=== PATIENT | male | born 1935 | race Hispanic/Latino ===

== ENCOUNTER 2018-05-24 20:26 | Emergency (ER) | payer OTHER ==
--- OUTSIDE RECORDS SUMMARY | 2018-05-24 20:27 | XMS REPORT | Clinical Summary ---
:1935 Author Organization [facility] Address [address] [place] [id number] Care Team Providers Name Role Phone Asked, No Pcp Primary Care Provider Unavailable Allergies Active Allergy Reactions Severity Noted Date Comments Morphine Anxiety Low 05/08/2016 Tetanus And Diphtheria Toxoids Other (See Comments) 05/08/2016 Restlessness Current Medications Prescription Sig. Disp. Refills Start Date End Date Status lisinopril Take 10 mg by Active (PRINIVIL,ZESTRIL) 10 MG mouth daily. tablet pantoprazole (PROTONIX) 40 Take 40 mg by Active MG EC tablet mouth daily. glimepiride (AMARYL) 2 MG Take 2 mg by mouth Active tablet 2 (two) times a day. Active Problems Not on file Family History Medical History Relation Name Comments Kidney disease Brother Liver cancer Mother Relation Name Status Comments Brother Mother Social History Tobacco Use Types Packs/Day Years Used Date Never Assessed Sex Assigned at Date Recorded Not on file Last Filed Vital Signs Not on file Plan of Treatment Not on file Results Not on fileafter 05/23/2017 Insurance Payer Benefit Plan / Group Subscriber ID Type Phone Address MEDICARE MEDICARE PART A AND B xxxxxxxxxx Medicare [place], [place] Home: [phone] [place], [place] [id number]
--- NOTE | 2018-05-24 22:12 | RAD REPORT ---
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 No fr acture, dislocation or aggressive marrow lesion. Heavily calcified pleural plaques are present on the left.
--- NOTE | 2018-05-24 23:25 | EDPHYS ---
Physician Documentation [facility] Name: Abhijit Peralta Age: 83 yrs Sex: Male : 1935 Arrival Date: 05/24/2018 Time: 20:26 Bed 12 Private MD: Oniel Adams R ED Physician Rao Hdz HPI: 05/24 23:07 This 83 yrs old Male presents to ER via Ambulatory with complaints of Shoulder pkl Pain, Numbness. 23:17 The patient or guardian complains of pain, that is acute. left shoulder. Onset: The pkl symptoms/episode began/occurred this morning. Historical: - Allergies: 20:54 Tetanus Immune Globulin; aj1 20:54 Morphine; aj1 - Home Meds: 20:54 Namenda 10 mg Oral tab 1 tab 2 times per day [Active]; aj1 - PMHx: 20:54 Dementia; Diabetes - NIDDM; gastric ulcers; Hypertension; LYMPHOMA; Prostate Cancer; aj1 Stomach CA - in remission; - Immunization history:: Flu vaccine is up to date. - Social history:: Smoking status: Patient/guardian denies using tobacco. - Ebola Screening: : Patient denies travel to an Ebola-affected area in the 21 days before illness onset. ROS: 23:17 Eyes: Negative for injury, pain, redness, and discharge, ENT: Negative for injury, pkl pain, and discharge, Neck: Negative for injury, pain, and swelling, Cardiovascular: Negative for chest pain, palpitations, and edema, Respiratory: Negative for shortness of breath, cough, wheezing, and pleuritic chest pain, Abdomen/GI: Negative for abdominal pain, nausea, vomiting, diarrhea, and constipation, Back: Negative for injury and pain, : Negative for injury, bleeding, discharge, and swelling, Skin: Negative for injury, rash, and discoloration, Neuro: Negative for headache, weakness, numbness, tingling, and seizure. 23:17 MS/extremity: Positive for decreased range of motion, pain, of the left shoulder. Exam: 23:17 Head/Face: Normocephalic, atraumatic. Eyes: Pupils equal round and reactive to light, pkl extra-ocular motions intact. Lids and lashes normal. Conjunctiva and sclera are non-icteric and not injected. Cornea within normal limits. Periorbital areas with no swelling, redness, or edema. ENT: Nares patent. No nasal discharge, no septal abnormalities noted. Tympanic membranes are normal and external auditory canals are clear. Oropharynx with no redness, swelling, or masses, exudates, or evidence of obstruction, uvula midline. Mucous membranes moist. Neck: Trachea midline, no thyromegaly or masses palpated, and no cervical lymphadenopathy. Supple, full range of motion without nuchal rigidity, or vertebral point tenderness. No Meningismus. Chest/axilla: Normal chest wall appearance and motion. Nontender with no deformity. No lesions are appreciated. Cardiovascular: Regular rate and rhythm with a normal S1 and S2. No gallops, murmurs, or rubs. Normal PMI, no JVD. No pulse deficits. Respiratory: Lungs have equal breath sounds bilaterally, clear to auscultation and percussion. No rales, rhonchi or wheezes noted. No increased work of breathing, no retractions or nasal flaring. Abdomen/GI: Soft, non-tender, with normal bowel sounds. No distension or tympany. No guarding or rebound. No evidence of tenderness throughout. Back: No spinal tenderness. No costovertebral tenderness. Full range of motion. Skin: Warm, dry with normal turgor. Normal color with no rashes, no lesions, and no evidence of cellulitis. Neuro: Awake and alert, GCS 15, oriented to person, place, time, and situation. Cranial nerves II-XII grossly intact. Motor strength 5/5 in all extremities. Sensory grossly intact. Cerebellar exam normal. Normal gait. 23:17 Musculoskeletal/extremity: Extremities: grossly normal except: noted in the left shoulder: decreased ROM, pain, Unable abduct left shoulder. Vital Signs: 20:54 BP 157 / 82; Pulse 69; Resp 18; Temp 97.8(TE); Pulse Ox 98% on R/A; Weight 73.03 kg aj1 (R); Pain 7/10; 21:40 BP 174 / 82; Pulse 64; Resp 18; Temp 98.5(O); Pain 10/10; lc1 22:50 BP 164 / 75; Pulse 58; Resp 18; Temp 97.9(O); lc1 23:50 BP 162 / 78; Pulse 58; Resp 18; Temp 97.9(O); lc1 MDM: 23:06 Patient medically screened. pk 23:21 Data reviewed: vital signs, nurses notes, EKG, radiologic studies, plain films. [facility] 05/24 20:56 Order name: XRAY Shoulder LEFT 2 view; Complete Time: 22:35 [facility] 05/24 22:36 Order name: EKG; Complete Time: 22:36 [facility] 05/24 22:36 Order name: EKG - Nurse/Tech; Complete Time: 01:02 [facility] 05/24 23:26 Order name: Sling; Complete Time: 00:12 pk Administered Medications: 23:41 Drug: Demerol 50 mg Route: IM; Site: right deltoid; [facility] 05/25 00:10 Follow up: Response: No adverse reaction [facility] 05/24 23:41 Drug: Zofran 4 mg Route: IM; Site: right deltoid; [facility] 05/25 00:09 Follow up: Response: No adverse reaction [facility] Disposition: 05/24/18 23:24 Discharged to Home. Impression: Left frozen shoulder. - Condition is Stable. - Prescriptions for Ultram 50 mg Oral Tablet - take 1 tablet by ORAL route every 8 hours As needed; 30 tablet. Diclofenac Sodium 75 mg Oral Tablet Sustained Release - take 1 tablet by ORAL route 2 times per day; 30 tablet. - Medication Reconciliation Form, Thank You Letter, Antibiotic Education, Prescription Opioid Use form. - Follow up: Aditya Willoughby MD; When: 2 - 3 days; Reason: Re-evaluation by your physician. - Problem is new. - Symptoms are unchanged. Signatures: Dispatcher [employer] [facility] Philomena Verduzoc RN RN aj1 Rao Hdz MD MD l Génesis Warren, SHELL PRESS OPERATOR-C SHELL PRESS OPERATOR-Csnw Vivienne Chew 1 Corrections: (The following items were deleted from the chart) 05/24 23:18 22:36 Chest Pa And Lat (2 Views)+RAD.RAD.[email or web address] ordered. [facility] 05/25 00:12 05/24 23:24 05/24/2018 23:24 Discharged to Home. Impression: Left frozen shoulder. 1 Condition is Stable. Forms are Medication Reconciliation Form, Thank You Letter, Antibiotic Education, Prescription Opioid Use. Follow up: Aditya Willoughby; When: 2 - 3 days; Reason: Re-evaluation by your physician. Problem is new. Symptoms are unchanged. pkl
--- NOTE | 2018-05-24 23:25 | ER ---
Nurse's Notes [facility] Name: Abhijit Peralta Age: 83 yrs Sex: Male : 1935 Arrival Date: 05/24/2018 Time: 20:26 Bed 12 Private MD: Oniel Adams R Diagnosis: Left frozen shoulder Presentation: 05/24 20:52 Presenting complaint: Patient states: He woke up from his nap with pain in his left aj1 shoulder, now he is unable to lift it and his hand feels numb. Limited ROM to left shoulder. Transition of care: patient was not received from another setting of care. Onset of symptoms was May 24, 2018 at 19:00. Risk Assessment: Do you want to hurt yourself or someone else? Patient reports no desire to harm self or others. Initial Sepsis Screen: Does the patient meet any 2 criteria? No. Patient's initial sepsis screen is negative. Does the patient have a suspected source of infection? No. Patient's initial sepsis screen is negative. Care prior to arrival: None. 20:52 Method Of Arrival: [facility] 20:52 Acuity: RAVI 4 aj1 Triage Assessment: 20:54 General: Appears in no apparent distress. uncomfortable, Behavior is calm, cooperative, aj1 appropriate for age. Pain: Complains of pain in anterior aspect of left shoulder and posterior aspect of left shoulder Pain currently is 7 out of 10 on a pain scale. Neuro: Level of Consciousness is awake, alert, obeys commands. Cardiovascular: Patient's skin is warm and dry. Respiratory: Airway is patent Respiratory effort is even, unlabored, Respiratory pattern is regular, symmetrical. Musculoskeletal: Range of motion: limited in left shoulder. Historical: - Allergies: 20:54 Tetanus Immune Globulin; aj1 20:54 Morphine; aj1 - Home Meds: 20:54 Namenda 10 mg Oral tab 1 tab 2 times per day [Active]; aj1 - PMHx: 20:54 Dementia; Diabetes - NIDDM; gastric ulcers; Hypertension; LYMPHOMA; Prostate Cancer; aj1 Stomach CA - in remission; - Immunization history:: Flu vaccine is up to date. - Social history:: Smoking status: Patient/guardian denies using tobacco. - Ebola Screening: : Patient denies travel to an Ebola-affected area in the 21 days before illness onset. Screenin:53 Abuse screen: Denies threats or abuse. Nutritional screening: No deficits noted. lc1 Tuberculosis screening: No symptoms or risk factors identified. Fall Risk None identified. Assessment: 21:40 Derm: Wound noted left arm Other: abrasion. lc1 22:43 General: Appears uncomfortable. Pain: Complains of pain in left shoulder and left arm lc1 and posterior aspect of left shoulder and anterior aspect of left shoulder Pain currently is 10 out of 10 on a pain scale. Pain began Today after waking up from his nap. Neuro: No deficits noted. Cardiovascular: No deficits noted. Respiratory: No deficits noted. GI: No deficits noted. GI: No deficits noted. No signs and/or symptoms were reported involving the gastrointestinal system. : No signs and/or symptoms were reported regarding the genitourinary system. EENT: No signs and/or symptoms were reported regarding the EENT system. Derm: No deficits noted. No signs and/or symptoms reported regarding the dermatologic system. Musculoskeletal: Reports numbness in left shoulder and left arm and posterior aspect of left shoulder and anterior aspect of left shoulder decreased ROM. Vital Signs: 20:54 BP 157 / 82; Pulse 69; Resp 18; Temp 97.8(TE); Pulse Ox 98% on R/A; Weight 73.03 kg aj1 (R); Pain 7/10; 21:40 BP 174 / 82; Pulse 64; Resp 18; Temp 98.5(O); Pain 10/10; lc1 22:50 BP 164 / 75; Pulse 58; Resp 18; Temp 97.9(O); lc1 23:50 BP 162 / 78; Pulse 58; Resp 18; Temp 97.9(O); lc1 ED Course: 20:26 Patient arrived in ED. es 20:27 Oniel Adams MD is Private Physician. es 20:54 Triage completed. aj1 20:54 Arm band placed on Patient placed in waiting room, Patient notified of wait time. aj1 21:41 Vivienne Chew is Primary Nurse. lc1 21:58 Patient moved to radiology via wheelchair. bb2 21:59 XRAY Shoulder LEFT 2 view In Process Unspecified. EDMS 22:50 Awaiting radiology results. lc1 22:53 Patient has correct armband on for positive identification. Bed in low position. lc1 23:06 Rao Hdz MD is Attending Physician. pkl 23:24 Aditya Willoughby MD is Referral Physician. pkl 05/25 00:10 Patient has correct armband on for positive identification. Bed in low position. Adult lc1 w/ patient. 00:10 No provider procedures requiring assistance completed. Patient did not have IV access lc1 during this emergency room visit. Sling applied to left arm. Administered Medications: 05/24 23:41 Drug: Demerol 50 mg Route: IM; Site: right deltoid; lc1 05/25 00:10 Follow up: Response: No adverse reaction lc1 05/24 23:41 Drug: Zofran 4 mg Route: IM; Site: right deltoid; lc1 05/25 00:09 Follow up: Response: No adverse reaction lc1 Outcome: 05/24 23:24 Discharge ordered by . pkl 05/25 00:10 Discharged to home via wheelchair, with family. lc1 Condition: good Discharge instructions given to patient, significant other, Instructed on discharge instructions, follow up and referral plans. medication usage, Demonstrated understanding of instructions, follow-up care, medications, Prescriptions given X 2. 00:12 Patient left the ED. lc1 Signatures: Dispatcher [employer] Philomena Ivy RN RN aj1 Rao Hdz MD MD pkl Salyer, Edna es Calhoun, Lisa lc1 Eunice Ballard2
[2018-05-24] MEDS ORDERED: MEPERIDINE HCL 50 MG/ML AMP ONE (23:27)
[2018-05-24] MEDS ORDERED: ONDANSETRON 4 MG/2 ML VIAL ONE (23:27)
[2018-05-25 00:36] VITALS: O2SAT 98
[2018-05-25 00:38] VITALS: TEMP 97.9
[2018-05-25 00:39] VITALS: BP 162/78
--- NOTE | 2018-05-25 07:14 | EKG ---
Test Date: 2018-05-24 Test Time: 23:29:30 Dance Hall Hostess: REGAN MEASUREMENT RESULTS: Intervals: Rate: 57 WY: 206 QRSD: 80 QT: 418 QTc: 406 [place]: P: 57 WY: 206 QRS: -36 T: -20 INTERPRETIVE STATEMENTS: Sinus bradycardia Left axis deviation Abnormal ECG Compared to ECG 10/14/2017 12:59:15 Left-axis deviation now present Atrial premature complex(es) no longer present Electronically Signed On 05-25-18 07:13:44 CDT by Zacarias Hayes
== END 2018-05-25 00:12 | disposition home or self-care (01) ==
LOC: ER 20:26
DX: M75.02 Adhesive capsulitis of left shoulder (principal); I10 Essential (primary) hypertension; E11.9 Type 2 diabetes mellitus without complications; Z88.5 Allergy status to narcotic agent; Z88.7 Allergy status to serum and vaccine; Z85.46 Personal history of malignant neoplasm of prostate; Z85.028 Personal history of other malignant neoplasm of stomach
CPT/HCPCS: 73030; 93005; 96372; 99284; J2175; J2405

== ENCOUNTER 2018-06-08 09:45 | Emergency (ER) | payer OTHER ==
--- OUTSIDE RECORDS SUMMARY | 2018-06-08 09:47 | XMS REPORT | Clinical Summary ---
:1935 Author Organization [facility] Address [address] [place] [id number] Care Team Providers Name Role Phone Asked, [...] Not on file Results Not on fileafter 06/07/2017 Insurance Payer Benefit Plan / Group Subscriber ID Type Phone Address MEDICARE MEDICARE PART A AND B xxxxxxxxxx Medicare [place], [place] Home: [phone] [place], [place] [address]
--- NOTE | 2018-06-08 11:06 | RAD REPORT ---
EXAM DESCRIPTION: CT - Head Brain Wo Cont - 06/08/2018 10:51 am CLINICAL HISTORY: HEADACHE COMPARISON: None TECHNIQUE: All CT scans are performed using dose optimization technique as appropriate and may inclu de automated exposure control or mA/KV adjustment according to patient size. FINDINGS: No intracranial hemorrhage, hydrocephalus or extra-axial fluid collection.Prominent brain atrophy is noted, greatest in the frontal lobes.No areas of brain edema or evidence of midline shift. Chronic thickening of the left maxillary sinuses noted. The paranasal sinuses and mastoids are otherw ise clear. The calvarium is intact. IMPRESSION: No acute intracranial abnormality.
--- NOTE | 2018-06-08 11:19 | RAD REPORT ---
EXAM DESCRIPTION: RAD - Chest Pa And Lat (2 Views) - 06/08/2018 11:13 am CLINICAL HISTORY: COUGH Chest pain. COMPARISON: Chest Pa And Lat (2 Views) dated 11/10/2017; Chest Single View dated 10/14/2017; Chest Si ngle View dated 04/13/2017; Chest Single View dated 09/03/2016 FINDINGS: Extensive calcified pleural plaquing is present bilaterally most compatible prior asbestos exposure. Subsegmental atelectasis is present left lung base. A focal infiltrate is not seen. The he art is normal in size. No displaced fractures. Mild degenerative changes are present both shoulders. IMPRESSION: Extensive bilateral calcified pleural plaquing compatible with prior asbestos exposure. No definitive evidence of focal pulmonary infiltrate.
[2018-06-08 11:31] LABS: Absolute Monocytes 0.8 K/uL (0.1-1.3); Absolute Neutrophil 7.6 K/uL (1.8-8.0); Basophils % 0.4 % (0-1.3); Hematocrit 40.9 % (39.6-49.0); Lymphocytes % 18.6 % (15.3-44.8); MCH 29.5 pg (27.0-35.0); MCV 88.9 fL (80-100); MPV 8.9 fL (7.6-11.3); Monocytes % 7.1 % (3.3-12.3)
[2018-06-08 11:55] LABS: Albumin 3.2 g/dL (3.4-5.0); Bilirubin Total 0.4 mg/dL (0.2-1.0); Potassium 4.8 mmol/L (3.5-5.1); Protein, Total 7.2 g/dL (6.4-8.2)
[2018-06-08] MEDS ORDERED: NA CHLORIDE 0.9% 1,000 ML ONE (12:13)
--- NOTE | 2018-06-08 12:28 | ER ---
Nurse's Notes [facility] Name: Abhijit Peralta Age: 83 yrs Sex: Male : 1935 Arrival Date: 06/08/2018 Time: 09:46 Bed 20 Private MD: Diagnosis: Streptococcal pharyngitis Presentation: 06/08 10:04 Presenting complaint: Patient states: Cough, sore throat, and headache since yesterday. aj1 Reports he was unable to sleep last night because of the cough. Denies fever, SOB. Transition of care: patient was not received from another setting of care. Onset of symptoms was June 07, 2018. Risk Assessment: Do you want to hurt yourself or someone else? Patient reports no desire to harm self or others. Initial Sepsis Screen: Does the patient meet any 2 criteria? No. Patient's initial sepsis screen is negative. Initial Sepsis Screen: Does the patient have a suspected source of infection? Yes: Productive cough/pneumonia. Care prior to arrival: None. 10:04 Method Of Arrival: Ambulatory aj1 10:04 Acuity: RAVI 4 aj1 Triage Assessment: 10:07 General: Appears in no apparent distress. comfortable, Behavior is calm, cooperative, aj1 appropriate for age. Pain: Complains of pain in forehead, left aspect of posterior pharynx and right aspect of posterior pharynx Pain currently is 3 out of 10 on a pain scale. EENT: Reports nasal congestion nasal discharge sore throat. Neuro: Level of Consciousness is awake, alert, obeys commands. Cardiovascular: Patient's skin is warm and dry. Respiratory: Airway is patent Respiratory effort is even, unlabored, Respiratory pattern is regular, symmetrical, Denies shortness of breath. Historical: - Allergies: 10:07 Morphine; aj1 10:07 Tetanus Immune Globulin; aj1 - Home Meds: 10: Namenda 10 mg Oral tab 1 tab 2 times per day [Active]; aj1 12:20 omeprazole 40 mg Oral cpDR [Active]; amlodipine 2.5 mg tab 1 tab once daily [Active]; em Zofran (as hydrochloride) 4 mg Oral tab as needed [Active]; pravastatin 20 mg oral tab 1 tab once daily [Active]; - PMHx: 10:07 Dementia; Diabetes - NIDDM; gastric ulcers; Hypertension; LYMPHOMA; Prostate Cancer; aj1 Stomach CA - in remission; - Immunization history:: Flu vaccine is not up to date. - Social history:: Smoking status: Patient/guardian denies using tobacco. - Ebola Screening: : Patient denies travel to an Ebola-affected area in the 21 days before illness onset. Screenin:30 Abuse screen: Denies threats or abuse. Nutritional screening: No deficits noted. em Tuberculosis screening: No symptoms or risk factors identified. Fall Risk None identified. Assessment: 10:25 General: Appears in no apparent distress. comfortable, Behavior is calm, cooperative. em Pain: Complains of pain in forehead Pain currently is 3 out of 10 on a pain scale. Neuro: Level of Consciousness is awake, alert, obeys commands, Oriented to person, place, time, situation. Cardiovascular: Denies chest pain, nausea, shortness of breath, Capillary refill < 3 seconds Patient's skin is warm and dry. Respiratory: Reports cough that is non-productive, Airway is patent Respiratory effort is even, unlabored, Respiratory pattern is regular, symmetrical. GI: Abdomen is flat, Patient currently denies diarrhea, nausea, vomiting. : No signs and/or symptoms were reported regarding the genitourinary system. EENT: No signs and/or symptoms were reported regarding the EENT system. Derm: Skin is intact, Skin is pink, warm \T\ dry. Musculoskeletal: Range of motion: intact in all extremities. 10:26 Reassessment: I agree with previous assessment. hb 11:25 Reassessment: Patient appears in no apparent distress at this time. Patient and/or em family updated on plan of care and expected duration. Pain level reassessed. Patient is alert, oriented x 3, equal unlabored respirations, skin warm/dry/pink. Patient states feeling better. 12:30 Reassessment: Patient appears in no apparent distress at this time. Patient and/or em family updated on plan of care and expected duration. Pain level reassessed. Patient is alert, oriented x 3, equal unlabored respirations, skin warm/dry/pink. Patient states feeling better. Vital Signs: 10:07 BP 162 / 78; Pulse 62; Resp 18; Temp 98.1(O); Pulse Ox 99% on R/A; Weight 76.66 kg (R); aj1 Height 5 ft. 6 in. (167.64 cm) (R); Pain 3/10; 11:25 BP 165 / 71; Pulse 58; Resp 16; Pulse Ox 99% on R/A; em 12:30 BP 157 / 64; Pulse 60; Resp 18; Pulse Ox 98% on R/A; em 10:07 Body Mass Index 27.28 (76.66 kg, 167.64 cm) aj1 ED Course: 09:46 Patient arrived in ED. sb2 10:06 Triage completed. aj1 10:07 Arm band placed on Patient placed in an exam room. aj1 10:11 Conner Manning, JOHNNY is PHCP. pm1 10:11 Flako Sousa MD is Attending Physician. pm1 10:29 Spencer Andrews LVN is Primary Nurse. em 10:30 Patient has correct armband on for positive identification. Bed in low position. Call em light in reach. Side rails up X2. Adult w/ patient. 10:30 No provider procedures requiring assistance completed. em 10:33 First set of blood cultures drawn by me. dh3 10:33 Missed attempt(s): 20 gauge in left antecubital area. Bleeding controlled, band aid dh3 applied, catheter tip intact. 10:48 Second set of blood cultures drawn by me. dh3 10:48 Missed attempt(s): 20 gauge in right antecubital area. Bleeding controlled, band aid dh3 applied, catheter tip intact. 10:50 CT completed. Patient moved to CT via wheelchair. Patient moved back from CT. cw1 10:51 CT Head Brain wo Cont In Process Unspecified. EDMS 11:05 Initial lab(s) drawn, by ED staff, sent to lab. Inserted saline lock: 20 gauge in left 3 antecubital area, using aseptic technique. Blood collected. by Spencer Andrews LVN. 11:06 Flu and/or RSV swab sent to lab. Strep swab sent to lab. dh3 11:12 Chest Pa And Lat (2 Views) XRAY In Process Unspecified. EDMS 13:19 IV discontinued, intact, bleeding controlled, No redness/swelling at site. Pressure em dressing applied. Administered Medications: 12:16 Drug: NS 0.9% 1000 ml Route: IV; Rate: 1000 ml; Site: left antecubital; em 12:50 Drug: Bicillin L-A 1.2 million units Route: IM; Site: right gluteus; em 13:11 Follow up: Response: No adverse reaction em Outcome: 12:27 Discharge ordered by . pm1 13:19 Discharged to home ambulatory, with family. em 13:19 Condition: good 13:19 Discharge instructions given to patient, Instructed on discharge instructions, follow up and referral plans. Demonstrated understanding of instructions, follow-up care. 13:20 Patient left the ED. em Signatures: Dispatcher [employer] EDPhilomena Arroyo RN RN aj1 Spencer Andrews, HOTEL FRONT DESK CLERK HOTEL FRONT DESK CLERK Valeria Adams 1 Conner Manning NP LIBRARY CUSTOMER SERVICE CLERK pm1 Leda Cuortney RN RN Iqra Washburn 3 Mikaela Lakhani sb2 Corrections: (The following items were deleted from the chart) 13:19 13:19 Patient did not have IV access during this emergency room visit. em em 19:24 13:30 BP 160 / 67; Pulse 64bpm; Resp 16bpm; Pulse Ox 97% RA; Pain 0/10; em em
--- NOTE | 2018-06-08 12:28 | EDPHYS ---
Physician Documentation [facility] Name: Abhijit Peralta Age: 83 yrs Sex: Male : 1935 Arrival Date: 06/08/2018 Time: 09:46 Bed 20 Private MD: ED Physician Flako Sousa HPI: 06/08 11:52 This 83 yrs old Male presents to ER via Ambulatory with complaints of Sore pm1 throat, cough, headache. 11:54 The patient presents with sore throat, cough, headache. The patient describes throat pm1 pain as raw, scratchy. Onset: The symptoms/episode began/occurred yesterday. Severity of symptoms: in the emergency department the symptoms are unchanged. Modifying factors: The symptoms are alleviated by nothing, the symptoms are aggravated by nothing, Patient's oral intake status: good unaware of sick contact. Associated signs and symptoms: Pertinent positives: headache, Dry cough, Pertinent negatives chest pain, dysphagia, fever, shortness of breath, chills. Patient's cancer is in remission. Historical: - Allergies: 10:07 Morphine; aj1 10:07 Tetanus Immune Globulin; aj1 - Home Meds: 10:07 Namenda 10 mg Oral tab 1 tab 2 times per day [Active]; aj1 12:20 omeprazole 40 mg Oral cpDR [Active]; amlodipine 2.5 mg tab 1 tab once daily [Active]; em Zofran (as hydrochloride) 4 mg Oral tab as needed [Active]; pravastatin 20 mg oral tab 1 tab once daily [Active]; - PMHx: 10:07 Dementia; Diabetes - NIDDM; gastric ulcers; Hypertension; LYMPHOMA; Prostate Cancer; aj1 Stomach CA - in remission; - Immunization history:: Flu vaccine is not up to date. - Social history:: Smoking status: Patient/guardian denies using tobacco. - Ebola Screening: : Patient denies travel to an Ebola-affected area in the 21 days before illness onset. ROS: 11:54 Constitutional: Negative for fever, chills, and weight loss, Eyes: Negative for injury, pm1 pain, redness, and discharge, Neck: Negative for injury, pain, and swelling, Cardiovascular: Negative for chest pain, palpitations, and edema. 11:54 Abdomen/GI: Negative for abdominal pain, nausea, vomiting, diarrhea, and constipation, Back: Negative for injury and pain, MS/Extremity: Negative for injury and deformity, Skin: Negative for injury, rash, and discoloration. 11:54 : Negative for injury, bleeding, discharge, and swelling. 11:54 ENT: Positive for sore throat, Negative for drainage from ear(s), ear pain, rhinorrhea, sinus congestion, dental pain, difficulty swallowing, difficulty handling secretions, hoarseness. 11:54 Respiratory: Positive for cough, Negative for shortness of breath, sputum production, wheezing. 11:54 Neuro: Positive for headache, Negative for dizziness, numbness, tingling, weakness. Exam: 11:54 Constitutional: This is a well developed, well nourished patient who is awake, alert, pm1 and in no acute distress. Head/Face: Normocephalic, atraumatic. Eyes: Pupils equal round and reactive to light, extra-ocular motions intact. Lids and lashes normal. Conjunctiva and sclera are non-icteric and not injected. Cornea within normal limits. Periorbital areas with no swelling, redness, or edema. 11:54 Neck: Trachea midline, no thyromegaly or masses palpated, and no cervical lymphadenopathy. Supple, full range of motion without nuchal rigidity, or vertebral point tenderness. No Meningismus. Chest/axilla: Normal chest wall appearance and motion. Nontender with no deformity. No lesions are appreciated. Cardiovascular: Regular rate and rhythm with a normal S1 and S2. No gallops, murmurs, or rubs. Normal PMI, no JVD. No pulse deficits. Respiratory: Lungs have equal breath sounds bilaterally, clear to auscultation and percussion. No rales, rhonchi or wheezes noted. No increased work of breathing, no retractions or nasal flaring. Abdomen/GI: Soft, non-tender, with normal bowel sounds. No distension or tympany. No guarding or rebound. No evidence of tenderness throughout. Back: No spinal tenderness. No costovertebral tenderness. Full range of motion. Skin: Warm, dry with normal turgor. Normal color with no rashes, no lesions, and no evidence of cellulitis. MS/ Extremity: Pulses equal, no cyanosis. Neurovascular intact. Full, normal range of motion. 11:54 ENT: External ear(s): are unremarkable, Ear canal(s): are normal, TM's: are normal, Nose: is normal, no acute changes, Mouth: is normal, drooling, is not appreciated, No trismus present, Posterior pharynx: Airway: normal, no evidence of obstruction, patent, Tonsils: bilaterally enlarged, with erythema, no exudate, no ulcerations, swelling, is not appreciated, erythema, that is mild, exudate, is not appreciated, peritonsillar mass, is not appreciated, pooling of secretions, is not appreciated. 11:54 Neuro: Orientation: is normal, Motor: moves all fours. Vital Signs: 10:07 BP 162 / 78; Pulse 62; Resp 18; Temp 98.1(O); Pulse Ox 99% on R/A; Weight 76.66 kg (R); aj1 Height 5 ft. 6 in. (167.64 cm) (R); Pain 3/10; 11:25 BP 165 / 71; Pulse 58; Resp 16; Pulse Ox 99% on R/A; em 12:30 BP 157 / 64; Pulse 60; Resp 18; Pulse Ox 98% on R/A; em 10:07 Body Mass Index 27.28 (76.66 kg, 167.64 cm) aj1 MDM: 10:12 Patient medically screened. pm1 11:54 Data reviewed: vital signs. Data interpreted: Pulse oximetry: on. pm1 12:27 Counseling: I had a detailed discussion with the patient and/or guardian regarding: the pm1 historical points, exam findings, and any diagnostic results supporting the discharge/admit diagnosis, lab results, radiology results, the need for outpatient follow up, to return to the emergency department if symptoms worsen or persist or if there are any questions or concerns that arise at home. 12:30 Differential diagnosis: group A strep tonsillitis, influenza, tonsillitis, upper pm1 respiratory infection, Pneumonia. 13:30 ED course: Patient ate whole regular diet tray and completed IV fluids. Patient wants pm1 to go home to continue working on his lawn. 06/08 10:22 Order name: CBC with Diff; Complete Time: 11:49 pm1 06/08 10:22 Order name: CMP; Complete Time: 12:05 pm1 06/08 10:22 Order name: Chest Pa And Lat (2 Views) XRAY; Complete Time: 11:22 pm1 06/08 10:22 Order name: Strep; Complete Time: 11:49 pm1 06/08 10:22 Order name: Flu; Complete Time: 11:49 pm1 06/08 10:22 Order name: Blood Culture Adult (2) pm1 06/08 10:22 Order name: IV Saline Lock; Complete Time: 11:06 pm1 06/08 10:22 Order name: CT Head Brain wo Cont; Complete Time: 11:22 pm1 06/08 12:07 Order name: Diet Regular; Complete Time: 12:08 pm1 Administered Medications: 12:16 Drug: NS 0.9% 1000 ml Route: IV; Rate: 1000 ml; Site: left antecubital; em 12:50 Drug: Bicillin L-A 1.2 million units Route: IM; Site: right gluteus; em 13:11 Follow up: Response: No adverse reaction em Disposition: 14:09 Co-signature as Attending Physician, Flako Sousa MD. rn Disposition: 06/08/18 12:27 Discharged to Home. Impression: Streptococcal pharyngitis. - Condition is Stable. - Discharge Instructions: Strep Throat. - Medication Reconciliation Form, Thank You Letter, Antibiotic Education, Prescription Opioid Use form. - Follow up: Emergency Department; When: As needed; Reason: Worsening of condition. Follow up: Private Physician; When: 2 - 3 days; Reason: Recheck today's complaints, Continuance of care, Re-evaluation by your physician. - Problem is new. - Symptoms have improved. Signatures: Dispatcher [employer] Philomena Ivy RN RN aj1 Spencer Andrews, NUCLEAR PLANT TECHNICAL ADVISOR NUCLEAR PLANT TECHNICAL ADVISOR em Flako Sousa MD MD rn Marinas, Patrick, LEASE EXAMINER LEASE EXAMINER pm1 Corrections: (The following items were deleted from the chart) 13:20 12:27 06/08/2018 12:27 Discharged to Home. Impression: Streptococcal pharyngitis. em Condition is Stable. Discharge Instructions: Strep Throat. Prescriptions for Amoxicillin 500 mg Oral Capsule - take 1 capsule by ORAL route every 8 hours for 10 days; 30 tablet. and Forms are Medication Reconciliation Form, Thank You Letter, Antibiotic Education, Prescription Opioid Use. Follow up: Emergency Department; When: As needed; Reason: Worsening of condition. Follow up: Private Physician; When: 2 - 3 days; Reason: Recheck today's complaints, Continuance of care, Re-evaluation by your physician. Problem is new. Symptoms have improved. pm1
[2018-06-08] MEDS ORDERED: PEN G BENZ LA 2.4 MU/4 ML SYRINGE IM ONE (12:41)
[2018-06-08] MEDS ORDERED: PEN G BENZ LA 1.2MU/2ML SYRINGE IM ONE (12:44)
[2018-06-08 13:25] VITALS: TEMP 98.1; O2SAT 99
[2018-06-08 13:26] VITALS: BP 165/71
== END 2018-06-08 13:20 | disposition home or self-care (01) ==
LOC: ER 09:45
DX: J02.0 Streptococcal pharyngitis (principal); Z88.5 Allergy status to narcotic agent; Z88.8 Allergy status to other drugs, medicaments and biological substances; E11.9 Type 2 diabetes mellitus without complications; I10 Essential (primary) hypertension; Z85.46 Personal history of malignant neoplasm of prostate; Z85.028 Personal history of other malignant neoplasm of stomach
CPT/HCPCS: 36415; 70450; 71046; 80053; 85025; 87040 ×2; 87081; 87804 ×2; J0561; J7030; 96372; 99284

== ENCOUNTER 2018-11-08 08:12 | Emergency (ER) | payer OTHER ==
--- OUTSIDE RECORDS SUMMARY | 2018-11-08 08:14 | XMS REPORT | Clinical Summary ---
:1935 Author Organization [facility] Address [address] [place] [id number] Care Team Providers Name Role Phone Asked, No Pcp Primary Care Provider Unavailable Allergies Active Allergy Reactions Severity Noted Date Comments Morphine Anxiety Low 05/08/2016 Tetanus And Diphtheria Toxoids Other (See Comments) 05/08/2016 Restlessness Medications Medication Sig Dispensed Refills Start Date End Date Status lisinopril Take 10 mg by 0 Active (PRINIVIL,ZESTRIL) 10 MG mouth daily. tablet pantoprazole (PROTONIX) Take 40 mg by 0 Active 40 MG EC tablet mouth daily. glimepiride (AMARYL) 2 Take 2 mg by 0 Active MG tablet mouth 2 (two) times a day. Active Problems Not on file Family History Medical History Relation Name Comments Kidney disease Brother Liver cancer Mother Relation Name Status Comments Brother Mother Social History Tobacco Use Types Packs/Day Years Used Date Never Assessed Sex Assigned at Date Recorded Not on file Job Start Date Occupation Industry Not on file Not on file Not on file Travel History Travel Start Travel End No recent travel history available. Last Filed Vital Signs Not on file Plan of Treatment Not on file Results Not on fileafter 11/07/2017 Insurance Payer Benefit Plan / Group Subscriber ID Type Phone Address MEDICARE MEDICARE PART A AND B xxxxxxxxxx Medicare [place], [place] (Home) [place] [address] Advance Directives Patient has advance care planning documents on file. For more information, please contact:[address] [address]
[2018-11-08 08:54] LABS: Absolute Lymphocytes (CBC) 1.1 K/uL (0.7-4.9); Absolute Monocytes 0.5 K/uL (0.1-1.3); Absolute Neutrophil 3.8 K/uL (1.8-8.0); Basophils % 0.8 % (0-1.3); Eosinophils % 2.4 % (0-4.4); Hematocrit 41.7 % (39.6-49.0); Lymphocytes % 19.8 % (15.3-44.8); MPV 8.7 fL (7.6-11.3); Monocytes % 8.1 % (3.3-12.3)
[2018-11-08 09:15] LABS: Albumin 3.4 g/dL (3.4-5.0); Bilirubin Direct 0.1 mg/dL (0-0.2); Bilirubin Total 0.5 mg/dL (0.2-1.0); Potassium 4.3 mmol/L (3.5-5.1); Protein, Total 7.7 g/dL (6.4-8.2)
--- NOTE | 2018-11-08 10:22 | RAD REPORT ---
EXAM DESCRIPTION: CTAbdomen Pelvis W Contrast - 11/08/2018 10:09 am CLINICAL HISTORY: Abdominal pain. ABD PAIN COMPARISON: Abdomen Pelvis W Contrast dated 04/13/2017; CT ABD PELVIS W CONTRAST dated 07/14/2015; C T ABD PELVIS W CONTRAST dated 02/09/2014; CT ABD PELVIS W CONTRAST dated 08/05/2013 TECHNIQUE: Biphasic CT imaging of the abdomen and pelvis was performed with 100 ml non-ionic IV cont rast. All CT scans are performed using dose optimization technique as appropriate and may include automated exposure control or mA/KV adjustment according to patient size. FINDINGS: Linear subsegmental atelectasis versus scarring is present posterior lung bases.Calcified pleural plaques are present in both the lung bases. The liver contains a 2.4 cm benign-appearing cyst. No intrahepatic biliary dilatation or aggressive l iver lesion. The spleen, pancreas, left adrenal gland are normal. The right adrenal gland contains a 20 mm mass, likely a benign adenoma. Several small cortical cysts are present along the left kidney. No hydronephrosis. No bowel obstruction, free air, free fluid or abscess. Sigmoid diverticulosis coli is present without diverticulitis. The appendix is normal. No evidence of significant lymphadenopathy. Postsurgical ch anges are present along the pelvic sidewall. Moderate lumbosacral degenerative changes. Bilateral fat containing inguinal hernias. IMPRESSION: No acute intra-abdominal or pelvic finding. Diverticulosis coli without diverticulitis. Calcified pleural plaquing likely related to prior asbestos exposure.
[2018-11-08 10:56] LABS: Urine Bacteria <20 /HPF (NONE SEEN); Urine Culture Reflex Order NOT NEEDED; Urine RBC <5 /HPF (NONE SEEN)
[2018-11-08 11:01] LABS: Urine Blood TRACE (NEG); Urine Glucose NEGATIVE (NEG); Urine Protein 2+ (NEG)
--- NOTE | 2018-11-08 11:44 | ER ---
Nurse's Notes [facility] Name: Abhijit Peralta Age: 83 yrs Sex: Male : 1935 Arrival Date: 11/08/2018 Time: 08:15 Bed 6 Private MD: Oniel Adams R Diagnosis: Generalized abdominal pain Presentation: 11/08 08:32 Presenting complaint: Patient states: right sided abd pain X 3-4 days worse last night. iw pian aggravated by bending over, vomited 2-3 times since yesterday, denies diarrhea, also c/o burning with urination X 1 month. Transition of care: patient was not received from another setting of care. Onset of symptoms was November 05, 2018. Risk Assessment: Do you want to hurt yourself or someone else? Patient reports no desire to harm self or others. Initial Sepsis Screen: Does the patient meet any 2 criteria? No. Patient's initial sepsis screen is negative. Does the patient have a suspected source of infection? No. Patient's initial sepsis screen is negative. Care prior to arrival: None. 08:32 Method Of Arrival: Wheelchair iw 08:32 Acuity: RAVI 3 iw Historical: - Allergies: 08:32 Morphine; iw 08:32 Tetanus Immune Globulin; iw - Home Meds: 09:29 amlodipine 2.5 mg tab 1 tab once daily [Active]; Namenda 10 mg Oral tab 1 tab 2 times ph per day [Active]; omeprazole 40 mg Oral cpDR [Active]; pravastatin 20 mg Oral tab 1 tab once daily [Active]; Zofran (as hydrochloride) 4 mg Oral tab as needed [Active]; - PMHx: 08:32 Dementia; Diabetes - NIDDM; gastric ulcers; Hypertension; LYMPHOMA; Prostate Cancer; iw Stomach CA - in remission; - PSHx: 08:32 back; prostatectomy; iw - Immunization history:: Adult Immunizations not up to date. - Social history:: Smoking status: Patient/guardian denies using tobacco. - Ebola Screening: : Patient negative for fever greater than or equal to 101.5 degrees Fahrenheit, and additional compatible Ebola Virus Disease symptoms Patient denies exposure to infectious person Patient denies travel to an Ebola-affected area in the 21 days before illness onset No symptoms or risks identified at this time. Screenin:28 Abuse screen: Denies threats or abuse. Denies injuries from another. Nutritional ph screening: No deficits noted. Tuberculosis screening: No symptoms or risk factors identified. Fall Risk None identified. Assessment: 08:50 Reassessment: Pt completed PO contrast, CT notified. ph 09:00 General: Appears in no apparent distress. comfortable, well groomed, Behavior is calm, ph cooperative, appropriate for age, Denies fever, chills. Pain: Complains of pain in right upper quadrant and right lower quadrant. Neuro: Level of Consciousness is awake, alert, obeys commands, Oriented to person, place, time, situation. Cardiovascular: Capillary refill < 3 seconds in bilateral fingers Patient's skin is warm and dry. Respiratory: Airway is patent Respiratory effort is even, unlabored, Respiratory pattern is regular, symmetrical. GI: Abdomen is round non-distended, Bowel sounds present X 4 quads. Abd is soft X 4 quads Reports lower abdominal pain, upper abdominal pain, nausea, vomiting, Patient currently denies diarrhea. : Reports burning with urination, urinary frequency. Derm: Skin is intact, is healthy with good turgor, Skin is pink, warm \T\ dry. Musculoskeletal: Circulation, motion, and sensation intact. Range of motion: intact in all extremities. 10:15 Reassessment: Patient appears in no apparent distress at this time. No changes from aj1 previously documented assessment. Patient and/or family updated on plan of care and expected duration. Pain level reassessed. Patient is alert, oriented x 3, equal unlabored respirations, skin warm/dry/pink. 11:15 Reassessment: Patient appears in no apparent distress at this time. No changes from aj1 previously documented assessment. Patient and/or family updated on plan of care and expected duration. Pain level reassessed. Patient is alert, oriented x 3, equal unlabored respirations, skin warm/dry/pink. 12:02 Reassessment: Patient appears in no apparent distress at this time. Patient and/or iw family updated on plan of care and expected duration. Pain level reassessed. Patient is alert, oriented x 3, equal unlabored respirations, skin warm/dry/pink. Patient states feeling better. Patient states symptoms have improved. Vital Signs: 08:32 BP 164 / 78; Pulse 73; Resp 16 S; Pulse Ox 98% on R/A; Weight 65.77 kg; Height 5 ft. 2 iw in. (157.48 cm); Pain 5/10; 09:30 BP 167 / 80; Pulse 71; Resp 18; Pulse Ox 99% on R/A; ph 12:02 BP 154 / 74; Pulse 87; Resp 16; Pulse Ox 98% on R/A; iw 08:32 Body Mass Index 26.52 (65.77 kg, 157.48 cm) iw ED Course: 08:15 Patient arrived in ED. as 08:15 Oniel Adams MD is Private Physician. as 08:20 Carl Gonzalez MD is Attending Physician. gs 08:32 Arm band placed on. iw 08:35 Triage completed. iw 08:36 Ariana Trejo, RN is Primary Nurse. ph 08:49 Initial lab(s) drawn, by me, sent to lab. Inserted saline lock: 22 gauge in left jb1 antecubital area, using aseptic technique. Blood collected. 09:28 Patient has correct armband on for positive identification. Placed in gown. Bed in low ph position. Call light in reach. Side rails up X 1. Pulse ox on. NIBP on. Warm blanket given. 09:[address] via stretcher. sj 10:00 Urine collected: clean catch specimen, cloudy, ewa colored. jb1 10:02 CT completed. Patient tolerated procedure well. Patient moved back from CT. sj 10:09 CT Abd/Pelvis - W/Contrast In Process Unspecified. EDMS 12:03 No provider procedures requiring assistance completed. IV discontinued, intact, iw bleeding controlled, No redness/swelling at site. Pressure dressing applied. Administered Medications: 12:03 Not Given (Patient Refused): Zofran 4 mg IVP once; over 2 minutes iw Outcome: 11:44 Discharge ordered by MD. gs 12:02 Discharged to home ambulatory, with family. iw 12:02 Condition: good 12:02 Discharge instructions given to patient, family, Instructed on discharge instructions, follow up and referral plans. medication usage, Demonstrated understanding of instructions, follow-up care, medications, Prescriptions given X 1. 12:03 Patient left the ED. iw Signatures: Dispatcher [employer] EDMS Patrick Garcia jb1 Philomena Verduzco RN RN aj1 Lia Spivey Amelia as Williams, Irene, RN RN Ariana Crawford RN RN ph Carl Gonzalez MD MD gs
--- NOTE | 2018-11-08 11:45 | EDPHYS ---
Physician Documentation [facility] Name: Abhijit Peralta Age: 83 yrs Sex: Male : 1935 Arrival Date: 11/08/2018 Time: 08:15 Bed 6 Private MD: Oniel Adams R ED Physician Carl Gonzalez HPI: 11/08 11:38 This 83 yrs old Male presents to ER via Wheelchair with complaints of gs Abdominal Pain, Vomiting. 11:38 The patient presents to the emergency department with abdominal pain. Onset: The gs symptoms/episode began/occurred yesterday. Possible causes: unknown. The symptoms are aggravated by sitting up The symptoms are alleviated by remaining still. Associated signs and symptoms: Pertinent positives: vomiting, Pertinent negatives: diarrhea. Severity of symptoms: At their worst the symptoms were moderate in the emergency department the symptoms have improved mildly. The patient has experienced similar episodes in the past, a few times. The patient has not recently seen a physician. Historical: - Allergies: 08:32 Morphine; iw 08:32 Tetanus Immune Globulin; iw - Home Meds: 09:29 amlodipine 2.5 mg tab 1 tab once daily [Active]; Namenda 10 mg Oral tab 1 tab 2 times ph per day [Active]; omeprazole 40 mg Oral cpDR [Active]; pravastatin 20 mg Oral tab 1 tab once daily [Active]; Zofran (as hydrochloride) 4 mg Oral tab as needed [Active]; - PMHx: 08:32 Dementia; Diabetes - NIDDM; gastric ulcers; Hypertension; LYMPHOMA; Prostate Cancer; iw Stomach CA - in remission; - PSHx: 08:32 back; prostatectomy; iw - Immunization history:: Adult Immunizations not up to date. - Social history:: Smoking status: Patient/guardian denies using tobacco. - Ebola Screening: : Patient negative for fever greater than or equal to 101.5 degrees Fahrenheit, and additional compatible Ebola Virus Disease symptoms Patient denies exposure to infectious person Patient denies travel to an Ebola-affected area in the 21 days before illness onset No symptoms or risks identified at this time. ROS: 11:38 All other systems are negative. gs Exam: 11:38 Head/Face: Normocephalic, atraumatic. Eyes: Pupils equal round and reactive to light, gs extra-ocular motions intact. Lids and lashes normal. Conjunctiva and sclera are non-icteric and not injected. Cornea within normal limits. Periorbital areas with no swelling, redness, or edema. ENT: Nares patent. No nasal discharge, no septal abnormalities noted. Tympanic membranes are normal and external auditory canals are clear. Oropharynx with no redness, swelling, or masses, exudates, or evidence of obstruction, uvula midline. Mucous membranes moist. Neck: Trachea midline, no thyromegaly or masses palpated, and no cervical lymphadenopathy. Supple, full range of motion without nuchal rigidity, or vertebral point tenderness. No Meningismus. Chest/axilla: Normal chest wall appearance and motion. Nontender with no deformity. No lesions are appreciated. Cardiovascular: Regular rate and rhythm with a normal S1 and S2. No gallops, murmurs, or rubs. Normal PMI, no JVD. No pulse deficits. Respiratory: Lungs have equal breath sounds bilaterally, clear to auscultation and percussion. No rales, rhonchi or wheezes noted. No increased work of breathing, no retractions or nasal flaring. Back: No spinal tenderness. No costovertebral tenderness. Full range of motion. Skin: Warm, dry with normal turgor. Normal color with no rashes, no lesions, and no evidence of cellulitis. MS/ Extremity: Pulses equal, no cyanosis. Neurovascular intact. Full, normal range of motion. Neuro: Awake and alert, GCS 15, oriented to person, place, time, and situation. Cranial nerves II-XII grossly intact. Motor strength 5/5 in all extremities. Sensory grossly intact. Cerebellar exam normal. Normal gait. 11:38 Constitutional: The patient appears alert, awake. 11:38 Abdomen/GI: Inspection: abdomen appears normal, Palpation: moderate abdominal tenderness, in the right upper quadrant, left upper quadrant and left lower quadrant, rebound tenderness, is not appreciated. Vital Signs: 08:32 BP 164 / 78; Pulse 73; Resp 16 S; Pulse Ox 98% on R/A; Weight 65.77 kg; Height 5 ft. 2 iw in. (157.48 cm); Pain 5/10; 09:30 BP 167 / 80; Pulse 71; Resp 18; Pulse Ox 99% on R/A; ph 12:02 BP 154 / 74; Pulse 87; Resp 16; Pulse Ox 98% on R/A; iw 08:32 Body Mass Index 26.52 (65.77 kg, 157.48 cm) iw MDM: 08:34 Patient medically screened. gs 11:38 Differential diagnosis: Nonspecific abd pain, gastritis, pancreatitis, diverticulitis. gs Data reviewed: vital signs, nurses notes. Counseling: I had a detailed discussion with the patient and/or guardian regarding: the historical points, exam findings, and any diagnostic results supporting the discharge/admit diagnosis, lab results, radiology results, the need for outpatient follow up. Response to treatment: the patient's symptoms have markedly improved after treatment, the patient's condition has returned to base line, and as a result, I will discharge patient. 11/08 08:36 Order name: Basic Metabolic Panel; Complete Time: 10:30 11/08 08:36 Order name: CBC with Diff; Complete Time: :30 11/08 08:36 Order name: Hepatic Function; Complete Time: 10:30 11/08 08:36 Order name: Lipase; Complete Time: :30 11/08 08:36 Order name: Urine Microscopic Only; Complete Time: 11: 11/08 10:27 Order name: Urine Dipstick--Ancillary (enter results); Complete Time: 11:17 11/08 08:36 Order name: IV Saline Lock; Complete Time: 08:49 11/08 08:36 Order name: Labs collected and sent; Complete Time: 08:49 11/08 08:36 Order name: Urine Dipstick-Ancillary (obtain specimen); Complete Time: 11: 11/08 08:36 Order name: CT Abd/Pelvis - W/Contrast; Complete Time: : 11/08 10:31 Order name: PO challenge; Complete Time: 11:11 Administered Medications: 12:03 Not Given (Patient Refused): Zofran 4 mg IVP once; over 2 minutes iw Disposition: 11/08/18 11:44 Discharged to Home. Impression: Generalized abdominal pain. - Condition is Stable. - Discharge Instructions: Abdominal Pain, Adult. - Prescriptions for Zofran 4 mg Oral Tablet - take 1 tablet by ORAL route every 12 hours As needed; 6 tablet. - Medication Reconciliation Form, Thank You Letter, Antibiotic Education, Prescription Opioid Use form. - Follow up: Private Physician; When: 2 - 3 days; Reason: Re-evaluation by your physician. Signatures: Dispatcher [employer] Delma Guerrero RN RN iw Ariana Trejo RN RN Carl Gonzalez MD MD gs Corrections: (The following items were deleted from the chart) 12:03 11:44 11/08/2018 11:44 Discharged to Home. Impression: Generalized abdominal pain. iw Condition is Stable. Forms are Medication Reconciliation Form, Thank You Letter, Antibiotic Education, Prescription Opioid Use. Follow up: Private Physician; When: 2 - 3 days; Reason: Re-evaluation by your physician. gs
[2018-11-08 12:13] VITALS: BP 154/74; O2SAT 98
== END 2018-11-08 12:03 | disposition home or self-care (01) ==
LOC: ER 08:12
DX: R10.84 Generalized abdominal pain (principal); E11.9 Type 2 diabetes mellitus without complications; I10 Essential (primary) hypertension; F03.90 Unspecified dementia, unspecified severity, without behavioral disturbance, psychotic disturbance, mood disturbance, and anxiety; Z79.899 Other long term (current) drug therapy; Z85.46 Personal history of malignant neoplasm of prostate; Z85.028 Personal history of other malignant neoplasm of stomach
CPT/HCPCS: 36415; 74177; 80048; 80076; 83690; 85025; 99284; Q9967; 81003; 81015

== ENCOUNTER 2019-04-27 10:45 | Emergency (ER) | payer OTHER ==
--- OUTSIDE RECORDS SUMMARY | 2019-04-27 10:47 | XMS REPORT | Clinical Summary ---
:1935 Author Organization [facility] Address [address] [place] [address] Care Team Providers Name Role Phone Asked, [...] Not on file Results Not on fileafter 04/26/2018 Insurance Payer Benefit Plan / Subscriber ID Effective Dates Phone Address Type Group MEDICARE MEDICARE PART A xxxxxxxxxx 2002-Present [place], [place] Medicare AND B (Home) [place] [address] Advance Directives Patient has advance care planning documents on file. For more information, please contact:[address] [address]
[2019-04-27 12:40] LABS: Basophils % 0.5 % (0-1.3); Eosinophils % 2.6 % (0-4.4); Hematocrit 41.8 % (39.6-49.0); Lymphocytes % 25.8 % (15.3-44.8); MPV 8.9 fL (7.6-11.3); Monocytes % 8.1 % (3.3-12.3)
[2019-04-27] MEDS ORDERED: NA CHLORIDE 0.9% 500 ML ONE (12:48)
[2019-04-27 12:50] LABS: Urine Bacteria <20 /HPF (NONE SEEN); Urine Culture Reflex Order NOT NEEDED; Urine RBC <5 /HPF (NONE SEEN)
[2019-04-27 13:11] LABS: Albumin 3.4 g/dL (3.4-5.0); Bilirubin Direct 0.2 mg/dL (0-0.2); Bilirubin Total 0.6 mg/dL (0.2-1.0); Magnesium 2.2 mg/dL (1.8-2.4); Potassium 4.7 mmol/L (3.5-5.1); Protein, Total 7.4 g/dL (6.4-8.2)
[2019-04-27 13:15] LABS: Urine Blood TRACE (NEG); Urine Glucose NEGATIVE (NEG); Urine Specific Gravity 1.025 (1.005-1.030)
[2019-04-27 13:16] LABS: Urine Protein 2+ (NEG)
--- NOTE | 2019-04-27 14:06 | RAD REPORT ---
EXAM DESCRIPTION: CTAbdomen Pelvis W Contrast - 04/27/2019 1:44 pm CLINICAL HISTORY: Abdominal pain. RLQ abdomen pain COMPARISON: Abdomen Pelvis W Contrast dated 02/07/2019; Abdomen Pelvis W Contrast dated 11/08/2018 ; Abdomen Pelvis W Contrast dated 04/13/2017; CT ABD PELVIS W CONTRAST dated 07/14/2015 TECHNIQUE: Biphasic CT imaging of the abdomen and pelvis was performed with 100 ml non-ionic IV cont rast. All CT scans are performed using dose optimization technique as appropriate and may include automated exposure control or mA/KV adjustment according to patient size. FINDINGS: Heavily calcified pleural plaquing bilaterally compatible with previous asbestos exposure. The lung bases are emphysematous. The liver contains a 23 mm cyst in the left lobe superiorly. No aggressive liver lesion. Cholecystect arabella clips. The spleen, pancreas, left adrenal gland normal. 19 mm lesion right adrenal gland noted li karlee a benign adenoma. Bilateral renal cysts are present without hydronephrosis. No bowel obstruction, free air, free fluid or abscess. Sigmoid diverticulosis coli is present without diverticulitis. Moderate stool is present retained in the sigmoid colon. The appendix is normal. No evidence of significant lymphadenopathy. Bilateral fat containing inguinal hernias are seen, slightl y larger on the right. No bowel involvement. Lumbosacral degenerative changes are present. No displaced fractures demonstrated. IMPRESSION: An acute finding is not demonstrated.
--- NOTE | 2019-04-27 14:35 | ER ---
Nurse's Notes [facility] Name: Abhijit Peralta Age: 84 yrs Sex: Male : 1935 Arrival Date: 04/27/2019 Time: 10:46 Bed 13 Private MD: Oniel Adams R Diagnosis: Lower abdominal pain, unspecified;Bilateral inguinal hernia, without obstruction or gangrene Presentation: 04/27 10:59 Presenting complaint: Patient states: He has a hernia and he was sitting at the table 6 aj1 days ago when the chair broke and he fell, since then he has had pain to where his hernia is. Patient states he did not hit the area when he fell. Patient reports normal bowel movements since he fell. Transition of care: patient was not received from another setting of care. Onset of symptoms was March 2019. Risk Assessment: Do you want to hurt yourself or someone else? Patient reports no desire to harm self or others. Initial Sepsis Screen: Does the patient meet any 2 criteria? No. Patient's initial sepsis screen is negative. Does the patient have a suspected source of infection? Yes: Acute abdominal pain. Care prior to arrival: None. 10:59 Method Of Arrival: Ambulatory aj1 10:59 Acuity: RAVI 3 aj1 Triage Assessment: 11:02 General: Appears in no apparent distress. uncomfortable, Behavior is calm, cooperative, aj1 appropriate for age. Pain: Complains of pain in right inguinal area Pain currently is 8 out of 10 on a pain scale. Neuro: Level of Consciousness is awake, alert, obeys commands. Cardiovascular: Patient's skin is warm and dry. Respiratory: Airway is patent Respiratory effort is even, unlabored, Respiratory pattern is regular, symmetrical. GI: Reports normal bowel movement Patient currently denies diarrhea, nausea, vomiting. Historical: - Allergies: 11:02 Tetanus Immune Globulin; aj1 - Home Meds: 11:02 pravastatin 20 mg Oral tab 1 tab once daily [Active]; amlodipine 2.5 mg tab 1 tab once aj1 daily [Active]; glimepiride 2 mg Oral tab 2 tabs twice daily [Active]; - PMHx: 11:02 Dementia; Diabetes - NIDDM; gastric ulcers; Hypertension; LYMPHOMA; Prostate Cancer; aj1 Stomach CA - in remission; - Immunization history:: Flu vaccine is not up to date. - Social history:: Smoking status: Patient/guardian denies using tobacco. - Ebola Screening: : Patient denies travel to an Ebola-affected area in the 21 days before illness onset. Screenin:06 Abuse screen: Denies threats or abuse. Nutritional screening: No deficits noted. rb1 Tuberculosis screening: No symptoms or risk factors identified. Fall Risk None identified. Assessment: 11:06 General: Appears in no apparent distress. comfortable, Behavior is calm, cooperative. rb1 Pain: Complains of pain in right inguinal area Pain currently is 4 out of 10 on a pain scale. Pain began x 4 days. Neuro: Level of Consciousness is awake, alert, obeys commands, Oriented to person, place, time, situation. Cardiovascular: Capillary refill < 3 seconds is brisk in bilateral fingers. Respiratory: Airway is patent Respiratory effort is even, unlabored, Respiratory pattern is regular, symmetrical. GI: No signs and/or symptoms were reported involving the gastrointestinal system. Bowel sounds present X 4 quads. Abd is soft X 4 quads. : No signs and/or symptoms were reported regarding the genitourinary system. Derm: Skin is pink, warm \T\ dry. 12:00 Reassessment: Patient appears in no apparent distress at this time. No changes from rb1 previously documented assessment. 12:58 Reassessment: Patient appears in no apparent distress at this time. Patient and/or rb1 family updated on plan of care and expected duration. Pain level reassessed. Patient is alert, oriented x 3, equal unlabored respirations, skin warm/dry/pink. 13:50 Reassessment: Patient appears in no apparent distress at this time. No changes from rb1 previously documented assessment. Daughter at bedside. 14:48 Reassessment: Patient appears in no apparent distress at this time. Patient and/or rb1 family updated on plan of care and expected duration. Pain level reassessed. Patient is alert, oriented x 3, equal unlabored respirations, skin warm/dry/pink. Patient states feeling better. Vital Signs: 11:02 BP 187 / 89; Pulse 60; Resp 18; Temp 97.8; Pulse Ox 100% on R/A; Weight 79.38 kg (R); aj1 Pain 8/10; 12:00 BP 165 / 67; Pulse 69; Resp 17; Temp 98.1(O); Pulse Ox 100% ; Pain 7/10; rb1 12:58 BP 177 / 85; Pulse 59; Resp 18; Temp 98.0(O); Pulse Ox 100% on R/A; Pain 7/10; rb1 13:50 BP 168 / 71; Pulse 67; Resp 17; Temp 98.3(O); Pulse Ox 99% ; Pain 6/10; rb1 14:48 BP 164 / 69; Pulse 69; Resp 18; Temp 98.1(O); Pulse Ox 98% on R/A; Pain 5/10; rb1 ED Course: 10:46 Patient arrived in ED. as 10:47 Oniel Adams MD is Private Physician. as 11:01 Triage completed. aj1 11:02 Arm band placed on Patient placed in an exam room. aj1 11:06 Patient has correct armband on for positive identification. Bed in low position. Call rb1 light in reach. Side rails up X 1. 11:07 Juan Akins PA is PHCP. cp 11:07 Flako Sousa MD is Attending Physician. cp 11:09 Lauren Grey, KIMBERLEY is Primary Nurse. rb1 11:09 Missed attempt(s): 20 gauge in left antecubital area. Attempted by a student and her rb1 instructor.. 11:30 Missed attempt(s): 20 gauge in left forearm. Attempted by student and her instructor.. rb1 12:45 Missed attempt(s): 22 gauge in right forearm. rb1 12:50 Initial lab(s) drawn, by nv, sent to lab. Inserted saline lock: 22 gauge in right ms forearm, using aseptic technique. Blood collected. 13:44 CT Abd/Pelvis - PO and IV Contrast In Process Unspecified. EDMS 14:34 Oniel Adams MD is Referral Physician. cp 15:11 No provider procedures requiring assistance completed. IV discontinued, intact, rb1 bleeding controlled, No redness/swelling at site. Pressure dressing applied. Administered Medications: 12:55 Drug: NS 0.9% 500 ml Route: IV; Rate: 250 ml/hr; Site: right forearm; rb1 14:48 Follow up: IV Status: Completed infusion rb1 15:23 Not Given (cancelled by provider): NS 0.9% 1000 ml IV at 100 ml/hr continuous rb1 Outcome: 14:35 Discharge ordered by . cp 15:11 Patient left the ED. rb1 15:11 Discharged to home ambulatory, with family. rb1 15:11 Condition: stable 15:11 Discharge instructions given to patient, Instructed on discharge instructions, follow up and referral plans. Demonstrated understanding of instructions, follow-up care, Prescriptions given X none Signatures: Dispatcher [employer] Philomena Ivy RN RN aj1 Lizett Cabrales Maria ms Page, Corey, PA PA cp Barber, Rebecca, RN RN rb1
--- NOTE | 2019-04-27 14:36 | EDPHYS ---
Physician Documentation [facility] Name: Abhijit Peralta Age: 84 yrs Sex: Male : 1935 Arrival Date: 04/27/2019 Time: 10:46 Bed 13 Private MD: Oniel Adams R ED Physician Flako Sousa HPI: 04/27 11:15 This 84 yrs old Male presents to ER via Ambulatory with complaints of cp Abdominal Pain - Hernia. 11:16 The patient presents with abdominal pain right lower quadrant. Onset: The cp symptoms/episode began/occurred 3 day(s) ago, after fall while sitting in chair. The symptoms do not radiate. 11:16 Associated signs and symptoms: Pertinent negatives: nausea and vomiting, blood in cp stools, chest pain, constipation, diarrhea, dysuria, fever, hematuria, testicular pain. 11:16 Modifying factors: the symptoms are aggravated by movement. cp 11:16 Severity of pain: in the emergency department the pain is a 4 / 10. cp Historical: - Allergies: 11:02 Tetanus Immune Globulin; aj1 - Home Meds: 11:02 pravastatin 20 mg Oral tab 1 tab once daily [Active]; amlodipine 2.5 mg tab 1 tab once aj1 daily [Active]; glimepiride 2 mg Oral tab 2 tabs twice daily [Active]; - PMHx: 11:02 Dementia; Diabetes - NIDDM; gastric ulcers; Hypertension; LYMPHOMA; Prostate Cancer; aj1 Stomach CA - in remission; - Immunization history:: Flu vaccine is not up to date. - Social history:: Smoking status: Patient/guardian denies using tobacco. - Ebola Screening: : Patient denies travel to an Ebola-affected area in the 21 days before illness onset. ROS: 11:25 Constitutional: Negative for body aches, chills, fever, poor PO intake. cp 11:25 Eyes: Negative for injury, pain, redness, and discharge. cp 11:25 ENT: Negative for drainage from ear(s), ear pain, sore throat, difficulty swallowing, difficulty handling secretions. 11:25 Cardiovascular: Negative for chest pain. 11:25 Respiratory: Negative for cough, shortness of breath, wheezing. 11:25 Abdomen/GI: Positive for abdominal pain, Negative for nausea, vomiting, and diarrhea, constipation, anorexia, black/tarry stool, rectal bleeding. 11:25 Back: Negative for radiated pain. 11:25 : Negative for urinary symptoms, hematuria, penile pain, testicular pain 11:25 Skin: Negative for rash. 11:25 Neuro: Negative for altered mental status, headache, weakness. 11:25 All other systems are negative. Exam: 11:30 Constitutional: The patient appears in no acute distress, alert, awake, cp non-diaphoretic, non-toxic, well developed, well nourished. 11:30 Head/Face: Normocephalic, atraumatic. cp 11:30 Eyes: Periorbital structures: appear normal, Conjunctiva: normal, no exudate, no injection, Sclera: no appreciated abnormality, Lids and lashes: appear normal, bilaterally. 11:30 ENT: External ear(s): are unremarkable, Nose: is normal, Mouth: is normal, Posterior pharynx: Airway: no evidence of obstruction, patent. 11:30 Chest/axilla: Inspection: normal, Palpation: is normal, no crepitus, no tenderness. 11:30 Cardiovascular: Rate: normal, Rhythm: regular, Edema: is not appreciated, JVD: is not appreciated. 11:30 Respiratory: the patient does not display signs of respiratory distress, Respirations: normal, no use of accessory muscles, no retractions, labored breathing, is not present, Breath sounds: are clear throughout, no decreased breath sounds, no stridor, no wheezing. 11:30 Abdomen/GI: Inspection: abdomen appears normal, Bowel sounds: active, all quadrants, Palpation: soft, in all quadrants, mild abdominal tenderness, in the right lower quadrant, rebound tenderness, is not appreciated, voluntary guarding, is not appreciated, involuntary guarding, is not appreciated. 11:30 Back: pain, is absent, ROM is normal. 11:30 : Male external genitalia: tenderness, is not appreciated. 11:30 Skin: no rash present. Vital Signs: 11:02 BP 187 / 89; Pulse 60; Resp 18; Temp 97.8; Pulse Ox 100% on R/A; Weight 79.38 kg (R); aj1 Pain 8/10; 12:00 BP 165 / 67; Pulse 69; Resp 17; Temp 98.1(O); Pulse Ox 100% ; Pain 7/10; rb1 12:58 BP 177 / 85; Pulse 59; Resp 18; Temp 98.0(O); Pulse Ox 100% on R/A; Pain 7/10; rb1 13:50 BP 168 / 71; Pulse 67; Resp 17; Temp 98.3(O); Pulse Ox 99% ; Pain 6/10; rb1 14:48 BP 164 / 69; Pulse 69; Resp 18; Temp 98.1(O); Pulse Ox 98% on R/A; Pain 5/10; rb1 MDM: 11:10 Patient medically screened. cp 12:00 Differential diagnosis: appendicitis, bowel obstruction, Testicular Torsion, cp Ureterolithiasis, urinary tract infection. 14:33 Data reviewed: vital signs, nurses notes, lab test result(s), radiologic studies, CT cp scan. 14:33 Counseling: I had a detailed discussion with the patient and/or guardian regarding: the cp historical points, exam findings, and any diagnostic results supporting the discharge/admit diagnosis, lab results, radiology results, to return to the emergency department if symptoms worsen or persist or if there are any questions or concerns that arise at home. Response to treatment: the patient's symptoms have markedly improved after treatment, and as a result, I will discharge patient. Special discussion: Based on the patient's Hx, exam, and Dx evaluation, there is no indication for emergent surgery or inpatient Tx. It is understood by the patient/guardian that if the Sx's persist or worsen they need to return immediately for re-evaluation. 04/27 11:32 Order name: Basic Metabolic Panel 04/27 11:32 Order name: CBC with Diff 04/27 11:32 Order name: Creatinine for Radiology 04/27 11:32 Order name: Hepatic Function 04/27 11:32 Order name: Lipase; Complete Time: 13:18 04/27 11:32 Order name: Lactate; Complete Time: 13:18 04/27 11:32 Order name: Urine Microscopic Only; Complete Time: 13:18 04/27 11:32 Order name: Magnesium; Complete Time: 13:18 04/27 11:32 Order name: CT Abd/Pelvis - PO and IV Contrast; Complete Time: 14:13 04/27 14:14 Interpretation: Report reviewed. 04/27 11:33 Order name: Basic Metabolic Panel; Complete Time: 13:18 EDNH 04/27 14:14 Interpretation: Normal except: BUN 25; CRE 1.44; GFR 47; CA 8.2. 04/27 11:33 Order name: CBC with Automated Diff; Complete Time: 12:45 EDNH 04/27 12:45 Interpretation: Reviewed. 04/27 11:34 Order name: Creatinine (Radiology Only); Complete Time: 13:18 EDNH 04/27 11:34 Order name: Liver (Hepatic) Function; Complete Time: 13:18 EDNH 04/27 12:42 Order name: Urine Dipstick--Ancillary (enter results); Complete Time: 13:18 04/27 14:15 Interpretation: Normal except: UBLD TRACE; UPROT 2+. 04/27 11:32 Order name: IV Saline Lock; Complete Time: 12:49 04/27 11:32 Order name: Labs collected and sent; Complete Time: 12:49 04/27 11:32 Order name: Urine Dipstick-Ancillary (obtain specimen); Complete Time: 11:43 cp Administered Medications: 12:55 Drug: NS 0.9% 500 ml Route: IV; Rate: 250 ml/hr; Site: right forearm; rb1 14:48 Follow up: IV Status: Completed infusion rb1 15:23 Not Given (cancelled by provider): NS 0.9% 1000 ml IV at 100 ml/hr continuous rb1 Disposition: 15:13 Co-signature as Attending Physician, Flako Sousa MD. rn Disposition: 04/27/19 14:35 Discharged to Home. Impression: Lower abdominal pain, unspecified, Bilateral inguinal hernia, without obstruction or gangrene. - Condition is Stable. - Discharge Instructions: Abdominal Pain, Adult, Inguinal Hernia, Adult. - Medication Reconciliation Form, Thank You Letter, Antibiotic Education, Prescription Opioid Use form. - Follow up: Oniel Adams MD; When: 1 - 2 days; Reason: Recheck today's complaints. - Problem is new. - Symptoms have improved. Signatures: [facility] Philomena Verduzco RN RN aj1 Flako Sousa MD MD rn Juan Akins PA PA Lauren Davidson, RN RN rb1 Corrections: (The following items were deleted from the chart) 14:14 13:32 Normal except: BUN 25; CRE 1.44; GFR 47. cp cp 15:11 14:35 04/27/2019 14:35 Discharged to Home. Impression: Lower abdominal pain, rb1 unspecified; Bilateral inguinal hernia, without obstruction or gangrene. Condition is Stable. Forms are Medication Reconciliation Form, Thank You Letter, Antibiotic Education, Prescription Opioid Use. Follow up: Oniel Adams; When: 1 - 2 days; Reason: Recheck today's complaints. Problem is new. Symptoms have improved. cp
== END 2019-04-27 15:11 | disposition home or self-care (01) ==
LOC: ER 10:45
DX: K40.20 Bilateral inguinal hernia, without obstruction or gangrene, not specified as recurrent (principal); I10 Essential (primary) hypertension; E11.9 Type 2 diabetes mellitus without complications; F03.90 Unspecified dementia, unspecified severity, without behavioral disturbance, psychotic disturbance, mood disturbance, and anxiety; Z88.7 Allergy status to serum and vaccine; Z85.46 Personal history of malignant neoplasm of prostate; Z85.028 Personal history of other malignant neoplasm of stomach; Z85.72 Personal history of non-Hodgkin lymphomas
CPT/HCPCS: 96361; 85025; 80048; 36415; 83735; 80076; 83605; 83690; 74177; 96360; 99284; Q9967; 81003; 81015

== ENCOUNTER 2019-08-08 08:32 | Emergency (ER) | payer OTHER ==
[2019-08-08 09:24] LABS: Absolute Lymphocytes (CBC) 1.5 K/uL (0.7-4.9); Basophils % 0.6 % (0-1.3); Hematocrit 38.5 % (39.6-49.0); Lymphocytes % 23.8 % (15.3-44.8); MPV 8.6 fL (7.6-11.3); RBC Red Blood Cell Count 4.31 M/uL (4.33-5.43)
[2019-08-08 09:33] LABS: Albumin 3.1 g/dL (3.4-5.0); Bilirubin Direct 0.2 mg/dL (0-0.2); Bilirubin Total 0.6 mg/dL (0.2-1.0); Potassium 4.2 mmol/L (3.5-5.1)
--- NOTE | 2019-08-08 10:34 | RAD REPORT ---
EXAM DESCRIPTION: CT - Abdomen Pelvis W Contrast - 08/08/2019 10:06 am CLINICAL HISTORY: left sided abdominal pain COMPARISON: CT study April 27, 2019 ; January 2014 TECHNIQUE: Biphasic, helical CT imaging of the abdomen and pelvis was performed following 100 ml non -ionic IV contrast. Oral contrast was given. All CT scans are performed using dose optimization technique as appropriate and may include automated exposure control or mA/KV adjustment according to patient size. FINDINGS: Dense calcified pleural plaquing seen at the base. Additional areas of noncalcified pleura l thickening seen. No acute lung parenchymal process. Findings are not substantially different. No pe ricardial effusion. Benign-appearing left lobe liver cyst present and unchanged. No suspicious liver parenchymal finding. Spleen and pancreas show no acute findings. Gallbladder is absent. No biliary tree dilatation. Symmetric renal function is seen with no hydronephrosis or suspicious renal mass. No pyelonephritis o r acute parenchymal process. Benign-appearing renal cysts are present. A 2 centimeter low-density mas s in the right adrenal gland is present most likely an adenoma. This is stable back to 2013. Urinary bladder is fully contracted. No bladder calculi seen. Prostatectomy surgical changes are present. No gastric dilatation or gastric wall thickening. No dilated large or small bowel loop. Patient has m ild left-sided diverticulosis without diverticulitis. No active GI process is identifiable. No free air, free fluid or inflammatory stranding. No mass or bulky lymphadenopathy. Moderate bila teral fat filled inguinal hernias are present. No active process seen. Prominent bony degenerative changes are present. There is old L3-4 compression fractures infusion. No acute vascular finding. IMPRESSION: Contrast enhanced CT abdomen and pelvis showing no acute finding. Above detailed findings are stable from the March 2019 study.
--- NOTE | 2019-08-08 11:22 | RAD REPORT ---
EXAM DESCRIPTION: CT - Head Brain Wo Cont - 08/08/2019 11:13 am CLINICAL HISTORY: Dizziness COMPARISON: 2018 TECHNIQUE: Computed axial tomography of the head was obtained. IV contrast was not requested. All CT scans are performed using dose optimization technique as appropriate and may include automated exposure control or mA/KV adjustment according to patient size. FINDINGS: An intracranial bleed is not seen . The ventricles are normal in caliber. No extra-axial fluid collection is noted. Mild to moderate cerebral atrophy Fluid within the left maxillary sinus may indicate acute sinusitis IMPRESSION: No acute intracranial abnormality is seen. If patient's symptoms persist MRI of the bra in would be recommended.
--- NOTE | 2019-08-08 12:03 | ER ---
Nurse's Notes [facility] Name: Abhijit Peralta Age: 84 yrs Sex: Male : 1935 Arrival Date: 08/08/2019 Time: 08:35 Bed 14 Private MD: Oniel Adams R Diagnosis: Generalized abdominal pain;Dizziness and giddiness Presentation: 08/08 08:43 Presenting complaint: Patient states: yesterday i started having lower LEFT stomach tw2 pain real bad, pt denies n/v/d, pt denies fall/injury. Transition of care: patient was not received from another setting of care. Onset of symptoms was August 08, 2019. Risk Assessment: Do you want to hurt yourself or someone else? Patient reports no desire to harm self or others. Initial Sepsis Screen: Does the patient meet any 2 criteria? No. Patient's initial sepsis screen is negative. Does the patient have a suspected source of infection? No. Patient's initial sepsis screen is negative. Care prior to arrival: None. 08:43 Method Of Arrival: Ambulatory tw2 08:43 Acuity: RAVI 3 tw2 Triage Assessment: 08:44 General: Appears in no apparent distress. Behavior is calm, cooperative, appropriate tw2 for age. Pain: Complains of pain in left upper quadrant and left lower quadrant. GI: Reports lower abdominal pain, intolerance of fluids, Patient currently denies nausea, vomiting. Historical: - Allergies: 08:47 Tetanus Immune Globulin; tw2 08:47 Morphine; tw2 - Home Meds: 08:47 pravastatin 20 mg Oral tab 1 tab once daily [Active]; amlodipine 2.5 mg tab 1 tab once tw2 daily [Active]; glimepiride 2 mg Oral tab 2 tabs twice daily [Active]; - PMHx: 08:47 Dementia; Diabetes - NIDDM; gastric ulcers; Hypertension; LYMPHOMA; Prostate Cancer; tw2 Stomach CA - in remission; - Immunization history:: Adult Immunizations. - Social history:: Smoking status: . - Ebola Screening: : Patient denies travel to an Ebola-affected area in the 21 days before illness onset. Screenin:35 Abuse screen: Denies threats or abuse. Nutritional screening: No deficits noted. tw2 Tuberculosis screening: No symptoms or risk factors identified. Fall Risk Secondary diagnosis (15 points) impaired mobility. Assessment: 08:40 General: Appears in no apparent distress. Behavior is calm, cooperative, appropriate tw2 for age. Pain: Complains of pain in abdomen and left lower quadrant and left upper quadrant. Neuro: Level of Consciousness is awake, alert, obeys commands, Oriented to person, place, time, situation. Cardiovascular: Heart tones S1 S2 Patient's skin is warm and dry. Respiratory: Airway is patent Respiratory effort is even, unlabored, Respiratory pattern is regular, symmetrical, Breath sounds are clear bilaterally. GI: Abdomen is flat, Bowel sounds present X 4 quads. Abd is soft X 4 quads Reports lower abdominal pain, upper abdominal pain. : No signs and/or symptoms were reported regarding the genitourinary system. EENT: No signs and/or symptoms were reported regarding the EENT system. Derm: No signs and/or symptoms reported regarding the dermatologic system. Musculoskeletal: Range of motion: intact in all extremities. 09:35 Reassessment: Patient appears in no apparent distress at this time. No changes from tw2 previously documented assessment. Patient and/or family updated on plan of care and expected duration. Pain level reassessed. Patient is alert, oriented x 3, equal unlabored respirations, skin warm/dry/pink. 10:28 Reassessment: Patient appears in no apparent distress at this time. No changes from tw2 previously documented assessment. Patient and/or family updated on plan of care and expected duration. Pain level reassessed. Patient is alert, oriented x 3, equal unlabored respirations, skin warm/dry/pink. 11:45 Reassessment: Patient appears in no apparent distress at this time. No changes from tw2 previously documented assessment. Patient and/or family updated on plan of care and expected duration. Pain level reassessed. Patient is alert, oriented x 3, equal unlabored respirations, skin warm/dry/pink. 12:15 Reassessment: Patient appears in no apparent distress at this time. No changes from tw2 previously documented assessment. Patient and/or family updated on plan of care and expected duration. Pain level reassessed. Patient is alert, oriented x 3, equal unlabored respirations, skin warm/dry/pink. Vital Signs: 08:44 BP 159 / 73; Pulse 61; Resp 17; Temp 97.8(O); Pulse Ox 96% on R/A; Weight 77.11 kg (R); tw2 Height 5 ft. 4 in. (162.56 cm) (R); Pain 8/10; 09:35 BP 139 / 63; Pulse 57; Resp 17; Pulse Ox 100% on R/A; tw2 10:28 BP 152 / 68; Pulse 49; Resp 17; Pulse Ox 99% on R/A; tw2 11:45 BP 175 / 70; Pulse 51; Resp 17; Pulse Ox 100% on R/A; tw2 08:44 Body Mass Index 29.18 (77.11 kg, 162.56 cm) tw2 ED Course: 08:35 Patient arrived in ED. rg4 08:35 Oniel Adams MD is Private Physician. rg4 08:39 Bed in low position. Call light in reach. Side rails up X 1. plastic injection mold maker on. Pulse tw2 ox on. NIBP on. 08:42 Trinidad Engel RN is Primary Nurse. tw2 08:44 Triage completed. tw2 08:44 Arm band placed on. tw2 08:48 Eduardo Melton PA is PHCP. jmm 08:48 Carl Gonzalez MD is Attending Physician. jmm 09:09 Inserted saline lock: 20 gauge in left antecubital area, using aseptic technique. Blood tw2 collected. 10:07 CT Abd/Pelvis - IV Contrast Only In Process Unspecified. EDMS 11:13 CT Head Brain wo Cont In Process Unspecified. EDMS 11:59 EKG done, by aircraft systems technician. reviewed by Eduardo MAGALLANES. at1 12:01 Oniel Adams MD is Referral Physician. jm 12:15 No provider procedures requiring assistance completed. IV discontinued, intact, tw2 bleeding controlled, No redness/swelling at site. Pressure dressing applied. Administered Medications: No medications were administered Outcome: 12:02 [address] ordered by . [facility] 12:15 Discharged to home ambulatory, with family. tw2 12:15 Condition: stable 12:15 Discharge instructions given to patient, family, Instructed on discharge instructions, follow up and referral plans. Demonstrated understanding of instructions, follow-up care. 12:16 Patient left the ED. tw2 Signatures: Dispatcher [employer] EDEduardo Milan PA PA jmm Gonzales, Amanda, otr company truck driver EKG Tat1 Trinidad Engel, RN RN tw2 Rebecca Vazquez rg4
--- NOTE | 2019-08-08 12:04 | EDPHYS ---
Physician Documentation [facility] Name: Abhijit Peralta Age: 84 yrs Sex: Male : 1935 Arrival Date: 08/08/2019 Time: 08:35 Bed 14 Private MD: Oniel Adams R ED Physician Carl Gonzalez HPI: 08/08 08:55 This 84 yrs old Male presents to ER via Ambulatory with complaints of Abd Pain jmm > 50 y/o. 08:55 The patient presents with abdominal pain in the left lower quadrant. Onset: The jmm symptoms/episode began/occurred gradually, last night. The symptoms do not radiate. Associated signs and symptoms: Pertinent negatives: fever, vomiting. Modifying factors: The symptoms are alleviated by nothing, the symptoms are aggravated by nothing. This is an 84 year old male with a history of dementia, DM, HTN that presents to the ED with complaints of left sided abdominal pain beginning last night. Denies vomiting, denies diarrhea. . Historical: - Allergies: 08:47 Tetanus Immune Globulin; tw2 08:47 Morphine; tw2 - Home Meds: 08:47 pravastatin 20 mg Oral tab 1 tab once daily [Active]; amlodipine 2.5 mg tab 1 tab once tw2 daily [Active]; glimepiride 2 mg Oral tab 2 tabs twice daily [Active]; - PMHx: 08:47 Dementia; Diabetes - NIDDM; gastric ulcers; Hypertension; LYMPHOMA; Prostate Cancer; tw2 Stomach CA - in remission; - Immunization history:: Adult Immunizations. - Social history:: Smoking status: . - Ebola Screening: : Patient denies travel to an Ebola-affected area in the 21 days before illness onset. ROS: 08:55 Constitutional: Negative for fever, chills, and weight loss, Cardiovascular: Negative jmm for chest pain, palpitations, and edema, Respiratory: Negative for shortness of breath, cough, wheezing, and pleuritic chest pain. 08:55 Abdomen/GI: Positive for abdominal pain. 08:55 All other systems are negative. Exam: 08:55 Constitutional: This is a well developed, well nourished patient who is awake, alert, jmm and in no acute distress. Head/Face: atraumatic. Eyes: EOMI, no conjunctival erythema appreciated ENT: Moist Mucus Membranes Neck: Trachea midline, Supple Chest/axilla: Normal chest wall appearance and motion. Cardiovascular: Regular rate and rhythm. No edema appreciated Respiratory: Normal respirations, no respiratory distress appreciated 08:55 Abdomen/GI: Inspection: abdomen appears normal, Bowel sounds: normal, Palpation: soft, mild abdominal tenderness, in the left lower quadrant. 08:55 Back: ROM is normal. 08:55 Musculoskeletal/extremity: ROM: intact in all extremities. 08:55 Skin: Appearance: Color: normal in color. 08:55 Neuro: Orientation: is normal, Mentation: is normal, Memory: is normal. 08:55 Psych: Behavior/mood is pleasant, anxious. Vital Signs: 08:44 BP 159 / 73; Pulse 61; Resp 17; Temp 97.8(O); Pulse Ox 96% on R/A; Weight 77.11 kg (R); tw2 Height 5 ft. 4 in. (162.56 cm) (R); Pain 8/10; 09:35 BP 139 / 63; Pulse 57; Resp 17; Pulse Ox 100% on R/A; tw2 10:28 BP 152 / 68; Pulse 49; Resp 17; Pulse Ox 99% on R/A; tw2 11:45 BP 175 / 70; Pulse 51; Resp 17; Pulse Ox 100% on R/A; tw2 08:44 Body Mass Index 29.18 (77.11 kg, 162.56 cm) tw2 MDM: 08:49 Patient medically screened. [facility] 12:00 Data reviewed: vital signs, nurses notes. Counseling: I had a detailed discussion with [facility] the patient and/or guardian regarding: the historical points, exam findings, and any diagnostic results supporting the discharge/admit diagnosis, lab results, radiology results, the need for outpatient follow up, to return to the emergency department if symptoms worsen or persist or if there are any questions or concerns that arise at home. ED course: I discussed the patient with Dr. adams whom will follow up with the patient in clinic. . 08/08 08:54 Order name: Basic Metabolic Panel; Complete Time: 09:40 [facility] 08/08 08:54 Order name: CBC with Diff; Complete Time: 09:40 [facility] 08/08 08:54 Order name: Creatinine for Radiology; Complete Time: 09:40 [facility] 08/08 08:54 Order name: Hepatic Function; Complete Time: 09:40 [facility] 08/08 08:54 Order name: Lipase; Complete Time: 09:40 [facility] 08/08 11:00 Order name: Troponin (emerg Dept Use Only); Complete Time: 11:30 [facility] 08/08 08:54 Order name: IV Saline Lock; Complete Time: 09:09 [facility] 08/08 08:54 Order name: Labs collected and sent; Complete Time: 09:09 [facility] 08/08 08:54 Order name: CT Abd/Pelvis - IV Contrast Only; Complete Time: 10:38 [facility] 08/08 11:00 Order name: CT Head Brain wo Cont; Complete Time: 11:30 [facility] 08/08 11:00 Order name: EKG - Nurse/Tech; Complete Time: 11:58 [facility] 08/08 11:44 Order name: EKG; Complete Time: 11:45 tw2 Administered Medications: No medications were administered Disposition: 08/08/19 12:02 Discharged to Home. Impression: Generalized abdominal pain, Dizziness and giddiness. - Condition is Stable. - Discharge Instructions: Abdominal Pain, Adult, Dizziness. - Medication Reconciliation Form, Thank You Letter, Antibiotic Education, Prescription Opioid Use form. - Follow up: Oniel Adams MD; When: 2 - 3 days; Reason: Recheck today's complaints, Continuance of care, Re-evaluation by your physician. Addendum: 08/10/2019 06:52 Co-signature as Attending Physician, Carl Gonzalez MD. g s Signatures: Dispatcher [employer] EDMS Eduardo Melton PA PA [facility] Trinidad Engel RN RN tw2 Carl Gonzalez MD MD Corrections: (The following items were deleted from the chart) 08/08 12:16 12:02 08/08/2019 12:02 Discharged to Home. Impression: Generalized abdominal pain; tw2 Dizziness and giddiness. Condition is Stable. Forms are Medication Reconciliation Form, Thank You Letter, Antibiotic Education, Prescription Opioid Use. Follow up: Oniel Adams; When: 2 - 3 days; Reason: Recheck today's complaints, Continuance of care, Re-evaluation by your physician. [facility]
[2019-08-08 12:23] VITALS: TEMP 97.8
[2019-08-08 12:28] VITALS: BP 175/70; O2SAT 100
--- NOTE | 2019-08-08 17:14 | EKG ---
Test Date: 2019-08-08 Test Time: 11:50:23 Field Interviewer: SHABANA MEASUREMENT RESULTS: Intervals: Rate: 53 FL: 262 QRSD: 92 QT: 446 QTc: 418 [place]: P: 21 FL: 262 QRS: -25 T: -19 INTERPRETIVE STATEMENTS: Sinus bradycardia with 1st degree AV block Otherwise normal ECG Compared to ECG 05/24/2018 23:29:30 First degree AV block now present Left-axis deviation no longer present Electronically Signed On 08-08-19 17:12:47 CDT by Krystian Davis
== END 2019-08-08 12:16 | disposition home or self-care (01) ==
LOC: ER 08:32
DX: R10.84 Generalized abdominal pain (principal); R42 Dizziness and giddiness; I10 Essential (primary) hypertension; E11.9 Type 2 diabetes mellitus without complications; F03.90 Unspecified dementia, unspecified severity, without behavioral disturbance, psychotic disturbance, mood disturbance, and anxiety; Z88.5 Allergy status to narcotic agent; Z88.7 Allergy status to serum and vaccine; Z85.028 Personal history of other malignant neoplasm of stomach; Z85.46 Personal history of malignant neoplasm of prostate
CPT/HCPCS: 93005; 85025; 80048; 36415; 80076; 84484; 83690; 70450; 74177; 99284; Q9967

== ENCOUNTER 2019-09-07 14:58 | Emergency (ER) | payer OTHER ==
[2019-09-07] MEDS ORDERED: MORPHINE 4 MG/ML SYR ONE (15:36)
[2019-09-07] MEDS ORDERED: ONDANSETRON 4 MG/2 ML VIAL ONE (15:36)
[2019-09-07] MEDS ORDERED: NA CHLORIDE 0.9% 1,000 ML ONE (15:37)
[2019-09-07 15:49] LABS: Absolute Lymphocytes (CBC) 1.3 K/uL (0.7-4.9); Basophils % 0.9 % (0-1.3); MPV 8.5 fL (7.6-11.3); RBC Red Blood Cell Count 4.05 M/uL (4.33-5.43)
[2019-09-07] MEDS ORDERED: FENTANYL CITR 100 MCG/2 ML ONE (15:50)
[2019-09-07 16:08] LABS: Bilirubin Direct 0.1 mg/dL (0-0.2); Bilirubin Total 0.4 mg/dL (0.2-1.0); Potassium 4.9 mmol/L (3.5-5.1); Protein, Total 6.7 g/dL (6.4-8.2)
--- NOTE | 2019-09-07 16:51 | RAD REPORT ---
EXAM DESCRIPTION: CT - Abdomen Pelvis Wo Contrast - 09/07/2019 4:32 pm CLINICAL HISTORY: Abdominal pain COMPARISON: July 2019 TECHNIQUE: Computed axial tomography of the abdomen and pelvis was obtained. IV and oral contrast we re not requested. All CT scans are performed using dose optimization technique as appropriate and may include automated exposure control or mA/KV adjustment according to patient size. FINDINGS: The evaluation of solid organs, vessels and bowel is limited secondary to the lack of con trast administration. Hepatic cyst without significant change. Small bilateral renal cysts. 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 There is no evidence of diverticulitis. Small to moderate bilateral inguinal hernias contain fat Prostatectomy. 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
--- NOTE | 2019-09-07 18:04 | EDPHYS ---
Physician Documentation [facility] Name: Abhijit Peralta Age: 84 yrs Sex: Male : 1935 Arrival Date: 09/07/2019 Time: 15:00 Bed 19 Private MD: Oniel Adams R ED Physician Tabitha Mullins HPI: 09/07 16:19 This 84 yrs old Male presents to ER via Wheelchair with complaints of LLQ pain.pm1 16:19 The patient presents with abdominal pain in the left lower quadrant. Onset: The pm1 symptoms/episode began/occurred On and off for 6 months. Worse today. The symptoms do not radiate. Associated signs and symptoms: Pertinent negatives: nausea, vomiting, and diarrhea, blood in stools, chest pain, dysuria, fever, shortness of breath. The symptoms are described as crampy. Modifying factors: The symptoms are alleviated by nothing, the symptoms are aggravated by nothing. Severity of pain: in the emergency department the pain is actually worse. The patient has experienced similar episodes in the past, multiple times, and the symptoms today are exactly the same, ER visits and CT negative for acute findings. The patient has not recently seen a physician. Historical: - Allergies: 15:24 Morphine; la1 15:24 Tetanus Immune Globulin; la1 - PMHx: 15:24 Dementia; Diabetes - NIDDM; gastric ulcers; Hypertension; LYMPHOMA; Prostate Cancer; la1 Stomach CA - in remission; - Immunization history:: Adult Immunizations up to date. - Social history:: Smoking status: Patient/guardian denies using tobacco. - Ebola Screening: : No symptoms or risks identified at this time. ROS: 16:19 Constitutional: Negative for fever, chills, and weight loss, Eyes: Negative for injury, pm1 pain, redness, and discharge, ENT: Negative for injury, pain, and discharge, Neck: Negative for injury, pain, and swelling, Cardiovascular: Negative for chest pain, palpitations, and edema, Respiratory: Negative for shortness of breath, cough, wheezing, and pleuritic chest pain. 16:19 Back: Negative for injury and pain, : Negative for injury, bleeding, discharge, and swelling, MS/Extremity: Negative for injury and deformity, Skin: Negative for injury, rash, and discoloration, Neuro: Negative for headache, weakness, numbness, tingling, and seizure. 16:19 Abdomen/GI: Positive for abdominal pain, of the left lower quadrant, Negative for nausea, vomiting, and diarrhea. Exam: 16:19 Constitutional: This is a well developed, well nourished patient who is awake, alert, pm1 and in no acute distress. Head/Face: Normocephalic, atraumatic. Eyes: Pupils equal round and reactive to light, extra-ocular motions intact. Lids and lashes normal. Conjunctiva and sclera are non-icteric and not injected. Cornea within normal limits. Periorbital areas with no swelling, redness, or edema. ENT: Nares patent. No nasal discharge, no septal abnormalities noted. Tympanic membranes are normal and external auditory canals are clear. Oropharynx with no redness, swelling, or masses, exudates, or evidence of obstruction, uvula midline. Mucous membranes moist. Neck: Trachea midline, no thyromegaly or masses palpated, and no cervical lymphadenopathy. Supple, full range of motion without nuchal rigidity, or vertebral point tenderness. No Meningismus. Chest/axilla: Normal chest wall appearance and motion. Nontender with no deformity. No lesions are appreciated. Cardiovascular: Regular rate and rhythm with a normal S1 and S2. No gallops, murmurs, or rubs. Normal PMI, no JVD. No pulse deficits. Respiratory: Lungs have equal breath sounds bilaterally, clear to auscultation and percussion. No rales, rhonchi or wheezes noted. No increased work of breathing, no retractions or nasal flaring. Back: No spinal tenderness. No costovertebral tenderness. Full range of motion. Skin: Warm, dry with normal turgor. Normal color with no rashes, no lesions, and no evidence of cellulitis. MS/ Extremity: Pulses equal, no cyanosis. Neurovascular intact. Full, normal range of motion. 16:19 Abdomen/GI: Inspection: abdomen appears normal, Bowel sounds: normal, Palpation: soft, mild abdominal tenderness, in the left lower quadrant, mass, is not appreciated, rebound tenderness, is not appreciated. 16:19 Neuro: Orientation: is normal, Motor: is normal, moves all fours. Vital Signs: 15:24 BP 117 / 67; Pulse 84; Resp 16; Temp 98.6; Pulse Ox 100% on R/A; Weight 77.11 kg; la1 16:30 BP 136 / 71; Pulse 64; Resp 18; Pulse Ox 99% on R/A; em 17:30 BP 151 / 72; Pulse 55; Resp 18; Pulse Ox 98% on R/A; em MDM: 15:26 Patient medically screened. pm1 16:21 Data reviewed: vital signs. Data interpreted: Pulse oximetry: on room air is 100 %. pm1 Interpretation: normal. 18:02 Counseling: I had a detailed discussion with the patient and/or guardian regarding: the pm1 historical points, exam findings, and any diagnostic results supporting the discharge/admit diagnosis, lab results, radiology results, the need for outpatient follow up, to return to the emergency department if symptoms worsen or persist or if there are any questions or concerns that arise at home. 09/07 15:30 Order name: Basic Metabolic Panel; Complete Time: 16:16 pm1 09/07 15:30 Order name: CBC with Diff; Complete Time: 15:59 pm1 09/07 15:30 Order name: Creatinine for Radiology; Complete Time: 16:16 pm1 09/07 15:30 Order name: Hepatic Function; Complete Time: 16:16 pm1 09/07 15:30 Order name: Lipase; Complete Time: 16:16 pm1 09/07 15:30 Order name: IV Saline Lock; Complete Time: 15:41 pm1 09/07 15:30 Order name: Labs collected and sent; Complete Time: 15:41 pm1 09/07 16:14 Order name: Abdomen EDMS Administered Medications: 15:48 Drug: NS 0.9% 1000 ml Route: IV; Rate: 1000 ml; Site: right antecubital; em 18:15 Follow up: IV Status: Completed infusion; IV Intake: 1000ml em 15:48 Drug: Zofran 4 mg Route: IVP; Site: right antecubital; ss 16:30 Follow up: Response: No adverse reaction em 15:50 Drug: fentaNYL (PF) 25 mcg Route: IVP; Site: right antecubital; ss 18:05 Follow up: Response: No adverse reaction; Pain is decreased em Disposition: 09/08 16:49 Co-signature as Attending Physician, Tabitha Mullins MD. ma2 Disposition: 09/07/19 18:02 Discharged to Home. Impression: Unspecified abdominal pain. - Condition is Stable. - Discharge Instructions: Abdominal Pain, Adult. - Medication Reconciliation Form, Thank You Letter, Antibiotic Education, Prescription Opioid Use form. - Follow up: Emergency Department; When: As needed; Reason: Worsening of condition. Follow up: Private Physician; When: 2 - 3 days; Reason: Recheck today's complaints, Continuance of care, Re-evaluation by your physician. - Problem is new. - Symptoms have improved. Signatures: Dispatcher [employer] [facility] AndrewsSpnecer, COLOR CORRECTOR COLOR CORRECTOR em Jess Hutton, RN RN ss Shayan Groves RN RN la1 Conner Manning, MANAGEMENT DEVELOPER MANAGEMENT DEVELOPER pm1 Tabitha Mullins MD MD ma2 Corrections: (The following items were deleted from the chart) 09/07 16:14 15:31 Abdomen Pelvis W Con+CT.RAD.BRZ ordered. [facility] 18:16 18:02 09/07/2019 18:02 Discharged to Home. Impression: Unspecified abdominal pain. em Condition is Stable. Forms are Medication Reconciliation Form, Thank You Letter, Antibiotic Education, Prescription Opioid Use. Follow up: Emergency Department; When: As needed; Reason: Worsening of condition. Follow up: Private Physician; When: 2 - 3 days; Reason: Recheck today's complaints, Continuance of care, Re-evaluation by your physician. Problem is new. Symptoms have improved. pm1
--- NOTE | 2019-09-07 18:04 | ER ---
Nurse's Notes [facility] Name: Abhijit Peralta Age: 84 yrs Sex: Male : 1935 Arrival Date: 09/07/2019 Time: 15:00 Bed 19 Private MD: Oniel Adams R Diagnosis: Unspecified abdominal pain Presentation: 09/07 15:23 Presenting complaint: Patient states: LLQ for the last month, worse today. 07/08. pt la1 guarding abd in triage. Transition of care: patient was not received from another setting of care. Onset of symptoms was September 07, 2019. Risk Assessment: Do you want to hurt yourself or someone else? Patient reports no desire to harm self or others. Initial Sepsis Screen: Does the patient meet any 2 criteria? No. Patient's initial sepsis screen is negative. Does the patient have a suspected source of infection? No. Patient's initial sepsis screen is negative. Care prior to arrival: None. 15:23 Method Of Arrival: Wheelchair la1 15:23 Acuity: RAVI 3 la1 Historical: - Allergies: 15:24 Morphine; la1 15:24 Tetanus Immune Globulin; la1 - PMHx: 15:24 Dementia; Diabetes - NIDDM; gastric ulcers; Hypertension; LYMPHOMA; Prostate Cancer; la1 Stomach CA - in remission; - Immunization history:: Adult Immunizations up to date. - Social history:: Smoking status: Patient/guardian denies using tobacco. - Ebola Screening: : No symptoms or risks identified at this time. Screenin:32 Abuse screen: Denies threats or abuse. Nutritional screening: No deficits noted. em Tuberculosis screening: No symptoms or risk factors identified. Fall Risk None identified. Assessment: 15:33 General: Appears in no apparent distress. uncomfortable, Behavior is calm, cooperative, em Denies fever. Pain: Complains of pain in right lower quadrant and left lower quadrant Pain currently is 9 out of 10 on a pain scale. Pain began 1 day ago. Neuro: Level of Consciousness is awake, alert, obeys commands, Oriented to person, place, time, situation, Appropriate for age. Cardiovascular: Capillary refill < 3 seconds Patient's skin is warm and dry. Respiratory: Airway is patent Respiratory effort is even, unlabored, Respiratory pattern is regular, symmetrical. GI: Abdomen is flat, Bowel sounds present X 4 quads. Patient currently denies diarrhea, nausea, vomiting. Derm: Skin is intact, is healthy with good turgor, Skin is pink, warm \T\ dry. Musculoskeletal: Capillary refill < 3 seconds, Range of motion: intact in all extremities. 15:40 General: The previous assessment is accurate. Call light remains within reach. ss 16:19 Reassessment: Patient appears in no apparent distress at this time. Patient and/or em family updated on plan of care and expected duration. Pain level reassessed. Patient is alert, oriented x 3, equal unlabored respirations, skin warm/dry/pink. Patient states feeling better. Patient states symptoms have improved. 17:36 Reassessment: Patient appears in no apparent distress at this time. Patient and/or em family updated on plan of care and expected duration. Pain level reassessed. Patient is alert, oriented x 3, equal unlabored respirations, skin warm/dry/pink. Patient denies pain at this time. Patient states feeling better. Vital Signs: 15:24 BP 117 / 67; Pulse 84; Resp 16; Temp 98.6; Pulse Ox 100% on R/A; Weight 77.11 kg; la1 16:30 BP 136 / 71; Pulse 64; Resp 18; Pulse Ox 99% on R/A; em 17:30 BP 151 / 72; Pulse 55; Resp 18; Pulse Ox 98% on R/A; em ED Course: 15:00 Patient arrived in ED. rg4 15:01 Oniel Adams MD is Private Physician. rg4 15:23 Triage completed. la1 15:24 Arm band placed on left wrist. la1 15:26 Conner Manning NP is PHCP. pm1 15:26 Tabitha Mullins MD is Attending Physician. pm1 15:32 Patient has correct armband on for positive identification. Placed in gown. Bed in low em position. Call light in reach. Pulse ox on. NIBP on. 15:33 Spencer Andrews LVN is Primary Nurse. em 15:38 Inserted saline lock: 22 gauge in right antecubital area, using aseptic technique. kj1 Blood collected. 15:38 Initial lab(s) drawn, by me, sent to lab. kj1 16:33 CT completed. Patient tolerated procedure well. Patient moved back from CT. vm2 16:34 Abdomen In Process Unspecified. EDMS 18:15 No provider procedures requiring assistance completed. IV discontinued, intact, em bleeding controlled, No redness/swelling at site. Pressure dressing applied. Administered Medications: 15:48 Drug: NS 0.9% 1000 ml Route: IV; Rate: 1000 ml; Site: right antecubital; em 18:15 Follow up: IV Status: Completed infusion; IV Intake: 1000ml em 15:48 Drug: Zofran 4 mg Route: IVP; Site: right antecubital; ss 16:30 Follow up: Response: No adverse reaction em 15:50 Drug: fentaNYL (PF) 25 mcg Route: IVP; Site: right antecubital; ss 18:05 Follow up: Response: No adverse reaction; Pain is decreased em Intake: 18:15 IV: 1000ml; Total: 1000ml. em Outcome: 18:02 Discharge ordered by MD. pm1 18:15 Discharged to home ambulatory, with family. em 18:15 Condition: good 18:15 Discharge instructions given to patient, family, Instructed on discharge instructions, follow up and referral plans. Demonstrated understanding of instructions, follow-up care. 18:16 Patient left the ED. em Signatures: Dispatcher [employer] EDHI Spencer Andrews, SCHEDULING SPECIALIST SCHEDULING SPECIALIST em Jess Hutton RN RN ss Attema, Lee, RN RN la1 Conner Manning, JOHNNY SINGING TELEGRAM PERFORMER pm1 Rebecca Vazquez rg4 Enriqueta Khoury 2 Naz Gannon1 Corrections: (The following items were deleted from the chart) 15:24 15:23 Acuity: RAVI 2 la1 la1 15:45 15:43 Initial lab(s) drawn, by me, sent to lab. kj1 kj1 18:05 16:30 Response: No adverse reaction em em
[2019-09-07 18:25] VITALS: TEMP 98.6
[2019-09-07 18:28] VITALS: BP 151/72; O2SAT 98
== END 2019-09-07 18:16 | disposition home or self-care (01) ==
LOC: ER 14:58
DX: R10.32 Left lower quadrant pain (principal); I10 Essential (primary) hypertension; Z85.46 Personal history of malignant neoplasm of prostate; Z85.028 Personal history of other malignant neoplasm of stomach; Z88.5 Allergy status to narcotic agent; Z88.7 Allergy status to serum and vaccine
CPT/HCPCS: 96361; 85025; 80048; 36415; 80076; 83690; 74176; 96375; 96374; 99284; J3010; J7030; J2405

== ENCOUNTER 2019-09-28 11:12 | Emergency (ER) | payer OTHER ==
[2019-09-28 12:36] LABS: Absolute Lymphocytes (CBC) 1.7 K/uL (0.7-4.9); Basophils % 0.6 % (0-1.3); Hematocrit 37.7 % (39.6-49.0); Lymphocytes % 24.1 % (15.3-44.8); MPV 8.9 fL (7.6-11.3); RBC Red Blood Cell Count 4.19 M/uL (4.33-5.43)
[2019-09-28 12:46] LABS: ALT/SGPT 21 U/L (12-78); AST/SGOT 16 U/L (15-37); Albumin 2.9 g/dL (3.4-5.0); Alkaline Phosphatase 84 U/L (45-117); BUN Blood Urea Nitrogen 28 mg/dL (7-18); Bicarbonate 25 mmol/L (21-32); Bilirubin Direct < 0.1 mg/dL (0-0.2); Bilirubin Total 0.4 mg/dL (0.2-1.0); Glucose Level 165 mg/dL (74-106); Lipase 103 U/L (73-393); Potassium 4.7 mmol/L (3.5-5.1); Protein, Total 7.1 g/dL (6.4-8.2); Sodium Level 143 mmol/L (136-145)
[2019-09-28] MEDS ORDERED: ONDANSETRON 4 MG/2 ML VIAL ONE (13:00)
[2019-09-28] MEDS ORDERED: NA CHLORIDE 0.9% 1,000 ML ONE (13:00)
[2019-09-28] MEDS ORDERED: MORPHINE 4 MG/ML SYR ONE (13:00)
--- NOTE | 2019-09-28 13:26 | RAD REPORT ---
EXAM DESCRIPTION: CTAbdomen Pelvis W Contrast - 09/28/2019 1:15 pm CLINICAL HISTORY: Abdominal pain. ABD PAIN COMPARISON: Abdomen Pelvis W Contrast dated 08/08/2019; Abdomen Pelvis W Contrast dated 9; Abdomen Pelvis W Contrast dated 02/07/2019; Abdomen Pelvis W Contrast dated 11/08/2018; Abdomen Pelvis Wo Contrast dated 09/07/2019 TECHNIQUE: Biphasic CT imaging of the abdomen and pelvis was performed with 100 ml non-ionic IV cont rast. All CT scans are performed using dose optimization technique as appropriate and may include automated exposure control or mA/KV adjustment according to patient size. FINDINGS: Heavily calcified pleural plaques are present bilaterally compatible with prior asbestos e xposure. The liver contains a 2 cm cyst in the left lobe. No aggressive liver lesion or biliary dilatation. Ch olecystectomy clips. The spleen, pancreas, left adrenal gland are normal. 2 cm right adrenal mass aga in noted, unchanged. No hydronephrosis of either kidney. Benign cortical cysts in both kidneys are pr esent. No bowel obstruction, free air, free fluid or abscess. Sigmoid diverticulosis coli without diverticul itis. The appendix is normal. No evidence of significant lymphadenopathy. Sigmoid diverticulosis coli without diverticulitis. Small to moderate fat containing inguinal hernias bilaterally. IMPRESSION: No acute intra-abdominal or pelvic finding.
--- NOTE | 2019-09-28 14:53 | ER ---
Nurse's Notes [facility] Name: Abhijit Peralta Age: 84 yrs Sex: Male : 1935 Arrival Date: 09/28/2019 Time: 11:15 Bed 23 Private MD: Oniel Adams R Diagnosis: Unspecified abdominal pain Presentation: 09/28 11:18 Presenting complaint: Patient states: Right lower abdominal pain and back pain for the aj1 past 3 months. Reports that he has been seen for this abdominal pain before both here and at his family doctor but they have never been able to find anything wrong. Denies N/V/D. Transition of care: patient was not received from another setting of care. Onset of symptoms was 2018. Risk Assessment: Do you want to hurt yourself or someone else? Patient reports no desire to harm self or others. Initial Sepsis Screen: Does the patient meet any 2 criteria? No. Patient's initial sepsis screen is negative. Does the patient have a suspected source of infection? Yes: Acute abdominal pain. Care prior to arrival: None. 11:18 Method Of Arrival: [facility] 11:18 Acuity: RAVI 3 [facility] Triage Assessment: 11:20 General: Appears in no apparent distress. comfortable, Behavior is calm, cooperative, aj1 appropriate for age. Pain: Complains of pain in right lower quadrant Pain currently is 8 out of 10 on a pain scale. Neuro: Level of Consciousness is awake, alert. Cardiovascular: Patient's skin is warm and dry. Respiratory: Airway is patent Respiratory effort is even, unlabored, Respiratory pattern is regular, symmetrical. GI: Reports lower abdominal pain. 13:03 : No signs and/or symptoms were reported regarding the genitourinary system. Derm: mg2 Skin is intact, is healthy with good turgor, Skin is pink, warm \T\ dry. normal. Musculoskeletal: Circulation, motion, and sensation intact. Capillary refill < 3 seconds. Historical: - Allergies: 11:20 Tetanus Immune Globulin; aj1 - Home Meds: 11:20 amlodipine 2.5 mg tab 1 tab once daily [Active]; glimepiride 2 mg Oral tab 2 tabs twice aj1 daily [Active]; pravastatin 20 mg Oral tab 1 tab once daily [Active]; - PMHx: 11:20 Dementia; Diabetes - NIDDM; gastric ulcers; Hypertension; LYMPHOMA; Prostate Cancer; aj1 Stomach CA - in remission; - Immunization history:: Flu vaccine is up to date. - Social history:: Smoking status: Patient/guardian denies using tobacco. - Ebola Screening: : Patient denies travel to an Ebola-affected area in the 21 days before illness onset. Screenin:01 Abuse screen: Denies threats or abuse. Denies injuries from another. Nutritional mg2 screening: No deficits noted. Tuberculosis screening: No symptoms or risk factors identified. 12:25 Fall Risk IV access (20 points). mg2 Assessment: 12:23 General: Appears in no apparent distress. comfortable, Behavior is calm, cooperative. mg2 Pain: Complains of pain in right upper quadrant Pain does not radiate. Pain currently is 5 out of 10 on a pain scale. Quality of pain is described as aching, Pain began gradually, Is intermittent. Neuro: Level of Consciousness is awake, alert, obeys commands, Oriented to person, place, time, situation. Cardiovascular: Capillary refill < 3 seconds Patient's skin is warm and dry. Respiratory: Airway is patent Respiratory effort is even, unlabored, Respiratory pattern is regular, symmetrical. GI: Bowel sounds present X 4 quads. Abdomen is tender to palpation in right upper quadrant. : No signs and/or symptoms were reported regarding the genitourinary system. EENT: No signs and/or symptoms were reported regarding the EENT system. Derm: Skin is intact, is healthy with good turgor, Skin is pink, warm \T\ dry. normal. Musculoskeletal: Circulation, motion, and sensation intact. Capillary refill < 3 seconds. 13:04 Reassessment: patient sent to ct scan via stretcher. mg2 Vital Signs: 11:20 BP 181 / 78; Pulse 63; Resp 18; Temp 97.1; Pulse Ox 100% on R/A; Weight 78.93 kg (R); aj1 Pain 8/10; 12:03 BP 174 / 77; Pulse 63; Resp 18; Pulse Ox 99% on R/A; mg2 13:00 BP 155 / 78; Pulse 60; Resp 18; Pulse Ox 100% on R/A; mg2 14:30 BP 156 / 78; Pulse 68; Resp 18; Pulse Ox 100% on R/A; mg2 15:15 BP 160 / 78; Pulse 65; Resp 18; Temp 98; Pulse Ox 100% on R/A; mg2 ED Course: 11:15 Patient arrived in ED. as 11:15 Oniel Adams MD is Private Physician. as 11:20 Triage completed. aj1 11:20 Arm band placed on Patient placed in waiting room, Patient notified of wait time. aj1 11:57 Ronny Hernandez, RN is Primary Nurse. mg2 12:00 Conner Manning NP is PHCP. pm1 12:00 Koko Roberts MD is Attending Physician. pm1 12:03 No provider procedures requiring assistance completed. mg2 12:14 Placed in gown. Bed in low position. Call light in reach. Side rails up X 1. Side rails jp3 up X2. Lights dimmed. Warm blanket given. Verbal reassurance given. Pulse ox on. NIBP on. 12:14 Initial lab(s) drawn, by ED staff, sent to lab. Patient maintains SpO2 saturation jp3 greater than 95% on room air. 12:14 Inserted saline lock: 20 gauge in right forearm, using aseptic technique. mg2 12:15 Basic Metabolic Panel Sent. jp3 12:15 CBC with Diff Sent. jp3 12:15 Hepatic Function Sent. jp3 12:15 Lipase Sent. jp3 13:15 CT completed. Patient tolerated procedure well. Patient moved back from CT. mw3 13:17 CT Abd/Pelvis - IV Contrast Only In Process Unspecified. EDMS 15:22 IV discontinued, intact, bleeding controlled, No redness/swelling at site. Pressure mg2 dressing applied. Administered Medications: 13:27 Drug: NS 0.9% 1000 ml Route: IV; Rate: 1000 ml; Site: right forearm; mg2 15:23 Follow up: Response: No adverse reaction; IV Status: Completed infusion; IV Intake: mg2 1000ml 13:28 Not Given (Patient Refused; patient is painfree now): morphine 4 mg IVP once; RASS on mg2 ADMIN: Combtv4, Very Agttd3, Agttd2, Rstlss1, AlertClm0, Drwsy-1, Lt Sdtn-2, Mod Sdtn-3, Dp Sdtn-4, UnArsble-5 13:28 Not Given (Patient Refused): Zofran 4 mg IVP once; over 2 minutes mg2 Intake: 15:23 IV: 1000ml; Total: 1000ml. mg2 Outcome: 14:52 Discharge ordered by MD. pm1 15:23 Discharged to home ambulatory, with family. mg2 15:23 Condition: stable 15:23 Discharge instructions given to patient, family, Instructed on discharge instructions, follow up and referral plans. medication usage, Demonstrated understanding of instructions, follow-up care, medications, Prescriptions given X 1. 15:24 Patient left the ED. mg2 Signatures: Dispatcher [employer] EDMS Philomena Verduzco RN RN aj1 Lizett Cabrales as Conner Manning, CAN DRAGGER CAN DRAGGER pm1 Ronny Hernandez RN RN mg2 Kristyn Dimas mw3 David Patel jp3 Corrections: (The following items were deleted from the chart) 12:34 12:15 Creatinine for Radiology+C.LAB.BRZ drawn and sent. jp3 EDMS
--- NOTE | 2019-09-28 14:53 | EDPHYS ---
Physician Documentation [facility] Name: Abhijit Peralta Age: 84 yrs Sex: Male : 1935 Arrival Date: 09/28/2019 Time: 11:15 Bed 23 Private MD: Oniel Adams R ED Physician Koko Roberts HPI: 09/28 12:48 This 84 yrs old Male presents to ER via Ambulatory with complaints of pm1 Abdominal Pain. 12:48 The patient presents with abdominal pain right lower quadrant. pm1 12:48 Onset: The symptoms/episode began/occurred On and off for the past three months. The pm1 symptoms do not radiate. Associated signs and symptoms: Pertinent negatives: nausea, vomiting, and diarrhea, chest pain, constipation, dysuria, fever, shortness of breath, testicular pain. The symptoms are described as sharp. Modifying factors: The symptoms are alleviated by moving right leg. Severity of pain: in the emergency department the pain has improved. The patient has experienced similar episodes in the past, multiple times. Historical: - Allergies: 11:20 Tetanus Immune Globulin; aj1 - Home Meds: 11:20 amlodipine 2.5 mg tab 1 tab once daily [Active]; glimepiride 2 mg Oral tab 2 tabs twice aj1 daily [Active]; pravastatin 20 mg Oral tab 1 tab once daily [Active]; - PMHx: 11:20 Dementia; Diabetes - NIDDM; gastric ulcers; Hypertension; LYMPHOMA; Prostate Cancer; aj1 Stomach CA - in remission; - Immunization history:: Flu vaccine is up to date. - Social history:: Smoking status: Patient/guardian denies using tobacco. - Ebola Screening: : Patient denies travel to an Ebola-affected area in the 21 days before illness onset. ROS: 12:48 Constitutional: Negative for fever, chills, and weight loss, Eyes: Negative for injury, pm1 pain, redness, and discharge, ENT: Negative for injury, pain, and discharge, Neck: Negative for injury, pain, and swelling, Cardiovascular: Negative for chest pain, palpitations, and edema, Respiratory: Negative for shortness of breath, cough, wheezing, and pleuritic chest pain. 12:48 Back: Negative for injury and pain, : Negative for injury, bleeding, discharge, and swelling, MS/Extremity: Negative for injury and deformity, Skin: Negative for injury, rash, and discoloration, Neuro: Negative for headache, weakness, numbness, tingling, and seizure. 12:48 Abdomen/GI: Positive for abdominal pain, Negative for nausea, vomiting, and diarrhea. Exam: 12:48 Constitutional: This is a well developed, well nourished patient who is awake, alert, pm1 and in no acute distress. Head/Face: Normocephalic, atraumatic. Chest/axilla: Normal chest wall appearance and motion. Nontender with no deformity. No lesions are appreciated. Cardiovascular: Regular rate and rhythm with a normal S1 and S2. No gallops, murmurs, or rubs. Normal PMI, no JVD. No pulse deficits. Respiratory: Lungs have equal breath sounds bilaterally, clear to auscultation and percussion. No rales, rhonchi or wheezes noted. No increased work of breathing, no retractions or nasal flaring. Abdomen/GI: Soft, non-tender, with normal bowel sounds. No distension or tympany. No guarding or rebound. No evidence of tenderness throughout. Back: No spinal tenderness. No costovertebral tenderness. Full range of motion. Skin: Warm, dry with normal turgor. Normal color with no rashes, no lesions, and no evidence of cellulitis. MS/ Extremity: Pulses equal, no cyanosis. Neurovascular intact. Full, normal range of motion. 12:48 Neuro: Orientation: is normal, Motor: is normal, moves all fours. Vital Signs: 11:20 BP 181 / 78; Pulse 63; Resp 18; Temp 97.1; Pulse Ox 100% on R/A; Weight 78.93 kg (R); aj1 Pain 8/10; 12:03 BP 174 / 77; Pulse 63; Resp 18; Pulse Ox 99% on R/A; mg2 13:00 BP 155 / 78; Pulse 60; Resp 18; Pulse Ox 100% on R/A; mg2 14:30 BP 156 / 78; Pulse 68; Resp 18; Pulse Ox 100% on R/A; mg2 15:15 BP 160 / 78; Pulse 65; Resp 18; Temp 98; Pulse Ox 100% on R/A; mg2 MDM: 12:09 Patient medically screened. pm1 14:52 Data reviewed: vital signs. Data interpreted: Pulse oximetry: on room air is 99 %. pm1 Interpretation: normal. Counseling: I had a detailed discussion with the patient and/or guardian regarding: the historical points, exam findings, and any diagnostic results supporting the discharge/admit diagnosis, lab results, radiology results, the need for outpatient follow up, to return to the emergency department if symptoms worsen or persist or if there are any questions or concerns that arise at home. 09/28 12:03 Order name: Basic Metabolic Panel; Complete Time: 12:48 mg2 12 12:03 Order name: CBC with Diff; Complete Time: 12:49 mg2 09/28 12:03 Order name: Hepatic Function; Complete Time: 12:48 mg2 12 12:03 Order name: Lipase; Complete Time: 12:48 mg2 09/28 12:49 Order name: CT Abd/Pelvis - IV Contrast Only; Complete Time: 13:41 pm1 09/28 12:03 Order name: IV Saline Lock; Complete Time: 12:15 mg2 09/28 12:03 Order name: Labs collected and sent; Complete Time: 12:15 mg2 Administered Medications: 13:27 Drug: NS 0.9% 1000 ml Route: IV; Rate: 1000 ml; Site: right forearm; mg2 15:23 Follow up: Response: No adverse reaction; IV Status: Completed infusion; IV Intake: mg2 1000ml 13:28 Not Given (Patient Refused; patient is painfree now): morphine 4 mg IVP once; RASS on mg2 ADMIN: Combtv4, Very Agttd3, Agttd2, Rstlss1, AlertClm0, Drwsy-1, Lt Sdtn-2, Mod Sdtn-3, Dp Sdtn-4, UnArsble-5 13:28 Not Given (Patient Refused): Zofran 4 mg IVP once; over 2 minutes mg2 Disposition: 19:13 Co-signature as Attending Physician, Koko Roberts MD Did not see or evaluate the ps1 patient. Signing the chart for administrative purposes. Not an endorsement of care provided. . Disposition: 09/28/19 14:52 Discharged to Home. Impression: Unspecified abdominal pain. - Condition is Stable. - Discharge Instructions: Abdominal Pain, Adult. - Prescriptions for Bentyl 20 mg Oral Tablet - take 1 tablet by ORAL route every 6 hours As needed; 20 tablet. - Medication Reconciliation Form, Thank You Letter, Antibiotic Education, Prescription Opioid Use form. - Follow up: Emergency Department; When: As needed; Reason: Trouble breathing. Follow up: Private Physician; When: 2 - 3 days; Reason: Recheck today's complaints, Continuance of care, Re-evaluation by your physician. - Problem is new. - Symptoms have improved. Signatures: Dispatcher [employer] EDWA Philomena Verduzco RN RN aj1 Conner Manning NP REPAIRER ENGINE PRODUCTION pm1 Koko Roberts MD MD ps1 Ronny Hernandez RN RN mg2 Corrections: (The following items were deleted from the chart) 12:34 12:04 Creatinine for Radiology+C.LAB.BRZ ordered. [facility] 15:24 14:52 09/28/2019 14:52 Discharged to Home. Impression: Unspecified abdominal pain. mg2 Condition is Stable. Forms are Medication Reconciliation Form, Thank You Letter, Antibiotic Education, Prescription Opioid Use. Follow up: Emergency Department; When: As needed; Reason: Trouble breathing. Follow up: Private Physician; When: 2 - 3 days; Reason: Recheck today's complaints, Continuance of care, Re-evaluation by your physician. Problem is new. Symptoms have improved. pm1
[2019-09-28 15:46] VITALS: O2SAT 100
[2019-09-28 15:49] VITALS: BP 160/78; TEMP 98
== END 2019-09-28 15:24 | disposition home or self-care (01) ==
LOC: ER 11:12
DX: R10.31 Right lower quadrant pain (principal); I10 Essential (primary) hypertension; E11.9 Type 2 diabetes mellitus without complications; Z85.46 Personal history of malignant neoplasm of prostate; Z85.028 Personal history of other malignant neoplasm of stomach; Z85.72 Personal history of non-Hodgkin lymphomas; Z88.7 Allergy status to serum and vaccine
CPT/HCPCS: 96361; 85025; 80048; 36415; 80076; 83690; 74177; 96360; 99285; Q9967; J7030; J2405

== ENCOUNTER 2019-11-12 14:44 | Emergency (ER) | payer OTHER ==
--- NOTE | 2019-11-12 16:39 | RAD REPORT ---
EXAM DESCRIPTION: Daisy Venegas And Ros (2 Views)11/12/2019 4:04 pm CLINICAL HISTORY: Cough COMPARISON: 2018 FINDINGS: Bilateral calcified pleural plaques The lungs appear clear of acute infiltrate. The heart is normal size IMPRESSION: No acute abnormalities displayed
--- NOTE | 2019-11-12 17:24 | EDPHYS ---
Physician Documentation [facility] Name: Abhijit Peralta Age: 84 yrs Sex: Male : 1935 Arrival Date: 11/12/2019 Time: 14:46 Bed 13 Private MD: ED Physician Juan Coronel HPI: 11/12 17:26 This 84 yrs old Male presents to ER via Wheelchair with complaints of Cough. snw 17:26 The patient or guardian reports cough, with no sputum. Onset: The symptoms/episode snw began/occurred suddenly, yesterday. Severity of symptoms: At their worst the symptoms were mild. Associated signs and symptoms: Pertinent positives: chills last pm, no fever. It is unknown whether or not the patient has had similar symptoms in the past. It is unknown whether or not the patient has recently seen a physician. Historical: - Allergies: 14:53 Tetanus Immune Globulin; sv - PMHx: 14:53 Dementia; Diabetes - NIDDM; gastric ulcers; Hypertension; LYMPHOMA; Prostate Cancer; sv Stomach CA - in remission; - Immunization history:: Adult Immunizations up to date. - Social history:: Smoking status: Patient/guardian denies using tobacco. - Ebola Screening: : No symptoms or risks identified at this time. ROS: 17:25 Eyes: Negative for injury, pain, redness, and discharge, ENT: Negative for injury, snw pain, and discharge, Neck: Negative for injury, pain, and swelling, Cardiovascular: Negative for chest pain, palpitations, and edema, Abdomen/GI: Negative for abdominal pain, nausea, vomiting, diarrhea, and constipation, Back: Negative for injury and pain, : Negative for injury, bleeding, discharge, and swelling, MS/Extremity: Negative for injury and deformity, Skin: Negative for injury, rash, and discoloration, Neuro: Negative for headache, weakness, numbness, tingling, and seizure, Psych: Negative for depression, anxiety, suicide ideation, homicidal ideation, and hallucinations. 17:25 Constitutional: Positive for chills. 17:25 Respiratory: Positive for cough, with no reported sputum. Exam: 17:25 Constitutional: This is a well developed, well nourished patient who is awake, alert, snw and in no acute distress. Head/Face: Normocephalic, atraumatic. Eyes: Pupils equal round and reactive to light, extra-ocular motions intact. Lids and lashes normal. Conjunctiva and sclera are non-icteric and not injected. Cornea within normal limits. Periorbital areas with no swelling, redness, or edema. ENT: Nares patent. No nasal discharge, no septal abnormalities noted. Tympanic membranes are normal and external auditory canals are clear. Oropharynx with no redness, swelling, or masses, exudates, or evidence of obstruction, uvula midline. Mucous membranes moist. Neck: Trachea midline, no thyromegaly or masses palpated, and no cervical lymphadenopathy. Supple, full range of motion without nuchal rigidity, or vertebral point tenderness. No Meningismus. Chest/axilla: Normal chest wall appearance and motion. Nontender with no deformity. No lesions are appreciated. Cardiovascular: Regular rate and rhythm with a normal S1 and S2. No gallops, murmurs, or rubs. Normal PMI, no JVD. No pulse deficits. Respiratory: Lungs have equal breath sounds bilaterally, clear to auscultation and percussion. No rales, rhonchi or wheezes noted. No increased work of breathing, no retractions or nasal flaring. Abdomen/GI: Soft, non-tender, with normal bowel sounds. No distension or tympany. No guarding or rebound. No evidence of tenderness throughout. Back: No spinal tenderness. No costovertebral tenderness. Full range of motion. Skin: Warm, dry with normal turgor. Normal color with no rashes, no lesions, and no evidence of cellulitis. MS/ Extremity: Pulses equal, no cyanosis. Neurovascular intact. Full, normal range of motion. Neuro: Awake and alert, GCS 15, oriented to person, place, time, and situation. Cranial nerves II-XII grossly intact. Motor strength 5/5 in all extremities. Sensory grossly intact. Cerebellar exam normal. Normal gait. Psych: Awake, alert, with orientation to person, place and time. Behavior, mood, and affect are within normal limits. Vital Signs: 14:53 BP 172 / 80; Pulse 86; Resp 20; Temp 98; Pulse Ox 100% ; Weight 77.11 kg; sv 16:57 BP 161 / 82; Pulse 105; Resp 16; Pulse Ox 100% ; bp 18:23 BP 155 / 85; Pulse 91; Resp 17; Temp 98; Pulse Ox 99% ; bp MDM: 15:53 Patient medically screened. [facility] 17:24 Data reviewed: vital signs, nurses notes. Data interpreted: Pulse oximetry: on room air snw is 100 %. Interpretation: normal. Counseling: I had a detailed discussion with the patient and/or guardian regarding: the historical points, exam findings, and any diagnostic results supporting the discharge/admit diagnosis, the presence of at least one elevated blood pressure reading (>120/80) during this emergency department visit, lab results, radiology results, the need for outpatient follow up, to return to the emergency department if symptoms worsen or persist or if there are any questions or concerns that arise at home. Special discussion: Based on the history and exam findings, there is no indication for further emergent testing or inpatient evaluation. I discussed with the patient/guardian the need to see the primary care provider for further evaluation of the symptoms. 11/12 15:53 Order name: Flu; Complete Time: 17:12 snw 11/12 14:55 Order name: Chest Pa And Lat (2 Views) XRAY; Complete Time: 16:44 sv Administered Medications: 18:00 Drug: Tussionex Pennkinetic ER 5 ml Route: PO; bp 18:21 Follow up: Response: Pain is decreased bp Disposition: 11/13 06:18 Co-signature as Attending Physician, Juan Coronel MD I agree with the assessment and [facility] plan of care. Disposition: 11/12/19 17:23 Discharged to Home. Impression: Cough. - Condition is Stable. - Discharge Instructions: Cool Mist Vaporizer, Cough, Adult, Vnoz-or-Ehzw. - Prescriptions for Tylenol- Codeine #3 300-30 mg Oral Tablet - take 1 tablet by ORAL route every 6 hours As needed; 15 tablet. - Medication Reconciliation Form, Thank You Letter, Antibiotic Education, Prescription Opioid Use form. - Follow up: Private Physician; When: 2 - 3 days; Reason: Recheck today's complaints, Continuance of care, Re-evaluation by your physician. Follow up: Emergency Department; When: As needed; Reason: Worsening of condition. Signatures: Dispatcher [employer] Rabia Murrell RN RN sv Anderson, Corey, MD MD cha Therrien, Shelly, COGNOS TM1 DEVELOPER-C COGNOS TM1 DEVELOPER-Csnw Lissette, Jez, RN RN bp Corrections: (The following items were deleted from the chart) 11/12 18:25 17:23 11/12/2019 17:23 Discharged to Home. Impression: Cough. Condition is Stable. bp Forms are Medication Reconciliation Form, Thank You Letter, Antibiotic Education, Prescription Opioid Use. Follow up: Private Physician; When: 2 - 3 days; Reason: Recheck today's complaints, Continuance of care, Re-evaluation by your physician. Follow up: Emergency Department; When: As needed; Reason: Worsening of condition. snw
--- NOTE | 2019-11-12 17:24 | ER ---
Nurse's Notes [facility] Name: Abhijit Peralta Age: 84 yrs Sex: Male : 1935 Arrival Date: 11/12/2019 Time: 14:46 Bed 13 Private MD: Diagnosis: Cough Presentation: 11/12 14:52 Presenting complaint: Patient states: non productive cough, chills started last night. sv Transition of care: patient was not received from another setting of care. Onset of symptoms was November 11, 2019. Care prior to arrival: None. 14:52 Method Of Arrival: Wheelchair sv 14:52 Acuity: RAVI 3 sv 15:00 Risk Assessment: Do you want to hurt yourself or someone else? Patient reports no bp desire to harm self or others. Initial Sepsis Screen: Does the patient meet any 2 criteria? HR > 90 bpm. No. Patient's initial sepsis screen is negative. Does the patient have a suspected source of infection? No. Patient's initial sepsis screen is negative. Triage Assessment: 14:52 General: Appears in no apparent distress. comfortable, Behavior is calm, cooperative, sv appropriate for age. Neuro: Level of Consciousness is awake, alert, obeys commands, Gait is steady. Respiratory: Reports cough that is non-productive. Historical: - Allergies: 14:53 Tetanus Immune Globulin; sv - PMHx: 14:53 Dementia; Diabetes - NIDDM; gastric ulcers; Hypertension; LYMPHOMA; Prostate Cancer; sv Stomach CA - in remission; - Immunization history:: Adult Immunizations up to date. - Social history:: Smoking status: Patient/guardian denies using tobacco. - Ebola Screening: : No symptoms or risks identified at this time. Screenin:48 Abuse screen: Denies threats or abuse. Denies injuries from another. Nutritional bp screening: No deficits noted. Tuberculosis screening: No symptoms or risk factors identified. Fall Risk None identified. Assessment: 15:45 General: Appears in no apparent distress. comfortable, Behavior is cooperative, bp appropriate for age, anxious. Pain: Denies pain. Neuro: No deficits noted. Cardiovascular: No deficits noted. Respiratory: Reports cough that is. GI: No signs and/or symptoms were reported involving the gastrointestinal system. : No signs and/or symptoms were reported regarding the genitourinary system. EENT: No deficits noted. Derm: No deficits noted. Musculoskeletal: No deficits noted. 16:58 Reassessment: LAB RESULTS PENDING. PT REMAINS TACHYCARDIC ON MONITOR. bp 18:22 Reassessment: PT D/C HOME AMBULATORY WITH FAMILY, DX WITH COUGH. STATES RELIEF OF S/S. bp Vital Signs: 14:53 BP 172 / 80; Pulse 86; Resp 20; Temp 98; Pulse Ox 100% ; Weight 77.11 kg; sv 16:57 BP 161 / 82; Pulse 105; Resp 16; Pulse Ox 100% ; bp 18:23 BP 155 / 85; Pulse 91; Resp 17; Temp 98; Pulse Ox 99% ; bp ED Course: 14:46 Patient arrived in ED. as 14:52 Triage completed. sv 14:53 Arm band placed on. sv 15:41 Jez Mclaughlin, RN is Primary Nurse. bp 15:48 Patient has correct armband on for positive identification. Placed in gown. Bed in low bp position. Call light in reach. Side rails up X2. 15:53 Génesis Warren F[facility]-C [facility]. snw 15:53 Juan Coronel MD is Attending Physician. snw 16:03 Chest Pa And Lat (2 Views) XRAY In Process Unspecified. EDMS 18:21 No provider procedures requiring assistance completed. Patient did not have IV access bp during this emergency room visit. Administered Medications: 18:00 Drug: Tussionex Pennkinetic ER 5 ml Route: PO; bp 18:21 Follow up: Response: Pain is decreased bp Outcome: 17:23 Discharge ordered by . snw 18:23 Discharged to home ambulatory, with family. bp 18:23 Condition: stable 18:23 Discharge instructions given to patient, Instructed on discharge instructions, follow up and referral plans. medication usage, Demonstrated understanding of instructions, follow-up care, medications, Prescriptions given X 1. 18:25 Patient left the ED. bp Signatures: Dispatcher [employer] EDRabia Villar, RN RN Génesis Montelongo FNP-C FNP-Lizett Regalado as Jez Mclaughlin, RN RN bp
[2019-11-12] MEDS ORDERED: HYDROCODONE/CHLORPHEN 5 ML/OSYR ONE (18:12)
[2019-11-12 18:32] VITALS: TEMP 98
[2019-11-12 18:35] VITALS: BP 155/85; O2SAT 99
== END 2019-11-12 18:25 | disposition home or self-care (01) ==
LOC: ER 14:44
DX: R05 Cough (principal)
CPT/HCPCS: 71046; 87804; 99283

== ENCOUNTER 2019-11-23 09:12 | Emergency (ER) | payer OTHER ==
[2019-11-23] MEDS ORDERED: LEVALBUTEROL 1.25 MG/3 ML NEB ONE ×2 (09:35→10:36)
[2019-11-23] MEDS ORDERED: IPRATROPIUM BROM 0.5MG/2.5ML ONE (09:35)
--- NOTE | 2019-11-23 09:54 | RAD REPORT ---
EXAM DESCRIPTION: Daisy Macias (2 Views)11/23/2019 9:38 am CLINICAL HISTORY: Cough COMPARISON: None FINDINGS: Extensive bilateral pleural plaques The lungs appear clear of acute infiltrate. The heart is normal size IMPRESSION: No acute abnormalities displayed
--- NOTE | 2019-11-23 10:23 | EDPHYS ---
Physician Documentation [facility] Name: Abhijit Peralta Age: 84 yrs Sex: Male : 1935 Arrival Date: 11/23/2019 Time: 09:16 Bed 14 Private MD: ED Physician Pablo Daly HPI: 11/23 10:18 This 84 yrs old Male presents to ER via Ambulatory with complaints of Cough, kb Congestion. 10:18 The patient or guardian reports cough, that is intermittent, described as mild, with no kb sputum. Onset: The symptoms/episode began/occurred 1 week(s) ago. Severity of symptoms: At their worst the symptoms were moderate, in the emergency department the symptoms are unchanged. Modifying factors: The symptoms are alleviated by nothing, the symptoms are aggravated by nothing. Associated signs and symptoms: The patient has no apparent associated signs or symptoms. The patient has not experienced similar symptoms in the past. The patient has not recently seen a physician. reports pt has had cough and congestion for a week. Denies fever, reports chills. States over the counter cough medication isn't helping. Historical: - Allergies: : Tetanus Immune Globulin; ss - PMHx: : Dementia; Diabetes - NIDDM; gastric ulcers; Hypertension; LYMPHOMA; Prostate Cancer; ss Stomach CA - in remission; - Immunization history:: Adult Immunizations up to date. - Coronavirus screen:: The patient has NOT traveled to [place], [place], or [place] in the past 14 days. Proceed with normal triage process as indicated. - Social history:: Smoking status: Patient denies any tobacco usage or history of. - Ebola Screening: : Patient denies exposure to infectious person Patient denies travel to an Ebola-affected area in the 21 days before illness onset. ROS: 10:18 Constitutional: Negative for fever, chills, and weight loss, Neck: Negative for injury, kb pain, and swelling, Cardiovascular: Negative for chest pain, palpitations, and edema, Abdomen/GI: Negative for abdominal pain, nausea, vomiting, diarrhea, and constipation, Back: Negative for injury and pain, MS/Extremity: Negative for injury and deformity, Skin: Negative for injury, rash, and discoloration, Neuro: Negative for headache, weakness, numbness, tingling, and seizure. 10:18 ENT: Positive for sinus congestion. 10:18 Respiratory: Positive for cough, Negative for dyspnea on exertion, hemoptysis, orthopnea, pleurisy, shortness of breath, sputum production, wheezing. Exam: 10:18 Constitutional: This is a well developed, well nourished patient who is awake, alert, kb and in no acute distress. Head/Face: Normocephalic, atraumatic. ENT: Nares patent. No nasal discharge, no septal abnormalities noted. Tympanic membranes are normal and external auditory canals are clear. Oropharynx with no redness, swelling, or masses, exudates, or evidence of obstruction, uvula midline. Mucous membranes moist. Neck: Trachea midline, no thyromegaly or masses palpated, and no cervical lymphadenopathy. Supple, full range of motion without nuchal rigidity, or vertebral point tenderness. No Meningismus. Chest/axilla: Normal chest wall appearance and motion. Nontender with no deformity. No lesions are appreciated. Cardiovascular: Regular rate and rhythm with a normal S1 and S2. No gallops, murmurs, or rubs. Normal PMI, no JVD. No pulse deficits. Abdomen/GI: Soft, non-tender, with normal bowel sounds. No distension or tympany. No guarding or rebound. No evidence of tenderness throughout. Skin: Warm, dry with normal turgor. Normal color with no rashes, no lesions, and no evidence of cellulitis. MS/ Extremity: Pulses equal, no cyanosis. Neurovascular intact. Full, normal range of motion. Neuro: Awake and alert, GCS 15, oriented to person, place, time, and situation. Cranial nerves II-XII grossly intact. Motor strength 5/5 in all extremities. Sensory grossly intact. Cerebellar exam normal. Normal gait. 10:18 Respiratory: the patient does not display signs of respiratory distress, Respirations: normal, Breath sounds: wheezing: expiratory that is mild, is scattered. Vital Signs: 09:27 BP 184 / 82; Pulse 87; Resp 20; Temp 98.0(O); Pulse Ox 96% on R/A; Weight 77.11 kg; ss Pain 0/10; 10:30 BP 163 / 72; Pulse 78; Resp 19; Pulse Ox 97% on R/A; rb1 MDM: 09:19 Patient medically screened. kb 10:18 Data reviewed: vital signs, nurses notes. Data interpreted: Pulse oximetry: on room air kb is 96 %. Interpretation: normal. Counseling: I had a detailed discussion with the patient and/or guardian regarding: the historical points, exam findings, and any diagnostic results supporting the discharge/admit diagnosis, lab results, radiology results, the need for outpatient follow up, a family practitioner, to return to the emergency department if symptoms worsen or persist or if there are any questions or concerns that arise at home. 11/23 09:20 Order name: Flu; Complete Time: 09:56 kb 11/23 09:20 Order name: Chest Pa And Lat (2 Views) XRAY; Complete Time: 09:56 kb Administered Medications: 09:50 Drug: Xopenex (3) 1.25 mg Route: Inhalation; rb1 09:50 Drug: AtroVENT Aerosol 0.5 mg Route: Inhalation; rb1 10:38 Drug: Xopenex (3) 1.25 mg Route: Inhalation; rb1 10:38 Drug: Zithromax 500 mg Route: PO; rb1 11:07 Follow up: Response: No adverse reaction rb1 Disposition: 21:25 Co-signature as Attending Physician, Pablo Daly MD I agree with the assessment and kdr plan of care. Disposition: 11/23/19 10:22 Discharged to Home. Impression: Bronchitis, not specified as acute or chronic. - Condition is Stable. - Discharge Instructions: Acute Bronchitis, [id number], Viral Respiratory Infection, [id number]. - Prescriptions for Tessalon Perles 100 mg Oral Capsule - take 1 capsule by ORAL route every 8 hours As needed; 15 capsule. Albuterol Sulfate 90 mcg/actuation - inhale 1-2 puff by INHALATION route every 4-6 hours; 1 Inhaler. Zithromax Z- Pilo 250 mg Oral Tablet - take 1 tablet by ORAL route as directed for 5 days Day 1 - take two (2) tablets one time. Day 2, 3, 4 , 5 take one (1) tablet once daily.; 6 tablet. - Medication Reconciliation Form, Thank You Letter, Antibiotic Education, Prescription Opioid Use form. - Follow up: Emergency Department; When: As needed; Reason: Worsening of condition. Follow up: Private Physician; When: 2 - 3 days; Reason: Recheck today's complaints, Continuance of care, Re-evaluation by your physician. Signatures: Dispatcher [employer] EDGA Carmen Gannon, OPHTHALMIC MEDICAL ASSISTANT-C OPHTHALMIC MEDICAL ASSISTANT-Ckb Pablo Daly MD MD kdr Smirch, Shelby RN RN ss Lauren Grey, RN RN rb1 Corrections: (The following items were deleted from the chart) 11:11 10:22 11/23/2019 10:22 Discharged to Home. Impression: Bronchitis, not specified as rb1 acute or chronic. Condition is Stable. Forms are Medication Reconciliation Form, Thank You Letter, Antibiotic Education, Prescription Opioid Use. Follow up: Emergency Department; When: As needed; Reason: Worsening of condition. Follow up: Private Physician; When: 2 - 3 days; Reason: Recheck today's complaints, Continuance of care, Re-evaluation by your physician. kb
--- NOTE | 2019-11-23 10:23 | ER ---
Nurse's Notes [facility] Name: Abhijit Peralta Age: 84 yrs Sex: Male : 1935 Arrival Date: 11/23/2019 Time: 09:16 Bed 14 Private MD: Diagnosis: Bronchitis, not specified as acute or chronic Presentation: 11/23 09:26 Presenting complaint: Patient states: cough and congestion x 1 week. Denies fever. ss Transition of care: patient was not received from another setting of care. Resp Distress? No respiratory distress is noted at this time. Onset of symptoms was November 16, 2019. Risk Assessment: Do you want to hurt yourself or someone else? Patient reports no desire to harm self or others. Initial Sepsis Screen: Does the patient meet any 2 criteria? No. Patient's initial sepsis screen is negative. Does the patient have a suspected source of infection? No. Patient's initial sepsis screen is negative. Care prior to arrival: None. 09:26 Method Of Arrival: Ambulatory ss 09: Acuity: RAVI 3 ss Triage Assessment: 09:20 Respiratory: Breath sounds with wheezes bilaterally. rb1 Historical: - Allergies: 09: Tetanus Immune Globulin; ss - PMHx: :27 Dementia; Diabetes - NIDDM; gastric ulcers; Hypertension; LYMPHOMA; Prostate Cancer; ss Stomach CA - in remission; - Immunization history:: Adult Immunizations up to date. - Coronavirus screen:: The patient has NOT traveled to [place], [place], or [place] in the past 14 days. Proceed with normal triage process as indicated. - Social history:: Smoking status: Patient denies any tobacco usage or history of. - Ebola Screening: : Patient denies exposure to infectious person Patient denies travel to an Ebola-affected area in the 21 days before illness onset. Screenin:20 Abuse screen: Denies threats or abuse. Nutritional screening: No deficits noted. rb1 Tuberculosis screening: No symptoms or risk factors identified. Fall Risk None identified. Assessment: 09:20 General: Appears in no apparent distress. comfortable, Behavior is calm, cooperative, rb1 Denies fever. Neuro: Level of Consciousness is awake, alert, obeys commands, Oriented to person, place, time, situation. Cardiovascular: Patient's skin is warm and dry. Respiratory: Airway is patent Respiratory effort is even, unlabored, Respiratory pattern is regular, symmetrical. 09:20 Pain: Complains of pain in chest Pain currently is 5 out of 10 on a pain scale. rb1 Aggravated by coughing. Respiratory: Reports cough that is pain with cough. Respiratory: Reports congestion. 09:33 Reassessment: Pt. went to X-ray. rb1 10:30 Reassessment: Patient appears in no apparent distress at this time. No changes from rb1 previously documented assessment. 10:41 Reassessment: discharge pending due to breathing treatment being administered. rb1 11:08 Reassessment: Patient appears in no apparent distress at this time. Patient and/or rb1 family updated on plan of care and expected duration. Pain level reassessed. Patient is alert, oriented x 3, equal unlabored respirations, skin warm/dry/pink. Patient denies pain at this time. Vital Signs: 09:27 BP 184 / 82; Pulse 87; Resp 20; Temp 98.0(O); Pulse Ox 96% on R/A; Weight 77.11 kg; ss Pain 0/10; 10:30 BP 163 / 72; Pulse 78; Resp 19; Pulse Ox 97% on R/A; rb1 ED Course: 09:16 Patient arrived in ED. as 09:19 Carmen Gannon FNP-C is PHCP. kb 09:19 Pablo Daly MD is Attending Physician. kb 09:20 Patient has correct armband on for positive identification. Bed in low position. Call rb1 light in reach. Side rails up X 1. Pulse ox on. NIBP on. 09:27 Triage completed. ss 09:30 Lauren Grey, RN is Primary Nurse. rb1 09:36 Flu Sent. mh5 09:36 Flu and/or RSV swab sent to lab. mh5 09:37 Chest Pa And Lat (2 Views) XRAY In Process Unspecified. EDMS 10:42 Arm band placed on right wrist. rb1 11:08 No provider procedures requiring assistance completed. Patient did not have IV access rb1 during this emergency room visit. Administered Medications: 09:50 Drug: Xopenex (3) 1.25 mg Route: Inhalation; rb1 09:50 Drug: AtroVENT Aerosol 0.5 mg Route: Inhalation; rb1 10:38 Drug: Xopenex (3) 1.25 mg Route: Inhalation; rb1 10:38 Drug: Zithromax 500 mg Route: PO; rb1 11: Follow up: Response: No adverse reaction rb1 Outcome: 10:22 Discharge ordered by . terry 11:08 Discharged to home ambulatory, with family. rb1 11: Condition: stable 11:08 Discharge instructions given to patient, Instructed on discharge instructions, follow up and referral plans. medication usage, Demonstrated understanding of instructions, follow-up care, medications, Prescriptions given X 3. 11:11 Patient left the ED. rb1 Signatures: Dispatcher [employer] EDGA Carmen Gannon, DAPHNIE PEREZ-Lizett Bullard Shelby, RN RN Lauren Grey RN RN [facility] Eleaonr Cabrales [facility] Corrections: (The following items were deleted from the chart) 09:20 Respiratory: Airway is patent Respiratory effort is even, unlabored, Respiratory rb1 pattern is regular, symmetrical, rb1 09:20 Pain: Complains of pain in chest Pain currently is 5 out of 10 on a pain scale. rb1 Aggravated by coughing rb1 09:20 Respiratory: Breath sounds are clear rb1 rb1
[2019-11-23] MEDS ORDERED: AZITHROMYCIN 250 MG TAB ONE (10:36)
[2019-11-23 11:24] VITALS: BP 163/72; TEMP 98; O2SAT 97
== END 2019-11-23 11:11 | disposition home or self-care (01) ==
LOC: ER 09:12
DX: J40 Bronchitis, not specified as acute or chronic (principal); Z88.7 Allergy status to serum and vaccine
CPT/HCPCS: 71046; 87804; 99284

== ENCOUNTER 2019-12-15 08:23 | Inpatient (IN) | payer OTHER ==
[2019-12-15 09:06] LABS: Absolute Lymphocytes (CBC) 1.6 K/uL (0.7-4.9); Basophils % 0.9 % (0-1.3); Hematocrit 42.8 % (39.6-49.0); Lymphocytes % 23.2 % (15.3-44.8); MPV 8.4 fL (7.6-11.3); RBC Red Blood Cell Count 4.82 M/uL (4.33-5.43)
[2019-12-15 09:07] LABS: Protime INR 1.16
--- NOTE | 2019-12-15 09:33 | RAD REPORT ---
EXAM DESCRIPTION: Daisy Single View12/15/2019 9:08 am CLINICAL HISTORY: Cough COMPARISON: October 2019 FINDINGS: Bilateral calcified pleural plaques unchanged The lungs appear clear of acute infiltrate. The heart is borderline enlarged IMPRESSION: No acute abnormalities displayed
[2019-12-15 09:40] LABS: Urine Blood 2+ (NEG); Urine Glucose NEGATIVE (NEG); Urine Protein 3+ (NEG); Urine Specific Gravity 1.025 (1.005-1.030); Urine pH 5.5 (5.0-7.0)
[2019-12-15] MEDS ORDERED: PIPER/TAZO/NS 3.375gm 3.375 GM/100 ML BAG ONE (09:43)
[2019-12-15] MEDS ORDERED: NA CHLORIDE 0.9% 1,000 ML ONE (09:43)
[2019-12-15] MEDS ORDERED: METHYLPREDNISOLONE 125 MG INJ ONE (09:43)
--- NOTE | 2019-12-15 09:47 | EDPHYS ---
Physician Documentation [facility] Name: Abhijit Peralta Age: 84 yrs Sex: Male : 1935 Arrival Date: 12/15/2019 Time: 08:26 Bed 6 Private MD: Oniel Adams R ED Physician Juan Coronel HPI: 12/15 09:41 This 84 yrs old Male presents to ER via Ambulatory with complaints of Cough, dom Breathing Difficulty. 09:41 The patient or guardian reports airway noise, cough, difficulty breathing, flu dom symptoms. Onset: The symptoms/episode began/occurred 3 day(s) ago. Severity of symptoms: At their worst the symptoms were moderate, in the emergency department the symptoms are unchanged. Modifying factors: The symptoms are alleviated by nebulizer treatment, the symptoms are aggravated by exertion. Associated signs and symptoms: Pertinent positives: fever, sore throat. The patient has experienced similar episodes in the past, multiple times. Historical: - Allergies: 08:37 Tetanus Immune Globulin; sv - PMHx: 08:37 Dementia; Diabetes - NIDDM; gastric ulcers; Hypertension; LYMPHOMA; Prostate Cancer; sv Stomach CA - in remission; - PSHx: 08:37 back; sv - Immunization history:: Flu vaccine is up to date. - Coronavirus screen:: The patient has NOT traveled to [place] in the past 14 days. Proceed with normal triage process as indicated. The patient has NOT had contact with known/suspected case of Coronavirus? Proceed with normal triage procedures. - Social history:: Smoking status: Patient denies any tobacco usage or history of. - Family history:: not pertinent. - Ebola Screening: : No symptoms or risks identified at this time. ROS: 09:41 Constitutional: Negative for fever, chills, and weight loss, Eyes: Negative for injury, dom pain, redness, and discharge, ENT: Negative for injury, pain, and discharge, Neck: Negative for injury, pain, and swelling, Cardiovascular: Negative for chest pain, palpitations, and edema, Abdomen/GI: Negative for abdominal pain, nausea, vomiting, diarrhea, and constipation, Back: Negative for injury and pain, : Negative for injury, bleeding, discharge, and swelling, MS/Extremity: Negative for injury and deformity, Skin: Negative for injury, rash, and discoloration, Neuro: Negative for headache, weakness, numbness, tingling, and seizure, Psych: Negative for depression, anxiety, suicide ideation, homicidal ideation, and hallucinations, Allergy/Immunology: Negative for hives, rash, and allergies, Endocrine: Negative for neck swelling, polydipsia, polyuria, polyphagia, and marked weight changes, Hematologic/Lymphatic: Negative for swollen nodes, abnormal bleeding, and unusual bruising. 09:41 Respiratory: Positive for cough, dyspnea on exertion, shortness of breath, wheezing, inspiratory, expiratory. Exam: 09:41 Constitutional: This is a well developed, well nourished patient who is awake, alert, dom and in no acute distress. Head/Face: Normocephalic, atraumatic. Eyes: Pupils equal round and reactive to light, extra-ocular motions intact. Lids and lashes normal. Conjunctiva and sclera are non-icteric and not injected. Cornea within normal limits. Periorbital areas with no swelling, redness, or edema. ENT: Nares patent. No nasal discharge, no septal abnormalities noted. Tympanic membranes are normal and external auditory canals are clear. Oropharynx with no redness, swelling, or masses, exudates, or evidence of obstruction, uvula midline. Mucous membranes moist. Neck: Trachea midline, no thyromegaly or masses palpated, and no cervical lymphadenopathy. Supple, full range of motion without nuchal rigidity, or vertebral point tenderness. No Meningismus. Chest/axilla: Normal chest wall appearance and motion. Nontender with no deformity. No lesions are appreciated. Cardiovascular: Regular rate and rhythm with a normal S1 and S2. No gallops, murmurs, or rubs. Normal PMI, no JVD. No pulse deficits. Abdomen/GI: Soft, non-tender, with normal bowel sounds. No distension or tympany. No guarding or rebound. No evidence of tenderness throughout. Back: No spinal tenderness. No costovertebral tenderness. Full range of motion. Male : Normal genitalia with no discharge or lesions. Skin: Warm, dry with normal turgor. Normal color with no rashes, no lesions, and no evidence of cellulitis. MS/ Extremity: Pulses equal, no cyanosis. Neurovascular intact. Full, normal range of motion. Neuro: Awake and alert, GCS 15, oriented to person, place, time, and situation. Cranial nerves II-XII grossly intact. Motor strength 5/5 in all extremities. Sensory grossly intact. Cerebellar exam normal. Normal gait. Psych: Awake, alert, with orientation to person, place and time. Behavior, mood, and affect are within normal limits. 09:41 Respiratory: moderate respiratory distress is noted, Respirations: labored breathing, that is mild, Breath sounds: bronchial sounds, decreased breath sounds, rhonchi, wheezing: expiratory Vital Signs: 08:37 BP 160 / 83; Pulse 85; Resp 24; Temp 98.2; Pulse Ox 97% ; Weight 77.11 kg; sv 09:43 BP 151 / 77; Pulse 77; Resp 20; Pulse Ox 97% on R/A; sv 11:05 BP 125 / 65; Pulse 92; Resp 22; Pulse Ox 98% on R/A; sv MDM: 08:34 Patient medically screened. [facility] 09:45 Data reviewed: vital signs, nurses notes, lab test result(s), EKG, radiologic studies, dom plain films. 12/15 08:37 Order name: Urine Dipstick--Ancillary (enter results) 12/15 08:39 Order name: Basic Metabolic Panel [facility] 12/15 08:39 Order name: CBC with Diff [facility] 12/15 08:39 Order name: LFT's [facility] 12/15 08:39 Order name: Magnesium [facility] 12/15 08:39 Order name: NT PRO-BNP [facility] 12/15 08:39 Order name: PT-INR [facility] 12/15 08:39 Order name: Troponin (emerg Dept Use Only) [facility] 12/15 08:39 Order name: Blood Culture Adult (2) [facility] 12/15 08:39 Order name: Flu [facility] 12/15 08:39 Order name: Urine Culture [facility] 12/15 08:39 Order name: Lactate [facility] 12/15 09:34 Order name: Influenza Screen (A ; Complete Time: 09:33 EDMS 12/15 09:44 Order name: Urine Dipstick-Ancillary; Complete Time: 11:35 EDMO 12/15 08:39 Order name: XRAY Chest (1 view) [facility] 12/15 08:39 Order name: EKG; Complete Time: 09:33 [facility] 12/15 08:39 Order name: Cardiac monitoring; Complete Time: 08:58 [facility] 12/15 08:39 Order name: EKG - Nurse/Tech; Complete Time: 09:11 [facility] 12/15 08:39 Order name: IV Saline Lock; Complete Time: 08:58 [facility] 12/15 10:09 Order name: Basic Metabolic Panel; Complete Time: 11:35 EDMO 12/15 10:09 Order name: Liver (Hepatic) Function; Complete Time: 11:35 EDMO 12/15 10:09 Order name: Troponin (Emerg Dept Use Only); Complete Time: 11:35 EDMS 12/15 10:09 Order name: NT PRO-BNP; Complete Time: 11:35 EDMO 12/15 10:09 Order name: Magnesium; Complete Time: 11:35 EDMS 12/15 10:51 Order name: RAD; Complete Time: 11:35 EDMO 12/15 08:39 Order name: Labs collected and sent; Complete Time: 08:58 [facility] 12/15 08:39 Order name: O2 Per Protocol; Complete Time: 08:58 [facility] 12/15 08:39 Order name: O2 Sat Monitoring; Complete Time: 08:58 [facility] 12/15 09:18 Order name: Labs - recollect needed: recollect c7, troped; Complete Time: 09:34 bd Administered Medications: 09:58 Drug: SOLU-Medrol 125 mg Route: IVP; Site: right forearm; sv 11:05 Follow up: Response: No adverse reaction sv 10:01 Drug: NS 0.9% 1000 ml Route: IV; Rate: 125 ml/hr; Site: right forearm; sv 11:48 Follow up: Response: No adverse reaction; IV Status: Infusion continued upon admission sv 10:01 Drug: Zosyn 3.375 grams Route: IVPB; Infused Over: 60 mins; Site: right forearm; sv 11:05 Follow up: Response: No adverse reaction; IV Status: Completed infusion; IV Intake: sv 100ml 10:01 Drug: Albuterol - atroVENT (3:1) (2.5 mg - 0.5 mg) 3 ml Route: Nebulizer; sv 11:05 Follow up: Response: No adverse reaction sv 11:05 Drug: Zithromax 500 mg Route: IVPB; Infused Over: 1 hrs; Site: right forearm; sv 11:48 Follow up: Response: No adverse reaction; IV Status: Infusion continued upon admission sv Disposition: 12/15/19 09:47 Hospitalization ordered by Oniel Adams for Inpatient Admission. Preliminary diagnosis are Pleural plaque with presence of asbestos, Hypoxemia, Dyspnea, Pneumonia due to other specified bacteria. - Bed requested for Telemetry/MedSurg (Inpatient). - Status is Inpatient Admission. sv - Condition is Stable. - Problem is new. - Symptoms have improved. Signatures: Dispatcher [employer] EDMS Jc CasieRabia Jama RN RN sv Anderson, Corey, MD MD cha Corrections: (The following items were deleted from the chart) 09:47 09:47 Hospitalization Ordered by Oniel Adams MD for Inpatient Admission. Preliminary dom diagnosis is Pleural plaque with presence of asbestos; Hypoxemia; Dyspnea. Bed requested for Telemetry/MedSurg (Inpatient). Status is Inpatient Admission. Condition is Stable. Problem is new. Symptoms have improved. [facility] 11:01 09:47 12/15/2019 09:47 Hospitalization Ordered by Oniel Adams MD for Inpatient bd Admission. Preliminary diagnosis is Pleural plaque with presence of asbestos; Hypoxemia; Dyspnea; Pneumonia due to other specified bacteria. Bed requested for Telemetry/MedSurg (Inpatient). Status is Inpatient Admission. Condition is Stable. Problem is new. Symptoms have improved. [facility] 11:48 11:01 12/15/2019 09:47 Hospitalization Ordered by Oniel Adams MD for Inpatient sv Admission. Preliminary diagnosis is Pleural plaque with presence of asbestos; Hypoxemia; Dyspnea; Pneumonia due to other specified bacteria. Bed requested for Telemetry/MedSurg (Inpatient). Status is Inpatient Admission. Condition is Stable. Problem is new. Symptoms have improved. bd
--- NOTE | 2019-12-15 09:47 | ER ---
Nurse's Notes [facility] Name: Abhijit Peralta Age: 84 yrs Sex: Male : 1935 Arrival Date: 12/15/2019 Time: 08:26 Bed 6 Private MD: Oniel Adams R Diagnosis: Pleural plaque with presence of asbestos;Hypoxemia;Dyspnea;Pneumonia due to other specified bacteria Presentation: 12/15 08:35 Presenting complaint: Patient states: productive cough, dyspnea x 1 month. Has seen PCP sv and given prescriptions but has not improved. Transition of care: patient was not received from another setting of care. Onset of symptoms was October 2019. Risk Assessment: Do you want to hurt yourself or someone else? Patient reports no desire to harm self or others. Initial Sepsis Screen: Does the patient meet any 2 criteria? RR > 20 per min. No. Patient's initial sepsis screen is negative. Does the patient have a suspected source of infection? Yes: Productive cough/pneumonia. Care prior to arrival: None. 08:35 Method Of Arrival: Ambulatory sv 08:35 Acuity: RAVI 3 sv Triage Assessment: 08:35 General: Appears in no apparent distress. uncomfortable, slender, Behavior is calm, sv cooperative, appropriate for age. Pain: Denies pain. EENT: Parent/caregiver reports the patient having nasal discharge that is watery. Neuro: Level of Consciousness is awake, alert, obeys commands, Oriented to person, place, time, situation, Moves all extremities. Full function Gait is steady, Speech is normal. Cardiovascular: Heart tones S1 S2 present Patient's skin is warm and dry. Pulses are palpable in right radial artery and left radial artery Rhythm is sinus rhythm. Respiratory: Reports shortness of breath at rest on exertion cough that is productive, since a month ago Airway is patent Respiratory effort is even, labored, Respiratory pattern is symmetrical, tachypnea Breath sounds with rhonchi bilaterally. Breath sounds with wheezes bilaterally. Onset: The symptoms/episode began/occurred a month ago, the patient has mild shortness of breath. Derm: Skin is intact, Skin is pink, warm \T\ dry. Musculoskeletal: Range of motion: intact in all extremities. Historical: - Allergies: 08:37 Tetanus Immune Globulin; sv - PMHx: 08:37 Dementia; Diabetes - NIDDM; gastric ulcers; Hypertension; LYMPHOMA; Prostate Cancer; sv Stomach CA - in remission; - PSHx: 08:37 back; sv - Immunization history:: Flu vaccine is up to date. - Coronavirus screen:: The patient has NOT traveled to [place] in the past 14 days. Proceed with normal triage process as indicated. The patient has NOT had contact with known/suspected case of Coronavirus? Proceed with normal triage procedures. - Social history:: Smoking status: Patient denies any tobacco usage or history of. - Family history:: not pertinent. - Ebola Screening: : No symptoms or risks identified at this time. Screenin:38 Abuse screen: Denies threats or abuse. Denies injuries from another. Nutritional sv screening: No deficits noted. Tuberculosis screening: No symptoms or risk factors identified. Fall Risk None identified. Assessment: 09:58 Reassessment: Patient appears in no apparent distress at this time. No changes from sv previously documented assessment. Patient and/or family updated on plan of care and expected duration. Pain level reassessed. Patient is alert, oriented x 3, equal unlabored respirations, skin warm/dry/pink. 11:05 Reassessment: Patient appears in no apparent distress at this time. No changes from sv previously documented assessment. Patient and/or family updated on plan of care and expected duration. Pain level reassessed. Patient is alert, oriented x 3, equal unlabored respirations, skin warm/dry/pink. 11:29 Reassessment: Patient appears in no apparent distress at this time. No changes from sv previously documented assessment. Patient and/or family updated on plan of care and expected duration. Pain level reassessed. Patient is alert, oriented x 3, equal unlabored respirations, skin warm/dry/pink. Vital Signs: 08:37 BP 160 / 83; Pulse 85; Resp 24; Temp 98.2; Pulse Ox 97% ; Weight 77.11 kg; sv 09:43 BP 151 / 77; Pulse 77; Resp 20; Pulse Ox 97% on R/A; sv 11:05 BP 125 / 65; Pulse 92; Resp 22; Pulse Ox 98% on R/A; sv ED Course: 08:26 Patient arrived in ED. ag5 08:26 Oniel Adams MD is Private Physician. ag5 08:34 Juan Coronel MD is Attending Physician. dom 08:36 Triage completed. sv 08:38 Arm band placed on Patient placed in an exam room, on a stretcher. sv 08:38 Patient has correct armband on for positive identification. Placed in gown. Bed in low sv position. Call light in reach. Adult w/ patient. gambling monitor on. Pulse ox on. NIBP on. Door closed. Head of bed elevated. 08:41 Trinidad Engel, RN is Primary Nurse. tw2 08:45 First set of blood cultures drawn by me. Inserted saline lock: 20 gauge in right sv forearm, using aseptic technique. Blood collected. Flushed right forearm with 2 ml normal saline. 08:55 Second set of blood cultures drawn by me. sv 08:57 Primary Nurse role handed off by Trinidad Engel RN sv 08:57 Rabia Watson RN is Primary Nurse. sv 09:11 EKG done, by equipment engineering technician. reviewed by Juan Coronel MD. at1 09:21 ED physician to see patient. sv 09:34 Lactate Sent. sv 09:35 Urine Dipstick--Ancillary (enter results) Sent. sv 09:35 XRAY Chest (1 view) Sent. sv 09:35 Troponin (emerg Dept Use Only) Sent. sv 09:35 PT-INR Sent. sv 09:35 NT PRO-BNP Sent. sv 09:36 Magnesium Sent. sv 09:36 LFT's Sent. sv 09:36 CBC with Diff Sent. sv 09:36 Basic Metabolic Panel Sent. sv 09:36 Blood Culture Adult (2) Sent. sv 09:36 Flu Sent. sv 09:36 Urine Culture Sent. sv 09:46 Oniel Adams MD is Hospitalizing Provider. dom 10:06 Awaiting bed assignment. sv 11:29 No provider procedures requiring assistance completed. Patient admitted, IV remains in sv place. intact. Administered Medications: 09:58 Drug: SOLU-Medrol 125 mg Route: IVP; Site: right forearm; sv 11:05 Follow up: Response: No adverse reaction sv 10:01 Drug: NS 0.9% 1000 ml Route: IV; Rate: 125 ml/hr; Site: right forearm; sv 11:48 Follow up: Response: No adverse reaction; IV Status: Infusion continued upon admission sv 10:01 Drug: Zosyn 3.375 grams Route: IVPB; Infused Over: 60 mins; Site: right forearm; sv 11:05 Follow up: Response: No adverse reaction; IV Status: Completed infusion; IV Intake: sv 100ml 10:01 Drug: Albuterol - atroVENT (3:1) (2.5 mg - 0.5 mg) 3 ml Route: Nebulizer; sv 11:05 Follow up: Response: No adverse reaction sv 11:05 Drug: Zithromax 500 mg Route: IVPB; Infused Over: 1 hrs; Site: right forearm; sv 11:48 Follow up: Response: No adverse reaction; IV Status: Infusion continued upon admission sv Intake: 11:05 IV: 100ml; Total: 100ml. sv Outcome: 09:47 Decision to Hospitalize by Provider. dom 11:29 Admitted to Tele accompanied by bella, family with patient, via wheelchair, room 204, sv with chart, Report called to JALEEL RN 11:29 Condition: stable 11:29 Instructed on the need for admit. 11:48 Patient left the ED. sv Signatures: Rabia Watson, RN RN Juan Malave MD MD cha Gonzales, Amanda, handicrafts teacher EKG Tat1 Trinidad Engel RN RN tw2 Cathleen Brown ag5
[2019-12-15] MEDS ORDERED: ALBUTEROL 2.5 MG/3 ML NEB SOL ONE (09:48)
[2019-12-15] MEDS ORDERED: IPRATROPIUM BROM 0.5MG/2.5ML ONE (09:48)
[2019-12-15] MEDS ORDERED: AZITHROMYCIN IV 500 MG in NA CHLORIDE 0.9% 250 ML IVPB ONE (10:00)
[2019-12-15 10:08] LABS: ALT/SGPT 19 U/L (12-78); AST/SGOT 18 U/L (15-37); Alkaline Phosphatase 81 U/L (45-117); BUN Blood Urea Nitrogen 23 mg/dL (7-18); Bicarbonate 25 mmol/L (21-32); Bilirubin Direct 0.1 mg/dL (0-0.2); Bilirubin Total 0.5 mg/dL (0.2-1.0); Glucose Level 135 mg/dL (74-106); Magnesium 2.2 mg/dL (1.8-2.4); NT PRO-BNP 2522 pg/mL (<450); Protein, Total 7.3 g/dL (6.4-8.2); Sodium Level 134 mmol/L (136-145); Troponin (Emerg Dept Use Only) < 0.02 ng/mL (0.0-0.045)
[2019-12-15 10:09] LABS: Potassium 4.5 mmol/L (3.5-5.1)
--- NOTE | 2019-12-15 11:23 | EKG ---
Test Date: 2019-12-15 Test Time: 08:59:34 Unattended Ground Sensor Specialist: SHABANA MEASUREMENT RESULTS: Intervals: Rate: 75 VT: 186 QRSD: 100 QT: 416 QTc: 464 [place]: P: 80 VT: 186 QRS: -15 T: 93 INTERPRETIVE STATEMENTS: Normal sinus rhythm Abnormal QRS-T angle, consider primary T wave abnormality Abnormal ECG Compared to ECG 08/08/2019 11:50:23 T-wave abnormality now present Sinus bradycardia no longer present First degree AV block no longer present Electronically Signed On 12-15-19 11:22:42 IPHONE DEVELOPER by Zacarias Hayes
[2019-12-15 12:25] VITALS: BMI 33.5
[2019-12-15] MEDS ORDERED: ALBUTEROL 2.5 MG/3 ML NEB SOL NEB PRN (12:28)
[2019-12-15] MEDS ORDERED: IPRATROPIUM BROM 0.5MG/2.5ML NEB PRN (12:28)
[2019-12-15] MEDS ORDERED: ONDANSETRON 4 MG/2 ML VIAL IV PRN (12:28)
[2019-12-15] MEDS ORDERED: ACETAMINOPHEN 325 MG TABLET PO PRN (12:28)
[2019-12-15] MEDS ORDERED: D50W 25 GM/50 ML SYRINGE/VIAL IV PRN (12:56)
[2019-12-15] MEDS ORDERED: GLUCAGON 1 MG/VIAL IM PRN (12:56)
[2019-12-15] MEDS ORDERED: PNEUMOCOCCAL VACCINE 0.5 ML IMVAC ONE (13:00)
[2019-12-15] MEDS: GUAIFENESIN/DM 5 ML UCUP PO PRN ×2 (13:29→22:36)
[2019-12-15] MEDS: METHYLPREDNISOLONE 40 MG INJ IV SCH (16:53)
[2019-12-15] MEDS: PIPER/TAZO/NS 3.375gm 3.375 GM/100 ML BAG IVPB SCH (16:53)
[2019-12-15] MEDS: INSULIN -REGULAR HUMAN 50 UNIT/0.5 ML ML SQ SCH ×2 (16:54→21:16)
[2019-12-15] MEDS ORDERED: TRAMADOL HCL 50 MG TAB PO PRN (17:01)
[2019-12-15] MEDS: RIVASTIGMINE 9.5 MG/24 HR PATCH TD SCH (18:34)
[2019-12-15] MEDS ORDERED: HOME MED 1 EA UNK (Gabapentin [Neurontin] 300 MG) PO SCH (21:00)
[2019-12-15] MEDS: GABAPENTIN 300 MG CAP PO SCH (21:16)
[2019-12-15] MEDS: FAMOTIDINE 20 MG/2 ML VIAL IV SCH (21:16)
[2019-12-16] MEDS: METHYLPREDNISOLONE 40 MG INJ IV SCH ×2 (00:39→07:58)
[2019-12-16] MEDS: PIPER/TAZO/NS 3.375gm 3.375 GM/100 ML BAG IVPB SCH ×2 (00:39→08:00)
[2019-12-16 06:50] LABS: Absolute Lymphocytes (CBC) 1.4 K/uL (0.7-4.9); Basophils % 0.1 % (0-1.3); Hematocrit 39.6 % (39.6-49.0); MPV 8.7 fL (7.6-11.3); RBC Red Blood Cell Count 4.41 M/uL (4.33-5.43)
--- NOTE | 2019-12-16 07:01 | RAD REPORT ---
EXAM DESCRIPTION: RAD - Chest Single View - 12/16/2019 6:46 am CLINICAL HISTORY: Chest Pain Chest pain. COMPARISON: Chest Single View dated 12/15/2019; Chest Pa And Lat (2 Views) dated 11/23/2019; Chest Pa And Lat (2 Views) dated 11/12/2019; Chest Pa And Lat (2 Views) dated 06/08/2018 FINDINGS: Portable technique limits examination quality. Prominent emphysematous changes with extensive bilateral pleural plaquing again noted, unchanged. The heart is mildly enlarged in size. No displaced fractures. IMPRESSION: Stable chest since 12/15/2019.
[2019-12-16 07:26] LABS: Potassium 4.6 mmol/L (3.5-5.1)
[2019-12-16] MEDS: ASPIRIN EC 81 MG TAB PO SCH (07:57)
[2019-12-16] MEDS: FAMOTIDINE 20 MG/2 ML VIAL IV SCH ×2 (07:58→21:24)
[2019-12-16] MEDS: RIVASTIGMINE 9.5 MG/24 HR PATCH TD SCH (07:58)
[2019-12-16] MEDS: INSULIN -REGULAR HUMAN 50 UNIT/0.5 ML ML SQ SCH ×4 (09:31→21:36)
[2019-12-16] MEDS: AZITHROMYCIN IV 500 MG in NA CHLORIDE 0.9% 250 ML IVPB SCH (11:02)
[2019-12-16] MEDS: DOCUSATE CALCIUM 240 MG CAP PO SCH ×2 (11:03→21:23)
[2019-12-16] MEDS ORDERED: ALBUTEROL 2.5 MG/3 ML NEB SOL NEB PRN (15:00)
[2019-12-16] MEDS ORDERED: IPRATROPIUM BROM 0.5MG/2.5ML NEB PRN (15:00)
[2019-12-16] MEDS: CEFTRIAXONE/SWI 1gm 1 GM/10 ML SYR IVP SCH (16:23)
[2019-12-16] MEDS: GLIMEPIRIDE 2 MG TABLET PO SCH (16:24)
--- NOTE | 2019-12-16 19:02 | HP ---
Date of Admission: 12/15/2019 Chief Complaint: Wheezing and coughing. 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 He was given antibiotic; glover yuki, he returned to the emergency room because of continued wheezing. The patient had evaluation, as well as management with breathing treatments, etc. He continued to wheeze as per ER physician and t he patient is admitted. Past Medical History: Positive for type 2 diabetes, history of recurrent diverticulitis, history of dementia, hypertension, history of prostate cancer, and lymphoma. Past Surgical History: Back surgery. Allergies: TETANUS, IMMUNOGLOBULIN. Review of Systems: No history of chest pain. Physical Examination: General: Revealed an 84-year-old male with audible wheezing. Vital Signs: Temperature normal. HEENT: Congested throat. Neck: Supple. JVD negative. Chest: Bilateral wheezes. Heart: Regular. Abdomen: Pendulous, nontender. Extremities: No edema. Neurological: Negative. Laboratory Data: White count normal. Chest x-ray, prominent lung markings. Assessment: 1.Chronic obstructive pulmonary disease exacerbation. 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 3.Type 2 diabetes. 4.Dementia. 5.Hypertension. Plan: Patient is on IV steroids and breathing treatments and antibiotic. Patient will be reexamined to see the improvement. HARRIETT/LUCINDA Voice ID: [id number]
[2019-12-16] MEDS: GABAPENTIN 300 MG CAP PO SCH (21:23)
[2019-12-16] MEDS: predniSONE 20 MG TAB PO SCH (21:23)
[2019-12-16] MEDS: GUAIFENESIN/DM 5 ML UCUP PO PRN (21:24)
[2019-12-17] MEDS: INSULIN -REGULAR HUMAN 50 UNIT/0.5 ML ML SQ SCH ×4 (07:30→21:00)
[2019-12-17] MEDS: predniSONE 20 MG TAB PO SCH ×3 (08:03→21:27)
[2019-12-17] MEDS: CEFTRIAXONE/SWI 1gm 1 GM/10 ML SYR IVP SCH (08:03)
[2019-12-17] MEDS: ASPIRIN EC 81 MG TAB PO SCH (08:03)
[2019-12-17] MEDS: DOCUSATE CALCIUM 240 MG CAP PO SCH ×2 (08:03→21:27)
[2019-12-17] MEDS: FAMOTIDINE 20 MG/2 ML VIAL IV SCH ×2 (08:04→21:27)
[2019-12-17] MEDS: RIVASTIGMINE 9.5 MG/24 HR PATCH TD SCH ×2 (09:00→12:05)
[2019-12-17] MEDS: AZITHROMYCIN IV 500 MG in NA CHLORIDE 0.9% 250 ML IVPB SCH (09:37)
[2019-12-17] MEDS: GUAIFENESIN/DM 5 ML UCUP PO PRN ×2 (11:01→23:21)
[2019-12-17] MEDS ORDERED: ENOXAPARIN 40 MG/0.4 ML SQ ONE (14:00)
[2019-12-17] MEDS: GLIMEPIRIDE 2 MG TABLET PO SCH (17:04)
[2019-12-17] MEDS: GABAPENTIN 300 MG CAP PO SCH (21:27)
[2019-12-17] MEDS ORDERED: HYDRALAZINE HCL 20 MG/ML VIAL IV PRN (21:41)
[2019-12-18 08:33] VITALS: BP 156/70; TEMP 98.3
[2019-12-18] MEDS: predniSONE 20 MG TAB PO SCH (08:38)
[2019-12-18] MEDS: INSULIN -REGULAR HUMAN 50 UNIT/0.5 ML ML SQ SCH (08:38)
[2019-12-18] MEDS: ASPIRIN EC 81 MG TAB PO SCH (08:38)
[2019-12-18] MEDS: DOCUSATE CALCIUM 240 MG CAP PO SCH (08:38)
[2019-12-18] MEDS: RIVASTIGMINE 9.5 MG/24 HR PATCH TD SCH (08:40)
[2019-12-18] MEDS: FAMOTIDINE 20 MG/2 ML VIAL IV SCH (08:42)
[2019-12-18] MEDS: CEFTRIAXONE/SWI 1gm 1 GM/10 ML SYR IVP SCH (08:42)
[2019-12-18] MEDS: AZITHROMYCIN IV 500 MG in NA CHLORIDE 0.9% 250 ML IVPB SCH (08:49)
[2019-12-18 09:50] VITALS: O2SAT 97
--- NOTE | 2019-12-18 12:57 | PN ---
The patient is doing better. He is afebrile. He has mild wheezing. The patient, however, wants to go home. He will be discharged on oral steroids and he will continue the antibiotic he has at home. He will be followed up in the office. HARRIETT/LUCINDA Voice ID: [id number] Report ID: [id number]
== END 2019-12-18 09:59 | disposition home health service (06) | DRG 192 ==
LOC: ER 08:23 → ERHOLD 09:49 → 2ND 11:27
PROVIDERS: ADMIT Internal Medicine; ATTEND Internal Medicine
DX: J44.1 Chronic obstructive pulmonary disease with (acute) exacerbation (principal); J66.8 Airway disease due to other specific organic dusts; J61 Pneumoconiosis due to asbestos and other mineral fibers; E11.9 Type 2 diabetes mellitus without complications; F03.90 Unspecified dementia, unspecified severity, without behavioral disturbance, psychotic disturbance, mood disturbance, and anxiety; I10 Essential (primary) hypertension; Z88.7 Allergy status to serum and vaccine; Z85.46 Personal history of malignant neoplasm of prostate; Z85.72 Personal history of non-Hodgkin lymphomas
CPT/HCPCS: 36415; 71045; 80048; 80076; 81003; 82947; 83605; 83735; 83880; 84484; 85025; 85610; 87040; 87070; 87086; 87088; 87205; 87804; 93005; 94640; 94760; 96365; 96367; 96375; 99285; J0360; J0456; J0696; J1650; J2405; J2543; J2920; J2930; J7030; J7512

== ENCOUNTER 2020-05-08 11:53 | Emergency (ER) | payer OTHER ==
--- OUTSIDE RECORDS SUMMARY | 2020-05-08 12:08 | XMS REPORT | Clinical Summary ---
:1935 Author Organization [facility] Address [address] [place] [id number] Care Team Providers Name Role Phone Asked, No Pcp Primary Care Provider Unavailable Allergies Active Allergy Reactions Severity Noted Date Comments Morphine Anxiety Low 05/08/2016 Tetanus And Diphtheria Toxoids Other (See Comments) Restlessness Medications Medication Sig Dispensed Refills Start Date End Date Status lisinopril Take 10 mg by 0 Activ e (PRINIVIL,ZESTRIL) 10 MG mouth daily. 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
[2020-05-08 13:40] LABS: Absolute Lymphocytes (CBC) 1.9 K/uL (0.7-4.9); Basophils % 0.5 % (0-1.3); Hematocrit 39.1 % (39.6-49.0); Lymphocytes % 28.1 % (15.3-44.8); MPV 9.2 fL (7.6-11.3); RBC Red Blood Cell Count 4.35 M/uL (4.33-5.43)
[2020-05-08 13:46] LABS: Bilirubin Direct 0.1 mg/dL (0-0.2); Bilirubin Total 0.5 mg/dL (0.2-1.0); Potassium 4.4 mmol/L (3.5-5.1)
[2020-05-08 13:51] LABS: Urine Blood TRACE (NEG); Urine Glucose NEGATIVE (NEG); Urine Protein 3+ (NEG); Urine Specific Gravity 1.025 (1.005-1.030); Urine pH 5.5 (5.0-7.0)
[2020-05-08 13:54] LABS: Urine Amorphous Sediment 1+ /HPF (NONE SEEN); Urine Bacteria NONE SEEN /HPF (NONE SEEN); Urine Culture Reflex Order NOT NEEDED; Urine RBC <5 /HPF (NONE SEEN)
--- NOTE | 2020-05-08 14:03 | RAD REPORT ---
EXAM DESCRIPTION: CT - Abdomen Pelvis Wo Contrast - 05/08/2020 1:48 pm CLINICAL HISTORY: ABD PAIN COMPARISON: Abdomen Pelvis W Contrast dated 09/28/2019 TECHNIQUE: Axial [address] imaging of the abdomen and pelvis was performed without IV contrast. No IV contrast was given because of allergy, abnormal renal function, patient refusal or physician re quest. No oral contrast. All CT scans are performed using dose optimization technique as appropriate and may include automated exposure control or mA/KV adjustment according to patient size. FINDINGS: Patient has extensive calcified pleural plaquing. No acute lung base finding. No pericardi al thickening or effusion. No new liver finding. Midline left lobe cyst has not changed. Spleen and pancreas show no suspicious findings. Gallbladder is absent. No biliary tree dilatation. No hydronephrosis or suspicious renal mass. No significant adrenal finding. Isodense renal masses an d pyelonephritis cannot be excluded in the absence of IV contrast. The urinary bladder is without sig nificant finding. Prostatectomy changes are present. Numerous pelvic floor surgical clips are present . No dilated bowel loops or bowel wall thickening. Sigmoid diverticulosis present without diverticuliti s. Moderate stool volume seen in the colon. No acute gastric wall finding. No free air, free fluid or inflammatory stranding. No mass or bulky lymphadenopathy. Patient has fat filled bilateral inguinal hernias similar to comparison. Disc and bone degenerative changes are present. No pathologic bone process for acute finding. There i s chronic compression fracture changes at L3-4. IMPRESSION: Noncontrast CT abdomen and pelvis imaging, as detailed above, shows no acute for active process. Full assessment is limited is the absence of IV contrast. No significant change comparison.
--- NOTE | 2020-05-08 15:02 | ER ---
Nurse's Notes [facility] Name: Abhijit Peralta Age: 85 yrs Sex: Male : 1935 Arrival Date: 05/08/2020 Time: 11:57 Bed 14 Private MD: Diagnosis: Unspecified abdominal pain Presentation: 05/08 12:01 Chief complaint: Patient states: Abdominal pain on the L side started this morning. ca1 Denies N/V/D. Denies urinary symptoms. Coronavirus screen: Proceed with normal triage. Patient denies a cough. Patient denies shortness of breath or difficulty breathing. Patient denies measured and/or subjective temperature greater than 100.4F prior to today's visit. Patient denies travel on a cruise ship or to a country the [facility] currently lists as an affected area. Patient denies contact with known and/or suspected case of COVID-19. Ebola Screen: Patient negative for fever greater than or equal to 101.5 degrees Fahrenheit, and additional compatible Ebola Virus Disease symptoms Patient denies exposure to infectious person. Patient denies travel to an Ebola-affected area in the 21 days before illness onset. No symptoms or risks identified at this time. Initial Sepsis Screen: Does the patient meet any 2 criteria? No. Patient's initial sepsis screen is negative. Does the patient have a suspected source of infection? No. Patient's initial sepsis screen is negative. Risk Assessment: Do you want to hurt yourself or someone else? Patient reports no desire to harm self or others. Onset of symptoms was May 08, 2020. 12:01 Method Of Arrival: Wheelchair ca1 12:01 Acuity: RAVI 3 ca1 Historical: - Allergies: 12:04 Tetanus Immune Globulin; ca1 - Home Meds: 12:04 amlodipine 2.5 mg tab 1 tab once daily [Active]; glimepiride 2 mg Oral tab 2 tabs twice ca1 daily [Active]; pravastatin 20 mg Oral tab 1 tab once daily [Active]; - PMHx: 12:04 Dementia; Diabetes - NIDDM; gastric ulcers; Hypertension; LYMPHOMA; Prostate Cancer; ca1 Stomach CA - in remission; - PSHx: 12:04 back; ca1 - Immunization history:: Adult Immunizations up to date. - Social history:: Smoking status: Patient denies any tobacco usage or history of. - Family history:: not pertinent. - Hospitalizations: : No recent hospitalization is reported. Screenin:00 Abuse screen: Denies threats or abuse. Nutritional screening: No deficits noted. rb1 Tuberculosis screening: No symptoms or risk factors identified. Fall Risk None identified. Assessment: 13:00 General: Appears in no apparent distress. comfortable, Behavior is calm, cooperative, rb1 Denies fever. Pain: Complains of pain in left upper quadrant Pain began this morning. Neuro: Level of Consciousness is awake, alert, obeys commands, Oriented to person, place, time, situation. Cardiovascular: Capillary refill < 3 seconds. Respiratory: Airway is patent Respiratory effort is even, unlabored, Respiratory pattern is regular, symmetrical. GI: Patient currently denies diarrhea, nausea, vomiting. : No signs and/or symptoms were reported regarding the genitourinary system. Derm: Skin is pink, warm \T\ dry. 14:00 Reassessment: Patient appears in no apparent distress at this time. No changes from rb1 previously documented assessment. 15:00 Reassessment: Patient appears in no apparent distress at this time. Patient and/or rb1 family updated on plan of care and expected duration. Pain level reassessed. Patient is alert, oriented x 3, equal unlabored respirations, skin warm/dry/pink. Vital Signs: 12:01 BP 124 / 58; Pulse 73; Resp 15 S; Temp 98.4(TE); Pulse Ox 98% on R/A; Weight 77.11 kg ca1 (R); Height 5 ft. 2 in. (157.48 cm) (R); Pain 7/10; 13:25 BP 136 / 71; Pulse 64; Resp 18; Pulse Ox 100% on R/A; dh4 14:20 rb1 15:26 BP 132 / 70; Pulse 62; Resp 16; Temp 97.3(O); Pulse Ox 100% on R/A; Pain 0/10; ls4 12:01 Body Mass Index 31.09 (77.11 kg, 157.48 cm) ca1 14:20 Pt. in radiology rb1 ED Course: 11:57 Patient arrived in ED. ag5 12:02 Triage completed. ca1 12:04 Arm band placed on right wrist. ca1 12:46 Lauren Grey, RN is Primary Nurse. rb1 12:51 Flako Sousa MD is Attending Physician. rn 13:00 Patient has correct armband on for positive identification. Placed in gown. Bed in low rb1 position. Call light in reach. Side rails up X 1. Pulse ox on. NIBP on. Warm blanket given. 13:25 Inserted saline lock: 20 gauge in right forearm, using aseptic technique. dh4 13:48 Abdomen In Process Unspecified. EDMS 15:26 No provider procedures requiring assistance completed. IV discontinued, intact, ls4 bleeding controlled, No redness/swelling at site. Pressure dressing applied. Administered Medications: No medications were administered Outcome: 15:02 Discharge ordered by . rn 15:25 Discharged to home ambulatory. ls4 15:25 Condition: good 15:25 Discharge instructions given to patient, Instructed on discharge instructions, follow up and referral plans. medication usage, Demonstrated understanding of instructions, follow-up care, medications. 15:27 Patient left the ED. ls4 Signatures: Dispatcher [employer] EDMS Flako Sousa MD MD rn Barber, Rebecca RN RN rb1 Vivienne Manuel RN RN 4 Mohini Jones RN RN ca1 Cathleen Brown 5 Tyree Escobedo 4
--- NOTE | 2020-05-08 15:03 | EDPHYS ---
Physician Documentation [facility] Name: Abhijit Peralta Age: 85 yrs Sex: Male : 1935 Arrival Date: 05/08/2020 Time: 11:57 Bed 14 Private MD: ED Physician Flako Sousa HPI: 05/08 14:42 This 85 yrs old Male presents to ER via Wheelchair with complaints of rn Abdominal Pain. 14:42 The patient presents with abdominal pain in the left upper quadrant. Onset: The rn symptoms/episode began/occurred this morning. The symptoms do not radiate. Associated signs and symptoms: Pertinent negatives: anorexia, blood in stools, fever, hematuria, shortness of breath, testicular pain, vomiting, vomiting blood. The symptoms are described as crampy. Modifying factors: The symptoms are alleviated by nothing, the symptoms are aggravated by touching the area. Severity of pain: At its worst the pain was moderate in the emergency department the pain has resolved. The patient has not experienced similar symptoms in the past. The patient has not recently seen a physician. Reports left sided abdominal pain, began this morning, lasted for a couple of hours, now resolved, no fever/vomiting/diarrhea, is hungry, eating well, no trauma. No cough/sob. . Historical: - Allergies: 12:04 Tetanus Immune Globulin; ca1 - Home Meds: 12:04 amlodipine 2.5 mg tab 1 tab once daily [Active]; glimepiride 2 mg Oral tab 2 tabs twice ca1 daily [Active]; pravastatin 20 mg Oral tab 1 tab once daily [Active]; - PMHx: 12:04 Dementia; Diabetes - NIDDM; gastric ulcers; Hypertension; LYMPHOMA; Prostate Cancer; ca1 Stomach CA - in remission; - PSHx: 12:04 back; ca1 - Immunization history:: Adult Immunizations up to date. - Social history:: Smoking status: Patient denies any tobacco usage or history of. - Family history:: not pertinent. - Hospitalizations: : No recent hospitalization is reported. ROS: 14:42 Constitutional: Negative for fever, chills, and weight loss, Neck: Negative for injury, rn pain, and swelling, Cardiovascular: Negative for chest pain, palpitations, and edema, Respiratory: Negative for shortness of breath, cough, wheezing, and pleuritic chest pain, Abdomen/GI: + left sided abd pain, neg for nausea/vomiting/diarrhea MS/Extremity: Negative for injury and deformity, Skin: Negative for injury, rash, and discoloration, Neuro: Negative for headache, weakness, numbness, tingling, and seizure. Exam: 14:42 Constitutional: This is a well developed, well nourished patient who is awake, alert, rn and in no acute distress. Head/Face: Normocephalic, atraumatic. Cardiovascular: Regular rate and rhythm. No pulse deficits. Respiratory: No increased work of breathing, no retractions or nasal flaring. Abdomen/GI: soft, non-tender, no rebound/masses, no guarding. Skin: Warm, dry MS/ Extremity: Pulses equal, no cyanosis. Neuro: Awake and alert, GCS 15 Vital Signs: 12:01 BP 124 / 58; Pulse 73; Resp 15 S; Temp 98.4(TE); Pulse Ox 98% on R/A; Weight 77.11 kg ca1 (R); Height 5 ft. 2 in. (157.48 cm) (R); Pain 7/10; 13:25 BP 136 / 71; Pulse 64; Resp 18; Pulse Ox 100% on R/A; dh4 14:20 rb1 15:26 BP 132 / 70; Pulse 62; Resp 16; Temp 97.3(O); Pulse Ox 100% on R/A; Pain 0/10; ls4 12:01 Body Mass Index 31.09 (77.11 kg, 157.48 cm) ca1 14:20 Pt. in radiology rb1 MDM: 12:51 Patient medically screened. rn 14:57 Differential diagnosis: diverticulitis, non-specific abd pain, Peptic Ulcer Disease. rn Data reviewed: vital signs, nurses notes, lab test result(s), radiologic studies, CT scan, and as a result, I will discharge patient. Counseling: I had a detailed discussion with the patient and/or guardian regarding: the historical points, exam findings, and any diagnostic results supporting the discharge/admit diagnosis, lab results, radiology results, the need for outpatient follow up, to return to the emergency department if symptoms worsen or persist or if there are any questions or concerns that arise at home. Response to treatment: the patient's condition has returned to base line, the patient is now symptom free, and as a result, I will discharge patient. Special discussion: Based on the patient's Hx, exam, and Dx evaluation, there is no indication for emergent surgery or inpatient Tx. It is understood by the patient/guardian that if the Sx's persist or worsen they need to return immediately for re-evaluation. I discussed with the patient/guardian in detail that at this point there is no indication for admission to the hospital. It is understood, however, that if the symptoms persist or worsen the patient needs to return immediately for re-evaluation. ED course: Abd pain resolved prior to arrival, no acute findings on ct abdomen/pelvis or bloodwork. Will dc home with return precautions. . 05/08 13:03 Order name: Basic Metabolic Panel; Complete Time: 14:41 05/08 13:03 Order name: CBC with Diff; Complete Time: 14:41 05/08 13:03 Order name: Hepatic Function; Complete Time: 14:41 05/08 13:03 Order name: Lipase; Complete Time: 14:41 05/08 13:03 Order name: Urine Microscopic Only; Complete Time: 14:41 05/08 13:49 Order name: Urine Dipstick--Ancillary (enter results); Complete Time: 14:41 05/08 13:03 Order name: IV Saline Lock; Complete Time: 13:30 05/08 13:03 Order name: Labs collected and sent; Complete Time: 13:30 05/08 13:03 Order name: Urine Dipstick-Ancillary (obtain specimen); Complete Time: 13:38 05/08 13:37 Order name: Abdomen ; Complete Time: 14:41 EDNM 05/08 15:00 Order name: CREATININE WHOLE BLOOD; Complete Time: 15:02 EDNM Administered Medications: No medications were administered Disposition: 05/08/20 15:02 Discharged to Home. Impression: Unspecified abdominal pain. - Condition is Stable. - Discharge Instructions: Abdominal Pain, Adult. - Medication Reconciliation Form, Thank You Letter, Antibiotic Education, Prescription Opioid Use form. - Follow up: Private Physician; When: As needed; Reason: Recheck today's complaints, Re-evaluation by your physician. - Problem is new. - Symptoms have improved. Signatures: [facility] Flako Sousa MD MD rn Stewart, Lisa, RN RN ls4 Mohini Jones RN RN ca1 Corrections: (The following items were deleted from the chart) 13:37 13:04 Abdomen Pelvis W Con+CT.RAD.BRZ ordered. EDNM EDMS 15:27 15:02 05/08/2020 15:02 Discharged to Home. Impression: Unspecified abdominal pain. ls4 Condition is Stable. Forms are Medication Reconciliation Form, Thank You Letter, Antibiotic Education, Prescription Opioid Use. Follow up: Private Physician; When: As needed; Reason: Recheck today's complaints, Re-evaluation by your physician. Problem is new. Symptoms have improved. rn
[2020-05-08 15:34] VITALS: O2SAT 100
[2020-05-08 15:40] VITALS: BP 132/70; TEMP 97.3
== END 2020-05-08 15:27 | disposition home or self-care (01) ==
LOC: ER 11:53
DX: R10.12 Left upper quadrant pain (principal); I10 Essential (primary) hypertension; E11.9 Type 2 diabetes mellitus without complications; F03.90 Unspecified dementia, unspecified severity, without behavioral disturbance, psychotic disturbance, mood disturbance, and anxiety; Z85.46 Personal history of malignant neoplasm of prostate; Z85.028 Personal history of other malignant neoplasm of stomach; Z85.72 Personal history of non-Hodgkin lymphomas; Z88.7 Allergy status to serum and vaccine
CPT/HCPCS: 36415; 74176; 80048; 80076; 81003; 81015; 82565; 83690; 85025; 99283

== ENCOUNTER 2020-06-26 09:18 | Emergency (ER) | payer OTHER ==
--- OUTSIDE RECORDS SUMMARY | 2020-06-26 09:19 | XMS REPORT | Clinical Summary ---
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
--- NOTE | 2020-06-26 10:22 | RAD REPORT ---
EXAM DESCRIPTION: CT - [id number] - 06/26/2020 10:08 am CLINICAL HISTORY: fall yesterday;Pain COMPARISON: <Comparisons> TECHNIQUE: Axial 5 mm thick images of the head were obtained. Axial 2 mm thick images of the cervic al spine were obtained with sagittal and coronal reconstruction images generated and reviewed. All CT scans are performed using dose optimization technique as appropriate and may include automated exposure control or mA/KV adjustment according to patient size. FINDINGS: No intracranial hemorrhage, mass, edema or acute intracranial finding. No cortical edema o r sulcal effacement. No acute cortical based infarction identified. Advanced atrophy changes are pres ent. Ventricles are in proportion to the volume loss. Chronic ischemic changes are evident in the cer ebral white matter. Arterial and physiologic calcifications are present. Mastoid air cells are clear. Chronic left maxillary sinusitis changes are present. No globe or orbit abnormality seen. Condyles of the mandible are normally positioned. Cervical bodies are normal in height. Slight anterior subluxation of C6 on C7 noted. Facet joint dege nerative changes are present at this level which would explain the subluxation. C5-6 disc space narro wing is present. There is partial fusion of these vertebrae and this could be degenerative or develop mental in etiology. Facet joint degenerative change present at this level. There is anterior spurring in the C5-C7 levels. C6-7 disc space is narrowed. No fracture or acute bony abnormality. Calcificati ons of the transverse ligament noted. There are prominent degenerative changes at the dens C1 level. Degenerative cystic changes are present in the right-side base of the dens extending into the superio r aspect of the right lateral mass. C3-4 right foraminal stenosis from facet joint hypertrophy. Mild bilateral foraminal encroachment C5- 6 and C6-7 from prominent facet degenerative change and uncovertebral joint hypertrophy. Central cheikh l detail is inherently limited. No paraspinal mass or hematoma. IMPRESSION: Advanced atrophy and mild chronic ischemic change. No hemorrhage, mass or acute intracra nial finding. 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 No fracture, alignment abnormality or other finding to explain decreased range of motion. Chronic left maxillary sinusitis. Negative CT cervical spine examination for acute or significant finding.
--- NOTE | 2020-06-26 10:42 | ER ---
Nurse's Notes [facility] Name: Abhijit Peralta Age: 85 yrs Sex: Male : 1935 Arrival Date: 06/26/2020 Time: 09:23 Bed 8 Private MD: Oniel Adams R Diagnosis: Strain of muscle, fascia and tendon at neck level Presentation: 06/26 09:27 Chief complaint: Patient states: Woke up this morning with R sided neck pain. Unable to ss turn head side to side. Coronavirus screen: Client denies travel out of the [place] in the last 14 days. Ebola Screen: Patient denies exposure to infectious person. Patient denies travel to an Ebola-affected area in the 21 days before illness onset. Initial Sepsis Screen: Does the patient meet any 2 criteria? No. Patient's initial sepsis screen is negative. Does the patient have a suspected source of infection? No. Patient's initial sepsis screen is negative. Risk Assessment: Do you want to hurt yourself or someone else? Patient reports no desire to harm self or others. Onset of symptoms was June 26, 2020. 09: Method Of Arrival: Ambulatory ss 09:27 Acuity: RAVI 4 ss Historical: - Allergies: 09:30 Tetanus Vaccines \T\ Toxoid; ss - PMHx: : Dementia; Diabetes - NIDDM; gastric ulcers; Hypertension; LYMPHOMA; Prostate Cancer; ss Stomach CA - in remission; - Immunization history:: Adult Immunizations up to date. - Social history:: Smoking status: Patient denies any tobacco usage or history of. Screenin:34 Abuse screen: Denies threats or abuse. Denies injuries from another. Nutritional ss screening: No deficits noted. Tuberculosis screening: Never had TB. Fall Risk None identified. Assessment: 09:34 General: Appears in no apparent distress. comfortable, Behavior is calm, cooperative. ss Pain: Complains of pain in posterior cervical area, R side Pain currently is 8 out of 10 on a pain scale. Quality of pain is described as pinching, pulling. Pain: Aggravated by repositioning, moving head side to side. Pt reports pain was there when he woke up this morning. Neuro: Level of Consciousness is awake, alert, obeys commands, Denies weakness dizziness, numbness headache. Cardiovascular: Capillary refill < 3 seconds is brisk in bilateral fingers. Respiratory: Airway is patent Respiratory effort is even, unlabored, Respiratory pattern is regular, symmetrical, Denies cough, shortness of breath. GI: Patient currently denies abdominal pain, nausea. : No signs and/or symptoms were reported regarding the genitourinary system. EENT: Oral mucosa is moist. Derm: Skin is intact, is healthy with good turgor, Skin is dry, Skin is pink, warm \T\ dry. normal. Musculoskeletal:. 10:11 Reassessment: Patient appears in no apparent distress at this time. Patient and/or hb family updated on plan of care and expected duration. Pain level reassessed. Patient is alert, oriented x 3, equal unlabored respirations, skin warm/dry/pink. 11:30 Reassessment: Discharge ordered, awaiting shot time at this time. hb Vital Signs: 09:27 BP 149 / 70; Pulse 61; Resp 16; Temp 98.5; Pulse Ox 100% on R/A; Weight 79.38 kg; ss 11:00 BP 146 / 72; Pulse 60; Resp 15; Pulse Ox 99% on R/A; hb ED Course: 09:23 Patient arrived in ED. mr 09:23 Oniel Adams MD is Private Physician. mr 09:30 Triage completed. ss 09:30 Arm band placed on right wrist. ss 09:31 Juan Akins PA is PHCP. cp 09:31 Tabitha Mullins MD is Attending Physician. cp 09:34 Patient has correct armband on for positive identification. Bed in low position. Call ss light in reach. 10:09 CT Head C Spine In Process Unspecified. EDMS 10:09 CT completed. Patient tolerated procedure well. Patient moved back from CT. bq 11:45 No provider procedures requiring assistance completed. Patient did not have IV access hb during this emergency room visit. 11:46 Leda Courtney, RN is Primary Nurse. hb Administered Medications: 11:21 Drug: TORadol 30 mg Route: IM; Site: left deltoid; hb 11:45 Follow up: Response: No adverse reaction hb 11:21 Drug: UltRAM 50 mg Route: PO; hb 11:45 Follow up: Response: Medication administered at discharge. hb 11:21 Drug: Flexeril 10 mg Route: PO; hb 11:45 Follow up: Response: Medication administered at discharge. hb Outcome: 10:42 Discharge ordered by . cp 11:45 Discharged to home ambulatory, with significant other. hb 11:45 Condition: stable 11:45 Discharge instructions given to patient, Instructed on discharge instructions, follow up and referral plans. medication usage, Demonstrated understanding of instructions, follow-up care, medications, Prescriptions given X 2. 11:46 Patient left the ED. hb Signatures: Dispatcher [employer] EDSC LunaClare davis mr Mary Cameron Shelby, KIMBERLEY RN Juan Mensah, ELPIDIO PA cp Leda Courtney, KIMBERLEY RN hb
--- NOTE | 2020-06-26 10:42 | EDPHYS ---
Physician Documentation [facility] Name: Abhijit Peralta Age: 85 yrs Sex: Male : 1935 Arrival Date: 06/26/2020 Time: 09:23 Bed 8 Private MD: Oniel Adams R ED Physician Tabitha Mullins HPI: 06/26 09:45 This 85 yrs old Male presents to ER via Ambulatory with complaints of Neck cp Problem. 09:45 The patient or guardian complains of pain, that is acute. The symptoms are located on cp the posterior right side of neck. Onset: The symptoms/episode began/occurred this morning, upon awakening. Associated signs and symptoms: Pertinent positives: stiffness, Pertinent negatives: headache, numbness, weakness. Patient reports slip and fall yesterday in which he did strike his head. Denies LOC. Historical: - Allergies: 09:30 Tetanus Vaccines \T\ Toxoid; ss - PMHx: 09:30 Dementia; Diabetes - NIDDM; gastric ulcers; Hypertension; LYMPHOMA; Prostate Cancer; ss Stomach CA - in remission; - Immunization history:: Adult Immunizations up to date. - Social history:: Smoking status: Patient denies any tobacco usage or history of. ROS: 09:50 Neck: Positive for pain with movement, pain at rest, stiffness, tenderness, of the cp posterior right side of neck. Exam: 09:55 Constitutional: The patient appears in no acute distress, alert, awake, well developed, cp well nourished. 09:55 Head/Face: Normocephalic, atraumatic. cp 09:55 Eyes: Periorbital structures: appear normal, Conjunctiva: normal, no exudate, no injection, Lids and lashes: appear normal, bilaterally. 09:55 ENT: External ear(s): are unremarkable, Nose: is normal, Mouth: Lips: moist, Oral mucosa: moist, Posterior pharynx: Airway: no evidence of obstruction, patent. 09:55 Neck: External neck: swelling, is not appreciated, tenderness, that is moderate, of the occiput, right mid cervical area and right trapezius, ROM/movement: pain, that is mild, with rotation to the left. 09:55 Chest/axilla: Inspection: normal, Palpation: is normal, no crepitus, no tenderness. 09:55 Cardiovascular: Rate: normal, Rhythm: regular. 09:55 Respiratory: the patient does not display signs of respiratory distress, Respirations: normal, no use of accessory muscles, labored breathing, is not present, Breath sounds: are clear throughout, no decreased breath sounds. 09:55 Abdomen/GI: Exam negative for discomfort, distension, guarding, Inspection: abdomen appears normal. 09:55 Back: vertebral tenderness, is not appreciated. 09:55 Musculoskeletal/extremity: Exam is negative for decreased range of motion, deformity, injury. 09:55 Neuro: Orientation: to person, place \T\ time. Mentation: is normal, Motor: moves all fours, strength is normal, Sensation: is normal. Vital Signs: 09:27 BP 149 / 70; Pulse 61; Resp 16; Temp 98.5; Pulse Ox 100% on R/A; Weight 79.38 kg; ss 11:00 BP 146 / 72; Pulse 60; Resp 15; Pulse Ox 99% on R/A; hb MDM: 09:42 Patient medically screened. cp 10:00 Differential diagnosis: C-Spine Fracture Spinal Cord Compression Spondylolisthesis cp Spondylosis torticollis. 10:00 Data reviewed: vital signs, nurses notes. cp 10:41 Counseling: I had a detailed discussion with the patient and/or guardian regarding: the cp historical points, exam findings, and any diagnostic results supporting the discharge/admit diagnosis, radiology results, to return to the emergency department if symptoms worsen or persist or if there are any questions or concerns that arise at home. 10:41 ED course: VSS. CT negative for acute trauma. Will discharge to home for continued cp monitoring. 06/26 09:43 Order name: CT Head C Spine; Complete Time: 10:31 cp 06/26 10:32 Interpretation: Reviewed report. cp Administered Medications: 11:21 Drug: TORadol 30 mg Route: IM; Site: left deltoid; hb 11:45 Follow up: Response: No adverse reaction hb 11:21 Drug: UltRAM 50 mg Route: PO; hb 11:45 Follow up: Response: Medication administered at discharge. hb 11:21 Drug: Flexeril 10 mg Route: PO; hb 11:45 Follow up: Response: Medication administered at discharge. hb Disposition: 11:00 Chart complete. cp 13:30 Co-signature as Attending Physician, Tabitha Mullins MD. ma2 Disposition: 06/26/20 10:42 Discharged to Home. Impression: Strain of muscle, fascia and tendon at neck level. - Condition is Stable. - Discharge Instructions: Cervical Sprain, Heat Therapy, Neck Exercises. - Prescriptions for Cyclobenzaprine 10 mg Oral Tablet - take 1 tablet by ORAL route every 8 hours As needed; 15 tablet. Tramadol 50 mg Oral Tablet - take 1 tablet by ORAL route every 8 hours as needed; 12 tablet. - Medication Reconciliation Form, Thank You Letter, Antibiotic Education, Prescription Opioid Use form. - Follow up: Private Physician; When: 2 - 3 days; Reason: Recheck today's complaints. - Problem is new. - Symptoms have improved. Signatures: Dispatcher [employer] EDMS Jess Htuton RN RN Juan Mensah PA PA cp Baxter, Heather, RN RN hb Alzahri, Mohammad, MD MD ma2 Corrections: (The following items were deleted from the chart) 11:46 10:42 06/26/2020 10:42 Discharged to Home. Impression: Strain of muscle, fascia and hb tendon at neck level. Condition is Stable. Forms are Medication Reconciliation Form, Thank You Letter, Antibiotic Education, Prescription Opioid Use. Follow up: Private Physician; When: 2 - 3 days; Reason: Recheck today's complaints. Problem is new. Symptoms have improved. cp
[2020-06-26] MEDS ORDERED: CYCLOBENZAPRINE 10 MG TAB ONE (11:24)
[2020-06-26] MEDS ORDERED: KETOROLAC 30 MG/ML INJ ONE (11:24)
[2020-06-26] MEDS ORDERED: TRAMADOL HCL 50 MG TAB ONE (11:25)
[2020-06-29 23:15] VITALS: BP 146/72; O2SAT 99
[2020-06-29 23:16] VITALS: TEMP 98.5
== END 2020-06-26 11:46 | disposition home or self-care (01) ==
LOC: ER 09:18
DX: S16.1XXA Strain of muscle, fascia and tendon at neck level, initial encounter (principal); W19.XXXA Unspecified fall, initial encounter; Y93.9 Activity, unspecified; Y92.9 Unspecified place or not applicable; I10 Essential (primary) hypertension; F03.90 Unspecified dementia, unspecified severity, without behavioral disturbance, psychotic disturbance, mood disturbance, and anxiety; Z85.028 Personal history of other malignant neoplasm of stomach; Z85.46 Personal history of malignant neoplasm of prostate; Z88.7 Allergy status to serum and vaccine
CPT/HCPCS: 70450; 72125; 96372; 99284

== ENCOUNTER 2020-07-10 09:13 | Emergency (ER) | payer OTHER ==
--- OUTSIDE RECORDS SUMMARY | 2020-07-10 09:16 | XMS REPORT | Clinical Summary ---
:1935 Author Organization [facility] Address [address] [place] [id number] Care Team Providers Name Role Phone Asked, [...] Not on file Results Not on fileafter 07/10/2019 Insurance Payer Benefit Plan / Subscriber ID Effective Dates Phone Addre ss Type Group MEDICARE MEDICARE PART A xxxxxxxxxx 2002-Present ELIEL LOCKHART Medicare AND B Advance Directives For more information, please contact: [phone] Type Date Recorded Patient Tool Inspector Explanati on Advance Directives, Living Will and Medical Power of Winch Derrick Operator
[2020-07-10 09:53] LABS: Absolute Lymphocytes (CBC) 1.1 K/uL (0.7-4.9); Basophils % 0.8 % (0-1.3); Hematocrit 38.3 % (39.6-49.0); Lymphocytes % 18.4 % (15.3-44.8); MPV 8.6 fL (7.6-11.3); RBC Red Blood Cell Count 4.34 M/uL (4.33-5.43)
[2020-07-10] MEDS ORDERED: MORPHINE 2 MG/ML SYR ONE (10:07)
[2020-07-10] MEDS ORDERED: ONDANSETRON 4 MG/2 ML VIAL ONE (10:07)
[2020-07-10 10:09] LABS: Urine Bacteria NONE SEEN /HPF (NONE SEEN); Urine Culture Reflex Order NOT NEEDED; Urine RBC NONE SEEN /HPF (NONE SEEN)
[2020-07-10 10:15] LABS: Bilirubin Direct 0.1 mg/dL (0-0.2); Bilirubin Total 0.4 mg/dL (0.2-1.0); Potassium 4.5 mmol/L (3.5-5.1); Protein, Total 7.3 g/dL (6.4-8.2)
--- NOTE | 2020-07-10 10:17 | RAD REPORT ---
EXAM DESCRIPTION: CT - Stone Protocol - 07/10/2020 10:06 am CLINICAL HISTORY: FLANK PAIN COMPARISON: Abdomen Pelvis Wo Contrast dated 05/08/2020; Abdomen Pelvis Wo Contrast dated 017 TECHNIQUE: Axial 5 mm thick images were obtained without oral or IV contrast. The [id number] span s the entirety of the system including uppermost abdomen and lung bases. All CT scans are performed using dose optimization technique as appropriate and may include automated exposure control or mA/KV adjustment according to patient size. FINDINGS: Lung base images show no pericardial effusion. There is extensive calcified pleural plaqui ng and scarring of the lung base parenchyma. No new worrisome finding. No hydronephrosis is present and no obstructing ureteral calculi. No suspicious renal masses. Isodens e masses and pyelonephritis are not excluded on a stone protocol CT scan. Small low-density right adr enal mass dates back to at least 2017 with no significant change. No urinary bladder suspicious findi ng. Imaged portions of the liver, spleen and pancreas show no suspicious findings on non-contrast imaging . Small left lobe 2.4 centimeter cyst stable to at least 2017. Cholecystectomy clips are present. No biliary tree dilatation. No suspicious bowel findings. Moderate stool volume is present in the colon. No appendicitis findings . Diverticulosis is mild for age. No mass or bulky lymphadenopathy. No free air or pneumatosis. Bilateral fat filled inguinal hernias a re present. Patient has thinning and laxity of the abdominal wall at the pubic symphysis. No disrupti on identified. Prostatectomy surgical changes evident. Degenerative changes are present. Old compression fracture and fusion changes noted at the L3-4 level . Central spinal stenosis is present at this collapsed and fused level. IMPRESSION: No hydronephrosis, obstructing calculus or acute finding. Isodense masses and pyelonephritis are not excluded on stone protocol technique. As detailed above, the additional nonacute findings are stable from prior imaging.
[2020-07-10 10:38] LABS: Urine Blood TRACE (NEG); Urine Glucose NEGATIVE (NEG); Urine Protein 2+ (NEG); Urine pH 5.5 (5.0-7.0)
[2020-07-10] MEDS ORDERED: NA CHLORIDE 0.9% 500 ML ONE (10:44)
--- NOTE | 2020-07-10 11:08 | ER ---
Nurse's Notes [facility] Name: Abhijit Peralta Age: 85 yrs Sex: Male : 1935 Arrival Date: 07/10/2020 Time: 09:16 Bed 5 Private MD: Dayron Daley Diagnosis: Strain of muscle and tendon of front wall of thorax Presentation: 07/10 09:22 Chief complaint: Patient states: no n/v/d Spouse and/or significant other states: he is tw2 having stomach pain on his right side, it has been going on for a while. he has dementia. Coronavirus screen: At this time, the client does not indicate any symptoms associated with coronavirus-19. Ebola Screen: Patient denies travel to an Ebola-affected area in the 21 days before illness onset. Initial Sepsis Screen: Does the patient meet any 2 criteria? No. Patient's initial sepsis screen is negative. Does the patient have a suspected source of infection? No. Patient's initial sepsis screen is negative. Risk Assessment: Do you want to hurt yourself or someone else? Patient reports no desire to harm self or others. Onset of symptoms was July 10, 2020. 09:22 Method Of Arrival: Wheelchair tw2 09:22 Acuity: RAVI 3 tw2 Triage Assessment: 09:25 General: Appears in no apparent distress. Behavior is calm, cooperative, appropriate tw2 for age. Pain: Complains of pain in right upper quadrant and right lower quadrant. GI: Patient currently denies diarrhea, nausea, vomiting. Historical: - Allergies: 09:25 Tetanus Vaccines \T\ Toxoid; tw2 - Home Meds: 09:25 pravastatin 20 mg Oral tab 1 tab once daily [Active]; amlodipine 2.5 mg tab 1 tab once tw2 daily [Active]; glimepiride 2 mg Oral tab 2 tabs twice daily [Active]; - PMHx: 09:25 Dementia; Diabetes - NIDDM; gastric ulcers; Hypertension; LYMPHOMA; Prostate Cancer; tw2 Stomach CA - in remission; - Immunization history:: Adult Immunizations. - Social history:: Smoking status: . Screenin:26 Abuse screen: Denies threats or abuse. Nutritional screening: No deficits noted. tw2 Tuberculosis screening: No symptoms or risk factors identified. Fall Risk Secondary diagnosis (15 points) impaired mobility. Assessment: 09:25 General: Appears in no apparent distress. Behavior is calm, cooperative, appropriate tw2 for age. Pain: Complains of pain in right lower quadrant and right upper quadrant. Neuro: Level of Consciousness is awake, alert, obeys commands, Oriented to person, place, time, situation. Cardiovascular: Heart tones S1 S2 Patient's skin is warm and dry. Respiratory: Airway is patent Respiratory effort is even, unlabored, Respiratory pattern is regular, symmetrical, Breath sounds are clear bilaterally. GI: Abdomen is flat, non-distended, Bowel sounds present X 4 quads. Reports lower abdominal pain, upper abdominal pain, Patient currently denies diarrhea, nausea, vomiting. : No signs and/or symptoms were reported regarding the genitourinary system. EENT: No signs and/or symptoms were reported regarding the EENT system. Derm: No signs and/or symptoms reported regarding the dermatologic system. Musculoskeletal: Range of motion: intact in all extremities. 10:39 Reassessment: Patient appears in no apparent distress at this time. Patient and/or tw2 family updated on plan of care and expected duration. Pain level reassessed. Patient is alert, oriented x 3, equal unlabored respirations, skin warm/dry/pink. Patient states feeling better. 11:27 Reassessment: Patient appears in no apparent distress at this time. Patient and/or tw2 family updated on plan of care and expected duration. Pain level reassessed. Patient is alert, oriented x 3, equal unlabored respirations, skin warm/dry/pink. Vital Signs: 09:22 BP 163 / 67; Pulse 65; Resp 17; Temp 98.5(O); Pulse Ox 100% on R/A; Weight 77.11 kg tw2 (R); Height 5 ft. 1 in. (154.94 cm); Pain 8/10; 10:30 BP 118 / 69; Pulse 81; Resp 17; Pulse Ox 100% on R/A; tw2 11:27 BP 128 / 72; Pulse 76; Resp 17; Pulse Ox 99% on R/A; tw2 09:22 Body Mass Index 32.12 (77.11 kg, 154.94 cm) tw2 ED Course: 09:16 Patient arrived in ED. mr 09:16 Dayron Daley DO is Private Physician. mr 09:22 Trinidad Engel RN is Primary Nurse. tw2 09:22 Placed in gown. Bed in low position. Call light in reach. Adult w/ patient. Cardiac tw2 monitor on. Pulse ox on. NIBP on. :23 Conner Manning NP is PHCP. pm1 09:23 Juan Coronel MD is Attending Physician. pm1 09:24 Triage completed. tw2 09:25 Arm band placed on. tw2 09:55 Basic Metabolic Panel Sent. mh5 09:55 CBC with Diff Sent. mh5 09:55 Hepatic Function Sent. mh5 09:55 Lipase Sent. mh5 09:56 Urine Microscopic Only Sent. mh5 09:56 Initial lab(s) drawn, by de, sent to lab. Inserted saline lock: in left antecubital 5 area, using aseptic technique. Blood collected. 10:06 CT Stone Protocol In Process Unspecified. EDMS 10:07 CT completed. Patient tolerated procedure well. Patient moved back from CT. bq 11:16 Awaiting: completion of IV fluids prior to discharge. tw2 11:27 No provider procedures requiring assistance completed. IV discontinued, intact, tw2 bleeding controlled, No redness/swelling at site. Pressure dressing applied. Administered Medications: 09:58 Drug: Zofran (Ondansetron) 4 mg Route: IVP; Site: left antecubital; tw2 11:27 Follow up: Response: No adverse reaction tw2 09:59 Drug: morphine 2 mg Route: IVP; Site: left antecubital; tw2 10:39 Follow up: Response: No adverse reaction; Pain is decreased; RASS: Alert and Calm (0) tw2 10:39 Follow up: Response: No adverse reaction tw2 10:38 Drug: NS 0.9% 500 ml Route: IV; Rate: bolus; Site: left antecubital; tw2 11:27 Follow up: Response: No adverse reaction; IV Status: Completed infusion; IV Intake: tw2 500ml Intake: 11: IV: 500ml; Total: 500ml. tw2 Outcome: 11:07 Discharge ordered by . pm1 11:27 Discharged to home via wheelchair, with family. tw2 11:27 Condition: stable 11:27 Discharge instructions given to patient, family, Instructed on discharge instructions, follow up and referral plans. Demonstrated understanding of instructions, follow-up care. 11:28 Patient left the ED. tw2 Signatures: Dispatcher [employer] Clare Ca Betty bq Marinas, Patrick, NP OCCASIONAL CAREGIVER pm1 Trinidad Engel RN RN tw2 Eleanor Cabrales [facility]
--- NOTE | 2020-07-10 11:08 | EDPHYS ---
Physician Documentation [facility] Name: Abhijit Peralta Age: 85 yrs Sex: Male : 1935 Arrival Date: 07/10/2020 Time: 09:16 Bed 5 Private MD: Edi [facility] ED Physician Juan Coronel HPI: 07/10 09:34 This 85 yrs old Male presents to ER via Wheelchair with complaints of Right pm1 anterior lower rib pain. 09:34 The patient presents with Right lower rib pain. Onset: The symptoms/episode pm1 began/occurred 2 week(s) ago. The symptoms do not radiate. Associated signs and symptoms: none. Pertinent negatives: nausea, vomiting, and diarrhea, chest pain, fever, shortness of breath, Cough, Abdominal pain. The symptoms are described as sharp. Modifying factors: The symptoms are alleviated by nothing, the symptoms are aggravated by movement. Severity of pain: in the emergency department the pain is unchanged. Patient has had a history of falls. Patient unable to recall if he fell prior to onset of right anterior lower rib pain. Historical: - Allergies: 09:25 Tetanus Vaccines \T\ Toxoid; tw2 - Home Meds: 09:25 pravastatin 20 mg Oral tab 1 tab once daily [Active]; amlodipine 2.5 mg tab 1 tab once tw2 daily [Active]; glimepiride 2 mg Oral tab 2 tabs twice daily [Active]; - PMHx: 09:25 Dementia; Diabetes - NIDDM; gastric ulcers; Hypertension; LYMPHOMA; Prostate Cancer; tw2 Stomach CA - in remission; - Immunization history:: Adult Immunizations. - Social history:: Smoking status: . ROS: 09:34 Constitutional: Negative for fever, chills, and weight loss, Neck: Negative for injury, pm1 pain, and swelling, Cardiovascular: Negative for chest pain, palpitations, and edema, Respiratory: Negative for shortness of breath, cough, wheezing, and pleuritic chest pain, Abdomen/GI: Negative for abdominal pain, nausea, vomiting, diarrhea, and constipation, Back: Negative for injury and pain, : Negative for injury, bleeding, discharge, and swelling, MS/Extremity: Negative for injury and deformity, Skin: Negative for injury, rash, and discoloration, Neuro: Negative for headache, weakness, numbness, tingling, and seizure. Exam: 09:34 Constitutional: This is a well developed, well nourished patient who is awake, alert, pm1 and in no acute distress. Head/Face: Normocephalic, atraumatic. 09:34 Back: No spinal tenderness. No costovertebral tenderness. Full range of motion. Skin: Warm, dry with normal turgor. Normal color with no rashes, no lesions, and no evidence of cellulitis. MS/ Extremity: Pulses equal, no cyanosis. Neurovascular intact. Full, normal range of motion. 09:34 Chest/axilla: Inspection: normal, Palpation: tenderness, that is mild, of the focal point to right anterior-lateral 10th rib, that totally reproduces the patient's complaints, Pain also reproduced with patient sitting up from lying position. 09:34 Cardiovascular: Exam negative for acute changes, Rate: normal, Rhythm: regular, Pulses: no pulse deficits are appreciated, Edema: is not appreciated. 09:34 Respiratory: Exam negative for acute changes, respiratory distress, shortness of breath. 09:34 Abdomen/GI: Inspection: abdomen appears normal, Palpation: abdomen is soft and non-tender, in all quadrants. Vital Signs: 09:22 BP 163 / 67; Pulse 65; Resp 17; Temp 98.5(O); Pulse Ox 100% on R/A; Weight 77.11 kg tw2 (R); Height 5 ft. 1 in. (154.94 cm); Pain 8/10; 10:30 BP 118 / 69; Pulse 81; Resp 17; Pulse Ox 100% on R/A; tw2 11:27 BP 128 / 72; Pulse 76; Resp 17; Pulse Ox 99% on R/A; tw2 09:22 Body Mass Index 32.12 (77.11 kg, 154.94 cm) tw2 MDM: 09:23 Patient medically screened. [facility] 11:02 Data reviewed: vital signs. Data interpreted: Pulse oximetry: on room air is 100 %. pm1 Interpretation: normal. Counseling: I had a detailed discussion with the patient and/or guardian regarding: the historical points, exam findings, and any diagnostic results supporting the discharge/admit diagnosis, lab results, radiology results, the need for outpatient follow up, to return to the emergency department if symptoms worsen or persist or if there are any questions or concerns that arise at home. 07/10 09:34 Order name: Urine Microscopic Only; Complete Time: 10:13 pm1 07/10 09:34 Order name: Basic Metabolic Panel; Complete Time: 10:18 pm1 07/10 09:34 Order name: CBC with Diff; Complete Time: 10:13 pm1 07/10 09:34 Order name: Hepatic Function; Complete Time: 10:18 pm1 07/10 09:34 Order name: Lipase; Complete Time: 10:18 pm1 07/10 09:55 Order name: Urine Dipstick--Ancillary (enter results); Complete Time: 11:02 eb 07/10 09:34 Order name: Urine Dipstick-Ancillary (obtain specimen); Complete Time: 09:56 pm1 07/10 09:34 Order name: CT Stone Protocol; Complete Time: 10:18 pm1 07/10 09:34 Order name: IV Saline Lock; Complete Time: 09:55 pm1 07/10 09:34 Order name: Labs collected and sent; Complete Time: 09:56 pm1 Administered Medications: 09:58 Drug: Zofran (Ondansetron) 4 mg Route: IVP; Site: left antecubital; tw2 11:27 Follow up: Response: No adverse reaction tw2 09:59 Drug: morphine 2 mg Route: IVP; Site: left antecubital; tw2 10:39 Follow up: Response: No adverse reaction; Pain is decreased; RASS: Alert and Calm (0) tw2 10:39 Follow up: Response: No adverse reaction tw2 10:38 Drug: NS 0.9% 500 ml Route: IV; Rate: bolus; Site: left antecubital; tw2 11:27 Follow up: Response: No adverse reaction; IV Status: Completed infusion; IV Intake: tw2 500ml Disposition: 07/10/20 11:07 Discharged to Home. Impression: Strain of muscle and tendon of front wall of thorax. - Condition is Stable. - Discharge Instructions: Muscle Strain. - Medication Reconciliation Form, Thank You Letter, Antibiotic Education, Prescription Opioid Use form. - Follow up: Emergency Department; When: As needed; Reason: Worsening of condition. Follow up: Private Physician; When: 2 - 3 days; Reason: Recheck today's complaints, Continuance of care, Re-evaluation by your physician. - Problem is new. - Symptoms have improved. Addendum: 07/12/2020 10:49 Co-signature as Attending Physician, Juan Coronel MD I agree with the assessment and c ognsales plan of care. Signatures: Dispatcher [employer] EDJuan Lester, Conner Portillo MD, cha, WOOD FLOOR LAYER WOOD FLOOR LAYER pm1 Trinidad Engel RN RN tw2 Corrections: (The following items were deleted from the chart) 07/10 11:28 11:07 07/10/2020 11:07 Discharged to Home. Impression: Strain of muscle and tendon of tw2 front wall of thorax. Condition is Stable. Forms are Medication Reconciliation Form, Thank You Letter, Antibiotic Education, Prescription Opioid Use. Follow up: Emergency Department; When: As needed; Reason: Worsening of condition. Follow up: Private Physician; When: 2 - 3 days; Reason: Recheck today's complaints, Continuance of care, Re-evaluation by your physician. Problem is new. Symptoms have improved. pm1
[2020-07-10 11:37] VITALS: TEMP 98.5
[2020-07-10 11:39] VITALS: BP 128/72; O2SAT 99
== END 2020-07-10 11:28 | disposition home or self-care (01) ==
LOC: ER 09:13
DX: S29.011A Strain of muscle and tendon of front wall of thorax, initial encounter (principal); Z91.81 History of falling; I10 Essential (primary) hypertension; E11.9 Type 2 diabetes mellitus without complications; F03.90 Unspecified dementia, unspecified severity, without behavioral disturbance, psychotic disturbance, mood disturbance, and anxiety; Z85.72 Personal history of non-Hodgkin lymphomas; Z85.46 Personal history of malignant neoplasm of prostate; Z85.028 Personal history of other malignant neoplasm of stomach; Z88.7 Allergy status to serum and vaccine
CPT/HCPCS: 96361; 85025; 80048; 36415; 80076; 83690; 76377; 74176; 96375; 96374; 99285; J2270; J7040; J2405; 81003; 81015

== ENCOUNTER 2020-08-30 08:46 | Emergency (ER) | payer OTHER ==
--- OUTSIDE RECORDS SUMMARY | 2020-08-30 09:11 | XMS REPORT | Clinical Summary ---
:1935 Author Organization [facility] Address [address] [place] [address] Care Team Providers Name Role Phone Asked, [...] a day. Active Problems Not on file Surgical History Surgery Date Site/Laterality Comments [place] CATH PLMT L HRT & ARTS 05/08/2016 N/A Proced ure: Cv left heart cath w W/NJX & ANGIO IMG S&I lv gram co rs; Surgeon: Lila Herman MD; Loca tion: [facility]; Service: Cardiovascular Medical History Medical History Date Comments Cancer (HCC) Diabetes mellitus (HCC) Hypertension Family History Medical History Relation Name Comments Kidney disease Brother Liver cancer Mother Relation Name Status Comments Brother Mother Social History Tobacco Use Types Packs/Day Years Used Date Never Assessed Sex Assigned at Date Recorded Not on file Last Filed Vital Signs Not on file Plan of Treatment Not on file Results Not on fileafter 08/30/2019 Insurance Payer Benefit Plan / Subscriber ID Effective Dates Phone Addre ss Type Group MEDICARE MEDICARE PART A [id number] 2002-Present ELIEL LOCKHART Medicare AND B Advance Directives For more information, please contact: [phone] Type Date Recorded Patient Analytics Lead Explanati on Advance Directives, Living Will and Medical Power of Data Security Coordinator
[2020-08-30] MEDS ORDERED: HYDROCODONE/APAP 5/325 MG TAB ONE (10:26)
--- NOTE | 2020-08-30 10:34 | ER ---
Nurse's Notes [facility] Name: Abhijit Peralta Age: 85 yrs Sex: Male : 1935 Arrival Date: 08/30/2020 Time: 08:50 Bed 16 Private MD: Oniel Adams R Diagnosis: Fall due to bumping against object;Sprain of unspecified part of right wrist and hand Presentation: 08/30 09:04 Chief complaint: Right hand and wrist pain after fall 3 weeks ago. Coronavirus screen: hb At this time, the client does not indicate any symptoms associated with coronavirus-19. Ebola Screen: No symptoms or risks identified at this time. Initial Sepsis Screen: Does the patient meet any 2 criteria? No. Patient's initial sepsis screen is negative. Does the patient have a suspected source of infection? No. Patient's initial sepsis screen is negative. Risk Assessment: Do you want to hurt yourself or someone else? Patient reports no desire to harm self or others. Onset of symptoms was July 2020. 09:04 Method Of Arrival: Ambulatory hb 09:04 Acuity: RAVI 4 hb Historical: - Allergies: 09:05 Tetanus Vaccines \T\ Toxoid; hb - Home Meds: 09:05 amlodipine 2.5 mg tab 1 tab once daily [Active]; glimepiride 2 mg Oral tab 2 tabs twice hb daily [Active]; pravastatin 20 mg Oral tab 1 tab once daily [Active]; - PMHx: 09:05 Dementia; Diabetes - NIDDM; gastric ulcers; Hypertension; LYMPHOMA; Prostate Cancer; hb Stomach CA - in remission; - Immunization history:: Adult Immunizations up to date. - Social history:: Smoking status: Patient denies any tobacco usage or history of. - Family history:: not pertinent. Screenin:28 Abuse screen: Denies threats or abuse. Denies injuries from another. Nutritional ph screening: No deficits noted. Tuberculosis screening: No symptoms or risk factors identified. Fall Risk None identified. Assessment: 09:33 General: Appears in no apparent distress. comfortable, well groomed, Behavior is calm, ph cooperative, appropriate for age. Pain: Complains of pain in lateral aspect of right hand Pain radiates to dorsal aspect of right forearm and right wrist. Neuro: Level of Consciousness is awake, alert, obeys commands, Oriented to person, place, time, situation. Cardiovascular: Capillary refill < 3 seconds in bilateral fingers Patient's skin is warm and dry. Respiratory: Airway is patent Respiratory effort is even, unlabored. Derm: Skin is intact, is healthy with good turgor, Skin is pink, warm \T\ dry. Musculoskeletal: Circulation, motion, and sensation intact. Range of motion: intact in all extremities. Vital Signs: 09:04 BP 171 / 84; Pulse 68; Resp 16; Temp 97.9; Pulse Ox 100% ; Pain 10/10; hb 10:54 BP 143 / 64; Pulse 57; Resp 18; Temp 97.8; Pulse Ox 99% on R/A; ph ED Course: 08:50 Patient arrived in ED. mr 08:50 Oniel Adams MD is Private Physician. mr 09:00 Juan Coronel MD is Attending Physician. dom 09:05 Triage completed. hb 09:05 Arm band placed on. hb 09:26 Ariana Trejo, RN is Primary Nurse. ph 09:28 Patient has correct armband on for positive identification. Bed in low position. Call ph light in reach. Side rails up X 1. Pulse ox on. NIBP on. Door closed. Noise minimized. Warm blanket given. 09:58 Hand Right 3 View XRAY In Process Unspecified. EDMS 09:58 Wrist Right 3 View XRAY In Process Unspecified. EDMS 10:34 Oniel Adams MD is Referral Physician. dom 10:34 Aditya Willoughby MD is Referral Physician. dom 10:34 Braulio Li MD is Referral Physician. dom 10:55 No provider procedures requiring assistance completed. Patient did not have IV access ph during this emergency room visit. Velcro wrist splint applied to right wrist. Administered Medications: 10:17 Drug: Jackson 5 mg-325 mg 1 tabs Route: PO; ph 10:52 Follow up: Response: No adverse reaction; Pain is decreased ph Outcome: 10:34 Discharge ordered by . dom 10:55 Discharged to home ambulatory, with significant other. ph 10:55 Condition: good 10:55 Discharge instructions given to patient, significant other, Instructed on discharge instructions, follow up and referral plans. medication usage, Demonstrated understanding of instructions, follow-up care, medications, Prescriptions given X 1. 10:55 Patient left the ED. ph Signatures: Dispatcher [employer] EDJuan Lester MD MD cha Rivera, Clare mr Ariana Trejo RN RN Leda Davis RN RN hb
--- NOTE | 2020-08-30 10:35 | EDPHYS ---
Physician Documentation [facility] Name: Abhijit Peralta Age: 85 yrs Sex: Male : 1935 Arrival Date: 08/30/2020 Time: 08:50 Bed 16 Private MD: Oniel Adams R ED Physician Juan Coronel HPI: 08/30 09:42 This 85 yrs old Male presents to ER via Ambulatory with complaints of Hand dom Pain. 09:42 The patient or guardian reports decreased range of motion, injury. The complaints dom affect the MCP of right thumb and CMC of right thumb. Context: The problem was sustained at home. Onset: The symptoms/episode began/occurred 3 day(s) ago. Modifying factors: The symptoms are alleviated by holding still, ice/coldpack to affected area, the symptoms are aggravated by movement, dependent position. Associated signs and symptoms: The patient has no apparent associated signs or symptoms. The patient has not experienced similar symptoms in the past. Historical: - Allergies: 09:05 Tetanus Vaccines \T\ Toxoid; hb - Home Meds: 09:05 amlodipine 2.5 mg tab 1 tab once daily [Active]; glimepiride 2 mg Oral tab 2 tabs twice hb daily [Active]; pravastatin 20 mg Oral tab 1 tab once daily [Active]; - PMHx: 09:05 Dementia; Diabetes - NIDDM; gastric ulcers; Hypertension; LYMPHOMA; Prostate Cancer; hb Stomach CA - in remission; - Immunization history:: Adult Immunizations up to date. - Social history:: Smoking status: Patient denies any tobacco usage or history of. - Family history:: not pertinent. ROS: 09:42 Constitutional: Negative for fever, chills, and weight loss, Eyes: Negative for injury, dom pain, redness, and discharge, ENT: Negative for injury, pain, and discharge, Neck: Negative for injury, pain, and swelling, Cardiovascular: Negative for chest pain, palpitations, and edema, Respiratory: Negative for shortness of breath, cough, wheezing, and pleuritic chest pain, Abdomen/GI: Negative for abdominal pain, nausea, vomiting, diarrhea, and constipation, Back: Negative for injury and pain, : Negative for injury, bleeding, discharge, and swelling, Skin: Negative for injury, rash, and discoloration, Neuro: Negative for headache, weakness, numbness, tingling, and seizure, Psych: Negative for depression, anxiety, suicide ideation, homicidal ideation, and hallucinations, Allergy/Immunology: Negative for hives, rash, and allergies, Endocrine: Negative for neck swelling, polydipsia, polyuria, polyphagia, and marked weight changes, Hematologic/Lymphatic: Negative for swollen nodes, abnormal bleeding, and unusual bruising. 09:42 MS/extremity: Positive for decreased range of motion, pain, swelling, tenderness, of the right hand. Exam: 09:42 Constitutional: This is a well developed, well nourished patient who is awake, alert, dom and in no acute distress. Head/Face: Normocephalic, atraumatic. Eyes: Pupils equal round and reactive to light, extra-ocular motions intact. Lids and lashes normal. Conjunctiva and sclera are non-icteric and not injected. Cornea within normal limits. Periorbital areas with no swelling, redness, or edema. ENT: Nares patent. No nasal discharge, no septal abnormalities noted. Tympanic membranes are normal and external auditory canals are clear. Oropharynx with no redness, swelling, or masses, exudates, or evidence of obstruction, uvula midline. Mucous membranes moist. Neck: Trachea midline, no thyromegaly or masses palpated, and no cervical lymphadenopathy. Supple, full range of motion without nuchal rigidity, or vertebral point tenderness. No Meningismus. Chest/axilla: Normal chest wall appearance and motion. Nontender with no deformity. No lesions are appreciated. Cardiovascular: Regular rate and rhythm with a normal S1 and S2. No gallops, murmurs, or rubs. Normal PMI, no JVD. No pulse deficits. Abdomen/GI: Soft, non-tender, with normal bowel sounds. No distension or tympany. No guarding or rebound. No evidence of tenderness throughout. Back: No spinal tenderness. No costovertebral tenderness. Full range of motion. Male : Normal genitalia with no discharge or lesions. Skin: Warm, dry with normal turgor. Normal color with no rashes, no lesions, and no evidence of cellulitis. MS/ Extremity: Pulses equal, no cyanosis. Neurovascular intact. Full, normal range of motion. Neuro: Awake and alert, GCS 15, oriented to person, place, time, and situation. Cranial nerves II-XII grossly intact. Motor strength 5/5 in all extremities. Sensory grossly intact. Cerebellar exam normal. Normal gait. Psych: Awake, alert, with orientation to person, place and time. Behavior, mood, and affect are within normal limits. 09:42 Respiratory: the patient does not display signs of respiratory distress, Respirations: normal, Breath sounds: are clear throughout. 09:42 Musculoskeletal/extremity: ROM: limited active range of motion, limited passive range of motion, Pulses: noted to be 4+ in the bilateral radial, brachial, femoral, popliteal, posterior tibial and and dorsalis pedis arteries., Sensation intact. Compartment Syndrome exam of affected extremity: is normal. Vital Signs: 09:04 BP 171 / 84; Pulse 68; Resp 16; Temp 97.9; Pulse Ox 100% ; Pain 10/10; hb 10:54 BP 143 / 64; Pulse 57; Resp 18; Temp 97.8; Pulse Ox 99% on R/A; ph MDM: 09:00 Patient medically screened. [facility] 08/30 09:04 Order name: Hand Right 3 View XRAY [facility] 08/30 09:26 Order name: Wrist Right 3 View XRAY 08/30 09:42 Order name: Splint: cock up, velcro; Complete Time: 10:54 [facility] 08/30 09:42 Order name: Ice pack; Complete Time: 10:04 [facility] Administered Medications: 10:17 Drug: [place] 5 mg-325 mg 1 tabs Route: PO; ph 10:52 Follow up: Response: No adverse reaction; Pain is decreased ph Disposition: 08/30/20 10:34 Discharged to Home. Impression: Fall due to bumping against object, Sprain of unspecified part of right wrist and hand. - Condition is Stable. - Discharge Instructions: Hand Contusion, Thumb Sprain, Hand Contusion, [id number], Fall Prevention in the Home, [id number], Wrist Sprain. - Prescriptions for Tylenol- Codeine #3 300-30 mg Oral Tablet - take 1 tablet by ORAL route every 4 hours As needed; 20 tablet. - Medication Reconciliation Form, Thank You Letter, Antibiotic Education, Prescription Opioid Use form. - Follow up: Oniel Adams; When: 2 - 3 days; Reason: Recheck today's complaints, Continuance of care, Re-evaluation by your physician. Follow up: Aditya Willoughby; When: 2 - 3 days; Reason: Recheck today's complaints, Re-evaluation by your physician. Follow up: Braulio Li; When: 2 - 3 days; Reason: Recheck today's complaints, Re-evaluation by your physician. - Problem is new. - Symptoms have improved. Signatures: Dispatcher [employer] EDMS Juan Coronel MD MD cha Hall, Patricia, RN RN Leda Courtney RN RN Corrections: (The following items were deleted from the chart) 10:55 10:34 08/30/2020 10:34 Discharged to Home. Impression: Fall due to bumping against ph object; Sprain of unspecified part of right wrist and hand. Condition is Stable. Discharge Instructions: Hand Contusion, Thumb Sprain, Hand Contusion, Pyuw-oh-Ffpy, Fall Prevention in the Home, [id number]-[id number], Wrist Sprain. Prescriptions for Tylenol-Codeine #3 300-30 mg Oral Tablet - take 1 tablet by ORAL route every 4 hours As needed; 20 tablet. and Forms are Medication Reconciliation Form, Thank You Letter, Antibiotic Education, Prescription Opioid Use. Follow up: Oniel Adams; When: 2 - 3 days; Reason: Recheck today's complaints, Continuance of care, Re-evaluation by your physician. Follow up: Aditya Willoughby; When: 2 - 3 days; Reason: Recheck today's complaints, Re-evaluation by your physician. Follow up: Braulio Li; When: 2 - 3 days; Reason: Recheck today's complaints, Re-evaluation by your physician. Problem is new. Symptoms have improved. dom
--- NOTE | 2020-08-30 10:38 | RAD REPORT ---
EXAM DESCRIPTION: RAD - Wrist Right 3 View - 08/30/2020 9:58 am CLINICAL HISTORY: PAIN Pain COMPARISON: Hand Right 3 View dated 08/30/2020 FINDINGS: Diffuse osteopenia is seen. No acute fracture or dislocation is present. Extensive vascu lar calcification is evident. Chondrocalcinosis is also noted.
--- NOTE | 2020-08-30 11:20 | RAD REPORT ---
EXAM DESCRIPTION: RAD - Hand Right 3 View - 08/30/2020 9:58 am CLINICAL HISTORY: PAIN COMPARISON: No comparisons FINDINGS: Prominent radiocarpal joint arthritic changes are present. Vascular calcification is noted . No acute fracture or dislocation.
[2020-08-30 11:22] VITALS: BP 143/64; TEMP 97.8; O2SAT 99
== END 2020-08-30 10:55 | disposition home or self-care (01) ==
LOC: ER 08:46
DX: S63.91XA Sprain of unspecified part of right wrist and hand, initial encounter (principal); W18.00XA Striking against unspecified object with subsequent fall, initial encounter; Y93.9 Activity, unspecified; Y92.009 Unspecified place in unspecified non-institutional (private) residence as the place of occurrence of the external cause; I10 Essential (primary) hypertension; E11.9 Type 2 diabetes mellitus without complications; F03.90 Unspecified dementia, unspecified severity, without behavioral disturbance, psychotic disturbance, mood disturbance, and anxiety; Z85.72 Personal history of non-Hodgkin lymphomas; Z85.46 Personal history of malignant neoplasm of prostate; Z85.028 Personal history of other malignant neoplasm of stomach; Z88.7 Allergy status to serum and vaccine
CPT/HCPCS: 99284

== ENCOUNTER 2020-11-13 15:05 | Emergency (ER) | payer OTHER ==
--- OUTSIDE RECORDS SUMMARY | 2020-11-13 15:07 | XMS REPORT | Clinical Summary ---
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
--- NOTE | 2020-11-13 17:42 | EDPHYS ---
Physician Documentation [facility] Name: Abhijit Peralta Age: 85 yrs Sex: Male : 1935 Arrival Date: 11/13/2020 Time: 15:06 Bed 23 Private MD: ED Physician Pablo Daly HPI: 11/13 17:06 This 85 yrs old Male presents to ER via Ambulatory with complaints of Hand pm1 Pain, Arm Pain. 17:06 The patient or guardian reports pain. The complaints affect the right thumb and wrist pm1 radiating up right forearm. Context: The problem was sustained at an unknown location, resulted from an unknown cause, no trauma. Onset: The symptoms/episode began/occurred 2 week(s) ago. Modifying factors: The symptoms are alleviated by holding still, the symptoms are aggravated by movement. Associated signs and symptoms: Pertinent negatives: cyanosis distally, decreased sensation distally, fever, numbness distally, tingling distally. Severity of symptoms: in the emergency department the symptoms are unchanged. The patient has not experienced similar symptoms in the past. The patient has not recently seen a physician. Historical: - Allergies: 15:13 Tetanus Vaccines \T\ Toxoid; ll1 - PMHx: 15:13 LYMPHOMA; Prostate Cancer; Hypertension; Stomach CA - in remission; Diabetes - NIDDM; ll1 Dementia; gastric ulcers; - Immunization history:: Flu vaccine is up to date. - Social history:: Smoking status: Patient/guardian denies using tobacco, the patient reports quitting approximately 20 years ago. ROS: 17:06 Constitutional: Negative for fever, chills, and weight loss. pm1 17:06 Cardiovascular: Negative for chest pain, palpitations, and edema, Respiratory: Negative for shortness of breath, cough, wheezing, and pleuritic chest pain. 17:06 Skin: Negative for injury, rash, and discoloration, Neuro: Negative for headache, weakness, numbness, tingling, and seizure. 17:06 MS/extremity: Positive for pain, of the right wrist and thumb, Negative for injury or acute deformity, decreased range of motion, deformity. Exam: 17:06 Constitutional: This is a well developed, well nourished patient who is awake, alert, pm1 and in no acute distress. Head/Face: Normocephalic, atraumatic. 17:06 Skin: Warm, dry with normal turgor. Normal color with no rashes, no lesions, and no evidence of cellulitis. 17:06 Cardiovascular: Rate: normal, Rhythm: regular, Pulses: no pulse deficits are appreciated. 17:06 Respiratory: Exam negative for acute changes, respiratory distress, shortness of breath. 17:06 Musculoskeletal/extremity: Extremities: grossly normal except: noted in the tendneress to right wrist. No tenderrness to right thumb. Nonpainful FROM to right thumb and fingers. : Positive Tinel and Phalen sign to right wrist. Vital Signs: 15:13 BP 173 / 56; Pulse 63; Resp 16; Temp 98.1; Pulse Ox 99% ; Weight 77.11 kg; Height 5 ft. ll1 3 in. (160.02 cm); Pain 10/10; 15:13 Body Mass Index 30.11 (77.11 kg, 160.02 cm) ll1 MDM: 16:47 Patient medically screened. pm1 17:20 Data reviewed: vital signs. pm1 17:41 Counseling: I had a detailed discussion with the patient and/or guardian regarding: the pm1 historical points, exam findings, and any diagnostic results supporting the discharge/admit diagnosis, radiology results, the need for outpatient follow up, a hand specialist, a orthopedic surgeon, to return to the emergency department if symptoms worsen or persist or if there are any questions or concerns that arise at home. 11/13 16:50 Order name: Hand Right 3 View XRAY pm1 11/13 16:50 Order name: Wrist Splint; Complete Time: 17:47 pm1 Administered Medications: No medications were administered Disposition: 11/14 14:03 Co-signature as Attending Physician, Pablo Daly MD I agree with the assessment and kdr plan of care. Disposition: 11/13/20 17:42 Discharged to Home. Impression: Carpal tunnel syndrome, right upper limb. - Condition is Stable. - Discharge Instructions: Carpal Tunnel Syndrome, Wrist Splint. - Prescriptions for Tramadol 50 mg Oral Tablet - take 1 tablet by ORAL route every 8 hours as needed; 12 tablet. - Medication Reconciliation Form, Thank You Letter, Antibiotic Education, Prescription Opioid Use form. - Follow up: Emergency Department; When: As needed; Reason: Worsening of condition. Follow up: Private Physician; When: 2 - 3 days; Reason: Recheck today's complaints, Continuance of care, Re-evaluation by your physician. - Problem is new. - Symptoms have improved. Signatures: Dispatcher [employer] Rabia Murrell, RN RN Pablo Daly MD MD [facility] Conner Manning NP NEGATIVE CUTTER pm1 Ruslan Lopez RN RN ll1 Corrections: (The following items were deleted from the chart) 11/13 18:00 17:42 11/13/2020 17:42 Discharged to Home. Impression: Carpal tunnel syndrome, right sv upper limb. Condition is Stable. Forms are Medication Reconciliation Form, Thank You Letter, Antibiotic Education, Prescription Opioid Use. Follow up: Emergency Department; When: As needed; Reason: Worsening of condition. Follow up: Private Physician; When: 2 - 3 days; Reason: Recheck today's complaints, Continuance of care, Re-evaluation by your physician. Problem is new. Symptoms have improved. pm1
--- NOTE | 2020-11-13 17:42 | ER ---
Nurse's Notes [facility] Name: Abhijit Peralta Age: 85 yrs Sex: Male : 1935 Arrival Date: 11/13/2020 Time: 15:06 Bed 23 Private MD: Diagnosis: Carpal tunnel syndrome, right upper limb Presentation: 11/13 15:13 Chief complaint: Patient states: R thumb pain that radiates into R FA for 2 weeks. no ll1 trauma or falls. Coronavirus screen: Client denies travel out of the [place] in the last 14 days. At this time, the client does not indicate any symptoms associated with coronavirus-19. Ebola Screen: Patient denies travel to an Ebola-affected area in the 21 days before illness onset. Initial Sepsis Screen: Does the patient meet any 2 criteria? No. Patient's initial sepsis screen is negative. Does the patient have a suspected source of infection? Yes: Bone or joint infection. Risk Assessment: Do you want to hurt yourself or someone else? Patient reports no desire to harm self or others. Onset of symptoms was October 30, 2020. 15:13 Method Of Arrival: Ambulatory ll1 15:13 Acuity: RAVI 4 ll1 Triage Assessment: 15:15 General: Appears in no apparent distress. Behavior is calm, cooperative, appropriate ll1 for age. Pain: Complains of pain in R thumb. 15:17 Musculoskeletal: Circulation, motion, and sensation intact. Capillary refill < 3 ll1 seconds, Range of motion: intact in all extremities, Reports pain in R thumb. Historical: - Allergies: 15:13 Tetanus Vaccines \T\ Toxoid; ll1 - PMHx: 15:13 LYMPHOMA; Prostate Cancer; Hypertension; Stomach CA - in remission; Diabetes - NIDDM; ll1 Dementia; gastric ulcers; - Immunization history:: Flu vaccine is up to date. - Social history:: Smoking status: Patient/guardian denies using tobacco, the patient reports quitting approximately 20 years ago. Screenin:07 Abuse screen: Denies threats or abuse. Nutritional screening: No deficits noted. ll1 Tuberculosis screening: No symptoms or risk factors identified. Fall Risk None identified. Total Finney Fall Scale indicates No Risk (0-24 pts). Assessment: 17:06 General: Appears in no apparent distress. Behavior is calm, cooperative, appropriate ll1 for age. Pain: Complains of pain in R thumb Quality of pain is described as aching, Aggravated by increased activity. Musculoskeletal: Circulation, motion, and sensation intact. Capillary refill < 3 seconds, Range of motion: intact in all extremities, Tenderness present in R thumb Reports pain in R thumb. 17:48 Reassessment: No changes from previously documented assessment. Patient and/or family ll1 updated on plan of care and expected duration. Pain level reassessed. PMS intact post splint application. 18:00 Reassessment: Patient appears in no apparent distress at this time. Patient and/or sv family updated on plan of care and expected duration. Pain level reassessed. Patient is alert, oriented x 3, equal unlabored respirations, skin warm/dry/pink. Vital Signs: 15:13 BP 173 / 56; Pulse 63; Resp 16; Temp 98.1; Pulse Ox 99% ; Weight 77.11 kg; Height 5 ft. ll1 3 in. (160.02 cm); Pain 10/10; 15:13 Body Mass Index 30.11 (77.11 kg, 160.02 cm) ll1 ED Course: 15:06 Patient arrived in ED. rg4 15:14 Triage completed. ll1 15:14 Arm band placed on. ll1 16:42 Conner Manning NP is PHCP. pm1 16:42 Pablo Daly MD is Attending Physician. pm1 17:06 Ruslan Lopez, KIMBERLEY is Primary Nurse. ll1 17:07 Patient has correct armband on for positive identification. Bed in low position. Call ll1 light in reach. Side rails up X 1. Cardiac monitoring not applicable on this patient. 17:07 No provider procedures requiring assistance completed. Patient did not have IV access ll1 during this emergency room visit. 17:24 Hand Right 3 View XRAY In Process Unspecified. EDMS Administered Medications: No medications were administered Outcome: 17:42 Discharge ordered by . pm1 18:00 Patient left the ED. sv 18:00 Discharged to home ambulatory, with family. sv 18:00 Condition: stable 18:00 Discharge instructions given to patient, family, Instructed on discharge instructions, follow up and referral plans. medication usage, Demonstrated understanding of instructions, follow-up care, medications, Prescriptions given X 1. Signatures: Dispatcher [employer] Rabia Murrell, RN RN sv Conner Manning, GERIATRICS PHYSICIAN GERIATRICS PHYSICIAN pm1 Rebecca Vazquez4 Ruslan Lopez RN RN ll1
--- NOTE | 2020-11-13 18:04 | RAD REPORT ---
EXAM DESCRIPTION: RAD - Hand Right 3 View - 11/13/2020 5:24 pm CLINICAL HISTORY: PAIN COMPARISON: Hand Right 3 View dated 08/30/2020 FINDINGS: Heavy vascular atherosclerotic changes seen. Degenerative changes are seen in multiple leroy nts, greatest at the third MCP joint. Significant radiocarpal arthritic changes also present with TFC C calcification. There is no evidence of acute fracture or dislocation evident. 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
[2020-11-13 18:20] VITALS: BP 173/56; TEMP 98.1; O2SAT 99
== END 2020-11-13 18:00 | disposition home or self-care (01) ==
LOC: ER 15:05
DX: G56.01 Carpal tunnel syndrome, right upper limb (principal); I10 Essential (primary) hypertension; Z85.46 Personal history of malignant neoplasm of prostate; Z85.028 Personal history of other malignant neoplasm of stomach; Z85.72 Personal history of non-Hodgkin lymphomas; Z88.7 Allergy status to serum and vaccine
CPT/HCPCS: 99283

== ENCOUNTER 2020-12-17 10:34 | Emergency (ER) | payer OTHER ==
--- OUTSIDE RECORDS SUMMARY | 2020-12-17 10:36 | XMS REPORT | Clinical Summary ---
:1935 Author Organization [employer] Address [address] [place] [address] Care Team Providers Name Role Phone Asked, [...] file Surgical History Surgery Date Site/Laterality Comments AL CATH PLMT L HRT & ARTS 05/08/2016 N/A Proced ure: Cv left heart cath w W/NJX & ANGIO IMG S&I lv gram co rs; Surgeon: Lila Herman MD; Loca tion: [facility] Tip Inserter Invasive Loc ation; Service: Cardiovascular Medical History [...] Not on file Results Not on fileafter 12/17/2019 Insurance Payer Benefit Plan / Subscriber ID Effective Dates Phone Addre ss Type Group MEDICARE MEDICARE PART A [id number] 2002-Present ELIEL LOCKHART Medicare AND B Advance Directives For more information, please contact: [phone] Type Date Recorded 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
[2020-12-17] MEDS ORDERED: CYCLOBENZAPRINE 10 MG TAB ONE (14:11)
[2020-12-17] MEDS ORDERED: TRAMADOL HCL 50 MG TAB ONE (14:14)
--- NOTE | 2020-12-17 14:16 | RAD REPORT ---
EXAM DESCRIPTION: CT - Head C Spine Mpr Wo Con - 12/17/2020 2:04 pm CLINICAL HISTORY: Head and neck pain COMPARISON: 2019 TECHNIQUE: Computed axial tomography of the head and cervical spine was obtained. Sagittal and coronal reconstruction was performed. All CT scans are performed using dose optimization technique as appropriate and may include automated exposure control or mA/KV adjustment according to patient size. FINDINGS: An intracranial bleed is not seen. The ventricles are normal in caliber. An extra-axial fl uid collection is not noted. . A cerebral atrophy is present. Chronic left maxillary sinusitis A cervical fracture is not visualized. No dislocation is noted. 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 Mild to moderate additional spondylosi s involves the cervical spine. Mild anterior subluxation C6-7 is chronic IMPRESSION: No acute intracranial abnormality is seen. A cervical fracture is not visualized. 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 If the patient continues to have symptoms to suggest intracranial /spinal cord/ spinal canal patholog y then MRI would be recommended
--- NOTE | 2020-12-17 14:35 | EDPHYS ---
Physician Documentation [facility] Name: Abhijit Peralta Age: 85 yrs Sex: Male : 1935 Arrival Date: 12/17/2020 Time: 10:37 Bed 11 Private MD: Oniel Adams R ED Physician Pablo Daly HPI: 12/17 13:50 This 85 yrs old Male presents to ER via Ambulatory with complaints of Neck cp Pain, <24hrs Old. 13:50 The patient or guardian complains of pain, that is acute, tenderness, stiffness. The cp symptoms are located on the left lateral neck. Onset: The symptoms/episode began/occurred yesterday. Context: The neck injury/problem resulted from from unknown cause. Associated signs and symptoms: Pertinent positives: headache, Pertinent negatives: numbness, tingling, weakness. Historical: - Allergies: 11:04 Tetanus Vaccines \T\ Toxoid; aa5 - PMHx: 11:04 Dementia; Diabetes - NIDDM; gastric ulcers; Hypertension; LYMPHOMA; Prostate Cancer; aa5 Stomach CA - in remission; - Immunization history:: Adult Immunizations unknown. - Social history:: Smoking status: Patient denies any tobacco usage or history of. ROS: 14:00 Constitutional: Negative for body aches, chills, fever, poor PO intake. cp 14:00 Eyes: Negative for injury, pain, redness, and discharge. cp 14:00 ENT: Negative for drainage from ear(s), ear pain, sinus pain, sore throat, difficulty swallowing, difficulty handling secretions. 14:00 Neck: Positive for pain with movement, pain at rest, stiffness, tenderness, of the left lateral neck. 14:00 Cardiovascular: Negative for chest pain, edema, palpitations. 14:00 Respiratory: Negative for cough, shortness of breath, wheezing. 14:00 Abdomen/GI: Negative for abdominal pain, nausea, vomiting, and diarrhea, constipation. 14:00 Back: Negative for pain at rest, pain with movement. 14:00 Skin: Negative for cellulitis, rash. 14:00 Neuro: Positive for pain to back of head, Negative for altered mental status, dizziness, syncope, weakness. 14:00 All other systems are negative. Exam: 14:05 Constitutional: The patient appears in no acute distress, alert, awake, cp non-diaphoretic, non-toxic, well developed, well nourished. 14:05 Head/Face: Normocephalic, atraumatic. cp 14:05 Eyes: Periorbital structures: appear normal, Pupils: equal, round, and reactive to light and accomodation, Extraocular movements: intact throughout, Conjunctiva: normal, no exudate, no injection, Sclera: no appreciated abnormality, Lids and lashes: appear normal, bilaterally. 14:05 ENT: External ear(s): are unremarkable, Nose: is normal, Mouth: Lips: moist, Oral mucosa: pink and intact, moist, Posterior pharynx: Airway: no evidence of obstruction, patent, Voice: is normal. 14:05 Neck: External neck: tenderness, that is moderate, left lateral neck, C-spine: vertebral tenderness, is not appreciated, crepitus, is not appreciated, ROM/movement: pain, that is moderate, with rotation to the left, limited range of motion, that is moderate, when rotating to the left, Meningeal signs: are not present. 14:05 Chest/axilla: Inspection: normal, Palpation: is normal, no crepitus, no tenderness. 14:05 Cardiovascular: Rate: normal, Rhythm: regular, JVD: is not appreciated. 14:05 Respiratory: the patient does not display signs of respiratory distress, Respirations: normal, no use of accessory muscles, no retractions, labored breathing, is not present, Breath sounds: are clear throughout, no decreased breath sounds, no stridor. 14:05 Back: pain, is absent, ROM is normal. 14:05 Skin: cellulitis, is not appreciated, no rash present. Vital Signs: 11:02 BP 154 / 97; Pulse 72; Resp 18 S; Temp 97.8(TE); Pulse Ox 99% on R/A; Weight 80.74 kg aa5 (R); Height 5 ft. 1 in. (154.94 cm) (R); Pain 5/10; 14:36 BP 159 / 83; Pulse 77; Resp 18 S; Temp 97.9(TE); Pulse Ox 99% on R/A; aa5 11:02 Body Mass Index 33.63 (80.74 kg, 154.94 cm) aa5 MDM: 13:46 Patient medically screened. cp 14:00 Differential diagnosis: Cervical Disc Herniation cervical strain, Simple Wedge Fracture cp Spondylolisthesis Spondylosis torticollis. 14:33 Data reviewed: vital signs, nurses notes, radiologic studies, CT scan. cp 14:33 Counseling: I had a detailed discussion with the patient and/or guardian regarding: the cp historical points, exam findings, and any diagnostic results supporting the discharge/admit diagnosis, radiology results, to return to the emergency department if symptoms worsen or persist or if there are any questions or concerns that arise at home. Response to treatment: VSS. Pain improved. CT head and neck negative for acute findings. Will discharge to home for continued monitoring. 12/17 13:35 Order name: CT Head C Spine; Complete Time: 14:19 cp Administered Medications: 14:10 Drug: Flexeril 10 mg Route: PO; aa5 15:00 Follow up: Response: No adverse reaction aa5 14:10 Drug: UltRAM 50 mg Route: PO; aa5 15:00 Follow up: Response: No adverse reaction aa5 14:36 Drug: TORadol 30 mg Route: IM; Site: left deltoid; aa5 15:00 Follow up: Response: No adverse reaction aa5 Disposition: 17:26 Co-signature as Attending Physician, Pablo Daly MD I agree with the assessment and kdr plan of care. Disposition: 12/17/20 14:34 Discharged to Home. Impression: Cervicalgia. - Condition is Stable. - Discharge Instructions: Muscle Strain, Heat Therapy, Neck Exercises. - Prescriptions for Ultram 50 mg Oral Tablet - take 1 tablet by ORAL route every 8 hours As needed; 12 tablet. Cyclobenzaprine 10 mg Oral Tablet - take 1 tablet by ORAL route every 8 hours As needed; 15 tablet. - Medication Reconciliation Form, Thank You Letter, Antibiotic Education, Prescription Opioid Use form. - Follow up: Private Physician; When: 2 - 3 days; Reason: Recheck today's complaints. - Problem is new. - Symptoms have improved. Signatures: Dispatcher [employer] EDPablo Lundberg MD MD [facility] Mirta March RN RN aa5 Juan Akins PA PA cp Corrections: (The following items were deleted from the chart) 15:01 14:34 12/17/2020 14:34 Discharged to Home. Impression: Cervicalgia. Condition is aa5 Stable. Forms are Medication Reconciliation Form, Thank You Letter, Antibiotic Education, Prescription Opioid Use. Follow up: Private Physician; When: 2 - 3 days; Reason: Recheck today's complaints. Problem is new. Symptoms have improved. cp
--- NOTE | 2020-12-17 14:35 | ER ---
Nurse's Notes [facility] Name: Abhijit Peralta Age: 85 yrs Sex: Male : 1935 Arrival Date: 12/17/2020 Time: 10:37 Bed 11 Private MD: Oniel Adams R Diagnosis: Cervicalgia Presentation: 12/17 11:02 Chief complaint: Patient states: pain to back of neck that began yesterday. Pt denies aa5 known injury, denies any other symptoms. Coronavirus screen: At this time, the client does not indicate any symptoms associated with coronavirus-19. Ebola Screen: Patient negative for fever greater than or equal to 101.5 degrees Fahrenheit, and additional compatible Ebola Virus Disease symptoms. Initial Sepsis Screen: Does the patient meet any 2 criteria? No. Patient's initial sepsis screen is negative. Does the patient have a suspected source of infection? No. Patient's initial sepsis screen is negative. Risk Assessment: Do you want to hurt yourself or someone else? Patient reports no desire to harm self or others. Onset of symptoms was November 2020. 11:02 Method Of Arrival: Ambulatory aa5 11:02 Acuity: RAVI 4 aa5 Historical: - Allergies: 11:04 Tetanus Vaccines \T\ Toxoid; aa5 - PMHx: 11:04 Dementia; Diabetes - NIDDM; gastric ulcers; Hypertension; LYMPHOMA; Prostate Cancer; aa5 Stomach CA - in remission; - Immunization history:: Adult Immunizations unknown. - Social history:: Smoking status: Patient denies any tobacco usage or history of. Screenin:15 Abuse screen: Denies threats or abuse. Nutritional screening: No deficits noted. aa5 Tuberculosis screening: No symptoms or risk factors identified. Fall Risk No fall in past 12 months (0 pts). Secondary diagnosis (15 points) dementia, No IV (0 pts). Ambulatory Aid- None/Bed Rest/Nurse Assist (0 pts). Gait- Normal/Bed Rest/Wheelchair (0 pts) Mental Status- Oriented to own ability (0 pts). Total Finney Fall Scale indicates No Risk (0-24 pts). Assessment: 13:15 General: Appears uncomfortable, Behavior is calm, cooperative. Pain: Complains of pain aa5 in back of neck Pain currently is 5 out of 10 on a pain scale. Quality of pain is described as sharp, shooting, Is continuous, Aggravated by movement of neck. Neuro: Level of Consciousness is awake, alert, obeys commands, Oriented to person, place, situation. Cardiovascular: Patient's skin is warm and dry. Respiratory: Airway is patent Respiratory effort is even, unlabored, Respiratory pattern is regular, symmetrical. GI: Abdomen is round. : No signs and/or symptoms were reported regarding the genitourinary system. EENT: No signs and/or symptoms were reported regarding the EENT system. Derm: Skin is pink, warm \T\ dry. Musculoskeletal: Range of motion: intact in all extremities. 14:09 Reassessment: Patient is alert, oriented x 3, equal unlabored respirations, skin aa5 warm/dry/pink. Pt back from CT scan via wheelchair . 14:36 Reassessment: Patient is alert, oriented x 3, equal unlabored respirations, skin aa5 warm/dry/pink. Patient states feeling better. Patient states symptoms have improved. 15:00 Reassessment: Patient is alert, oriented x 3, equal unlabored respirations, skin aa5 warm/dry/pink. Patient states feeling better. Vital Signs: 11:02 BP 154 / 97; Pulse 72; Resp 18 S; Temp 97.8(TE); Pulse Ox 99% on R/A; Weight 80.74 kg aa5 (R); Height 5 ft. 1 in. (154.94 cm) (R); Pain 5/10; 14:36 BP 159 / 83; Pulse 77; Resp 18 S; Temp 97.9(TE); Pulse Ox 99% on R/A; aa5 11:02 Body Mass Index 33.63 (80.74 kg, 154.94 cm) aa5 ED Course: 10:37 Patient arrived in ED. as 10:37 Oniel Adams MD is Private Physician. as 11:02 Arm band placed on. aa5 11:03 Triage completed. aa5 13:15 Patient has correct armband on for positive identification. Adult w/ patient. aa5 13:22 Juan Akins PA is PHCP. cp 13:22 Pablo Daly MD is Attending Physician. cp 13:27 Mirta March, KIMBERLEY is Primary Nurse. aa5 14:04 CT Head C Spine In Process Unspecified. EDMS 15:00 No provider procedures requiring assistance completed. Patient did not have IV access aa5 during this emergency room visit. Administered Medications: 14:10 Drug: Flexeril 10 mg Route: PO; aa5 15:00 Follow up: Response: No adverse reaction aa5 14:10 Drug: UltRAM 50 mg Route: PO; aa5 15:00 Follow up: Response: No adverse reaction aa5 14:36 Drug: TORadol 30 mg Route: IM; Site: left deltoid; aa5 15:00 Follow up: Response: No adverse reaction aa5 Outcome: 14:34 Discharge ordered by MD. cp 15:00 Discharged to home ambulatory, with family. aa5 15:00 Condition: improved 15:00 Discharge instructions given to patient, Pt's Instructed on discharge instructions, follow up and referral plans. medication usage, Demonstrated understanding of instructions, follow-up care, medications, Prescriptions given X 2. 15:01 Patient left the ED. aa5 Signatures: Dispatcher [employer] EDVA Lizett Cabrales Audri, RN RN aa5 Juan Akins PA PA cp Corrections: (The following items were deleted from the chart) 11:04 11:02 BP 154 / 97; Pulse 72bpm; Resp 18bpm; Spontaneous; Pulse Ox 99% RA; Temp 97.8F aa5 Temporal; 80.74 kg Reported; Height 5 ft. 1 in. Reported; BMI: 33.6; aa5 17:19 13:15 Neuro: Level of Consciousness is awake, alert, obeys commands, Oriented to aa5 person, place, time, situation, aa5
[2020-12-17] MEDS ORDERED: KETOROLAC 30 MG/ML INJ ONE (14:42)
[2020-12-17 15:05] VITALS: O2SAT 99
[2020-12-17 15:07] VITALS: BP 159/83; TEMP 97.9
== END 2020-12-17 15:01 | disposition home or self-care (01) ==
LOC: ER 10:34
DX: M54.2 Cervicalgia (principal); Z88.7 Allergy status to serum and vaccine
CPT/HCPCS: 70450; 72125; 96372; 99283

== ENCOUNTER 2021-09-28 07:03 | Emergency (ER) | payer OTHER ==
--- NOTE | 2021-09-28 07:41 | ER ---
Nurse's Notes [facility] Name: Abhijit Peralta Age: 86 yrs Sex: Male : 1935 Arrival Date: 09/28/2021 Time: 07:04 Bed 18 Private MD: Diagnosis: Ocular pain, right eye Presentation: 09/28 07:13 Chief complaint: Patient states: R eye pain and watering that began 2 days ago. ss Coronavirus screen: Client denies travel out of the [place] in the last 14 days. Ebola Screen: Patient denies exposure to infectious person. Patient denies travel to an Ebola-affected area in the 21 days before illness onset. Mechanism of Injury: No Mechanism of Injury. The patient denies any loss of vision. Initial Sepsis Screen: Does the patient meet any 2 criteria? No. Patient's initial sepsis screen is negative. Does the patient have a suspected source of infection? No. Patient's initial sepsis screen is negative. Risk Assessment: Do you want to hurt yourself or someone else? Patient reports no desire to harm self or others. Onset of symptoms was September 26, 2021. 07:13 Method Of Arrival: Ambulatory ss 07:13 Acuity: RAVI 4 ss Historical: - Allergies: 07:15 Tetanus Vaccines \T\ Toxoid; ss - Home Meds: 07:15 amlodipine 2.5 mg tab 1 tab once daily [Active]; glimepiride 2 mg Oral tab 2 tabs twice ss daily [Active]; pravastatin 20 mg Oral tab 1 tab once daily [Active]; - PMHx: 07:15 Dementia; Diabetes - NIDDM; gastric ulcers; Hypertension; LYMPHOMA; Prostate Cancer; ss Stomach CA - in remission; - Immunization history:: Client reports receiving the 2nd dose of the Covid vaccine. - Social history:: Smoking status: Patient denies any tobacco usage or history of. - Family history:: not pertinent. Screenin:17 Abuse screen: Denies threats or abuse. Denies injuries from another. Nutritional sl2 screening: No deficits noted. Tuberculosis screening: No symptoms or risk factors identified. Fall Risk None identified. Assessment: 07:17 General: Appears in no apparent distress. well groomed, well developed, Behavior is sl2 calm, cooperative, appropriate for age, Reports Right eye pain with hyper tearing - onset 2 days ago. Pain: Complains of pain in right eye Pain does not radiate. Pain currently is 3 out of 10 on a pain scale. Quality of pain is described as burning, aching. EENT: Vital Signs: 07:13 BP 186 / 86; Pulse 59; Resp 17; Temp 97.6(TE); Pulse Ox 99% on R/A; Height 5 ft. 2 in. ss (157.48 cm); Pain 2/10; ED Course: 07:04 Patient arrived in ED. as 07:15 Triage completed. ss 07:15 Juan Coronel MD is Attending Physician. dom 07:15 Arm band placed on right wrist. ss 07:17 Elizabeth Ramon, RN is Primary Nurse. sl2 07:17 Patient has correct armband on for positive identification. Bed in low position. Call sl2 light in reach. Side rails up X 1. 07:40 Jaswant Ortega MD is Referral Physician. dom 08:08 No provider procedures requiring assistance completed. Patient did not have IV access ap3 during this emergency room visit. Administered Medications: No medications were administered Outcome: 07:41 Discharge ordered by . dom 08:09 Discharged to home ambulatory. ap3 08:09 Condition: good 08:09 Discharge instructions given to patient, Instructed on discharge instructions, follow up and referral plans. Demonstrated understanding of instructions, follow-up care. 08:19 Patient left the ED. ap3 Signatures: Juan Coronel MD MD cha Martinez, Amelia as Smirch, Shelby, RN RN Sarah Copeland RN RN ap3 Elizabeth Ramon RN RN 2
--- NOTE | 2021-09-28 07:41 | EDPHYS ---
Physician Documentation [facility] Name: Abhijit Peralta Age: 86 yrs Sex: Male : 1935 Arrival Date: 09/28/2021 Time: 07:04 Bed 18 Private MD: DARLENE Physician Juan Coronel HPI: 09/28 07:33 This 86 yrs old Male presents to ER via Ambulatory with complaints of Eye Pain.dom 07:33 The patient is experiencing burning, pain, redness, tearing. Onset: The dom symptoms/episode began/occurred 3 day(s) ago. Duration: the symptoms are continuous. Aggravated by blinking, pressure, rubbing. Associated signs and symptoms: Pertinent positives: None. Patient wears glasses. Severity of symptoms: At their worst the symptoms were mild moderate in the emergency department the symptoms are unchanged. The patient has not experienced similar symptoms in the past. Historical: - Allergies: 07:15 Tetanus Vaccines \T\ Toxoid; ss - Home Meds: 07:15 amlodipine 2.5 mg tab 1 tab once daily [Active]; glimepiride 2 mg Oral tab 2 tabs twice ss daily [Active]; pravastatin 20 mg Oral tab 1 tab once daily [Active]; - PMHx: 07:15 Dementia; Diabetes - NIDDM; gastric ulcers; Hypertension; LYMPHOMA; Prostate Cancer; ss Stomach CA - in remission; - Immunization history:: Client reports receiving the 2nd dose of the Covid vaccine. - Social history:: Smoking status: Patient denies any tobacco usage or history of. - Family history:: not pertinent. ROS: 07:33 Constitutional: Negative for fever, chills, and weight loss, ENT: Negative for injury, dom pain, and discharge, Neck: Negative for injury, pain, and swelling, Cardiovascular: Negative for chest pain, palpitations, and edema, Respiratory: Negative for shortness of breath, cough, wheezing, and pleuritic chest pain, Abdomen/GI: Negative for abdominal pain, nausea, vomiting, diarrhea, and constipation, Back: Negative for injury and pain, : Negative for injury, bleeding, discharge, and swelling, MS/Extremity: Negative for injury and deformity, Skin: Negative for injury, rash, and discoloration, Neuro: Negative for headache, weakness, numbness, tingling, and seizure, Psych: Negative for depression, anxiety, suicide ideation, homicidal ideation, and hallucinations, Allergy/Immunology: Negative for hives, rash, and allergies, Endocrine: Negative for neck swelling, polydipsia, polyuria, polyphagia, and marked weight changes, Hematologic/Lymphatic: Negative for swollen nodes, abnormal bleeding, and unusual bruising. 07:33 Eyes: Positive for blurry vision, discharge, pain, redness, tearing. Exam: 07:33 Constitutional: This is a well developed, well nourished patient who is awake, alert, dom and in no acute distress. Head/Face: Normocephalic, atraumatic. ENT: Nares patent. No nasal discharge, no septal abnormalities noted. Tympanic membranes are normal and external auditory canals are clear. Oropharynx with no redness, swelling, or masses, exudates, or evidence of obstruction, uvula midline. Mucous membranes moist. Neck: Trachea midline, no thyromegaly or masses palpated, and no cervical lymphadenopathy. Supple, full range of motion without nuchal rigidity, or vertebral point tenderness. No Meningismus. Chest/axilla: Normal chest wall appearance and motion. Nontender with no deformity. No lesions are appreciated. Cardiovascular: Regular rate and rhythm with a normal S1 and S2. No gallops, murmurs, or rubs. Normal PMI, no JVD. No pulse deficits. Respiratory: Lungs have equal breath sounds bilaterally, clear to auscultation and percussion. No rales, rhonchi or wheezes noted. No increased work of breathing, no retractions or nasal flaring. Abdomen/GI: Soft, non-tender, with normal bowel sounds. No distension or tympany. No guarding or rebound. No evidence of tenderness throughout. Back: No spinal tenderness. No costovertebral tenderness. Full range of motion. Male : Normal genitalia with no discharge or lesions. Skin: Warm, dry with normal turgor. Normal color with no rashes, no lesions, and no evidence of cellulitis. MS/ Extremity: Pulses equal, no cyanosis. Neurovascular intact. Full, normal range of motion. Neuro: Awake and alert, GCS 15, oriented to person, place, time, and situation. Cranial nerves II-XII grossly intact. Motor strength 5/5 in all extremities. Sensory grossly intact. Cerebellar exam normal. Normal gait. Psych: Awake, alert, with orientation to person, place and time. Behavior, mood, and affect are within normal limits. 07:33 Eyes: Periorbital structures: appear normal, Pupils: irregularly shaped, bilaterally, Extraocular movements: no acute changes, Conjunctiva: injected. 07:36 Eyes: Periorbital structures: Corneas: no acute changes, Sclera: injected, Anterior dom chamber: normal, Lids and lashes: appear normal. Vital Signs: 07:13 BP 186 / 86; Pulse 59; Resp 17; Temp 97.6(TE); Pulse Ox 99% on R/A; Height 5 ft. 2 in. ss (157.48 cm); Pain 2/10; MDM: 07:15 Patient medically screened. [facility] 07:37 Differential diagnosis:. Data reviewed: vital signs, nurses notes. Data interpreted: [facility] youth nutritional monitor: not applicable for this patient encounter. rate is 59 beats/min, rhythm is regular, Pulse oximetry: on room air is 99 %. Counseling: I had a detailed discussion with the patient and/or guardian regarding: the historical points, exam findings, and any diagnostic results supporting the discharge/admit diagnosis, the need for outpatient follow up, for definitive care, an opthalmologist. 07:39 Physician consultation: Jaswant Ortega MD was called at 07:30, was contacted at 07:30, [facility] regarding consult, outpatient follow-up, today, and will see patient in office. Administered Medications: No medications were administered Disposition Summary: 09/28/21 07:41 Discharge Ordered Location: Home [facility] Problem: new [facility] Symptoms: have improved dom Condition: Stable [facility] Diagnosis - Ocular pain, right eye [facility] Followup: [facility] - With: Jaswant Ortega MD - When: Today - Reason: Recheck today's complaints, Re-evaluation by your physician Discharge Instructions: - Discharge Summary Sheet [facility] Forms: - Medication Reconciliation Form [facility] - Thank You Letter dom - Antibiotic Education dom - Prescription Opioid Use dom Signatures: Juan Coronel MD MD cha Smirch, Shelby, RN RN ss
[2021-09-28 08:34] VITALS: BP 186/86; TEMP 97.6; O2SAT 99
== END 2021-09-28 08:19 | disposition home or self-care (01) ==
LOC: ER 07:03
DX: H57.11 Ocular pain, right eye (principal); E11.9 Type 2 diabetes mellitus without complications; F03.90 Unspecified dementia, unspecified severity, without behavioral disturbance, psychotic disturbance, mood disturbance, and anxiety; I10 Essential (primary) hypertension
CPT/HCPCS: 99281

== ENCOUNTER 2021-10-14 11:55 | Observation (INO) | payer OTHER ==
[2021-10-14 13:06] LABS: Absolute Lymphocytes (CBC) 1.6 K/uL (0.7-4.9); Basophils % 0.8 % (0-1.3); Hematocrit 34.9 % (39.6-49.0); Lymphocytes % 22.7 % (15.3-44.8); MPV 7.9 fL (7.6-11.3)
--- NOTE | 2021-10-14 13:19 | RAD REPORT ---
EXAM DESCRIPTION: RAD - Chest Single View - 10/14/2021 1:09 pm CLINICAL HISTORY: CHEST PAIN COMPARISON: Chest Single View dated 12/16/2019; Chest Single View dated 12/15/2019; Chest Pa And Lat ( 2 Views) dated 11/23/2019; Chest Pa And Lat (2 Views) dated 11/12/2019; Abdomen Pelvis W Contrast nacho ed 02/07/2019 FINDINGS: Lines: None. Lungs: No evidence of edema or pneumonia. Pleural: Extensive pleural plaques. Cardiac: Cardiomegaly Bones: No acute fractures. Other: IMPRESSION: Extensive pleural plaquing which could obscure a small nodule or subtle airspace disease . No definite acute process identified.
[2021-10-14 13:25] LABS: Albumin 2.4 g/dL (3.4-5.0); Bilirubin Direct 0.2 mg/dL (0-0.2); Bilirubin Total 0.4 mg/dL (0.2-1.0); Magnesium 2.2 mg/dL (1.8-2.4); Potassium 4.3 mmol/L (3.5-5.1); Protein, Total 7.2 g/dL (6.4-8.2); Troponin (Emerg Dept Use Only) 0.02 ng/mL (0.0-0.045)
[2021-10-14] MEDS ORDERED: MORPHINE 2 MG/ML SYR ONE (13:41)
[2021-10-14 13:43] LABS: Protime INR 1.25
--- NOTE | 2021-10-14 15:28 | ER ---
Nurse's Notes [facility] Name: Abhijit Peralta Age: 86 yrs Sex: Male : 1935 Arrival Date: 10/14/2021 Time: 12:01 Bed 7 Private MD: Oniel Adams R Diagnosis: Chest pain, unspecified;Unstable angina Presentation: 10/14 12:11 Chief complaint: Spouse and/or significant other states: has pain in RUQ and chest X 2 iw days, was sent by Dr. Adams for CT and labs. Coronavirus screen: At this time, the client does not indicate any symptoms associated with coronavirus-19. Ebola Screen: Patient negative for fever greater than or equal to 101.5 degrees Fahrenheit, and additional compatible Ebola Virus Disease symptoms Patient denies exposure to infectious person. Patient denies travel to an Ebola-affected area in the 21 days before illness onset. No symptoms or risks identified at this time. Initial Sepsis Screen: Does the patient meet any 2 criteria? No. Patient's initial sepsis screen is negative. Does the patient have a suspected source of infection? No. Patient's initial sepsis screen is negative. Risk Assessment: Do you want to hurt yourself or someone else? Patient reports no desire to harm self or others. Onset of symptoms was October 12, 2021. 12:11 Method Of Arrival: Ambulatory iw 12:11 Acuity: RAVI 3 iw Historical: - Allergies: 12:13 Tetanus Vaccines \\T\\ Toxoid; iw - Home Meds: 12:13 amlodipine 2.5 mg tab 1 tab once daily [Active]; glimepiride 2 mg Oral tab 2 tabs twice iw daily [Active]; pravastatin 20 mg Oral tab 1 tab once daily [Active]; - PMHx: 12:13 Dementia; Diabetes - NIDDM; gastric ulcers; Hypertension; LYMPHOMA; Prostate Cancer; iw Stomach CA - in remission; - Immunization history:: Client reports receiving the 2nd dose of the Covid vaccine, Client reports receiving the 1st dose of the Covid vaccine, Last tetanus immunization: unknown, Pneumococcal vaccine is not up to date, Flu vaccine is up to date. - Social history:: Smoking status: Patient/guardian denies using tobacco, the patient reports quitting approximately 30 years ago. Screenin:41 Abuse screen: Denies threats or abuse. Denies injuries from another. Nutritional jg9 screening: No deficits noted. Tuberculosis screening: No symptoms or risk factors identified. 13:01 Fall Risk Fall in past 12 months (25 points). jg9 Assessment: 12:40 General: Appears in no apparent distress. Behavior is calm, cooperative. Pain: jg9 Complains of pain in chest-patient reports mild c/p that started yesterday Pain does not radiate. Pain currently is 2 out of 10 on a pain scale. Pain began 1 day ago. Neuro: No deficits noted. Cardiovascular: Reports chest pain, Rhythm is sinus rhythm. Respiratory: No deficits noted. GI: No deficits noted. : No deficits noted. EENT: No deficits noted. Derm: No deficits noted. Musculoskeletal: No deficits noted. 12:40 Reassessment: Patient alert, calm and cooperative, able to answer some questions jg9 appropriately, per patient has early Alzheimer's/dementia. 13:48 Reassessment: Patient appears in no apparent distress at this time. Patient and/or jg9 family updated on plan of care and expected duration. Pain level reassessed. 14:11 Reassessment: Patient and/or family updated on plan of care and expected duration. Pain jg9 level reassessed. Patient states feeling better. 16:10 Reassessment: Provider talked to patient and family and at this time a decision to j9 admit had been made and they patient will be staying. 17:43 Reassessment: see [facility] for additional charting. jg9 Vital Signs: 12:11 BP 146 / 85; Pulse 67; Resp 16; Temp 98.9; Pulse Ox 100% on R/A; Weight 69.85 kg; iw Height 5 ft. 5 in. (165.10 cm); 12:45 BP 144 / 80; Pulse 59; Resp 17; Pulse Ox 100% on R/A; jg9 13:30 BP 161 / 75; Pulse 61; Resp 17; Pulse Ox 100% on R/A; jg9 14:00 BP 117 / 81; Pulse 72; Resp 16 S; Pulse Ox 100% on R/A; jg9 14:45 BP 157 / 78; Pulse 60; Resp 14 S; Pulse Ox 100% on R/A; jg9 15:15 BP 158 / 79; Pulse 61; Resp 18 S; Pulse Ox 100% on R/A; jg9 16:05 BP 172 / 87; Pulse 65; Resp 17; Pulse Ox 99% on R/A; jg9 17:30 BP 140 / 63; Pulse 66; Resp 20; Pulse Ox 100% on R/A; jg9 12:11 Body Mass Index 25.63 (69.85 kg, 165.10 cm) iw Vitals: 12:45 Cardiac Rhythm Assessment Sinus rhythm. jg9 Page Coma Score: 12:45 Eye Response: spontaneous(4). Verbal Response: confused(4). Motor Response: obeys jg9 commands(6). Total: 14. ED Course: 12:01 Patient arrived in ED. ds1 12:01 Oniel Adams MD is Private Physician. ds1 12:13 Triage completed. iw 12:13 Arm band placed on. iw 12:32 Anjana Leon is Primary Nurse. jg9 12:40 Inserted saline lock: 22 gauge in left antecubital area, using aseptic technique. jg9 12:45 vehicle monitor technician on. Pulse ox on. NIBP on. jg9 12:45 Patient has correct armband on for positive identification. Bed in low position. Call jg9 light in reach. 12:45 Patient maintains SpO2 saturation greater than 95% on room air. jg9 12:48 Pablo Daly MD is Attending Physician. kdr 13:00 No apparent distress. Resting quietly. Awaiting lab results, Awaiting radiology jg9 results. Pt visited by . 13:09 XRAY Chest (1 view) In Process Unspecified. EDMS 15:24 Oniel Adams MD is Referral Physician. kdr 15:27 Resting quietly. Awaiting disposition. "I would like to go home", provider notified. jg9 15:45 Referral Physician role handed off by Oniel Adams MD kdr 15:46 Renetta Roberson MD is Hospitalizing Provider. kdr 16:17 Resting quietly. Awaiting bed assignment. jg9 16:17 Diet: Patient given snack. jg9 17:42 Diet tray given. jg9 19:16 Primary Nurse role handed off by Ajnana Leon tw5 19:16 Brit Mims is Primary Nurse. tw5 20:35 No provider procedures requiring assistance completed. Patient admitted, IV remains in tw5 place. Administered Medications: 13:46 Drug: morphine 2 mg Route: IVP; Site: right antecubital; jg9 14:15 Follow up: Response: No adverse reaction; Pain is decreased jg9 14:51 Follow up: Response: RASS: Alert and Calm (0) jg9 Outcome: 15:28 Discharge ordered by . kdr 15:47 Decision to Hospitalize by Provider. kdr 17:42 Admitted to ER Hold. Please see [facility] for further documentation. jg9 20:02 Admitted to Med/surg Report called to report called to Rabia on Medsurg tw5 20:36 Condition: stable tw 20:36 Admitted to Med/surg accompanied by tech, with chart. 20:36 Patient left the ED. tw5 Signatures: Dispatcher [employer] EDMS Pablo Daly MD MD [facility] Kalie Lindquist ds1 Delma London, Brit Sow RN tw5 Anjana Leon jg9 Corrections: (The following items were deleted from the chart) 12:46 12:40 Pain: Complains of pain in chest-patient reports mild c/p that started yesterday jg9 Pain does not radiate. Pain began 1 day ago. jg9 13:02 12:41 Fall Risk None identified. jg9 jg9
--- NOTE | 2021-10-14 15:28 | EDPHYS ---
Physician Documentation [facility] Name: Abhijit Peralta Age: 86 yrs Sex: Male : 1935 Arrival Date: 10/14/2021 Time: 12:01 Bed 7 Private MD: Oniel Adams R ED Physician Pablo Daly HPI: 10/14 15:35 This 86 yrs old Male presents to ER via Ambulatory with complaints of Chest kdr Pain, Abdominal Pain. 15:35 The patient or guardian reports chest pain that is located primarily in the substernal kdr area. Onset: suddenly, 2 day(s) ago. The pain does not radiate. Associated signs and symptoms: The patient has no apparent associated signs or symptoms. The chest pain is described as aching, burning, dull. Duration: The patient or guardian reports multiple episodes, that are intermittent, that wax and wane, with no pattern. Modifying factors: The symptoms are alleviated by nothing. the symptoms are aggravated by nothing. Severity of pain: At its worst the pain was mild in the emergency department the pain has resolved. The patient has not experienced similar symptoms in the past. The patient has not recently seen a physician. Historical: - Allergies: 12:13 Tetanus Vaccines \\T\\ Toxoid; iw - Home Meds: 12:13 amlodipine 2.5 mg tab 1 tab once daily [Active]; glimepiride 2 mg Oral tab 2 tabs twice iw daily [Active]; pravastatin 20 mg Oral tab 1 tab once daily [Active]; - PMHx: 12:13 Dementia; Diabetes - NIDDM; gastric ulcers; Hypertension; LYMPHOMA; Prostate Cancer; iw Stomach CA - in remission; - Immunization history:: Client reports receiving the 2nd dose of the Covid vaccine, Client reports receiving the 1st dose of the Covid vaccine, Last tetanus immunization: unknown, Pneumococcal vaccine is not up to date, Flu vaccine is up to date. - Social history:: Smoking status: Patient/guardian denies using tobacco, the patient reports quitting approximately 30 years ago. ROS: 15:35 Constitutional: Negative for fever, chills, and weight loss, Eyes: Negative for injury, kdr pain, redness, and discharge, Neck: Negative for injury, pain, and swelling, Respiratory: Negative for shortness of breath, cough, wheezing, and pleuritic chest pain, Abdomen/GI: Negative for abdominal pain, nausea, vomiting, diarrhea, and constipation, Back: Negative for injury and pain, : Negative for injury, bleeding, discharge, and swelling, MS/Extremity: Negative for injury and deformity, Skin: Negative for injury, rash, and discoloration, Neuro: Negative for headache, weakness, numbness, tingling, and seizure activity. Psych: Negative for depression, anxiety, suicide ideation, homicidal ideation, and hallucinations, Allergy/Immunology: Negative for hives, rash, and allergies, Endocrine: Negative for neck swelling, polydipsia, polyuria, polyphagia, and marked weight changes, Hematologic/Lymphatic: Negative for swollen nodes, abnormal bleeding, and unusual bruising. 15:35 Cardiovascular: Positive for chest pain, Negative for edema, orthopnea, palpitations, paroxysmal nocturnal dyspnea. Exam: 15:35 Constitutional: This is a well developed, well nourished patient who is awake, alert, kdr and in no acute distress. Head/Face: Normocephalic, atraumatic. Eyes: Pupils equal round and reactive to light, extra-ocular motions intact. Lids and lashes normal. Conjunctiva and sclera are non-icteric and not injected. Cornea within normal limits. Periorbital areas with no swelling, redness, or edema. Neck: Trachea midline, no thyromegaly or masses palpated, and no cervical lymphadenopathy. Supple, full range of motion without nuchal rigidity, or vertebral point tenderness. No Meningismus. Chest/axilla: Normal chest wall appearance and motion. Nontender with no deformity. No lesions are appreciated. Cardiovascular: Regular rate and rhythm with a normal S1 and S2. No gallops, murmurs, or rubs. Normal PMI, no JVD. No pulse deficits. Respiratory: Lungs have equal breath sounds bilaterally, clear to auscultation and percussion. No rales, rhonchi or wheezes noted. No increased work of breathing, no retractions or nasal flaring. Abdomen/GI: Soft, non-tender, with normal bowel sounds. No distension or tympany. No guarding or rebound. No evidence of tenderness throughout. Back: No spinal tenderness. No costovertebral tenderness. Full range of motion. Skin: Warm, dry with normal turgor. Normal color with no rashes, no lesions, and no evidence of cellulitis. MS/ Extremity: Pulses equal, no cyanosis. Neurovascular intact. Full, normal range of motion. Neuro: Awake and alert, GCS 15, oriented to person, place, time, and situation. Cranial nerves II-XII grossly intact. Motor strength 5/5 in all extremities. Sensory grossly intact. Cerebellar exam normal. Normal gait. Psych: Awake, alert, with orientation to person, place and time. Behavior, mood, and affect are within normal limits. 15:39 ECG was reviewed by the Attending Physician. kdr Vital Signs: 12:11 BP 146 / 85; Pulse 67; Resp 16; Temp 98.9; Pulse Ox 100% on R/A; Weight 69.85 kg; iw Height 5 ft. 5 in. (165.10 cm); 12:45 BP 144 / 80; Pulse 59; Resp 17; Pulse Ox 100% on R/A; jg9 13:30 BP 161 / 75; Pulse 61; Resp 17; Pulse Ox 100% on R/A; jg9 14:00 BP 117 / 81; Pulse 72; Resp 16 S; Pulse Ox 100% on R/A; jg9 14:45 BP 157 / 78; Pulse 60; Resp 14 S; Pulse Ox 100% on R/A; jg9 15:15 BP 158 / 79; Pulse 61; Resp 18 S; Pulse Ox 100% on R/A; jg9 16:05 BP 172 / 87; Pulse 65; Resp 17; Pulse Ox 99% on R/A; jg9 17:30 BP 140 / 63; Pulse 66; Resp 20; Pulse Ox 100% on R/A; jg9 12:11 Body Mass Index 25.63 (69.85 kg, 165.10 cm) iw Augie Coma Score: 12:45 Eye Response: spontaneous(4). Verbal Response: confused(4). Motor Response: obeys jg9 commands(6). Total: 14. MDM: 15:28 Patient medically screened. kdr 15:35 Special discussion: Based on the patient's history, exam, and Dx evaluation, there is kdr no indication for emergent intervention or inpatient Tx. It is understood by the patient/guardian that if the Sx's persist or worsen they need to return immediately for re-evaluation. ED course: The patient's laboratory results, as noted that the troponin is negative. Additionally the renal function is about the same as what had been previously noted. Other than the elevated BNP, there are no other significant abnormalities noted. Based on this data, I do not believe the patient is having an acute cardiac event. Troponin was obviously negative and the chest discomfort has been intermittent for the past 2 days patient has been pain-free in the ED and is requesting discharge to home. His vital signs have been stable and unremarkable since his arrival. 15:35 HEART Score: History: Slightly Suspicious (0), ECG: Non specific repolarization kdr disturbance / LBTB / PM (1), Age: > or = 65 years (2), Risk Factors: 1 or 2 risk factors (1), Troponin: < or = 1 x Normal Limit (0), Total Score = 4. Data reviewed: vital signs, nurses notes, EMS record, lab test result(s), EKG, radiologic studies. 10/14 12:48 Order name: Basic Metabolic Panel; Complete Time: 14:29 [facility] 10/14 12:48 Order name: CBC with Diff; Complete Time: 14:29 [facility] 10/14 12:48 Order name: LFT's; Complete Time: 14:29 [facility] 10/14 12:48 Order name: Magnesium; Complete Time: 14:29 [facility] 10/14 12:48 Order name: NT PRO-BNP; Complete Time: 14:29 [facility] 10/14 12:48 Order name: PT-INR; Complete Time: 14:29 [facility] 10/14 12:48 Order name: Troponin (emerg Dept Use Only); Complete Time: 14:29 [facility] 10/14 16:42 Order name: Comprehensive Metabolic Panel [facility] 10/14 16:42 Order name: Comprehensive Metabolic Panel [facility] 10/14 16:42 Order name: Troponin I [facility] 10/14 16:42 Order name: Troponin I [facility] 10/14 16:42 Order name: Troponin I [facility] 10/14 16:43 Order name: CBC with Automated Diff [facility] 10/14 16:43 Order name: CBC with Automated Diff [facility] 10/14 12:48 Order name: XRAY Chest (1 view); Complete Time: 14:29 [facility] 10/14 12:48 Order name: EKG; Complete Time: 12:49 [facility] 10/14 12:48 Order name: Cardiac monitoring; Complete Time: 12:57 kdr 10/14 12:48 Order name: EKG - Nurse/Tech; Complete Time: 12:57 kdr 10/14 12:48 Order name: IV Saline Lock; Complete Time: 12:57 kdr 10/14 12:48 Order name: Labs collected and sent; Complete Time: 12:57 kdr 10/14 12:48 Order name: O2 Sat Monitoring; Complete Time: 12:57 kdr 10/14 13:12 Order name: Labs - recollect needed: blue top recollect; Complete Time: 13:27 eb 10/14 16:42 Order name: CONS Physician Consult [facility] 10/14 16:42 Order name: 60g Consistent Carbohydrate (ADA 1800/1999) [facility] 10/14 16:43 Order name: Echo with Doppler [facility] 10/14 16:50 Order name: COVID-19 SARS RT PCR (Document "Date of Onset" if Symptomatic) eb EC:39 Rate is 62 beats/min. Rhythm is regular, Sinus Rhythm with No ectopy. QRS [place] is kdr Normal. LA interval is normal. QRS interval is normal. QT interval is normal. Clinical impression: NSR w/ Non-specific ST/T Changes. Administered Medications: 13:46 Drug: morphine 2 mg Route: IVP; Site: right antecubital; jg9 14:15 Follow up: Response: No adverse reaction; Pain is decreased jg9 14:51 Follow up: Response: RASS: Alert and Calm (0) jg9 Disposition Summary: 10/14/21 15:47 Hospitalization Ordered Hospitalization Status: Observation kdr Provider: Renetta Roberson kdr Condition: Fair(10/14/21 15:47) kdr Problem: new(10/14/21 15:47) kdr Symptoms: have improved(10/14/21 15:47) kdr Bed/Room Type: Standard kdr Location: Telemetry/MedSurg (observation)(10/14/21 19:31) mw Room Assignment: 407(10/14/21 19:32) mw Diagnosis - Chest pain, unspecified(10/14/21 15:47) kdr - Unstable angina kdr Followup: kdr - With: Oniel Adams MD - When: 2 - 3 days - Reason: If symptoms return, Further diagnostic work-up, Recheck today's complaints, Continuance of care, Re-evaluation by your physician Forms: - Medication Reconciliation Form kdr - SBAR form kdr Signatures: Dispatcher [employer] EDMS Era Chacon RN RN Pablo Daly MD MD kdr Delma London RN RN Yani Lopez Jennifer jg9 Corrections: (The following items were deleted from the chart) 15:46 15:28 Home kdr kdr 15:46 15:28 new kdr kdr 15:46 15:28 have improved kdr kdr 15:46 15:28 Stable kdr kdr 15:46 15:28 Chest pain, unspecified kdr kdr 15:46 15:28 Abdominal pain, unspecified kdr kdr 16:52 15:47 Telemetry/MedSurg (observation) kdr eb 16:52 15:47 kdr eb 16:52 16:52 eb eb 19:31 16:52 BR ER HOLD eb mw 19:31 16:52 ERHOLD- eb mw 19:32 19:31 mw mw
--- NOTE | 2021-10-14 16:34 | P.HP ---
Certification for Inpatient Patient admitted to: Observation With expected LOS: <2 Midnights Patient will require the following post-hospital care: None Practitioner: I am a practitioner with admitting privileges, knowledge of patient current condition, hospital course, and medical plan of care. Services: Services provided to patient in accordance with Admission requirements found in Title 42 Section 412.3 of the Code of Federal Regulations Patient History Date of Service: 10/14/21 Reason for admission: Chest pain History of Present Illness: 86-year-old male with past medical history of hypertension, diabetes mellitus, asbestos exposure, dementia presented to the hospital after being brought by because patient was complaining of left-sided chest pain. Pain was nonradiating. Patient is a poor historian unable to describe more about the pain. But he states his chest pain is resolved after he was given morphine in the emergency room. He is unable to tell how long the pain was there for. also state patient was also complaining of right lower flank pain. They are unable to tell if patient has dysuria. She states patient does not have any history of cardiac disease. She denies any orthopnea or body swelling. On presentation EKG shows normal sinus rhythm but T wave inversion in lateral V5 and V6. No ST segment elevation. Chest x-ray shows extensive pleural plaquing. He was noted with elevated proBNP. He has been admitted for chest pain rule out. Allergies Tetanus Vaccines and Toxoid Allergy (Unknown, Verified 09/04/16 03:33) Rash Tetanus Immun Allergy (Uncoded 04/13/17 20:19) Unknown Tetanus Immune Globulin Allergy (Uncoded 10/14/17 17:08) Unknown Home Medications: Gabapentin [Neurontin] 300 mg PO BEDTIME 06/26/14 Glimepiride [Amaryl*] 2 mg PO DAILY AT SUPPER 06/26/14 Glimepiride [Amaryl*] 4 mg PO DAILY 06/26/14 Ondansetron HCl [Zofran] 4 mg SL Q6HP 06/26/14 Tramadol HCl [Ultram] 50 mg PO Q6H PRN 06/26/14 Rivastigmine Patch [Exelon 9.5 mg Patch] 9.5 mg TD DAILY 12/15/19 Rivastigmine Patch [Exelon 9.5 mg Patch] 9.5 mg TD DAILY patch 12/18/19 - Past Medical/Surgical History Diabetic: Yes -: DM -: "staph" after back surg 03/2013 -: HTN -: Rt leg - residual from back surg. -: stomach cancer 2013 has had 6 chemo - Dr Hendricks -: Dementia/Alzheimer's -: L3-L4 LAMINECTOMY & DEBRIDEMENT -: PROSTATECTOMY -: SURGERY RIGHT ELBOW - Family History Mother -: Cancer - Social History Alcohol use: Yes CD- Drugs: No Caffeine use: Yes Review of Systems 10-point ROS is otherwise unremarkable Physical Examination - Physical Exam General: Alert, In no apparent distress, Oriented x3 HEENT: Atraumatic, Normocephalic, PERRLA Neck: Supple, 2+ carotid pulse no bruit, JVD not distended Respiratory: Clear to auscultation bilaterally, Normal air movement Cardiovascular: Normal pulses, Regular rate/rhythm, Normal S1 S2 Gastrointestinal: Normal bowel sounds, Soft and benign, Non-distended, No ascites, No tenderness Musculoskeletal: No clubbing, No swelling Neurological: Normal speech, Sensation intact, Cranial nerves 3-12 intact - Studies Laboratory Data (last 24 hrs) 10/14/21 13:32: PT 14.4 H, INR 1.25 10/14/21 12:45: WBC 7.30, Hgb 11.4 L, Hct 34.9 L, Plt Count 257 10/14/21 12:45: Sodium 139, Potassium 4.3, BUN 30 H, Creatinine 1.77 H, Glucose 119 H, Magnesium 2.2, Total Bilirubin 0.4, AST 15, ALT 21, Alkaline Phosphatase 79 Assessment and Plan - Problems (Diagnosis) (1) Chest pain Current Visit: Yes Status: Acute (2) Dementia Current Visit: Yes Status: Acute (3) Diabetes mellitus Current Visit: Yes Status: Acute (4) Hypertension Current Visit: Yes Status: Acute (5) Abdominal pain Current Visit: No Status: Acute - Plan Chest painatypical Hypertension History of dementia -History of stomach cancer/lymphoma/prostate cancerin remission 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 if negative work-up We do Ativan as needed if agitation overnight - Advance Directives Does patient have a Living Will: No Does patient have a Durable POA for Healthcare: No
[2021-10-14] MEDS ORDERED: MORPHINE 2 MG/ML SYR IV PRN (16:36)
[2021-10-14] MEDS ORDERED: ACETAMINOPHEN 500 MG TAB PO PRN (16:36)
[2021-10-14] MEDS ORDERED: ALBUTEROL 2.5 MG/3 ML NEB SOL NEB PRN (16:36)
[2021-10-14] MEDS ORDERED: ONDANSETRON 4 MG/2 ML VIAL IV PRN (16:36)
[2021-10-14] MEDS ORDERED: FUROSEMIDE 40 MG/4 ML VIAL IV ONE ×2 (17:00→21:27)
[2021-10-14 20:52] VITALS: O2SAT 100
[2021-10-14 21:44] VITALS: BMI 27.2
[2021-10-14] MEDS: INSULIN -REGULAR HUMAN 50 UNIT/0.5 ML ML SQ SCH (21:58)
[2021-10-15 05:16] LABS: Absolute Lymphocytes (CBC) 1.4 K/uL (0.7-4.9); Basophils % 0.9 % (0-1.3); Hematocrit 37.1 % (39.6-49.0); Lymphocytes % 17.2 % (15.3-44.8); MPV 8.2 fL (7.6-11.3); RBC Red Blood Cell Count 4.29 M/uL (4.33-5.43)
[2021-10-15 05:37] LABS: Albumin 2.6 g/dL (3.4-5.0); Bilirubin Total 0.4 mg/dL (0.2-1.0); Potassium 4.2 mmol/L (3.5-5.1); Protein, Total 7.7 g/dL (6.4-8.2)
[2021-10-15] MEDS: INSULIN -REGULAR HUMAN 50 UNIT/0.5 ML ML SQ SCH (07:30)
[2021-10-15 08:13] VITALS: BP 144/68; TEMP 97.2
[2021-10-15] MEDS ORDERED: ASPIRIN EC 81 MG TAB PO SCH (09:00)
--- NOTE | 2021-10-15 10:16 | P.DS ---
Admission Date: 10/14/21 Discharge Date: 10/15/21 Disposition: ROUTINE DISCHARGE Discharge Condition: FAIR Reason for Admission: Chest pain - Problems (1) Chest pain Current Visit: Yes Status: Acute (2) Dementia Current Visit: Yes Status: Acute (3) Diabetes mellitus Current Visit: Yes Status: Acute (4) Hypertension Current Visit: Yes Status: Acute (5) Abdominal pain Current Visit: No Status: Acute Brief History of Present Illness: 86-year-old male with past medical history of hypertension, diabetes mellitus, asbestos exposure, dementia presented to the hospital after being brought by because patient was complaining of left-sided chest pain. Pain was nonradiating. Patient is a poor historian unable to describe more about the pain. But he states his chest pain is resolved after he was given morphine in the emergency room. He is unable to tell how long the pain was there for. also state patient was also complaining of right lower flank pain. They are unable to tell if patient has dysuria. She states patient does not have any history of cardiac disease. She denies any orthopnea or body swelling. On presentation EKG shows normal sinus rhythm but T wave inversion in lateral V5 and V6. No ST segment elevation. Chest x-ray shows extensive pleural plaquing. He was noted with elevated proBNP. He has been admitted for chest pain rule out. Hospital Course: Hospital course Patient ruled out for acute coronary syndrome with negative sets of cardiac enzymes . He was noted with elevated BNP and CXR with pleural plaquing which may be cause of his elevated pro-BNP. Echo was ordered but not yet done . will refer to cardiology outpt for Echo evaluation..Mild elvated creatinineat 1.77, will refer to nephrology as outpatient Vital Signs/Physical Exam: Temp Pulse Resp BP Pulse Ox 97.2 F 63 16 144/68 H 100 10/15/21 08:00 10/15/21 08:00 10/15/21 08:00 10/15/21 08:00 10/15/21 08:00 General: Alert, In no apparent distress, Oriented x3 HEENT: Atraumatic, Normocephalic, PERRLA Neck: Supple, 2+ carotid pulse no bruit, JVD not distended Respiratory: Clear to auscultation bilaterally, Normal air movement Cardiovascular: No edema, Normal pulses, Regular rate/rhythm, Normal S1 S2 Gastrointestinal: Normal bowel sounds, Soft and benign, Non-distended Musculoskeletal: No clubbing, No swelling Integumentary: No breakdown, No significant lesion Neurological: Normal speech, Normal strength at 5/5 x4 extr, Normal tone Laboratory Data at Discharge: WBC 7.80 K/uL (4.3-10.9) 10/15/21 04:05 Hgb 12.3 g/dL (13.6-17.9) L 10/15/21 04:05 Hct 37.1 % (39.6-49.0) L 10/15/21 04:05 Plt Count 255 K/uL (152-406) 10/15/21 04:05 PT 14.4 SECONDS (9.5-12.5) H 10/14/21 13:32 INR 1.25 10/14/21 13:32 Sodium 139 mmol/L (136-145) 10/15/21 04:05 Potassium 4.2 mmol/L (3.5-5.1) 10/15/21 04:05 BUN 30 mg/dL (7-18) H 10/15/21 04:05 Creatinine 1.70 mg/dL (0.55-1.3) H 10/15/21 04:05 Glucose 116 mg/dL (74-106) H 10/15/21 04:05 Magnesium 2.2 mg/dL (1.8-2.4) 10/14/21 12:45 Total Bilirubin 0.4 mg/dL (0.2-1.0) 10/15/21 04:05 AST 15 U/L (15-37) 10/15/21 04:05 ALT 22 U/L (12-78) 10/15/21 04:05 Alkaline Phosphatase 86 U/L (45-117) 10/15/21 04:05 Troponin I 0.02 ng/mL (0.0-0.045) 10/15/21 04:05 Home Medications: Glimepiride [Amaryl*] 4 mg PO DAILY 06/26/14 Amlodipine [Norvasc] 2.5 mg PO DAILY 10/14/21 Pravastatin Sodium 20 mg PO BEDTIME 10/14/21 Diet: ADA Activity: Ad jorge Followup: Oniel Adams MD [Primary Care Provider] - Time spent managing pt's care (in minutes): 35
[2021-10-15] MEDS ORDERED: PNEUMOCOCCAL VACCINE 0.5 ML IMVAC ONE (13:00)
[2021-10-15] MEDS ORDERED: ATORVASTATIN 10 MG TAB PO SCH (21:00)
[2021-10-16] MEDS ORDERED: GLIMEPIRIDE 2 MG TABLET PO SCH (09:00)
[2021-10-16] MEDS ORDERED: AMLODIPINE 2.5 MG TAB PO SCH (09:00)
--- NOTE | 2021-10-17 08:16 | EKG ---
Test Date: 2021-10-14 Test Time: 12:42:32 Shoe Reconditioner: EDUARD MEASUREMENT RESULTS: Intervals: Rate: 62 CO: 144 QRSD: 108 QT: 428 QTc: 434 [place]: P: 14 CO: 144 QRS: -21 T: -20 INTERPRETIVE STATEMENTS: Normal sinus rhythm Moderate voltage criteria for LVH, may be normal variant Borderline ECG Compared to ECG 09/29/2020 21:05:42 Left ventricular hypertrophy now present Right-axis deviation no longer present Electronically Signed On 10-17-21 08:12:49 CONSTRUCTION COST ESTIMATOR by Krystian Davis
== END 2021-10-15 13:20 | disposition home or self-care (01) ==
LOC: ER 11:55 → ERHOLD 16:59 → 4TH 19:53
PROVIDERS: ADMIT Internal Medicine; ATTEND Internal Medicine
DX: R07.89 Other chest pain (principal); N17.9 Acute kidney failure, unspecified; E11.9 Type 2 diabetes mellitus without complications; I10 Essential (primary) hypertension; R10.9 Unspecified abdominal pain; G30.9 Alzheimer's disease, unspecified; F02.80 Dementia in other diseases classified elsewhere, unspecified severity, without behavioral disturbance, psychotic disturbance, mood disturbance, and anxiety; J92.0 Pleural plaque with presence of asbestos; Z20.822 Contact with and (suspected) exposure to COVID-19; Z88.7 Allergy status to serum and vaccine; Z85.028 Personal history of other malignant neoplasm of stomach; Z85.46 Personal history of malignant neoplasm of prostate; Z85.72 Personal history of non-Hodgkin lymphomas; Z90.79 Acquired absence of other genital organ(s); Z80.9 Family history of malignant neoplasm, unspecified
CPT/HCPCS: 85025 ×2; 80048; 36415; 83735; 85610; 84300; 82947 ×2; 80076; 82570; 84484 ×3; 80053; 83880; 71045; 96374; 99285; U0003; J1940; J2270 ×2; 93005; G0378

== ENCOUNTER 2022-02-14 17:55 | Inpatient (IN) | payer OTHER ==
[2022-02-14 19:10] LABS: Hematocrit 37.3 % (39.6-49.0); Lymphocytes % 27.3 % (15.3-44.8); MPV 8.2 fL (7.6-11.3); Protime INR 1.15; RBC Red Blood Cell Count 4.29 M/uL (4.33-5.43)
--- NOTE | 2022-02-14 19:59 | RAD REPORT ---
EXAM DESCRIPTION: RAD - Chest Single View - 02/14/2022 7:28 pm CLINICAL HISTORY: CHEST PAIN COMPARISON: Portable 10/14/2021 TECHNIQUE: AP portable chest image was obtained 02/14/2022 7:28 pm . FINDINGS: Extensive calcified pleural plaquing changes are present matching the prior study. Patient has a chronic underlying interstitial pattern as well. Pleural and parenchymal findings are not jean rly different from comparison. Heart and vasculature are normal. No measurable pleural effusion and n o pneumothorax. No acute bony abnormality seen. No acute aortic findings suspected. IMPRESSION: Extensive calcified pleural plaquing changes and chronic interstitial lung disease simil ar to comparison. Severity of chronic disease could mask early edema or infiltrate.
[2022-02-14 20:10] LABS: Potassium 4.8 mmol/L (3.5-5.1); Troponin High Sensitivity 27.4 pg/mL (<58.9)
--- NOTE | 2022-02-14 20:42 | ER ---
Nurse's Notes [facility] Name: Abhijit Peralta Age: 86 yrs Sex: Male : 1935 Arrival Date: 02/14/2022 Time: 18:00 Bed 30 Private MD: Oniel Adams R Diagnosis: Chest pain, unspecified Presentation: 02/14 18:30 Chief complaint: Patient states: left sided rib pain up into shoulder and down left iw arm, denies injury , and was c/o chest pain , started this morning , has Alzheimer's and sometimes sees things that aren't there. Coronavirus screen: At this time, the client does not indicate any symptoms associated with coronavirus-19. Ebola Screen: Patient negative for fever greater than or equal to 101.5 degrees Fahrenheit, and additional compatible Ebola Virus Disease symptoms Patient denies exposure to infectious person. Patient denies travel to an Ebola-affected area in the 21 days before illness onset. No symptoms or risks identified at this time. Initial Sepsis Screen: Does the patient meet any 2 criteria? No. Patient's initial sepsis screen is negative. Does the patient have a suspected source of infection? No. Patient's initial sepsis screen is negative. Risk Assessment: Do you want to hurt yourself or someone else? Patient reports no desire to harm self or others. Onset of symptoms was February 14, 2022. 18:30 Method Of Arrival: Ambulatory iw 18:30 Acuity: RAVI 3 iw Historical: - Allergies: 18:32 Tetanus Vaccines \\T\\ Toxoid; iw - Home Meds: 18:32 amlodipine 2.5 mg tab 1 tab once daily [Active]; glimepiride 2 mg Oral tab 2 tabs twice iw daily [Active]; pravastatin 20 mg Oral tab 1 tab once daily [Active]; quetiapine 25 mg oral tab nightly [Active]; gabapentin 600 mg oral tab nightly [Active]; - PMHx: 18:32 Dementia; Diabetes - NIDDM; gastric ulcers; Hypertension; LYMPHOMA; Prostate Cancer; iw Stomach CA - in remission; Alzheimer's disease; - Immunization history:: Adult Immunizations up to date. - Social history:: Smoking status: Patient denies any tobacco usage or history of. Screenin:38 Abuse screen: Denies threats or abuse. Nutritional screening: No deficits noted. ag7 Tuberculosis screening: No symptoms or risk factors identified. Fall Risk No fall in past 12 months (0 pts). Secondary diagnosis (15 points) dementia, No IV (0 pts). Ambulatory Aid- None/Bed Rest/Nurse Assist (0 pts). Gait- Normal/Bed Rest/Wheelchair (0 pts) Mental Status- Oriented to own ability (0 pts). Total Finney Fall Scale indicates No Risk (0-24 pts). Assessment: 20:30 General: Appears in no apparent distress. Behavior is calm, cooperative. Pain: ag7 Complains of pain in chest Pain does not radiate. Pain radiates to left arm Pain currently is 5 out of 10 on a pain scale. Quality of pain is described as aching, pressure, Pain began suddenly, Is continuous. Neuro: Level of Consciousness is awake, alert, obeys commands, Oriented to Appropriate for age. Cardiovascular: Heart tones S1 S2 Capillary refill < 3 seconds in bilateral fingers Patient's skin is warm and dry. Pulses are 2+ in right radial artery and left radial artery Edema is absent. 23:00 Reassessment: Patient and/or family updated on plan of care and expected duration. Pain ag7 level reassessed. Patient noted with blood all over face and body right AC 20 gauge pulled out per patient, patient bed linen changed. Vital Signs: 18:30 BP 156 / 82; Pulse 71; Resp 16; Temp 97.5; Pulse Ox 100% on R/A; Weight 77.11 kg; ag7 Height 5 ft. 5 in. (165.10 cm); 02/15 01:13 BP 169 / 88; Pulse 57; Resp 19; Pulse Ox 100% on R/A; wm 04:05 BP 111 / 76; Pulse 62; Resp 22; Pulse Ox 99% on R/A; wm 06:51 BP 166 / 81; Pulse 58; Resp 19; Pulse Ox 99% on R/A; wm 02/14 18:30 Body Mass Index 28.29 (77.11 kg, 165.10 cm) ag7 ED Course: 02/14 18:00 Patient arrived in ED. am2 18:00 Oniel Adams MD is Private Physician. am2 18:32 Triage completed. iw 18:33 Arm band placed on. iw 18:55 Initial lab(s) drawn, by me, sent to lab. Inserted saline lock: 20 gauge in right kj1 forearm, using aseptic technique. Blood collected. 19:02 EKG done, by ED staff. kj1 19:30 XRAY Chest (1 view) In Process Unspecified. EDMS 20:07 Mario Alatorre MD is Attending Physician. [facility] 20:22 Philomena Sibley, RN is Primary Nurse. ag7 20:41 Eulalio Hoffman is Hospitalizing Provider. [facility] 22:19 COVID-19/FLU A+B (Document "Date of Onset" if Symptomatic) Sent. ag7 23:39 Patient has correct armband on for positive identification. Bed in low position. Call [facility] light in reach. Side rails up X 1. Adult w/ patient. 23:39 No provider procedures requiring assistance completed. 7 02/15 01:09 Safety checks: Family/friend present: yes. Placed in gown. Bed in low position. Call light in reach. Side rails up X2. Head of bed Elevated. color television console monitor on. Pulse ox on. NIBP on. 03:37 Diet tray given. PO fluids given. wm Administered Medications: 02/14 20:50 Drug: morphine 2 mg Route: IVP; Site: right antecubital; ag7 21:20 Follow up: Response: No adverse reaction; Pain is decreased ag7 20:50 Drug: Zofran (Ondansetron) 4 mg Route: IVP; Site: right antecubital; ag7 22:04 Follow up: Response: No adverse reaction ag7 20:56 Drug: Aspirin Chewable Tablet 162 mg Route: PO; ag7 21:30 Follow up: Response: No adverse reaction [facility] Outcome: 20:41 Decision to Hospitalize by Provider. [facility] 02/15 14:05 Patient left the ED. iw Signatures: Dispatcher [employer] EDMS Delma London RN RN iw Sarah Lowery am2 Naz Gannon kj1 Mario Alatorre MD MD [facility] Linsey Win Philomena Sibley, RN RN ag7 Corrections: (The following items were deleted from the chart) 02/14 23:43 18:30 BP 156 / 82; Pulse 71bpm; Resp 16bpm; Pulse Ox 100% RA; Temp 97.5F; iw ag7
--- NOTE | 2022-02-14 20:42 | EDPHYS ---
Physician Documentation [facility] Name: Abhijit Peralta Age: 86 yrs Sex: Male : 1935 Arrival Date: 02/14/2022 Time: 18:00 Bed 30 Private MD: Oniel Adams R ED Physician Mario Alatorre HPI: 02/14 20:30 This 86 yrs old Male presents to ER via Ambulatory with complaints of left mh7 side pain. 20:30 The patient or guardian reports chest pain that is located primarily in the anterior mh7 chest wall, left. Onset: today. The pain radiates to the left shoulder. Associated signs and symptoms: Pertinent negatives: abdominal pain, cough, diaphoresis, dizziness, headache, lower extremity pain, lower extremity swelling, lightheadedness, nausea, near syncope, palpitations, recent travel, shortness of breath, syncope, vomiting. The chest pain is described as aching, dull. Duration: The patient or guardian reports multiple episodes, that are intermittent, that wax and wane, with no pattern. Modifying factors: The symptoms are alleviated by nothing. the symptoms are aggravated by movement. Severity of pain: At its worst the pain was moderate today, in the emergency department the pain has improved moderately. Historical: - Allergies: 18:32 Tetanus Vaccines \\T\\ Toxoid; iw - Home Meds: 18:32 amlodipine 2.5 mg tab 1 tab once daily [Active]; glimepiride 2 mg Oral tab 2 tabs twice iw daily [Active]; pravastatin 20 mg Oral tab 1 tab once daily [Active]; quetiapine 25 mg oral tab nightly [Active]; gabapentin 600 mg oral tab nightly [Active]; - PMHx: 18:32 Dementia; Diabetes - NIDDM; gastric ulcers; Hypertension; LYMPHOMA; Prostate Cancer; iw Stomach CA - in remission; Alzheimer's disease; - Immunization history:: Adult Immunizations up to date. - Social history:: Smoking status: Patient denies any tobacco usage or history of. ROS: 20:30 Constitutional: Negative for fever, chills, and weight loss, Eyes: Negative for injury, mh7 pain, redness, and discharge, ENT: Negative for injury, pain, and discharge, Neck: Negative for injury, pain, and swelling, Respiratory: Negative for shortness of breath, cough, wheezing, and pleuritic chest pain, Abdomen/GI: Negative for abdominal pain, nausea, vomiting, diarrhea, and constipation, Back: Negative for injury and pain, : Negative for injury, bleeding, discharge, and swelling, Skin: Negative for injury, rash, and discoloration, Neuro: Negative for headache, weakness, numbness, tingling, and seizure, Psych: Negative for depression, anxiety, suicide ideation, homicidal ideation, and hallucinations, Allergy/Immunology: Negative for hives, rash, and allergies, Endocrine: Negative for neck swelling, polydipsia, polyuria, polyphagia, and marked weight changes, Hematologic/Lymphatic: Negative for swollen nodes, abnormal bleeding, and unusual bruising. Exam: 20:30 Constitutional: This is a well developed, well nourished patient who is awake, alert, mh7 and in no acute distress. Head/Face: Normocephalic, atraumatic. Eyes: Pupils equal round and reactive to light, extra-ocular motions intact. Lids and lashes normal. Conjunctiva and sclera are non-icteric and not injected. Cornea within normal limits. Periorbital areas with no swelling, redness, or edema. Neck: Trachea midline, no thyromegaly or masses palpated, and no cervical lymphadenopathy. Supple, full range of motion without nuchal rigidity, or vertebral point tenderness. No Meningismus. Chest/axilla: Normal chest wall appearance and motion. Nontender with no deformity. No lesions are appreciated. Respiratory: Lungs have equal breath sounds bilaterally, clear to auscultation and percussion. No rales, rhonchi or wheezes noted. No increased work of breathing, no retractions or nasal flaring. Abdomen/GI: Soft, non-tender, with normal bowel sounds. No distension or tympany. No guarding or rebound. No evidence of tenderness throughout. Back: No spinal tenderness. No costovertebral tenderness. Full range of motion. Skin: Warm, dry with normal turgor. Normal color with no rashes, no lesions, and no evidence of cellulitis. MS/ Extremity: Pulses equal, no cyanosis. Neurovascular intact. Full, normal range of motion. Neuro: Awake and alert, GCS 15, oriented to person, place, time, and situation. Cranial nerves II-XII grossly intact. Motor strength 5/5 in all extremities. Sensory grossly intact. Cerebellar exam normal. Normal gait. 20:30 Cardiovascular: Rate: normal, Rhythm: regular, Pulses: no pulse deficits are mh7 appreciated, Heart sounds: murmur, systolic, grade 2 over 6, heard in the aortic area, Edema: is not appreciated, JVD: is not appreciated. Vital Signs: 18:30 BP 156 / 82; Pulse 71; Resp 16; Temp 97.5; Pulse Ox 100% on R/A; Weight 77.11 kg; ag7 Height 5 ft. 5 in. (165.10 cm); 02/15 01:13 BP 169 / 88; Pulse 57; Resp 19; Pulse Ox 100% on R/A; wm 04:05 BP 111 / 76; Pulse 62; Resp 22; Pulse Ox 99% on R/A; wm 06:51 BP 166 / 81; Pulse 58; Resp 19; Pulse Ox 99% on R/A; wm 02/14 18:30 Body Mass Index 28.29 (77.11 kg, 165.10 cm) [facility] MDM: 02/14 20:39 Differential diagnosis: abnormal EKG, acute myocardial infarction, acute pericarditis, mh7 anxiety, coronary artery disease chest wall pain, congestive heart failure costochondritis, gastroesophageal reflux disease (GERD), pericarditis, pleurisy, pneumonia, pneumothorax. HEART Score: History: Moderately Suspicious (1), ECG: Non specific repolarization disturbance / LBTB / PM (1), Age: > or = 65 years (2), Risk Factors: 1 or 2 risk factors (1), [Hypertension] [DM] Troponin: < or = 1 x Normal Limit (0), Total Score = 5. Data reviewed: vital signs, nurses notes, old medical records, lab test result(s), cardiac enzymes, CBC, electrolytes, EKG, radiologic studies, plain films. Data interpreted: Pulse oximetry: on room air is 100 %. Interpretation: normal. Counseling: I had a detailed discussion with the patient and/or guardian regarding: the historical points, exam findings, and any diagnostic results supporting the discharge/admit diagnosis, the presence of at least one elevated blood pressure reading (>120/80) during this emergency department visit, lab results, radiology results, the need for further work-up and treatment in the hospital. Response to treatment: the patient's symptoms have mildly improved after treatment. 20:41 Patient medically screened. 7 02/14 18:36 Order name: Basic Metabolic Panel; Complete Time: 20:17 02/14 18:36 Order name: CBC with Diff; Complete Time: 20:09 02/14 18:36 Order name: Troponin HS; Complete Time: 20:17 02/14 18:52 Order name: PT-INR; Complete Time: 20:09 5 02/14 20:17 Order name: PROBNP 7 02/14 20:58 Order name: COVID-19/FLU A+B (Document "Date of Onset" if Symptomatic) 2 02/14 23:03 Order name: COVID-19/FLU A+B EDMS 02/15 03:26 Order name: Troponin High Sensitivity EDMS 02/15 03:26 Order name: Glucose, Ancillary Testing EDMS 02/15 05:33 Order name: CBC with Automated Diff EDMS 02/15 05:45 Order name: Troponin High Sensitivity EDMS 02/15 05:52 Order name: Comprehensive Metabolic Panel EDMS 02/15 05:52 Order name: Phosphorus EDMS 02/15 05:52 Order name: Lipid Profile EDMS 02/14 18:36 Order name: XRAY Chest (1 view); Complete Time: 20:09 02/14 18:36 Order name: EKG; Complete Time: 18:37 02/14 18:36 Order name: EKG - Nurse/Tech; Complete Time: 18:52 02/14 18:36 Order name: IV Saline Lock; Complete Time: 18:52 02/14 18:36 Order name: Labs collected and sent; Complete Time: 18:52 02/15 05:52 Order name: T4 Free EDMS 02/15 05:52 Order name: Magnesium EDMS 02/15 05:52 Order name: Thyroid Stimulating Hormone EDMS 02/15 08:18 Order name: Glucose, Ancillary Testing EDMS 02/15 11:39 Order name: Glucose, Ancillary Testing EDMS Administered Medications: 20:50 Drug: morphine 2 mg Route: IVP; Site: right antecubital; ag7 21:20 Follow up: Response: No adverse reaction; Pain is decreased ag7 20:50 Drug: Zofran (Ondansetron) 4 mg Route: IVP; Site: right antecubital; ag7 22:04 Follow up: Response: No adverse reaction ag7 20:56 Drug: Aspirin Chewable Tablet 162 mg Route: PO; ag7 21:30 Follow up: Response: No adverse reaction ag7 Disposition Summary: 02/14/22 20:41 Hospitalization Ordered Hospitalization Status: Observation [facility] Provider: Eulalio Hoffman Condition: Stable [facility] Problem: new [facility] Symptoms: have improved [facility] Bed/Room Type: Standard [facility] Location: Telemetry/MedSurg (observation)(02/15/22 09:15) bd Room Assignment: 402(02/15/22 09:15) bd Diagnosis - Chest pain, unspecified [facility] Forms: - Medication Reconciliation Form 7 - SBAR form 7 Signatures: Dispatcher [employer] EDMS Casie Greene Irene, RN RN iw Junie Vazquez RN RN cg Holmes, Maurice, MD MD 7 Elizabeth Brady PA PA sb3 Philomena Sibley RN RN 7 Corrections: (The following items were deleted from the chart) 21:14 20:41 Telemetry/MedSurg (observation) 7 cg 21:14 20:41 mh7 cg 02/15 09:15 02/14 21:14 [facility] ER HOLD cg bd 02/15 09:15 02/14 21:14 ERHOLD- cg bd
[2022-02-14] MEDS ORDERED: MORPHINE 2 MG/ML SYR ONE (20:46)
[2022-02-14] MEDS ORDERED: ONDANSETRON 4 MG/2 ML VIAL ONE (20:47)
[2022-02-14] MEDS ORDERED: ASPIRIN 81 MG CHEWABLE TABLET ONE (20:58)
--- NOTE | 2022-02-14 21:02 | P.HP ---
Certification for Inpatient Patient admitted to: Observation With expected LOS: <2 Midnights Patient will require the following post-hospital care: None Practitioner: I am a practitioner with admitting privileges, knowledge of patient current condition, hospital course, and medical plan of care. Services: Services provided to patient in accordance with Admission requirements found in Title 42 Section 412.3 of the Code of Federal Regulations Patient History Date of Service: 02/14/22 Primary Care Provider: Angie Reason for admission: Chest Pain History of Present Illness: Patient is an 86-year-old male with past medical history of type 2 diabetes hnt-urrsdvb-kiqklvqwj and Alzheimer's who presented to the ED with co mplaints of chest pain that began this morning. Patient is a poor historian and per chart review, patient has been admitted for a very similar episode. He sees Dr. Adams but denies seeing a welder fitter. states that he had an echo done last time he was admitted, but I do not see one that has been done since 2013. Last stress test appears to be in 2012. EKG negative for ST changes. Labs significant for proBNP 10,000, creatinine 1.9. Troponin WNL. CXR negative. Patient reports that his pain is improved with morphine. He was given full dose aspirin in the ED. Will admit patient for observation with cardiology consulting. Allergies Tetanus Vaccines and Toxoid Allergy (Unknown, Verified 10/14/21 19:40) Rash Home medications list reviewed: Yes Home Medications: Glimepiride [Amaryl*] 4 mg PO DAILY 06/26/14 Amlodipine [Norvasc*] 2.5 mg PO DAILY 10/14/21 Pravastatin Sodium 20 mg PO BEDTIME 10/14/21 - Past Medical/Surgical History Diabetic: Yes -: DM -: "staph" after back surg 03/2013 -: HTN -: Rt leg - residual from back surg. -: stomach cancer 2013 has had 6 chemo - Dr Hendricks -: Dementia/Alzheimer's -: prostate cancer -: L3-L4 LAMINECTOMY & DEBRIDEMENT -: PROSTATECTOMY -: SURGERY RIGHT ELBOW - Family History Mother -: Cancer - Social History Smoking Status: Former smoker Alcohol use: No CD- Drugs: No Caffeine use: Yes Place of Residence: Home Review of Systems 10-point ROS is otherwise unremarkable Cardiovascular: Chest Pain Physical Examination - Physical Exam General: Alert, In no apparent distress, Cooperative, Confused HEENT: Atraumatic, PERRLA, Mucous membr. moist/pink, EOMI, Sclerae nonicteric Neck: Supple, 2+ carotid pulse no bruit, No LAD, Without JVD or thyroid abnormality Respiratory: Clear to auscultation bilaterally, Normal air movement Cardiovascular: Regular rate/rhythm, Normal S1 S2, Systolic murmur (2/6) Gastrointestinal: Normal bowel sounds, No tenderness Musculoskeletal: No tenderness Integumentary: No rashes Neurological: Normal speech, Normal strength at 5/5 x4 extr, Normal tone, Normal affect - Studies Laboratory Data (last 24 hrs) 02/14/22 18:55: PT 12.7 H, INR 1.15 02/14/22 18:55: WBC 7.3, Hgb 12.2 L, Hct 37.3 L, Plt Count 222 02/14/22 18:55: Sodium 137, Potassium 4.8, BUN 33 H, Creatinine 1.92 H, Glucose 215 H Assessment and Plan - Problems (Diagnosis) (1) Chest pain Current Visit: Yes Status: Acute Qualifiers: Chest pain type: unspecified Qualified Code(s): R07.9 - Chest pain, un specified (2) Acute kidney injury Current Visit: Yes Status: Acute (3) Alzheimer's dementia Current Visit: Yes Status: Acute (4) Diabetes mellitus Current Visit: Yes Status: Chronic Qualifiers: Diabetes mellitus type: type 2 Diabetes mellitus fpc insulin use: without intermission coordinator use Diabetes mellitus complication status: without complication Qualified Code(s): E11.9 - Type 2 diabetes mellitus without complications (5) Hypertension Current Visit: Yes Status: Chronic Qualifiers: Hypertension type: primary hypertension Qualified Code(s): I10 - Essential (primary) hypertension (6) Chronic kidney disease Current Visit: Yes Status: Chronic Qualifiers: Chronic kidney disease stage: stage 3 (moderate) Chronic kidney disease stage 3 subtype: stage 3b (GFR 30-44) Qualified Code(s): N18.32 - Chronic kidney disease, stage 3b - Plan -Patient admitted for observation for chest pain. EKG negative. Troponin negativewe will repeat every 6 hours x2. Monitor on telemetry -Echo ordered for the morning. Cardiology consulted. It appears last echo and stress test were in . Patient denies seeing a welder fitter. -Patient does not take any blood thinners on a daily basis. He does take a statin. -Patient received full dose aspirin in the ED. Atorvastatin and metoprolol ordered for bedtime. -Patient reports that his chest pain has resolved. He is a poor historian. at bedside. -Kidney function appears slightly worse than his baseline. GFR suggests CKD stage III. We will continue to monitor creatinine. Hold nephrotoxic drugs. -ACHS Accu-Cheks with mild sliding scale insulin -Continue home medication -Heparin for DVT prophylaxis Discharge Plan: Home Plan to discharge in: 24 Hours - Advance Directives Does patient have a Living Will: No Does patient have a Durable POA for Healthcare: No - Code Status/Comfort Care Code Status Assessed: Yes (Full) Critical Care: No Time Spent Managing Pts Care (In Minutes): 50
[2022-02-14 23:03] LABS: SARS-COV-2 RT PCR NEGATIVE (NEGATIVE)
[2022-02-14 23:56] VITALS: BMI 28.3
[2022-02-15] MEDS ORDERED: ACETAMINOPHEN 500 MG TAB PO PRN (00:36)
[2022-02-15] MEDS: ATORVASTATIN 40 MG TAB PO SCH ×2 (00:36→20:10)
[2022-02-15] MEDS ORDERED: MORPHINE 2 MG/ML SYR IV PRN (00:36)
[2022-02-15] MEDS ORDERED: ONDANSETRON 4 MG/2 ML VIAL IV PRN (00:36)
[2022-02-15] MEDS: INSULIN -REGULAR HUMAN 50 UNIT/0.5 ML ML SQ SCH ×5 (00:36→20:10)
[2022-02-15] MEDS: HEPARIN 5000 UNIT/ML 1 ML VIAL SQ SCH ×3 (01:00→16:31)
[2022-02-15] MEDS ORDERED: HEPARIN 5000 UNIT/ML 1 ML VIAL ONE ×2 (01:16→09:34)
[2022-02-15] MEDS ORDERED: ATORVASTATIN 20 MG TAB ONE (01:16)
[2022-02-15] MEDS ORDERED: INSULIN -REGULAR HUMAN 50 UNIT/0.5 ML ML ONE ×2 (01:17→11:57)
[2022-02-15 05:25] LABS: Lymphocytes % 28.5 % (15.3-44.8); MPV 8.3 fL (7.6-11.3); RBC Red Blood Cell Count 4.25 M/uL (4.33-5.43)
[2022-02-15 05:51] LABS: Albumin 2.5 g/dL (3.4-5.0); Bilirubin Total 0.3 mg/dL (0.2-1.0); Magnesium 2.2 mg/dL (1.8-2.4); Phosphorus 3.2 mg/dL (2.5-4.9); Potassium 4.1 mmol/L (3.5-5.1); Protein, Total 6.8 g/dL (6.4-8.2); Thyroid Stimulating Hormone 2.31 uIU/mL (0.360-3.740)
[2022-02-15] MEDS ORDERED: LORAZEPAM 1 MG TABLET ONE (06:38)
[2022-02-15] MEDS ORDERED: METOPROLOL TAR 25 MG TAB ONE (06:38)
[2022-02-15] MEDS: LORazepam 2 MG/ML VIAL IV PRN ×2 (06:54→10:55)
[2022-02-15] MEDS ORDERED: LORazepam 2 MG/ML VIAL ONE ×2 (06:57→10:58)
[2022-02-15] MEDS: METOPROLOL TAR 25 MG TAB PO SCH ×2 (06:59→17:41)
[2022-02-15] MEDS ORDERED: PNEUMOCOCCAL VACCINE 0.5 ML IMVAC ONE (08:00)
--- NOTE | 2022-02-15 08:07 | EKG ---
Test Date: 2022-02-14 Test Time: 18:44:44 Metabolic Specialist: BRIELLE MEASUREMENT RESULTS: Intervals: Rate: 71 CO: 158 QRSD: 106 QT: 398 QTc: 432 [place]: P: -16 CO: 158 QRS: -21 T: 37 INTERPRETIVE STATEMENTS: Normal sinus rhythm Septal infarct, age undetermined Abnormal ECG Compared to ECG 10/14/2021 12:42:32 Myocardial infarct finding now present Left ventricular hypertrophy no longer present Electronically Signed On 02-15-22 08:06:52 CDT by Krystian Davis
--- NOTE | 2022-02-15 13:38 | ECHO ---
HEIGHT: 5 ft 5 in WEIGHT: 170 lb 0 oz DATE OF STUDY: 02/15/[address]: Elizabeth Brady 2-DIMENSIONAL: YES M.MODE: YES DOPPLER: YES COLOR FLOW: YES TDS: NO PORTABLE: YES DEFINITY: NO BUBBLE STUDY: NO DIAGNOSIS: CHEST PAIN CARDIAC HISTORY: CATHERIZATION: SURGERY: PROSTHETIC VALVE: PACEMAKER: MEASUREMENTS (cm) DIASTOLIC (NORMALS) SYSTOLIC (NORMALS) IVSd 1.1 (0.6-1.2) LA Diam 3.7 (1.9-4.0) LVEF 51% LVIDd 3.5 (3.5-5.7) LVIDs 2.6 (2.0-3.5) %FS 25% LVPWd 1.2 (0.6-1.2) Ao Diam 2.8 (2.0-3.7) 2 DIMENSIONAL ASSESSMENT: RIGHT ATRIUM: NORMAL LEFT ATRIUM: NORMAL RIGHT VENTRICLE: NORMAL LEFT VENTRICLE: NORMAL TRICUSPID VALVE: NORMAL MITRAL VALVE: MITRAL ANNULAR CALCIFICATION PULMONIC VALVE: NORMAL AORTIC VALVE: STENOTIC PERICARDIAL EFFUSION: NONE AORTIC ROOT: NORMAL LEFT VENTRICULAR WALL MOTION: NORMAL. DOPPLER/COLOR FLOW: MODERATE AORTIC STENOSIS 1.1 CENTIMETERS SQUARED. COMMENTS: MODERATE AORTIC STENOSIS 1.1 CENTIMETERS SQUARED. MITRAL ANNULAR CALCIFICATION. NORMAL LEFT VENTRICULAR SIZE AND FUNCTION. NO WALL MOTION ABNORMALITY. TECHNOLOGIST: MIRANDA PEDROZA
[2022-02-15] MEDS ORDERED: HALOPERIDOL LACT 5 MG/ML INJ IV PRN (17:02)
--- NOTE | 2022-02-15 17:24 | P.PN ---
Subjective Date of Service: 02/15/22 Primary Care Provider: Angie Chief Complaint: Chest Pain Patient is quite confused and agitated. He is not able to give any subjective. Physical Examination - Vital Signs Temperature: 97.7 F Blood Pressure: 171/65 Pulse: 70 Respirations: 18 Pulse Ox (%): 99 - Studies Laboratory Data (last 24 hrs) 02/14/22 18:55: PT 12.7 H, INR 1.15 02/14/22 18:55: WBC 7.3, Hgb 12.2 L, Hct 37.3 L, Plt Count 222 02/14/22 18:55: Sodium 137, Potassium 4.8, BUN 33 H, Creatinine 1.92 H, Glucose 215 H Assessment And Plan - Plan Physical Exam General: Confused and agitated. HEENT:Mucous membr. moist/pink, Sclerae nonicteric Neck: Supple, Without JVD. Respiratory: Clear to auscultation bilaterally, Normal air movement Cardiovascular: Regular rate/rhythm, Normal S1 S2, Systolic murmur (2/6) Gastrointestinal: Normal bowel sounds, No tenderness Musculoskeletal: No tenderness Integumentary: No rashes Neurological: No focal motor deficit. Diagnosis: Chest pain Dementia with behavioral disturbance Acute delirium. Chronic kidney disease stage III. Plan: Troponin trended negative. ACS ruled out. Haldol as needed for agitation. Behavioral health consult. Check UA to rule out UTI. May need one-to-one watch. Monitor renal function. Fingerstick glucose monitoring.
[2022-02-15 17:56] VITALS: O2SAT 99
[2022-02-15] MEDS ORDERED: GABAPENTIN 300 MG CAP PO SCH (21:00)
[2022-02-15] MEDS ORDERED: QUETIAPINE 25 MG TAB PO SCH (21:00)
[2022-02-15] MEDS ORDERED: HOME MED 1 EA UNK (Gabapentin [Gabapentin] 600 MG Tablet) PO SCH (21:00)
[2022-02-16 00:12] VITALS: TEMP 97
[2022-02-16] MEDS: HEPARIN 5000 UNIT/ML 1 ML VIAL SQ SCH ×2 (00:51→09:00)
[2022-02-16 04:23] LABS: Absolute Lymphocytes (CBC) 2.1 K/uL (0.7-4.9); Hematocrit 37.7 % (39.6-49.0); Lymphocytes % 24.4 % (15.3-44.8); MPV 8.4 fL (7.6-11.3); RBC Red Blood Cell Count 4.34 M/uL (4.33-5.43)
[2022-02-16 04:28] LABS: Potassium 4.7 mmol/L (3.5-5.1)
[2022-02-16] MEDS: METOPROLOL TAR 25 MG TAB PO SCH (05:03)
[2022-02-16] MEDS: INSULIN -REGULAR HUMAN 50 UNIT/0.5 ML ML SQ SCH (07:24)
[2022-02-16 09:23] VITALS: BP 172/77
--- NOTE | 2022-02-16 10:54 | P.DS ---
Admission Date: 02/15/22 Discharge Date: 02/16/22 Primary Care Provider: Angie Disposition: DC HOME/HOME HEALTH CARE Discharge Condition: FAIR Reason for Admission: Chest Pain - Problems (1) Dementia with behavioral disturbance Status: Acute (2) Chest pain Status: Acute Qualifiers: Chest pain type: unspecified Qualified Code(s): R07.9 - Chest pain, unspecified (3) Diabetes mellitus Status: Chronic Qualifiers: Diabetes mellitus type: type 2 Diabetes mellitus long term care administrator insulin use: without long term care administrator use Diabetes mellitus complication status: without co mplication Qualified Code(s): E11.9 - Type 2 diabetes mellitus without complications (4) Hypertension Status: Chronic Qualifiers: Hypertension type: primary hypertension Qualified Code(s): I10 - Essential (primary) hypertension Brief History of Present Illness: Patient is an 86-year-old male with past medical history of type 2 diabetes xrg-dnoxory-fqtxdgciy and Alzheimer's who presented to the ED with complaints of chest pain that began this morning. Patient is a poor historian and per chart review, patient has been admitted for a very similar episode. He sees Dr. Adams but denies seeing a returns clerk. Last stress test appears to be in 2012. EKG negative for ST changes. Labs significant for proBNP 10,000, creatinine 1.9. Troponin WNL. CXR negative. Patient reported that his pain improved with morphine. He was given full dose aspirin in the ED. Patient hospitalized for further management. Hospital Course: Patient admitted to the medical floor. Troponin trended negative. He was seen and evaluated by cardiology who recommended no further intervention. Patient treated with aspirin. Patient developed delirium with agitation. Noted he is on Seroquel 25 mg at bedtime. This was continued and given Haldol for agitation. His delirium and agitation resolved. Today patient is communicating meaningfully, ambulatory, had a good oral intake and has no complaint. He is deemed stable for discharge. Vital Signs/Physical Exam: Temp Pulse Resp BP Pulse Ox 97 F 56 18 172/77 H 100 02/16/22 08:00 02/16/22 08:00 02/16/22 08:00 02/16/22 08:00 02/16/22 08:00 General: Alert, In no apparent distress, Oriented x3 HEENT: Mucous membr. moist/pink Neck: JVD not distended Respiratory: Clear to auscultation bilaterally, Normal air movement Cardiovascular: No edema, Regular rate/rhythm, Normal S1 S2 Gastrointestinal: Normal bowel sounds, Soft and benign, Non-distended, No tenderness Musculoskeletal: No swelling Integumentary: No rashes Neurological: Normal strength at 5/5 x4 extr Laboratory Data at Discharge: WBC 8.4 K/uL (4.3-10.9) D 02/16/22 03:25 Hgb 12.4 g/dL (13.6-17.9) L 02/16/22 03:25 Hct 37.7 % (39.6-49.0) L 02/16/22 03:25 Plt Count 220 K/uL (152-406) 02/16/22 03:25 PT 12.7 SECONDS (9.5-12.5) H 02/14/22 18:55 INR 1.15 02/14/22 18:55 Sodium 139 mmol/L (136-145) 02/16/22 03:25 Potassium 4.7 mmol/L (3.5-5.1) 02/16/22 03:25 BUN 28 mg/dL (7-18) H 02/16/22 03:25 Creatinine 1.60 mg/dL (0.55-1.3) H 02/16/22 03:25 Glucose 122 mg/dL (74-106) H 02/16/22 03:25 Phosphorus 3.2 mg/dL (2.5-4.9) 02/15/22 04:59 Magnesium 2.2 mg/dL (1.8-2.4) 02/15/22 04:59 Total Bilirubin 0.3 mg/dL (0.2-1.0) 02/15/22 04:59 AST 10 U/L (15-37) L 02/15/22 04:59 ALT 17 U/L (12-78) 02/15/22 04:59 Alkaline Phosphatase 78 U/L (45-117) 02/15/22 04:59 Triglycerides 66 mg/dL (<150) 02/15/22 04:59 Cholesterol 166 mg/dL (<200) 02/15/22 04:59 HDL Cholesterol 53 mg/dL (40-60) 02/15/22 04:59 Cholesterol/HDL Ratio 3.13 02/15/22 04:59 Home Medications: Glimepiride [Amaryl*] 4 mg PO DAILY 06/26/14 Amlodipine [Norvasc*] 2.5 mg PO DAILY 10/14/21 Pravastatin Sodium 20 mg PO BEDTIME 10/14/21 Gabapentin 600 mg pe PO BEDTIME 02/15/22 Quetiapine [Seroquel*] 25 mg PO BEDTIME 02/15/22 Aspirin [Aspirin EC] 81 mg PO DAILY #30 tablet. 02/16/22 Metoprolol Tartrate [Lopressor*] 25 mg PO BID 6AM 6PM #60 tab 02/16/22 New Medications: Aspirin [Aspirin EC] 81 mg PO DAILY #30 tablet. Metoprolol Tartrate [Lopressor*] 25 mg PO BID 6AM 6PM #60 tab Diet: ADA Activity: Fall precautions Followup: Oniel Adams MD [Primary Care Provider] - 1-2 Weeks Krystian Davis MD [ACTIVE - CAN ADMIT] - 1-2 Weeks Time spent managing pt's care (in minutes): 35
--- NOTE | 2022-02-16 14:54 | CON ---
Date of Consultation: 02/15/[address] Hoffman on 02/14/2022. I saw the patient on 02/15/2022. Reason For Consultation: Altered mental status and chest pain. History Of Present Illness: Mr. Peralta is an 86-year-old Latin-[place]in[place] male with history of lympho ma, prostate cancer, Alzheimer, gastric ulcers, hypertension, dementia, and diabetes. Came in with s everely altered mental status, atypical chest pain. No nausea, vomiting, diaphoresis, PND, orthopnea , pedal edema, palpitations, or syncope. Troponin is negative. Creatinine of 1.92. Glucose was 190 . He was hypertensive. BNP was over 10,000. Echocardiogram is pending. Past Medical History: As stated above. Allergies: HE IS ALLERGIC TO TETANUS AND TOXOID. Review of Systems: Unobtainable. Social History: Unobtainable. Family History: Unobtainable. Medications: Include Amaryl, Pravachol, Seroquel, Neurontin, and Norvasc. Physical Examination: Vital Signs: Sinus rhythm. Blood pressure 166/81. General: Confused, alert and oriented x1. Sinus rhythm. HEENT: Negative. Neck: Supple with no bruit. Chest: Clear. Cardiac: Revealed a regular rhythm and rate with mild aortic stenosis murmur. No gallops or rubs. Abdomen: Benign. Extremities: Revealed no clubbing, cyanosis, or edema. Diagnostic Data: As stated earlier. Chest x-ray is negative. EKG is unremarkable. Neurological wo rkup is pending. Impression And Plan: 1.Atypical chest pain, difficult to identify considering his mental status. Echocardiogram is pendi ng. If his mental status improves, we will arrange for an outpatient stress test. No cardiac invasi ve workup otherwise recommended. His BNP is elevated. His creatinine is elevated. I am concerned h e may have diastolic congestive heart failure. We will see what the echo shows. He may need some ge ntle diuresis. 2.Altered mental status. Neurological consultation should be obtained. 3.Renal insufficiency. 4.Diabetes. 5.Blood pressure is poorly controlled. Consider adding beta-blockers. His other problems include d ementia, Alzheimer, prostate cancer, lymphoma, and gastric ulcers, these are stable. We will continu e to follow and see what the echo shows. NB/MODL Voice ID: [id number] Report ID: [id number]
--- NOTE | 2022-02-16 16:09 | PN ---
Date of Progress Note: 02/16/2022 Mr. Peralta is 86, came in with chest pain and severely altered mental status. He has a history of A lzheimer, diabetes, dementia, hypertension, gastric ulcers, prostate cancer, and lymphoma. Echocardi ogram, which was done was actually normal as far as ejection fraction. He has some moderate aortic s tenosis. I suggest we add a low-dose beta verna. Mr. Peralta is definitely not a candidate for co ronary intervention or catheterization. His creatinine is 1.92. His diabetes is poorly controlled. Remains hypertensive. Again, I would continue Norvasc and add low-dose beta verna. If his mental status and kidney function improve, we will consider a catheterization down the road if he continues to have chest pain. His aortic stenosis need to be followed on a yearly basis. We will sign off hi s case for now. ELIE/LUCINDA Voice ID: [id number] Report ID: [id number]
== END 2022-02-16 11:33 | disposition home health service (06) | DRG 313 ==
LOC: ER 17:55 → ERHOLD 20:54 → INTOOBSV 20:54 → OBSVTOIN 20:54 → 4TH 02-15 13:13 → OBSVTOIN 02-15 18:56
PROVIDERS: ADMIT Internal Medicine; ATTEND Internal Medicine
DX: R07.9 Chest pain, unspecified (principal); N17.9 Acute kidney failure, unspecified; F02.81 Dementia in other diseases classified elsewhere, unspecified severity, with behavioral disturbance; F05 Delirium due to known physiological condition; I12.9 Hypertensive chronic kidney disease with stage 1 through stage 4 chronic kidney disease, or unspecified chronic kidney disease; E11.22 Type 2 diabetes mellitus with diabetic chronic kidney disease; N18.32 Chronic kidney disease, stage 3b; G30.9 Alzheimer's disease, unspecified; Z85.46 Personal history of malignant neoplasm of prostate; Z87.891 Personal history of nicotine dependence; Z88.7 Allergy status to serum and vaccine; Z20.822 Contact with and (suspected) exposure to COVID-19
CPT/HCPCS: 0240U; 36415; 71045; 80048; 80053; 80061; 82947; 83735; 83880; 84100; 84439; 84443; 84484; 85025; 85610; 93005; 93306; 96374; 96375; 99284; G0378; J1644; J1815; J2270; J2405

== ENCOUNTER 2022-05-11 19:02 | Observation (INO) | payer OTHER ==
--- NOTE | 2022-05-11 20:35 | RAD REPORT ---
EXAM DESCRIPTION: CT - Head Brain Wo Cont - 05/11/2022 8:28 pm CLINICAL HISTORY: Mental status change, unknown cause Headache, drowsiness COMPARISON: Head Brain Wo Cont dated 08/08/2019; Head Brain Wo Cont dated 06/14/2018 TECHNIQUE: All CT scans are performed using dose optimization technique as appropriate and may inclu de automated exposure control or mA/KV adjustment according to patient size. FINDINGS: No intracranial hemorrhage, hydrocephalus or extra-axial fluid collection.Advanced brain a trophy present.No areas of brain edema or evidence of midline shift. Chronic left maxillary sinusitis. The paranasal sinuses and mastoids are otherwise clear. The calvari um is intact. IMPRESSION: No acute intracranial abnormality.
--- NOTE | 2022-05-11 20:47 | RAD REPORT ---
EXAM DESCRIPTION: RAD - Chest Single View - 05/11/2022 8:42 pm CLINICAL HISTORY: AMS Chest pain. COMPARISON: Chest Pa And Lat (2 Views) dated 02/20/2022; Chest Single View dated 02/14/2022; Chest Sin gle View dated 10/14/2021; Chest Single View dated 12/16/2019 FINDINGS: Portable technique limits examination quality. Moderate bilateral pulmonary opacities are present with small bilateral pleural effusions. The heart is mildly enlarged in size. Bilateral calcified pleural plaques noted. IMPRESSION: Moderate CHF versus volume overload.
[2022-05-11 21:33] LABS: Absolute Lymphocytes (CBC) 2.1 K/uL (0.7-4.9); Lymphocytes % 27.5 % (15.3-44.8); MCV 88.5 fL (80-100); MPV 8.2 fL (7.6-11.3); RBC Red Blood Cell Count 4.52 M/uL (4.33-5.43)
[2022-05-11 21:42] LABS: Protime INR 1.11
[2022-05-11 22:00] LABS: ALT/SGPT 23 U/L (12-78); AST/SGOT 12 U/L (15-37); Albumin 3.4 g/dL (3.4-5.0); Alkaline Phosphatase 95 U/L (45-117); BUN Blood Urea Nitrogen 33 mg/dL (7-18); Bicarbonate 30 mmol/L (21-32); Bilirubin Direct 0.2 mg/dL (0-0.2); Bilirubin Total 0.7 mg/dL (0.2-1.0); Glomerular Filtration Rate 38 ml/min (=/>90); Glucose Level 117 mg/dL (74-106); NT PRO-BNP 8524 pg/mL (<450); Potassium 4.5 mmol/L (3.5-5.1); Protein, Total 7.8 g/dL (6.4-8.2); Sodium Level 140 mmol/L (136-145); Troponin High Sensitivity 30.9 pg/mL (<58.9)
[2022-05-11 22:27] LABS: Urine Blood Trace-lysed (Negative); Urine Glucose Negative (Negative); Urine Protein 2+ (Negative); Urine pH 6.5 (5.0-7.0)
[2022-05-11 23:06] LABS: Barbiturates NEGATIVE (NEGATIVE); Benzodiazepines NEGATIVE (NEGATIVE); Cocaine NEGATIVE (NEGATIVE); METHAMPHETAM NEGATIVE (NEGATIVE); Methadone NEGATIVE (NEGATIVE); Opiates NEGATIVE (NEGATIVE); Phencyclidine NEGATIVE (NEGATIVE); THC Cannibis POSITIVE (NEGATIVE)
--- NOTE | 2022-05-11 23:11 | EDPHYS ---
Physician Documentation [facility] Name: Abhijit Peralta Age: 87 yrs Sex: Male : 1935 Arrival Date: 05/11/2022 Time: 19:03 Bed 25 Private MD: ED Physician Mario Alatorre HPI: 05/11 20:09 This 87 yrs old Male presents to ER via Wheelchair with complaints of mh7 Accidental Overdose. 20:09 The patient presents with decreased mental status. Onset: The symptoms/episode mh7 began/occurred today, at 11:00. Possible causes: possible accidental medication overdose. Associated signs and symptoms: Pertinent positives: sleeping all day, less responsive, Pertinent negatives: abdominal pain, chest pain, combativeness, seizure, vomiting, weakness. Current symptoms: In the emergency department the patient's symptoms have improved, moderately, is more alert. Patient's baseline: Neuro: alert but confused, Motor: no deficits, Ambulation: walks without assistance, Speech: slow, The patient has a previous history of Dementia. Son states that his mother accidentally gave the patient his night time medication during the day accidentally and he has been sleeping all day and less responsive than usual. Medication was given \\T\\ 1100 AM.. Historical: - Allergies: 19:17 Tetanus Vaccines \\T\\ Toxoid; iw - Home Meds: 19:17 amlodipine 2.5 mg tab 1 tab once daily [Active]; gabapentin 600 mg Oral tab nightly iw [Active]; glimepiride 2 mg Oral tab 2 tabs twice daily [Active]; pravastatin 20 mg Oral tab 1 tab once daily [Active]; quetiapine 25 mg Oral tab nightly [Active]; - PMHx: 19:17 Alzheimer's disease; Dementia; Diabetes - NIDDM; gastric ulcers; Hypertension; iw LYMPHOMA; Prostate Cancer; Stomach CA - in remission; - Immunization history:: Adult Immunizations up to date. - Social history:: Smoking status: Patient denies any tobacco usage or history of. ROS: 20:09 Unable to obtain ROS due to baseline dementia. mh7 Exam: 20:09 Constitutional: This is a well developed, well nourished patient who is awake, alert, mh7 and in no acute distress. Head/Face: Normocephalic, atraumatic. Eyes: Pupils equal round and reactive to light, extra-ocular motions intact. Lids and lashes normal. Conjunctiva and sclera are non-icteric and not injected. Cornea within normal limits. Periorbital areas with no swelling, redness, or edema. Neck: Trachea midline, no thyromegaly or masses palpated, and no cervical lymphadenopathy. Supple, full range of motion without nuchal rigidity, or vertebral point tenderness. No Meningismus. Chest/axilla: Normal chest wall appearance and motion. Nontender with no deformity. No lesions are appreciated. 20:09 Respiratory: Lungs have equal breath sounds bilaterally, clear to auscultation and percussion. No rales, rhonchi or wheezes noted. No increased work of breathing, no retractions or nasal flaring. Abdomen/GI: Soft, non-tender, with normal bowel sounds. No distension or tympany. No guarding or rebound. No evidence of tenderness throughout. Back: No spinal tenderness. No costovertebral tenderness. Full range of motion. Skin: Warm, dry with normal turgor. Normal color with no rashes, no lesions, and no evidence of cellulitis. MS/ Extremity: Pulses equal, no cyanosis. Neurovascular intact. Full, normal range of motion. 20:09 Cardiovascular: Rate: bradycardic, Rhythm: regular, Pulses: no pulse deficits are appreciated, Heart sounds: normal, normal S1and S2, Edema: is not appreciated, JVD: is not appreciated. 20:09 Neuro: Orientation: to person, Mentation: able to follow commands, Memory: unable to test, the patient has a history of dementia, Cranial nerves: is grossly normal based on the patient's age, Cerebellar function: is grossly normal based on the patient's age, Motor: moves all fours, Sensation: no obvious gross deficits, Gait: not tested. seizure activity, is not displayed by the patient, Abnormal movements: there are no abnormal movements. Vital Signs: 19:14 BP 181 / 90; Pulse 54; Resp 16; Temp 96.7; Pulse Ox 100% on R/A; iw 21:49 BP 144 / 78; Pulse 54; Resp 14; Pulse Ox 100% on R/A; vc1 05/12 00:05 Pulse 51; Pulse Ox 95% ; kd3 MDM: 05/11 23:06 Differential Diagnosis: CVA, electrolyte abnormality, hypoglycemia, intracranial bleed, mh7 overdose, pneumonia, seizure, sepsis, TIA, UTI, volume depletion. Data reviewed: vital signs, nurses notes, old medical records, lab test result(s), cardiac enzymes, CBC, electrolytes, Flu: positive urinalysis, EKG, radiologic studies, CT scan, plain films. Data interpreted: Pulse oximetry: on room air is 97 %. Interpretation: normal. Counseling: I had a detailed discussion with the patient and/or guardian regarding: the historical points, exam findings, and any diagnostic results supporting the discharge/admit diagnosis, the presence of at least one elevated blood pressure reading (>120/80) during this emergency department visit, lab results, radiology results, the need for further work-up and treatment in the hospital. Response to treatment: the patient's symptoms have mildly improved after treatment. 23:10 Patient medically screened. [facility] 05/11 19:34 Order name: Glucose, Ancillary Testing; Complete Time: 20:03 [facility] 05/11 20:04 Order name: Acetaminophen; Complete Time: 22:37 [facility] 05/11 20:04 Order name: Basic Metabolic Panel; Complete Time: 22:37 [facility] 05/11 20:04 Order name: CBC with Diff; Complete Time: 22:37 [facility] 05/11 20:04 Order name: ETOH Level; Complete Time: 22:37 [facility] 05/11 20:04 Order name: Hepatic Function; Complete Time: 22:37 [facility] 05/11 20:04 Order name: PT-INR; Complete Time: 22:37 [facility] 05/11 20:04 Order name: Ptt, Activated; Complete Time: 22:37 [facility] 05/11 20:04 Order name: Salicylate; Complete Time: 22:37 [facility] 05/11 20:04 Order name: Urine Drug Screen; Complete Time: 23:07 [facility] 05/11 20:04 Order name: Troponin High Sensitivity; Complete Time: 22:37 [facility] 05/11 20:04 Order name: PROBNP; Complete Time: 22:37 [facility] 05/11 20:06 Order name: COVID-19 SARS RT PCR (Document "Date of Onset" if Symptomatic); Complete [facility] Time: 22:48 05/11 20:06 Order name: Influenza Screen (a \\T\\ B); Complete Time: 22:37 [facility] 05/11 20:04 Order name: EKG; Complete Time: 20:05 7 05/11 20:04 Order name: EKG - Nurse/Tech; Complete Time: 21:15 [facility] 05/11 20:04 Order name: IV Saline Lock; Complete Time: 21:21 7 05/11 20:06 Order name: Chest Single View XRAY; Complete Time: 20:48 7 05/11 20:06 Order name: CT Head Brain wo Cont; Complete Time: 20:48 [facility] 05/11 22:27 Order name: Urine Dipstick-Ancillary; Complete Time: 22:37 EDMS 05/12 05:16 Order name: CBC with Automated Diff; Complete Time: 05:20 EDMS 05/12 05:35 Order name: Comprehensive Metabolic Panel; Complete Time: 05:39 EDMS 05/12 05:35 Order name: Phosphorus; Complete Time: 05:39 EDMS 05/12 05:35 Order name: Lipid Profile; Complete Time: 05:39 EDMS 05/12 05:35 Order name: Magnesium; Complete Time: 05:39 EDMS 05/12 05:35 Order name: Thyroid Stimulating Hormone; Complete Time: 05:39 EDMS 05/12 08:00 Order name: RAD EDMS 05/12 08:06 Order name: Glucose, Ancillary Testing [facility] 05/11 20:04 Order name: Labs collected and sent; Complete Time: 21:22 [facility] 05/11 20:04 Order name: Urine Dipstick-Ancillary (obtain specimen); Complete Time: 22:28 [facility] Administered Medications: 05/12 00:15 Drug: Lasix (furosemide) 20 mg Route: IVP; Site: left antecubital; kd3 00:15 Drug: Tamiflu (oseltamivir) 75 mg Route: PO; kd3 Point of Care Testing: Blood Glucose: 05/11 19:21 Blood Glucose: 112 mg/dL; iw Ranges: Critical Glucose Levels:Adult <50 mg/dl or >400 mg/dl <40 mg/dl or >180 mg/dl Disposition Summary: 05/11/22 23:10 Hospitalization Ordered Hospitalization Status: Inpatient Admission [facility] Provider: Eulalio Hoffman Darlyn Condition: Stable [facility] Problem: new [facility] Symptoms: have improved [facility] Bed/Room Type: Standard [facility] Location: [facility] ER HOLD(05/11/22 23:55) tw5 Room Assignment: ERHOLD-(05/11/22 23:55) tw5 Diagnosis - Unspecified combined systolic (congestive) and diastolic (congestive) heart failure 7 - Influenza B 7 Forms: - Medication Reconciliation Form 7 - SBAR form 7 Signatures: Dispatcher [employer] Delma Guerrero RN RN Mario Alatorre MD MD 7 Brit Mims 5 Dianna Pastor RN RN kd3 Rosa Elena Peterson RN RN 1 Elizabeth Brady PA PA sb3 Corrections: (The following items were deleted from the chart) 21:16 20:04 Suicide Screening ([place]) ordered. [place] [id number] 23:55 23:10 Telemetry/MedSurg (Inpatient) [place] [address] 23:55 23:10 [place] [address]
--- NOTE | 2022-05-11 23:11 | ER ---
Nurse's Notes [facility] Name: Abhijit Peralta Age: 87 yrs Sex: Male : 1935 Arrival Date: 05/11/2022 Time: 19:03 Bed 25 Private MD: Diagnosis: Unspecified combined systolic (congestive) and diastolic (congestive) heart failure;Influenza B Presentation: 05/11 19:14 Chief complaint: Patient's son or daughter states: i think my mom got confused about iw his medications and gave him more than what she was supposed to , some of the meds are for bedtime only or PRN, takes gabapentin glimepride, quetiapine, amlodipine, pravastatin , she gave them all at 11 am , now he is altered and he was asleep from 1130-530 which is not normal for him. Coronavirus screen: At this time, the client does not indicate any symptoms associated with coronavirus-19. Ebola Screen: Patient negative for fever greater than or equal to 101.5 degrees Fahrenheit, and additional compatible Ebola Virus Disease symptoms Patient denies exposure to infectious person. Patient denies travel to an Ebola-affected area in the 21 days before illness onset. No symptoms or risks identified at this time. Initial Sepsis Screen: Does the patient meet any 2 criteria? No. Patient's initial sepsis screen is negative. Does the patient have a suspected source of infection? No. Patient's initial sepsis screen is negative. Risk Assessment: Do you want to hurt yourself or someone else? Patient reports no desire to harm self or others. Onset of symptoms was May 11, 2022. 19:14 Method Of Arrival: Wheelchair iw 19:14 Acuity: RAVI 3 iw Triage Assessment: 21:52 General: Appears in no apparent distress. Behavior is calm, cooperative, appropriate vc1 for age. Pain: Denies pain. Neuro: Level of Consciousness is awake, obeys commands, Oriented to person. Historical: - Allergies: 19:17 Tetanus Vaccines \T\ Toxoid; iw - Home Meds: 19:17 amlodipine 2.5 mg tab 1 tab once daily [Active]; gabapentin 600 mg Oral tab nightly iw [Active]; glimepiride 2 mg Oral tab 2 tabs twice daily [Active]; pravastatin 20 mg Oral tab 1 tab once daily [Active]; quetiapine 25 mg Oral tab nightly [Active]; - PMHx: 19:17 Alzheimer's disease; Dementia; Diabetes - NIDDM; gastric ulcers; Hypertension; iw LYMPHOMA; Prostate Cancer; Stomach CA - in remission; - Immunization history:: Adult Immunizations up to date. - Social history:: Smoking status: Patient denies any tobacco usage or history of. Screenin:00 Abuse screen: Denies threats or abuse. Nutritional screening: No deficits noted. vc1 Tuberculosis screening: No symptoms or risk factors identified. Fall Risk None identified. Assessment: 20:14 Reassessment: Notified poison control that pt took glimepiride 2mg, Quetiapine 25mg, vc1 Pravastatin, 20mg, Gabapentin 600 mg, Amlodipine 2.5 mg. Poison control states there are no issues with the combination of meds ingested. If pulse is not baseline observe for a few hours. If at baseline patient is good to discharge. Case # [id number]. 21:30 Reassessment: Patient and/or family updated on plan of care and expected duration. Pain vc1 level reassessed. Patient is alert, oriented x 3, equal unlabored respirations, skin warm/dry/pink. Patient denies pain at this time. Patient states symptoms have improved. Overdose: 21:50 [place] Suicide Severity Screening:. vc1 Vital Signs: 19:14 BP 181 / 90; Pulse 54; Resp 16; Temp 96.7; Pulse Ox 100% on R/A; iw 21:49 BP 144 / 78; Pulse 54; Resp 14; Pulse Ox 100% on R/A; vc1 05/12 00:05 Pulse 51; Pulse Ox 95% ; kd3 ED Course: 05/11 19:03 Patient arrived in ED. as 19:17 Triage completed. iw 19:17 Arm band placed on. iw 19:47 Mario Alatorre MD is Attending Physician. 7 20:07 Rosa Elena Peterson, KIMBERLEY is Primary Nurse. vc1 20:30 CT Head Brain wo Cont In Process Unspecified. EDMS 20:44 Chest Single View XRAY In Process Unspecified. EDMS 21:21 Inserted saline lock: 20 gauge in left antecubital area, using aseptic technique. Blood oe collected. 21:52 Patient has correct armband on for positive identification. Client placed on continuous vc1 cardiac and pulse oximetry monitoring. NIBP monitoring applied. 22:28 Urine Drug Screen Sent. vc1 23:09 Eulalio Hoffman is Hospitalizing Provider. [facility] Administered Medications: 05/12 00:15 Drug: Lasix (furosemide) 20 mg Route: IVP; Site: left antecubital; kd3 00:15 Drug: Tamiflu (oseltamivir) 75 mg Route: PO; kd3 Point of Care Testing: Blood Glucose: 05/11 19:21 Blood Glucose: 112 mg/dL; Ranges: Outcome: 23:10 Decision to Hospitalize by Provider. [facility] 05/12 12:38 Patient left the ED. jd3 Signatures: Dispatcher [employer] EDMS Lizett Cabrales Irene, RN RN Kodak Aguero Jonathon, RN RN jd3 Mario Alatorre MD MD [facility] Dianna Pastor RN RN kd3 Rosa Elena Peterson RN RN vc1 Corrections: (The following items were deleted from the chart) 05/11 19:19 19:14 Pulse 54bpm; Resp 16bpm; Pulse Ox 100% RA; Temp 96.7F; iw
--- NOTE | 2022-05-11 23:48 | P.HP ---
Certification for Inpatient Patient admitted to: Observation With expected LOS: <2 Midnights Patient will require the following post-hospital care: None Practitioner: I am a practitioner with admitting privileges, knowledge of patient current condition, hospital course, and medical plan of care. Services: Services provided to patient in accordance with Admission requirements found in Title 42 Section 412.3 of the Code of Federal Regulations Patient History Date of Service: 05/11/22 Reason for admission: CHF, Lethargy, Influenza History of Present Illness: Patient is an 87-year-old male with hypertension, chronic diastolic CHF, NIDDM, and dementia who presented to the ED with family with concerns of lethargy. Patient's accidentally gave patient his night and morning meds all at once at 11 AM which included 600 mg gapapentin, 25 mg seroquel, 2.5 mg amlodipine, 2 mg glimepiride, and 20 mg pravastatin. Patient then slept most of the day and was less responsive. Patient acting around his baseline in the ED. VSS. Poison control was notified and instructed to monitor patient's pulse, if not at baseline. Labs significant for BNP 8,000, Cr 1.74, tox screen positive for THC. CXR showed mild CHF vs pulmonary edema. Flu B positive. He was given tamiflu and lasix in ED. During my assessment, patient has no complaints. He is pleasantly demented. is at bedside. ED provider wishes to admit patient for observation. Allergies Tetanus Vaccines and Toxoid Allergy (Unknown, Verified 10/14/21 19:40) Rash Home medications list reviewed: Yes Home Medications: Glimepiride [Amaryl*] 4 mg PO DAILY 06/26/14 Amlodipine [Norvasc*] 2.5 mg PO DAILY 10/14/21 Pravastatin Sodium 20 mg PO BEDTIME 10/14/21 Gabapentin 600 mg pe PO BEDTIME 02/15/22 Quetiapine [Seroquel*] 25 mg PO BEDTIME 02/15/22 Aspirin [Aspirin EC] 81 mg PO DAILY #30 tablet. 02/16/22 Metoprolol Tartrate [Lopressor*] 25 mg PO BID 6AM 6PM #60 tab 02/16/22 - Past Medical/Surgical History Diabetic: Yes -: DM -: "staph" after back surg 03/2013 -: HTN -: Rt leg - residual from back surg. -: stomach cancer 2014 has had 6 chemo - Dr Hendricks -: Dementia/Alzheimer's -: prostate cancer -: L3-L4 LAMINECTOMY & DEBRIDEMENT -: PROSTATECTOMY -: SURGERY RIGHT ELBOW Psychosocial/ Personal History: Patient lives at home with . - Family History Mother -: Cancer - Social History Smoking Status: Former smoker Alcohol use: No CD- Drugs: Yes Caffeine use: No Place of Residence: Home Review of Systems Unremarkable Physical Examination - Physical Exam General: Alert, In no apparent distress, Confused HEENT: Atraumatic, PERRLA, EOMI, Sclerae nonicteric Neck: Supple, 2+ carotid pulse no bruit, No LAD, Without JVD or thyroid abnormality Respiratory: Crackles/rales Cardiovascular: Regular rate/rhythm, Normal S1 S2 Gastrointestinal: Normal bowel sounds, No tenderness Musculoskeletal: No tenderness Integumentary: No rashes Neurological: Normal speech, Normal strength at 5/5 x4 extr, Normal tone - Studies Laboratory Data (last 24 hrs) 05/11/22 21:14: PT 12.2, INR 1.11, APTT 33.5 05/11/22 21:14: WBC 7.6, Hgb 13.2 L, Hct 40.0, Plt Count 255 05/11/22 21:14: Sodium 140, Potassium 4.5, BUN 33 H, Creatinine 1.74 H, Glucose 117 H, Total Bilirubin 0.7, AST 12 L, ALT 23, Alkaline Phosphatase 95 Microbiology Data (last 24 hrs): 05/11/22 21:17 Nasopharnyx Influenza Type A Antigen Screen - Final 05/11/22 21:17 Nasopharnyx Influenza Type B Antigen Screen - Final Assessment and Plan - Problems (Diagnosis) (1) CHF (congestive heart failure) Current Visit: Yes Status: Acute Qualifiers: Heart failure type: diastolic Heart failure chronicity: acute on chronic Qualified Code(s): I50.33 - Acute on chronic diastolic (congestive) heart failure (2) Influenza Current Visit: Yes Status: Acute (3) Dementia Current Visit: Yes Status: Chronic Qualifiers: Dementia type: Alzheimer's Alzheimer's disease onset: unspecified onset Dementia behavioral disturbance: without behavioral disturbance Qualified Code(s): G30.9 - Alzheimer's disease, unspecified; F02.80 - Dementia in other diseases classified elsewhere without behavioral disturbance (4) Diabetes mellitus Current Visit: Yes Status: Chronic Qualifiers: Diabetes mellitus type: type 2 Diabetes mellitus tank terminal gauger insulin use: without [place] use Diabetes mellitus complication status: with kidney complications Diabetes mellitus complication detail: with chronic kidney disease 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 Repeat CXR in morning. -Tamiflu BID. Monitor pulse ox. -Monitor and replete electrolytes per protocol -Reconcile and continue home medications -Lovenox for VTE ppx -Full code Discharge Plan: Home Plan to discharge in: 24 Hours - Advance Directives Does patient have a Living Will: No Does patient have a Durable POA for Healthcare: No - Code Status/Comfort Care Code Status Assessed: Yes (Full) Critical Care: No Time Spent Managing Pts Care (In Minutes): 50
[2022-05-12] MEDS ORDERED: OSELTAMIVIR 75 MG CAP ONE ×2 (00:16→09:41)
[2022-05-12] MEDS ORDERED: FUROSEMIDE 40 MG/4 ML VIAL ONE (00:16)
[2022-05-12] MEDS ORDERED: ACETAMINOPHEN 500 MG TAB PO PRN (02:53)
[2022-05-12] MEDS ORDERED: D50W 25 GM/50 ML SYRINGE IV PRN (02:53)
[2022-05-12] MEDS ORDERED: GLUCAGON 1 MG/VIAL IM PRN (02:53)
[2022-05-12] MEDS ORDERED: ONDANSETRON 4 MG/2 ML VIAL IV PRN (02:53)
[2022-05-12] MEDS ORDERED: D10W 125 ML IV PRN (03:00)
[2022-05-12 03:56] VITALS: BMI 23.1
[2022-05-12 05:13] LABS: Absolute Lymphocytes (CBC) 1.9 K/uL (0.7-4.9); Hematocrit 38.2 % (39.6-49.0); Lymphocytes % 22.7 % (15.3-44.8); MCV 87.6 fL (80-100); MPV 8.7 fL (7.6-11.3); RBC Red Blood Cell Count 4.36 M/uL (4.33-5.43)
[2022-05-12 05:35] LABS: Albumin 2.8 g/dL (3.4-5.0); Bilirubin Total 0.5 mg/dL (0.2-1.0); Magnesium 2.2 mg/dL (1.8-2.4); Phosphorus 3.5 mg/dL (2.5-4.9); Protein, Total 6.9 g/dL (6.4-8.2); Thyroid Stimulating Hormone 1.12 uIU/mL (0.360-3.740)
[2022-05-12 06:09] VITALS: O2SAT 100
[2022-05-12] MEDS ORDERED: INSULIN -REGULAR HUMAN 50 UNIT/0.5 ML ML SQ SCH (07:30)
--- NOTE | 2022-05-12 07:59 | RAD REPORT ---
EXAM DESCRIPTION: RAD - Chest Single View - 05/12/2022 5:41 am CLINICAL HISTORY: CHF COMPARISON: Portable May 11, two view chest February 20 TECHNIQUE: AP portable chest image was obtained 05/12/2022 5:41 am . FINDINGS: Patient has very extensive baseline fibrotic lung disease with extensive calcified pleural plaquing. Heart size and vasculature are accentuated by shallow inspiration. Mild failure or volume overload could easily be masked by the extensive chronic lung disease. When adjusting for today's mor e shallow inspiration, lung parenchymal findings and heart findings are not clearly different. Trachea is midline. No pneumothorax. Costophrenic angle blunting again noted. IMPRESSION: Stable chest.
[2022-05-12] MEDS ORDERED: OSELTAMIVIR 75 MG CAP PO SCH (09:00)
[2022-05-12] MEDS ORDERED: PNEUMOCOCCAL VACCINE 0.5 ML IMVAC ONE (09:00)
[2022-05-12] MEDS ORDERED: ENOXAPARIN 40 MG/0.4 ML SQ SCH (09:00)
[2022-05-12] MEDS ORDERED: ENOXAPARIN 40 MG/0.4 ML SQ ONE (09:41)
[2022-05-12 11:32] VITALS: BP 136/87; TEMP 97.3
--- NOTE | 2022-05-12 12:00 | P.DS ---
Admission Date: 05/11/22 Discharge Date: 05/12/22 Disposition: DC HOME/HOME HEALTH CARE Discharge Condition: FAIR Reason for Admission: CHF, Lethargy, Influenza - Problems (1) Polypharmacy Current Visit: Yes Status: Acute (2) Pulmonary fibrosis Current Visit: Yes Status: Acute (3) Influenza Current Visit: Yes Status: Acute (4) Diabetes mellitus Current Visit: Yes Status: Chronic Qualifiers: Diabetes mellitus type: type 2 Diabetes mellitus medical terminologist insulin use: without medical terminologist use Diabetes mellitus complication status: with kidney complications Diabetes mellitus complication detail: with chronic kidney disease Chronic kidney disease stage 3 subtype: stage 3b (GFR 30-44) (5) Alzheimer's dementia Current Visit: No Status: Acute (6) Chronic kidney disease Current Visit: No Status: Chronic Qualifiers: Chronic kidney disease stage: stage 3 (moderate) Chronic kidney disease stage 3 subtype: stage 3b (GFR 30-44) Qualified Code(s): N18.32 - Chronic kidney disease, stage 3b Brief History of Present Illness: Patient is an 87-year-old male with hypertension, chronic diastolic CHF, NIDDM, and dementia who presented to the ED with family with concerns of lethargy. Patient's accidentally gave patient his night and morning meds all at once which included 600 mg gapapentin, 25 mg seroquel, 2.5 mg amlodipine, 2 mg glimepiride, and 20 mg pravastatin. Patient then slept most of the day and was less responsive. Patient was baseline in the ED. VSS. Poison control was notified and instructed to monitor patient's pulse, if not at baseline. Labs significant for BNP 8,000, Cr 1.74, tox screen positive for THC. CXR showed mild CHF vs pulmonary edema. Flu B positive. He was given tamiflu and lasix in ED. Patient was asymptomatic in the ED. He was hospitalized for further management. Hospital Course: Patient placed on observation on the medical floor. Chest x-ray images and results reviewed and noted to the bilateral infiltrates noted are old findings for pulmonary fibrosis. Patient has been asymptomatic, awake and alert. Troponin negative. Patient seen by cardiology and deemed stable for discharge. He was evaluated by PT and deemed stable for discharge with no needs. Advised organize his pills in a pillbox which will show the days of the week and the time of the day to give his medications. Noted he has chronic kidney disease. He his high risk for hypoglycemia with sulfonylureas. Glimepiride therefore discontinued and replaced with Januvia. Patient has been clinically stable and deemed stable for discharge. Vital Signs/Physical Exam: Temp Pulse Resp BP Pulse Ox 97.3 F 56 16 136/87 100 05/12/22 08:00 05/12/22 08:00 05/12/22 08:00 05/12/22 08:00 05/12/22 08:00 General: Alert, In no apparent distress, Oriented x3 HEENT: Mucous membr. moist/pink Neck: JVD not distended Respiratory: Clear to auscultation bilaterally, Normal air movement Cardiovascular: No edema, Regular rate/rhythm, Normal S1 S2 Gastrointestinal: Normal bowel sounds, Soft and benign, Non-distended, No tenderness Musculoskeletal: No swelling Integumentary: No rashes, No cyanosis Neurological: Normal strength at 5/5 x4 extr Laboratory Data at Discharge: WBC 8.4 K/uL (4.3-10.9) 05/12/22 04:05 Hgb 12.9 g/dL (13.6-17.9) L 05/12/22 04:05 Hct 38.2 % (39.6-49.0) L 05/12/22 04:05 Plt Count 211 K/uL (152-406) 05/12/22 04:05 PT 12.2 SECONDS (9.5-12.5) 05/11/22 21:14 INR 1.11 05/11/22 21:14 APTT 33.5 SECONDS (24.3-36.9) 05/11/22 21:14 Sodium 139 mmol/L (136-145) 05/12/22 04:05 Potassium 4.0 mmol/L (3.5-5.1) 05/12/22 04:05 BUN 31 mg/dL (7-18) H 05/12/22 04:05 Creatinine 1.60 mg/dL (0.55-1.3) H 05/12/22 04:05 Glucose 100 mg/dL (74-106) 05/12/22 04:05 Phosphorus 3.5 mg/dL (2.5-4.9) 05/12/22 04:05 Magnesium 2.2 mg/dL (1.8-2.4) 05/12/22 04:05 Total Bilirubin 0.5 mg/dL (0.2-1.0) 05/12/22 04:05 AST 12 U/L (15-37) L 05/12/22 04:05 ALT 21 U/L (12-78) 05/12/22 04:05 Alkaline Phosphatase 84 U/L (45-117) 05/12/22 04:05 Triglycerides 71 mg/dL (<150) 05/12/22 04:05 Cholesterol 158 mg/dL (<200) 05/12/22 04:05 HDL Cholesterol 59 mg/dL (40-60) 05/12/22 04:05 Cholesterol/HDL Ratio 2.68 05/12/22 04:05 Home Medications: Amlodipine [Norvasc*] 2.5 mg PO DAILY 10/14/21 Pravastatin Sodium 20 mg PO BEDTIME 10/14/21 Gabapentin 600 mg pe PO BEDTIME 02/15/22 Quetiapine [Seroquel*] 25 mg PO BEDTIME 02/15/22 Aspirin [Aspirin EC] 81 mg PO DAILY #30 tablet.dr 02/16/22 Metoprolol Tartrate [Lopressor*] 25 mg PO BID 6AM 6PM #60 tab 02/16/22 Oseltamivir [Tamiflu*] 75 mg PO BID #20 cap 05/12/22 Sitagliptin Phosphate [Januvia] 50 mg PO DAILY #30 tablet 05/12/22 New Medications: Sitagliptin Phosphate [Januvia] 50 mg PO DAILY #30 tablet Oseltamivir [Tamiflu*] 75 mg PO BID #20 cap Physician Discharge Instructions: Please organize patient's pills in a pill box which shows the days of the week and the time of the day to give it. Diet: ADA Activity: Fall precautions Followup: Oniel Adams MD [Primary Care Provider] - 1 Week
--- NOTE | 2022-05-13 09:04 | EKG ---
Test Date: 2022-05-11 Test Time: 20:59:04 Women Designer: LIYA MEASUREMENT RESULTS: Intervals: Rate: 54 AR: 200 QRSD: 104 QT: 460 QTc: 436 Harwood: P: AR: 200 QRS: -44 T: 23 INTERPRETIVE STATEMENTS: Sinus bradycardia Left axis deviation Moderate voltage criteria for LVH, may be normal variant Anteroseptal infarct, age undetermined Abnormal ECG Compared to ECG 02/14/2022 18:44:44 Left-axis deviation now present Left ventricular hypertrophy now present Sinus rhythm no longer present Myocardial infarct finding still present Electronically Signed On 05-13-22 09:02:51 CDT by Krystian Davis
--- NOTE | 2022-05-13 11:57 | CON ---
Date of Consultation: 05/12/[address] Hoffman's service on 05/11/2022. I saw the patient on 05/12/2022. Reason For Consultation: Congestive heart failure. History Of Present Illness: Mr. Peralta is an 87-year-old male, who has a history of severe Alzheime r dementia. Has a history of stomach cancer, prostate cancer in remission. He has a history of lymp nilsa in remission. He has a history of diabetes, gastric ulcers, and hypertension. He came in appar ently with overdose on his all medications and he was much less responsive. Denied any chest pain, n ausea, vomiting, diaphoresis, PND, orthopnea, pedal edema, palpitations, or syncope. His family brou ght him in because he overdosed on his own medication. He was found to be in CHF by x-ray and I was consulted because of that. His EKG showed sinus bradycardia with left ventricular hypertrophy. He h ad a head CT that showed no acute abnormalities. He is denying any symptoms at this point. Echocard iogram that was done on 05/12/2022 showed severe aortic stenosis that was apparently previously undia gnosed. Allergies: TO TETANUS VACCINE AND TOXOID. Review of Systems: Negative. Social History: Negative. Family History: Negative. Past Medical History: As stated above. Physical Examination: Vital Signs: Sinus rhythm. Blood pressure 150/69. He was afebrile. HEENT: Negative. Neck: Supple with no bruit. Chest: Clear to auscultation and percussion. Cardiac: Exam revealed a regular rhythm and rate with an aortic stenosis murmur. Positive S4. No r ubs. Abdomen: Benign. Extremities: Revealed no clubbing, cyanosis, or edema. Neurological: He was nonfocal. Diagnostic Data: Most dictated above. His creatinine is 1.60. His BNP was 8924. Impression And Plan: 1.Congestive heart failure, probably diastolic. 2.Aortic stenosis that is severe. 3.Medication overdose, but seems to be stable. 4.Alzheimer's. 5.Diabetes. 6.Gastric ulcers. 7.Hypertension. 8.History of lymphoma, prostate cancer, stomach cancer in remission. I agree with his present regimen right now. He is certainly stable from a cardiac standpoint. His c ongestive heart failure has resolved. I will make sure he comes into the office for an appointment w ith him and his family to discuss his aortic valve. I do see they do not want to be aggressive in th at regard. ELIE/LUCINDA Voice ID: [id number] Report ID: [id number]
--- NOTE | 2022-05-15 06:56 | ECHO ---
HEIGHT: 5 ft 8 in WEIGHT: 152 lb 0 oz DATE OF STUDY: 05/12/[address]: Krystian Davis MD 2-DIMENSIONAL: YES M.MODE: YES DOPPLER: YES COLOR FLOW: YES TDS: PORTABLE: DEFINITY: BUBBLE STUDY: DIAGNOSIS: CONGESTIVE HEART FAILURE CARDIAC HISTORY: CATHERIZATION: SURGERY: PROSTHETIC VALVE: PACEMAKER: MEASUREMENTS (cm) DIASTOLIC (NORMALS) SYSTOLIC (NORMALS) IVSd 1.1 (0.6-1.2) LA Diam 3.7 (1.9-4.0) LVEF 23% LVIDd 4.7 (3.5-5.7) LVIDs 4.2 (2.0-3.5) %FS 11% LVPWd 1.2 (0.6-1.2) Ao Diam 2.6 (2.0-3.7) 2 DIMENSIONAL ASSESSMENT: RIGHT ATRIUM: NORMAL LEFT ATRIUM: NORMAL RIGHT VENTRICLE: NORMAL LEFT VENTRICLE: NORMAL TRICUSPID VALVE: NORMAL MITRAL VALVE: MITRAL ANNULAR CALCIFICATION PULMONIC VALVE: NORMAL AORTIC VALVE: STENOTIC PERICARDIAL EFFUSION: NONE AORTIC ROOT: NORMAL LEFT VENTRICULAR WALL MOTION: NORMAL EJECTION FRACTION. DECREASED LEFT VENTRICULAR COMPLIANCE. DOPPLER/COLOR FLOW: SEVERE AORTIC STENOSIS - 0.9 CENTIMETERS SQUARED. PEAK GRADIENT 36 mmHg. COMMENTS: SEVERE AORTIC STENOSIS - 0.9 CENTIMETERS SQUARED. NORMAL LEFT VENTRICULAR SIZE AND FUNCTION. NO EFFUSION. DIASTOLIC DYSFUNCTION. TECHNOLOGIST: MIRANDA YAO
--- OUTSIDE RECORDS SUMMARY | 2022-05-18 06:18 | XMS REPORT | Continuity of Care Document ---
:1935 Author Organization [facility] t Address [address] [place] [address] Care Team Providers Name Role Phone PCP, PATIENT DOES NOT HAVE A Primary Care Physician Unavaila ble GC_BAHC_Seiter_S Attending Clinician Unavailable Radiology Attending Clinician Unavailable RADIOLOGY Attending Clinician Unavailable Doctor Unassigned, Name Attending Clinician Unavailable GC_BAHC_Seiter_S Admitting Clinician Unavailable ELAINE LINTON Admitting Clinician Unavailable Payers Payer Name Policy Type Policy Number Effective Date Expiration Date S lisseth [employer] (MEDICARE [id number] REPLACEMENT/ADVANTAGE - PPO) Problems Condition Condition Condition Status Onset Resolution Last Treating Co mments Source Name Details Category Date Date Treatment Clinician Date Essential Essential Disease Active Uni vers hypertensi hypertensi 6- it y of on on 00:00: [place] 00 Medical Branch Type 2 Type 2 Disease Active Univers diabetes diabetes 6 ity of mellitus mellitus 00:00: [place] without without 00 Medical complicati complicati Br anch on on Atypical Atypical Disease Active Unive rs chest pain chest pain 6- it y of 00:00: [place] 00 Medical Branch Pleural Pleural Disease Active Univers calcificat calcificat 04-16 it y of ion ion 00:00: [place] 00 Medical Branch Diabetes Diabetes Disease Active Unive rs 6-18 ity of 00:00: [place] 00 Medical Branch Allergies, Adverse Reactions, Alerts Allergy Allergy Status Severity Reaction(s) Onset Inactive Treating Comm ents Source Name Type Date Date Clinician TETANUS DRUG Active Rash 2014-10 Univers AND INGREDI 0-06 ity of DIPHTHER 00:00: [place] 00 Medical TOXOIDS, Branch ADSORBED , ADULT Tetanus Propensi Active Rash 2014-10 Univers And ty to 0-06 ity of Diphther adverse 00:00: [place] ia reaction 00 Medical Toxoids, s Branch Adsorbed , Adult Social History Social Habit Start Date Stop Date Quantity Comments Source Tobacco use and 2018-05-28 2018-05-28 Never used [facility] exposure 00:00:00 00:00:00 Medical Branch Sex [birth year] At [birth year] [facility] 00:00:00 00:00:00 Medical Branch Smoking Status Start Date Stop Date Source Never smoker [facility] Medical Branch Medications Ordered Filled Start Stop Current Ordering Indication Dosage Frequency Signature Comments Components Source Medication Medication Date Date Medication? Clinician (SIG) Name Name benzonatate 2015-10 Yes 200mg Take 1 Uni vers (TESSALON) 1-25 capsule by ity of 200 mg 00:00: mouth 3 [place] capsule 00 (three) Medical times Branch daily as needed for Cough. azithromyci 2015-10 Yes 250mg Take 1 Uni vers n 1-25 tablet by ity of (ZITHROMAX) 00:00: mouth [place] 250 mg 00 daily. Medical tablet Branch acetaminoph 2015-10 Yes 1{tbl} Take 1 Un heidi en-codeine 1-25 tablet by ity of (TYLENOL-CO 00:00: mouth [place] DEINE #3) 00 every 6 Medical 300-30 mg (six) Branch tablet hours as needed for Pain (scale 7-10). benzonatate 2015-10 Yes 200mg Take 1 Uni vers (TESSALON) 1-25 capsule by ity of 200 mg 00:00: mouth 3 [place] capsule 00 (three) Medical times Branch daily as needed for Cough. azithromyci 2015-10 Yes 250mg Take 1 Uni vers n 1-25 tablet by ity of (ZITHROMAX) 00:00: mouth [place] 250 mg 00 daily. Medical tablet Branch acetaminoph 2015-10 Yes 1{tbl} Take 1 Un heidi en-codeine 1-25 tablet by ity of (TYLENOL-CO 00:00: mouth [place] DEINE #3) 00 every 6 Medical 300-30 mg (six) Branch tablet hours as needed for Pain (scale 7-10). glimepiride 2016-0 Yes 6mg Take 6 mg U nivers (AMARYL) 2 6-19 by mouth ity o f mg tablet 14:14: daily with [place] 22 breakfast. Medical Branch Tramadol 2015-0 Yes Take by Unive rs (RYBIX ODT) 6-19 mouth 3 ity o f 50 mg 14:14: (three) [place] tablet 22 times Medical daily as Branch needed. lisinopril 2016-0 Yes 5mg Take 5 mg Un heidi (PRINIVIL,Z 6-19 by mouth 2 it y of ESTRIL) 5 14:14: (two) [place] mg tablet 22 times Medical daily. Branch glimepiride 2015-0 Yes 6mg Take 6 mg U nivers (AMARYL) 2 6-19 by mouth ity o f mg tablet 14:14: [place] 22 breakfast. Medical Branch Tramadol 2015-0 Yes Take by Unive rs (RYBIX ODT) 6-19 mouth 3 ity o f 50 mg 14:14: (three) [place] tablet 22 times Medical daily as Branch needed. lisinopril 2016-0 Yes 5mg Take 5 mg Un heidi (PRINIVIL,Z 6-19 by mouth 2 it y of ESTRIL) 5 14:14: (two) [place] mg tablet 22 times Medical daily. Branch aspirin 81 Yes 81mg Take 1 Unive rs mg EC 6-19 tablet by ity of tablet 00:00: mouth [place] 00 daily. Medical Branch aspirin 81 0 Yes 81mg Take 1 Unive rs mg EC 6-19 tablet by ity of tablet 00:00: mouth [place] 00 daily. Medical Branch Procedures Procedure Date / Time Performed Performing Clinician [facility] e MR BRAIN WO CONTRAST 2021-11-25 15:15:00 Requisition, Paper [facility] Medical [place] ASSIGNMENT OF BENEFITS 2021-11-25 14:16:45 Doctor Unassigned, No [facility] Name Medical Branch Encounters Start End Encounter Admission Attending Care Care Encounter Source Date/Time Date/Time Type Type Clinicians Facility Department ID 2022-02-22 2022-02-[address] [facility]_i PRIV PRIV [id number] [facility] 05:49:00 05:49:00 ter_S [id number] Medica l 2022-02-21 2022-02-[address] [facility]_i PRIV PRIV [id number] [facility] 11:40:00 11:40:00 ter_S [id number] Medica l 2021-11-25 2021-11-25 Hospital Radiology [facility] [id number] Univers 08:16:53 23:59:00 Encounter [place] [id number] ity of [place] [id number] [place] [id number] [facility] 804 Branch 2021-11-25 2021-11-25 Outpatient R RADIOLOGY [facility] [id number] Univers 08:16:53 23:59:00 ity of [facility] 2021-11-25 2021-11-25 Outpatient R RADIOLOGY [facility] [id number] Univers 00:00:00 00:00:00 [id number] ity of [facility] 2021-11-25 2021-11-25 Orders Doctor KALIE [id number] Univers 00:00:00 00:00:00 Only Unassigned, SEJAL [id number] ity of [place] [facility] [id number] Noel as [phone] [facility] 009 Branch Results This patient has no known results.
== END 2022-05-12 12:22 | disposition home health service (06) ==
LOC: ER 19:02 → ERHOLD 23:57
PROVIDERS: ADMIT Internal Medicine; ATTEND Internal Medicine
DX: I13.0 Hypertensive heart and chronic kidney disease with heart failure and stage 1 through stage 4 chronic kidney disease, or unspecified chronic kidney disease (principal); I50.33 Acute on chronic diastolic (congestive) heart failure; N18.32 Chronic kidney disease, stage 3b; E11.22 Type 2 diabetes mellitus with diabetic chronic kidney disease; T42.6X1A Poisoning by other antiepileptic and sedative-hypnotic drugs, accidental (unintentional), initial encounter; T43.591A Poisoning by other antipsychotics and neuroleptics, accidental (unintentional), initial encounter; T46.1X1A Poisoning by calcium-channel blockers, accidental (unintentional), initial encounter; T38.3X1A Poisoning by insulin and oral hypoglycemic [antidiabetic] drugs, accidental (unintentional), initial encounter; T46.6X1A Poisoning by antihyperlipidemic and antiarteriosclerotic drugs, accidental (unintentional), initial encounter; R53.83 Other fatigue; J11.1 Influenza due to unidentified influenza virus with other respiratory manifestations; I35.0 Nonrheumatic aortic (valve) stenosis; G30.9 Alzheimer's disease, unspecified; F02.80 Dementia in other diseases classified elsewhere, unspecified severity, without behavioral disturbance, psychotic disturbance, mood disturbance, and anxiety; K25.9 Gastric ulcer, unspecified as acute or chronic, without hemorrhage or perforation; J84.10 Pulmonary fibrosis, unspecified; F12.90 Cannabis use, unspecified, uncomplicated; Z85.028 Personal history of other malignant neoplasm of stomach; Z85.46 Personal history of malignant neoplasm of prostate; Z85.72 Personal history of non-Hodgkin lymphomas; Z88.7 Allergy status to serum and vaccine; Z20.822 Contact with and (suspected) exposure to COVID-19
CPT/HCPCS: 93005; 93306; 85025 ×2; 80048; 36415; 80320; 83735; 80329 ×2; 84100; 85610; 80061; 82947 ×2; 80076; 85730; 84443; 81003; 84484; 80053; 83880; 80307; 87804 ×2; 70450; 71045 ×2; 97161; 94760; 96374; 99284; U0003; J1940; J1650; G0378 ×2

== ENCOUNTER 2022-09-04 10:13 | Emergency (ER) | payer OTHER ==
--- OUTSIDE RECORDS SUMMARY | 2022-09-04 10:17 | XMS REPORT | Continuity of Care Document ---
:1935 Author Organization [facility] t Address [address] [place] [address] Care Team Providers Name Role Phone PCP, PATIENT DOES NOT HAVE A Primary Care Physician Unavaila Sophie Virk Attending Clinician Unavailable GC_BAHC_Seiter_S Attending Clinician Unavailable Radiology Attending Clinician Unavailable RADIOLOGY Attending Clinician Unavailable Doctor Unassigned, [place] Attending Clinician Unavailable GC_BAHC_Seiter_S Admitting Clinician Unavailable SHRAVAN LINTON Admitting Clinician Unavailable Payers Payer Name Policy Type Policy Number Effective Date Expiration Date Jorgito FLORES (MEDICARE [id number] REPLACEMENT/ADVANTAGE - PPO) Problems Condition Condition Condition Status Onset Resolution Last Treating Co mments Source Name Details Category Date Date Treatment Clinician Date Type 2 Type 2 Disease Active Univers diabetes diabetes 04-16 ity of mellitus mellitus 00:00: [place] without without 00 Medical complicati complicati Br anch on on Atypical Atypical Disease Active Unive rs chest pain chest pain - it y of 00:00: [address] Branch Pleural Pleural Disease Active Univers calcificat calcificat 04-16 it y of ion ion 00:00: [address] Branch Diabetes Diabetes Disease Active Unive rs 6- ity of 00:00: [place] 00 Medical Branch [id number] Type 2 Problem Common diabetes [facility] mellitus - [facility] with [facility] long-term current use of insulin [id number] Pure Problem Common hyperchole [facility] sterolemia - [facility] [id number] Primary Problem Common hypertensi [facility] on - [facility] Allergies, Adverse Reactions, Alerts Allergy Allergy Status Severity Reaction(s) Onset Inactive Treating Comm ents Source Name Type Date Date Clinician Morphine Propensi Active Anxiety Metho di ty to 05-08 st adverse 00:00: [facility]osp[facility] reaction 00 l s to drug Tetanus Propensi Active Other (See Restlessn Methodi And ty to Comments) 05-[address] Diphther adverse 00:00: Hospita ia reaction 00 l Toxoids s to drug TETANUS DRUG Active Rash 2014-10 Univers AND INGREDI 0-06 ity of DIPHTHER 00:00: [place] 00 Medical TOXOIDS, Branch ADSORBED , ADULT Tetanus Propensi Active Rash 2014-10 Univers And ty to 0-06 ity of Diphther adverse 00:00: [place] ia reaction 00 Medical Toxoids, s Branch Adsorbed , Adult Family History Family Member Diagnosis Comments Start Date Stop Date Source Natural brother Kidney disease [facility] Natural mother Liver cancer [facility] Social History Social Habit Start Date Stop Date Quantity Comments Source History of Tobacco [facility] [place] [facility] Tobacco use and 2018-05-28 2018-05-28 Never used Universit y of [place] exposure 00:00:00 00:00:00 Medical Branch Sex Ass[birth year] At [birth year] [facility] 00:00:00 00:00:00 Smoking Status Start Date Stop Date Source Tobacco smoking consumption [facility] unknown Never Smoker [facility] Medications Ordered Filled Start Stop Current Ordering [...] as needed for Pain (scale 7-10). glimepiride Yes 2mg Q.5D Take 2 mg M ethodi (AMARYL) 2 7-[address] MG tablet 21:38: (two) Hospita 39 times a l day. lisinopril Yes 10mg QD Take 10 mg M ethodi (PRINIVIL,Z 7-[address] ESTRIL) 10 21:38: daily. Hospi ta MG tablet 39 l pantoprazol Yes 40mg QD Take 40 mg Methodi e 7-[address] (PROTONIX) 21:38: daily. Hospi ta 40 MG EC 39 l tablet glimepiride Yes 6mg Take 6 mg U nivers (AMARYL) 2 6-19 by mouth ity o f mg tablet 14:14: [place] 22 breakfast. Medical Branch Tramadol Yes Take by Univer s (RYBIX ODT) 6-19 mouth 3 ity o f 50 mg 14:14: (three) [place] tablet 22 times Medical daily as Branch needed. lisinopril Yes 5mg Take 5 mg Un heidi (PRINIVIL,Z 6-19 by mouth 2 it y of ESTRIL) 5 14:14: (two) [place] mg tablet 22 times Medical daily. Branch glimepiride Yes 6mg Take 6 mg U nivers (AMARYL) 2 6-19 by mouth ity o f mg tablet 14:14: daily with [place] 22 breakfast. Medical Branch Tramadol Yes Take by Univer s (RYBIX ODT) 6-19 mouth 3 ity o f 50 mg 14:14: (three) [place] tablet 22 times Medical daily as Branch needed. lisinopril Yes 5mg Take 5 mg Un heidi (PRINIVIL,Z 6-19 by mouth 2 it y of ESTRIL) 5 14:14: (two) [place] mg tablet 22 times Medical daily. Branch aspirin 81 Yes 81mg Take 1 Unive rs mg EC 6-19 tablet by ity of tablet 00:00: mouth [place] 00 daily. Medical Branch aspirin 81 Yes 81mg Take 1 Unive rs mg EC 6-19 tablet by ity of tablet 00:00: mouth [place] 00 daily. Medical Branch amLODIPine amLODIPine No 1{table QD amLODIPine Besylate Besylate t} Besylate 2.5 MG 2.5 MG 2.5 MG Glimepiride Glimepiride No 1{table TID Glimepirid 2 MG 2 MG t_with_ e [address]_or_t he_firs t_main_ meal_of _the_da y} Pravastatin Pravastatin No 1{table QD Pravastati Sodium 20 Sodium 20 t} n Sodium MG MG 20 MG Immunizations Ordered Immunization Filled Immunization Date Status Commen ts Source Name Name FLUZONE HIGH DOSE FLUZONE HIGH DOSE 2022-08-24 Completed [facility] OVER 65 OVER 65 12:21:00 [facility] Vital Signs Vital Name Observation Time Observation Value Comments Source height 2022-08-24 11:00:00 67 [in_i] Common [facility] weight 2022-08-24 11:00:00 160.8 [lb_av] [facility] temperature 2022-08-24 11:00:00 97.6 [degF] [facility] bmi 2022-08-24 11:00:00 25.18 kg/m2 Common S pirit [facility] oximetry 2022-08-24 11:00:00 96 % Common S [facility] respiratory rate 2022-08-24 11:00:00 17 /min Comm on [facility] blood pressure 2022-08-24 11:00:00 118 mm[Hg] Common [facility] - systolic [facility] blood pressure 2022-08-24 11:00:00 62 mm[Hg] Common [facility] - diastolic [facility] Procedures Procedure Date / Time Performed Performing Clinician Sour e MR BRAIN WO CONTRAST 2021-11-25 15:15:00 Requisition, Paper [facility] ASSIGNMENT OF BENEFITS 2021-11-25 14:16:45 Doctor Unassigned, No [facility] Encounters Start End Encounter Admission Attending Care Care Encounter Source Date/Time Date/Time Type Type Clinicians Facility Department ID 2022-08-24 Outpatient [place], STLMLC STLMLC [id number] Common 10:51:05 Sophie [facility] 2022-08-24 2022-08-24 OFFICE STLMLC STLMLC [id number] Co mmon 00:00:00 00:00:00 VISIT NEW Spir it PT LEVEL 3 [facility] 2022-02-22 2022-02-22 Outpatient GC_BAHC_Sei PRIV PRIV [id number] [facility] 05:49:00 05:49:00 ter_S [id number] Medica l 2022-02-21 2022-02-21 Outpatient GC_BAHC_Sei PRIV PRIV [id number] [facility] 11:40:00 11:40:00 ter_S [id number] Medica l 2021-11-25 2021-11-25 Hospital Radiology [facility] [id number] Univers 08:16:53 23:59:00 Encounter [place] [id number] [place] [id number] [facility] [id number] [facility] 804 Branch 2021-11-25 2021-11-25 Outpatient R RADIOLOGY [facility] [id number] Univers 08:16:53 23:59:00 ity of [facility] [place] 2021-11-25 2021-11-25 Orders Doctor KALIE [id number] Univers 00:00:00 00:00:00 Only Unassigned, SEJAL [id number] ity of [place] [facility] [id number] Noel as [phone] [place] [address] Branch Results This patient has no known results.
[2022-09-04 11:27] LABS: Absolute Lymphocytes (CBC) 1.7 K/uL (0.7-4.9); Hematocrit 35.8 % (39.6-49.0); Lymphocytes % 22.2 % (15.3-44.8); MCV 86.9 fL (80-100); RBC Red Blood Cell Count 4.12 M/uL (4.33-5.43)
[2022-09-04 11:58] LABS: AST/SGOT 12 U/L (15-37); Albumin 2.7 g/dL (3.4-5.0); Alkaline Phosphatase 76 U/L (45-117); BUN Blood Urea Nitrogen 42 mg/dL (7-18); Bicarbonate 25 mmol/L (21-32); Bilirubin Total 0.5 mg/dL (0.2-1.0); Glomerular Filtration Rate 28 ml/min (=/>90); Glucose Level 180 mg/dL (74-106); Lipase 104 U/L (73-393); Potassium 4.7 mmol/L (3.5-5.1); Protein, Total 7.2 g/dL (6.4-8.2); Sodium Level 136 mmol/L (136-145)
[2022-09-04 12:01] LABS: ALT/SGPT < 10 U/L (12-78)
--- NOTE | 2022-09-04 12:51 | RAD REPORT ---
EXAM DESCRIPTION: CT - Abdomen Pelvis Wo Contrast - 09/04/2022 12:01 pm CLINICAL HISTORY: abd pain COMPARISON: Abdomen Pelvis W Contrast dated 07/16/2020; Stone Protocol dated 07/10/2020; Chest Singl e View dated 05/12/2022 TECHNIQUE: Axial [address] imaging of the abdomen and pelvis was performed without IV contrast. No IV contrast was given because of allergy, abnormal renal function, patient refusal or physician re quest. No oral contrast administered. All CT scans are performed using dose optimization technique as appropriate and may include automated exposure control or mA/KV adjustment according to patient size. FINDINGS: Cardiomegaly is present. No pericardial thickening or effusion. Patient has very extensive calcified pleural plaquing in the lower chest as previously demonstrated. A small pleural fluid comp onent is present bilaterally. This is new from the 2019 comparison. Interstitial thickening is presen t. The liver, spleen and pancreas show no new or suspicious findings on non-contrast imaging. Fat infilt ration into pancreatic parenchyma is present as previously seen. Cholecystectomy clips are present. N o biliary tree dilatation. No hydronephrosis or suspicious renal mass. Approximately 20 millimeter right adrenal mass is presen t within 9 HU attenuation value. This is unchanged. Small exophytic upper pole left renal cysts have enlarged slightly since 2020. The urinary bladder is without significant finding. No gastric dilatation or gastric wall thickening. A few mildly prominent small bowel loops are presen t. Nonspecific enteritis would be possible. Left-sided diverticulosis is present. No measurable diver ticulitis at this time. Mild mucosal level inflammatory changes can still be present. No free air, ab scess or other surgically emergent finding. No suspicious inflammatory stranding. Trace fluid is pres ent in the dependent portion of the pelvis. Clips are present presumably from prior prostatectomy. Bi lateral fat filled inguinal hernias are present with no congested or edematous fat. Patient has a thi nned, lax anterior abdominal wall. Disc and bone degenerative changes are present. No pathologic bone process. Old compression fracture with fusion at L3-4 present. IMPRESSION: Diverticulosis is present, mild in degree, without acute diverticulitis seen. Mucosal le ryan inflammatory changes can be occult on CT imaging. Patient has a few minimally prominent small bowel loops. Nonspecific enteritis would be possible. Bilateral fat filled inguinal hernias are present. No bowel involvement. No congestion or edema of th e herniated fat. Minimal bilateral pleural effusions are present superimposed on previously documented extensive calci fied pleural plaquing.
[2022-09-04] MEDS ORDERED: NA CHLORIDE 0.9% 250 ML ONE (13:05)
--- NOTE | 2022-09-04 13:36 | EDPHYS ---
Physician Documentation [facility] Name: Abhijit Peralta Age: 87 yrs Sex: Male : 1935 Arrival Date: 09/04/2022 Time: 10:17 Bed 18 Private MD: Oniel Adams R ED Physician Flako Sousa HPI: 09/04 12:40 This 87 yrs old Male presents to ER via Wheelchair with complaints of abd pain.rn 12:41 The patient presents with abdominal pain in the left lower quadrant. rn 12:42 Onset: The symptoms/episode began/occurred 1 week(s) ago. The symptoms do not radiate. rn Associated signs and symptoms: Pertinent negatives: nausea and vomiting, anorexia, blood in stools, chest pain, constipation, diarrhea, dysuria, fever, headache, hematuria, nausea, palpitations, shortness of breath, testicular pain, vomiting, vomiting blood. The symptoms are described as crampy. Modifying factors: The symptoms are alleviated by nothing, the symptoms are aggravated by nothing. Severity of pain: At its worst the pain was mild in the emergency department the pain has improved. The patient has not experienced similar symptoms in the past. The patient has not recently seen a physician. 12:42 Pt reports feels fine and denies pain, states he has dementia and doesn't know rn what he is talking about. . 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 - Social history:: Smoking status: Patient denies any tobacco usage or history of. Patient/guardian denies using alcohol. - Family history:: not pertinent. - Hospitalizations: : No recent hospitalization is reported. ROS: 12:42 Constitutional: Negative for fever, chills, and weight loss, Eyes: Negative for injury, rn pain, redness, and discharge, Neck: Negative for injury, pain, and swelling, Cardiovascular: Negative for chest pain, palpitations, and edema, Respiratory: Negative for shortness of breath, cough, wheezing, and pleuritic chest pain, Abdomen/GI: + left lower abd pain Back: Negative for injury and pain, : Negative for injury, bleeding, discharge, and swelling, MS/Extremity: Negative for injury and deformity, Skin: Negative for injury, rash, and discoloration, Neuro: Negative for headache, weakness, numbness, tingling, and seizure. Exam: 12:42 Constitutional: This is a well developed, well nourished patient who is awake, alert, rn and in no acute distress. Head/Face: Normocephalic, atraumatic. Eyes: Periorbital areas with no swelling, redness, or edema. Cardiovascular: Regular rate and rhythm. No pulse deficits. Respiratory: No increased work of breathing, no retractions or nasal flaring. Abdomen/GI: soft, no focal tenderness, no distension Skin: Warm, dry MS/ Extremity: Pulses equal, no cyanosis. Neuro: Awake and alert, GCS 15 Vital Signs: 10:31 BP 157 / 74; Pulse 58; Resp 18; Temp 97.6(O); Pulse Ox 98% on R/A; Weight 72.57 kg; ld1 Height 5 ft. 5 in. (165.10 cm); Pain 5/10; 10:46 BP 181 / 74; Pulse 60; Resp 16 S; Temp 97.8(O); Pulse Ox 100% on R/A; Pain 0/10; kc6 11:44 BP 160 / 86; Pulse 64; Resp 16 S; Pulse Ox 100% ; kc6 10:31 Body Mass Index 26.62 (72.57 kg, 165.10 cm) ld1 MDM: 10:36 Patient medically screened. rn 13:34 Differential diagnosis: appendicitis, bowel obstruction, diverticulitis, gastritis, rn non-specific abd pain, pancreatitis. Data reviewed: vital signs, nurses notes, lab test result(s), radiologic studies, CT scan, and as a result, I will discharge patient. Counseling: I had a detailed discussion with the patient and/or guardian regarding: the historical points, exam findings, and any diagnostic results supporting the discharge/admit diagnosis, lab results, radiology results, the need for outpatient follow up, to return to the emergency department if symptoms worsen or persist or if there are any questions or concerns that arise at home. Response to treatment: the patient's symptoms have markedly improved after treatment, and as a result, I will discharge patient. Special discussion: I discussed with the patient/guardian in detail that at this point there is no indication for admission to the hospital. It is understood, however, that if the symptoms persist or worsen the patient needs to return immediately for re-evaluation. Based on the history and exam findings, there is no indication for further emergent testing or inpatient evaluation. I discussed with the patient/guardian the need to see the primary care provider for further evaluation of the symptoms. 09/04 10:50 Order name: CBC with Diff; Complete Time: 12:53 rn 09/04 10:50 Order name: CMP; Complete Time: 12:53 rn 09/04 10:50 Order name: Lipase; Complete Time: 12:53 rn 09/04 10:50 Order name: Flu; Complete Time: 12:53 rn 09/04 10:50 Order name: IV Saline Lock; Complete Time: 11:16 rn 09/04 10:50 Order name: Labs collected and sent; Complete Time: 11:16 rn 09/04 12:00 Order name: Abdomen ; Complete Time: 12:53 EDMS Administered Medications: 13:12 Drug: NS 0.9% 250 ml Route: IV; Rate: bolus; Site: right wrist; jd3 13:30 Follow up: IV Status: Completed infusion mb8 Disposition Summary: 09/04/22 13:35 Discharge Ordered Location: Home rn Problem: new rn Symptoms: have improved rn Condition: Stable rn Diagnosis - Influenza due to identified novel influenza A virus rn - Abdominal pain, unspecified rn Followup: rn - With: Private Physician - When: As needed - Reason: Recheck today's complaints, Re-evaluation by your physician Discharge Instructions: - Discharge Summary Sheet rn - Abdominal Pain, Adult rn - Influenza, Adult rn Forms: - Medication Reconciliation Form rn - Thank You Letter rn - 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 EDMS EDMS
--- NOTE | 2022-09-04 13:36 | ER ---
Nurse's Notes [facility] Name: Abhijit Peralta Age: 87 yrs Sex: Male : 1935 Arrival Date: 09/04/2022 Time: 10:17 Bed 18 Private MD: Oniel Adams R Diagnosis: Influenza due to identified novel influenza A virus;Abdominal pain, unspecified Presentation: 09/04 10:31 Chief complaint: Parent and/or Guardian states: Intermittent LLQ pain x 1 week. ld1 Coronavirus screen: At this time, the client does not indicate any symptoms associated with coronavirus-19. Ebola Screen: No symptoms or risks identified at this time. Initial Sepsis Screen: Does the patient meet any 2 criteria? No. Patient's initial sepsis screen is negative. Does the patient have a suspected source of infection? No. Patient's initial sepsis screen is negative. Risk Assessment: Do you want to hurt yourself or someone else? Patient reports no desire to harm self or others. Onset of symptoms was September 04, 2022. 10:31 Method Of Arrival: Wheelchair ld1 10:31 Acuity: RAVI 3 ld1 Triage Assessment: 10:32 General: Appears in no apparent distress. comfortable, Behavior is calm, cooperative, ld1 appropriate for age. Pain: Complains of pain in abdomen Pain does not radiate. Pain currently is 6 out of 10 on a pain scale. Pain: Pain Quality of pain is described as throbbing, Pain began 2-3 days ago. Is intermittent. EENT: No signs and/or symptoms were reported regarding the EENT system. Neuro: Level of Consciousness is awake, alert, obeys commands, Oriented to person, place, time, situation. Neuro: Level of Consciousness is Oriented to. Cardiovascular: Capillary refill < 3 seconds Patient's skin is warm and dry. Respiratory: Airway is patent Respiratory effort is even, unlabored. GI: Abdomen is flat, non-distended, Reports lower abdominal pain. : No signs and/or symptoms were reported regarding the genitourinary system. 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 - Social history:: Smoking status: Patient denies any tobacco usage or history of. Patient/guardian denies using alcohol. - Family history:: not pertinent. - Hospitalizations: : No recent hospitalization is reported. Screenin:16 Abuse screen: Denies threats or abuse. Nutritional screening: No deficits noted. jd3 Tuberculosis screening: No symptoms or risk factors identified. Fall Risk Ambulatory Aid- None/Bed Rest/Nurse Assist (0 pts). Gait- Normal/Bed Rest/Wheelchair (0 pts) Mental Status- Oriented to own ability (0 pts). Total Finney Fall Scale indicates No Risk (0-24 pts). Assessment: 10:44 General: Appears in no apparent distress. comfortable, Behavior is calm, cooperative, kc6 appropriate for age. Pain: Complains of pain in right lower quadrant and left lower quadrant Pain does not radiate. Pain currently is 0 out of 10 on a pain scale. Quality of pain is described as sharp, Pain began one week ago Is intermittent, Alleviated by rest, Also complains of no other associated symptoms. Neuro: Burch Agitation-Sedation Scale (RASS): 0 - Alert and Calm Level of Consciousness is awake, alert, obeys commands, Oriented to person. Cardiovascular: Heart tones S1 S2 present Capillary refill < 3 seconds. Respiratory: Airway is patent Trachea midline Respiratory effort is even, unlabored, Respiratory pattern is regular, symmetrical, Breath sounds are clear bilaterally. GI: No signs and/or symptoms were reported involving the gastrointestinal system. : No signs and/or symptoms were reported regarding the genitourinary system. EENT: No signs and/or symptoms were reported regarding the EENT system. Derm: No signs and/or symptoms reported regarding the dermatologic system. Skin is intact, Skin is pink, warm \T\ dry. Musculoskeletal: No signs and/or symptoms reported regarding the musculoskeletal system. Circulation, motion, and sensation intact. Capillary refill < 3 seconds, Range of motion: intact in all extremities. 11:43 Reassessment: Patient appears in no apparent distress at this time. No changes from kc6 previously documented assessment. Patient and/or family updated on plan of care and expected duration. Pain level reassessed. patient is awake, alert and oriented x1. at baseline per family. skin is warm, dry, and pink. Vital Signs: 10:31 BP 157 / 74; Pulse 58; Resp 18; Temp 97.6(O); Pulse Ox 98% on R/A; Weight 72.57 kg; ld1 Height 5 ft. 5 in. (165.10 cm); Pain 5/10; 10:46 BP 181 / 74; Pulse 60; Resp 16 S; Temp 97.8(O); Pulse Ox 100% on R/A; Pain 0/10; kc6 11:44 BP 160 / 86; Pulse 64; Resp 16 S; Pulse Ox 100% ; kc6 10:31 Body Mass Index 26.62 (72.57 kg, 165.10 cm) ld1 ED Course: 10:17 Patient arrived in ED. mr 10:17 Oniel Adams MD is Private Physician. mr 10:32 Triage completed. ld1 10:32 Arm band placed on right wrist. ld1 10:35 Lisandra Segovia, KIMBERLEY is Primary Nurse. kc6 10:36 Flako Sousa MD is Attending Physician. rn 11:12 Flu Sent. kc6 11:16 Inserted saline lock: 22 gauge in right wrist, using aseptic technique. Blood jd3 collected. Missed attempt(s): 22 gauge in right forearm. Bleeding controlled, band aid applied, catheter tip intact. 11:17 Patient has correct armband on for positive identification. Bed in low position. Call jd3 light in reach. Side rails up X2. Adult w/ patient. Pulse ox on. NIBP on. 12:03 Abdomen In Process Unspecified. EDMS 13:40 IV discontinued, intact, bleeding controlled, No redness/swelling at site. Pressure mb8 dressing applied. 13:44 No provider procedures requiring assistance completed. mb8 Administered Medications: 13:12 Drug: NS 0.9% 250 ml Route: IV; Rate: bolus; Site: right wrist; jd3 13:30 Follow up: IV Status: Completed infusion mb8 Medication: 11:16 VIS not applicable for this client. jd3 Outcome: 13:35 Discharge ordered by . rn 13:44 Discharged to home ambulatory, with family. mb8 13:44 Condition: stable 13:44 Discharge instructions given to patient, family, Instructed on discharge instructions, follow up and referral plans. medication usage, Demonstrated understanding of instructions, follow-up care, medications, Prescriptions given X 1. 13:46 Patient left the ED. mb8 Signatures: Dispatcher [employer] [facility] lCare LunaFlako MD MD rn Davies, Jonathon, RN RN Nesha Campuzano RN RN [email or web address] Lisandra Segovia RN RN [id number] Norman Duncan RN RN mb8 Corrections: (The following items were deleted from the chart) 11:04 10:44 Neuro: Burch Agitation-Sedation Scale (RASS): 0 - Alert and Calm Level of kc6 Consciousness is awake, alert, obeys commands, Oriented to person, place, time, situation, Appropriate for age kc6
[2022-09-04 13:59] VITALS: TEMP 97.8; O2SAT 100
[2022-09-04 14:00] VITALS: BP 160/86
== END 2022-09-04 13:46 | disposition home or self-care (01) ==
LOC: ER 10:13
DX: J10.1 Influenza due to other identified influenza virus with other respiratory manifestations (principal); G30.9 Alzheimer's disease, unspecified; F02.80 Dementia in other diseases classified elsewhere, unspecified severity, without behavioral disturbance, psychotic disturbance, mood disturbance, and anxiety; I10 Essential (primary) hypertension; E11.9 Type 2 diabetes mellitus without complications; Z88.7 Allergy status to serum and vaccine
CPT/HCPCS: 96365; 85025; 36415; 83690; 80053; 87804 ×2; 74176; 99284; J7050

== ENCOUNTER 2022-09-28 07:39 | Emergency (ER) | payer OTHER ==
--- OUTSIDE RECORDS SUMMARY | 2022-09-28 07:42 | XMS REPORT | Continuity of Care Document ---
:1935 Author Organization [facility] t Address [address] [place] [place] [address] Care Team Providers Name Role Phone Asked, No Pcp Primary Care Physician Unavailable Sophie Loredo Attending Clinician Unavailable GC_[facility]_Seiter_S Attending Clinician Unavailable Radiology Attending Clinician Unavailable RADIOLOGY Attending Clinician Unavailable Doctor Unassigned, [place] Attending Clinician Unavailable GC_BA[facility]_Seiter_S Admitting Clinician Unavailable SHRAVAN LINTON Admitting Clinician Unavailable Payers Payer Name Policy Type Policy Number Effective Date Expiration Date S lisseth [employer] (MEDICARE [id number] REPLACEMENT/ADVANTAGE - PPO) Problems Condition Condition Condition Status Onset Resolution Last Treating Co mments Source Name Details Category Date Date Treatment Clinician Date Type 2 Type 2 Disease Active Univers diabetes diabetes 04-16 ity of mellitus mellitus 00:00: [place] without without 00 Medical complicati complicati Br anch on on Atypical Atypical Disease Active Unive rs chest pain chest pain 6-19 it y of 00:00: [address] Pleural Pleural Disease Active Univers calcificat calcificat 04-16 it y of ion ion 00:00: [address] Diabetes Diabetes Disease Active Unive rs 6-18 ity of 00:00: [address] [id number] Type 2 Problem Common diabetes [facility] mellitus - [facility] Center long-term current use of insulin [id number] Pure Problem Common hyperchole [facility] sterolemia - [facility] [id number] Primary Problem Common hypertensi Spirit on - [facility] Allergies, Adverse Reactions, Alerts Allergy Allergy Status [...] Stop Date Source Natural brother Kidney disease [facility] Natural mother Liver cancer [facility] Social History Social Habit Start Date Stop Date Quantity Comments Source History of Tobacco [facility] Use [facility] Tobacco use and 2018-05-28 2018-05-28 Never used [facility] [place] exposure 00:00:00 00:00:00 [facility] Branch Sex Assigned At [birth year] [facility] 00:00:00 00:00:00 Smoking Status Start Date Stop Date Source Tobacco smoking consumption [facility] unknown Never Smoker [facility] Medications Ordered Filled Start Stop Current Ordering [...] hours as needed for Pain (scale 7-10). lisinopril 2016-0 Yes 10mg QD Take 10 mg M ethodi (PRINIVIL,Z 7-[address] ESTRIL) 10 21:38: daily. Hospi ta MG tablet 39 l pantoprazol 2016-0 Yes 40mg QD Take 40 mg Methodi e 7-[address] (PROTONIX) 21:38: daily. Hospi ta 40 MG EC 39 l tablet glimepiride 2016-0 Yes 2mg Q.5D Take 2 mg M ethodi (AMARYL) 2 7-[address] MG tablet 21:38: (two) Hospita 39 times a l day. glimepiride 2016-0 Yes 2mg Q.5D Take 2 mg M ethodi (AMARYL) 2 7-[address] MG tablet 21:38: (two) Hospita 39 times a l day. lisinopril 2016-0 Yes 10mg QD Take 10 mg M ethodi (PRINIVIL,Z 7-[address] ESTRIL) 10 21:38: daily. Hospi ta MG tablet 39 l pantoprazol 2016-0 Yes 40mg QD Take 40 mg Methodi [...] times Medical daily as Branch needed. lisinopril 2015- Yes 5mg Take 5 mg Un heidi [...] 00:00: mouth [place] 00 daily. Medical Branch Pravastatin Pravastatin No 1{table QD Pravastati Sodium 20 Sodium 20 t} n Sodium MG MG 20 MG amLODIPine amLODIPine No 1{table QD amLODIPine Besylate Besylate t} Besylate 2.5 MG 2.5 MG 2.5 MG Glimepiride Glimepiride No 1{table TID Glimepirid 2 MG 2 MG t_with_ e [address]_or_t he_firs t_main_ meal_of _the_da y} Immunizations Ordered Immunization Filled Immunization Date Status Commen ts Source Name Name FLUZONE HIGH DOSE FLUZONE HIGH DOSE 2022-08-24 Completed [facility] OVER 65 OVER 65 12:21:00 [facility] Vital Signs Vital Name Observation Time Observation Value Comments Source height 2022-08-24 11:00:00 67 [in_i] [facility] weight 2022-08-24 11:00:00 160.8 [lb_av] [facility] temperature 2022-08-24 11:00:00 97.6 [degF] [facility] bmi 2022-08-24 11:00:00 25.18 kg/m2 [facility] oximetry 2022-08-24 11:00:00 96 % [facility] respiratory rate 2022-08-24 11:00:00 17 /min Comm on [facility] blood pressure 2022-08-24 11:00:00 118 mm[Hg] [facility] systolic [facility] blood pressure 2022-08-24 11:00:00 62 mm[Hg] [facility] diastolic [facility] Procedures Procedure Date / Time Performed Performing Clinician [facility] e MR BRAIN WO CONTRAST 2021-11-25 15:15:00 Requisition, Paper [facility] ASSIGNMENT OF BENEFITS 2021-11-25 14:16:45 Doctor Unassigned, No [facility] Encounters Start End Encounter Admission Attending Care Care Encounter Source Date/Time Date/Time Type Type Clinicians Facility Department ID 2022-08-24 Outpatient [place], STLMLC [facility] [id number] Common 10:51:05 Sophie [id number] [facility] 2022-08-24 2022-08-24 OFFICE [facility] [id number] Co mmon 00:00:00 00:00:00 VISIT NEW Spir it PT LEVEL 3 [facility] 2022-02-22 2022-02-22 Outpatient [facility]Sei PRIV PRIV [id number] [facility] 05:49:00 05:49:00 ter_S [id number] Medica l 2022-02-21 2022-02-21 Outpatient GC_[facility]_Sei PRIV PRIV [id number] [facility] 11:40:00 11:40:00 ter_S [id number] Medica l 2021-11-25 2021-11-25 Hospital Radiology [facility] [id number] Univers 08:16:53 23:59:00 Encounter ESTELLA [id number] ity of [place] [id number] [id number] [facility] timbo 804 Branch 2021-11-25 2021-11-25 Outpatient R RADIOLOGY [facility] [id number] Univers 08:16:53 23:59:00 ity of [facility] 2021-11-25 2021-11-25 Orders Doctor KALIE [id number] Univers 00:00:00 00:00:00 Only Unassigned, SEJAL [id number] ity of [place] [facility] [id number] Noel [id number] [facility] 009 Branch Results This patient has no known results.
[2022-09-28] MEDS ORDERED: ONDANSETRON 4 MG/2 ML VIAL ONE (08:04)
[2022-09-28] MEDS ORDERED: MORPHINE 2 MG/ML SYR ONE (08:04)
[2022-09-28] MEDS ORDERED: NA CHLORIDE 0.9% 1,000 ML ONE (08:05)
[2022-09-28 10:35] LABS: Protime INR 1.31
[2022-09-28 10:36] LABS: Absolute Lymphocytes (CBC) 1.7 K/uL (0.7-4.9); Hematocrit 40.5 % (39.6-49.0); Lymphocytes % 21.8 % (15.3-44.8); MCV 85.3 fL (80-100); MPV 7.9 fL (7.6-11.3); RBC Red Blood Cell Count 4.74 M/uL (4.33-5.43)
[2022-09-28 10:53] LABS: Albumin 2.5 g/dL (3.4-5.0); Bilirubin Direct 0.3 mg/dL (0-0.2); Bilirubin Total 0.6 mg/dL (0.2-1.0); Potassium 4.1 mmol/L (3.5-5.1); Protein, Total 7.1 g/dL (6.4-8.2); Troponin High Sensitivity 32.8 pg/mL (<58.9)
--- NOTE | 2022-09-28 11:43 | RAD REPORT ---
EXAM DESCRIPTION: CT - Abdomen Pelvis Wo Contrast - 09/28/2022 11:19 am CLINICAL HISTORY: Abdominal pain COMPARISON: September 04, 2022 TECHNIQUE: Computed axial tomography of the abdomen and pelvis was obtained. IV was not requested. O ral contrast was given. Coronal reconstructions performed. All CT scans are performed using dose optimization technique as appropriate and may include automated exposure control or mA/KV adjustment according to patient size. FINDINGS: The evaluation of solid organs and vessels is limited secondary to the lack of contrast a dministration. Bilateral calcified pleural plaques Small hepatic cysts. Small left renal cysts Right adrenal adenoma unchanged Spleen, pancreas left adrenal and right kidney grossly normal. Normal appendix. Diverticula stem from the colon without evidence of diverticulitis. . Chronic fusion L3 and L4 vertebral bodies Small left and a small to moderate right inguinal hernias contain fat Prostatectomy with lymph node dissection IMPRESSION: No acute abnormality is displayed.
--- NOTE | 2022-09-28 11:43 | RAD REPORT ---
EXAM DESCRIPTION: Daisy Single View09/28/2022 8:37 am CLINICAL HISTORY: Abdominal pain COMPARISON: April 2022 FINDINGS: Bilateral calcified pleural plaques and mild bilateral interstitial lung opacities unchan ged. Lungs appear clear of acute infiltrate. Heart is mildly to moderately enlarged. IMPRESSION: No acute abnormalities displayed
--- NOTE | 2022-09-28 11:52 | ER ---
Nurse's Notes [facility] Name: Abhijit Peralta Age: 87 yrs Sex: Male : 1935 Arrival Date: 09/28/2022 Time: 07:41 Bed 13 Private MD: Oniel Adams R Diagnosis: Abdominal pain, Generalized;Unspecified kidney failure-chronic;Type 2 diabetes mellitus with hyperglycemia Presentation: 09/28 07:52 Chief complaint: Spouse and/or significant other states: He's been sick for 3 days with ll1 abd pain. No fever or N/V/D. Coronavirus screen: Vaccine status: Patient reports receiving the 2nd dose of the covid vaccine. Client denies travel out of the [place] in the last 14 days. fatigue. Ebola Screen: Patient denies travel to an Ebola-affected area in the 21 days before illness onset. Initial Sepsis Screen: Does the patient meet any 2 criteria? No. Patient's initial sepsis screen is negative. Does the patient have a suspected source of infection? Yes: Acute abdominal pain. Risk Assessment: Do you want to hurt yourself or someone else? Patient reports no desire to harm self or others. Onset of symptoms was September 26, 2022. 07:52 Method Of Arrival: Wheelchair ll1 07:52 Acuity: RAVI 3 ll1 Triage Assessment: 07:54 General: Appears in no apparent distress. Behavior is calm, cooperative, appropriate ll1 for age. Pain: Denies pain. GI: Abdomen is flat, Parent/caregiver reports the patient having cramping. Historical: - Allergies: 07:46 Tetanus Vaccines \T\ Toxoid; ll1 - PMHx: 07:46 Alzheimer's disease; Dementia; Diabetes - NIDDM; gastric ulcers; Hypertension; ll1 LYMPHOMA; Prostate Cancer; Stomach CA - in remission; - Immunization history:: Client reports receiving the 2nd dose of the Covid vaccine. - Family history:: not pertinent. - Social history:: Smoking status: Smoking status: Patient denies any tobacco usage or history of. Screenin:54 Abuse screen: Denies threats or abuse. Nutritional screening: No deficits noted. ll1 Tuberculosis screening: No symptoms or risk factors identified. Fall Risk IV access (20 points). Gait- Weak (10 pts.). Mental Status- Overestimates/Forgets Limitations (15 pts.). Total Finney Fall Scale indicates High Risk Score (45 or more points). Fall prevention measures have been instituted. Side Rails Up X 2 Placed Close to Nursing Station Frequent Obs/Assessments Occuring Family Present and informed to notify staff if the need to leave the bedside As available patient and family educated on Fall Prevention Program and Strategies. Assessment: 08:16 Reassessment: No changes from previously documented assessment. Patient and/or family ll1 updated on plan of care and expected duration. Pain level reassessed. 09:15 Reassessment: No changes from previously documented assessment. Patient and/or family ll1 updated on plan of care and expected duration. Pain level reassessed. 10:15 Reassessment: No changes from previously documented assessment. Patient and/or family ll1 updated on plan of care and expected duration. Pain level reassessed. 11:13 Reassessment: in CT. ll1 12:15 Reassessment: No changes from previously documented assessment. Patient and/or family ll1 updated on plan of care and expected duration. Pain level reassessed. Patient is alert, oriented x 3, equal unlabored respirations, skin warm/dry/pink. 12:15 GI: Bowel sounds present X 4 quads. Abd is soft and non tender X 4 quads. ll1 Vital Signs: 07:52 BP 146 / 79; Pulse 55; Resp 16; Temp 97.5; Pulse Ox 99% ; Weight 74.84 kg; Height 5 ft. ll1 5 in. (165.10 cm); Pain 0/10; 12:10 BP 141 / 81; Pulse 60; Resp 15; Pulse Ox 99% ; ll1 07:52 Body Mass Index 27.46 (74.84 kg, 165.10 cm) ll1 ED Course: 07:41 Patient arrived in ED. am2 07:41 Oniel Adams MD is Private Physician. am2 07:42 Juan Coronel MD is Attending Physician. dom 07:46 Ruslan Lopez, KIMBERLEY is Primary Nurse. ll1 07:46 Arm band placed on Patient placed in an exam room, on a stretcher. ll1 07:54 Triage completed. ll1 07:54 Patient has correct armband on for positive identification. Bed in low position. Call ll1 light in reach. Side rails up X2. Client placed on continuous cardiac and pulse oximetry monitoring. NIBP monitoring applied. monitoring engineer on. 08:04 Inserted saline lock: 22 gauge in right antecubital area, using aseptic technique. ap3 Blood collected. 08:39 XRAY Chest (1 view) In Process Unspecified. EDMS 11:00 Accessed L EJ by Dr. Coronel using 18G Nexia IV Catheter ,sterile technique, per [facility] protocol. Clean \T\ dry. Dressing intact. Good blood return. 11:19 Abdomen In Process Unspecified. EDMS 12:11 IV discontinued, intact, bleeding controlled, No redness/swelling at site. Pressure ll1 dressing applied, x 2. 12:15 No provider procedures requiring assistance completed. ll1 Administered Medications: 08:10 Drug: NS 0.9% 500 ml Route: IV; Rate: bolus; Site: right forearm; ll1 08:47 Follow up: Response: No adverse reaction; IV Status: Completed infusion; IV Intake: ll1 500ml 08:11 Drug: Zofran (Ondansetron) 4 mg Route: IVP; Site: right forearm; ll1 08:48 Follow up: Response: No adverse reaction ll1 08:13 Drug: morphine 2 mg Route: IVP; Infused Over: 4 mins; Site: right forearm; ll1 08:47 Follow up: Response: No adverse reaction; Pain is decreased; RASS: Alert and Calm (0) ll1 08:48 Drug: NS 0.9% 1000 ml Route: IV; Rate: 125 ml/hr; Site: right forearm; ll1 12:16 Follow up: Response: No adverse reaction; IV Status: Order to discontinue infusion; IV ll1 Intake: 300ml Medication: 07:55 VIS not applicable for this client. ll1 Intake: 08:47 IV: 500ml; Total: 500ml. ll1 12:16 IV: 300ml; Total: 800ml. ll1 Outcome: 11:52 Discharge ordered by MD. fernandes 12:16 Discharged to home ambulatory. ll1 12:16 Condition: stable 12:16 Discharge instructions given to patient, family, Instructed on discharge instructions, follow up and referral plans. medication usage, Demonstrated understanding of instructions, follow-up care, medications, Prescriptions given X 3. 12:16 Patient left the ED. 1 Signatures: Dispatcher [employer] EDVT Juan Coronel MD MD cha Moreno, Amanda am2 Sarah Copeland RN RN ap3 Ruslan Lopez RN RN ll1 Corrections: (The following items were deleted from the chart) 10:28 10:27 Reassessment: No changes from previously documented assessment. Patient and/or ll1 family updated on plan of care and expected duration. Pain level reassessed. ll1 12:11 12:11 IV discontinued, intact, bleeding controlled, No redness/swelling at site. ll1 Pressure dressing applied, ll1
--- NOTE | 2022-09-28 11:53 | EDPHYS ---
Physician Documentation [facility] Name: Abhijit Peralta Age: 87 yrs Sex: Male : 1935 Arrival Date: 09/28/2022 Time: 07:41 Bed 13 Private MD: Oniel Adams R ED Physician Juan Coronel HPI: 09/28 08:40 This 87 yrs old Male presents to ER via Wheelchair with complaints of dom Abdominal Pain. 08:40 The patient presents with abdominal pain in the upper abdomen, in the lower abdomen. dom Onset: The symptoms/episode began/occurred this morning. The symptoms do not radiate. Associated signs and symptoms: none. The symptoms are described as constant, crampy. Modifying factors: The symptoms are alleviated by nothing, the symptoms are aggravated by nothing. Severity of pain: At its worst the pain was mild moderate in the emergency department the pain has improved moderately. The patient has experienced similar episodes in the past, several times. Historical: - Allergies: 07:46 Tetanus Vaccines \T\ Toxoid; ll1 - PMHx: 07:46 Alzheimer's disease; Dementia; Diabetes - NIDDM; gastric ulcers; Hypertension; ll1 LYMPHOMA; Prostate Cancer; Stomach CA - in remission; - Immunization history:: Client reports receiving the 2nd dose of the Covid vaccine. - Family history:: not pertinent. - Social history:: Smoking status: Smoking status: Patient denies any tobacco usage or history of. ROS: 08:40 Constitutional: Negative for fever, chills, and weight loss, Eyes: Negative for injury, dom pain, redness, and discharge, ENT: Negative for injury, pain, and discharge, Neck: Negative for injury, pain, and swelling, Cardiovascular: Negative for chest pain, palpitations, and edema, Respiratory: Negative for shortness of breath, cough, wheezing, and pleuritic chest pain, Back: Negative for injury and pain, : Negative for injury, bleeding, discharge, and swelling, MS/Extremity: Negative for injury and deformity, Skin: Negative for injury, rash, and discoloration, Neuro: Negative for headache, weakness, numbness, tingling, and seizure, Psych: Negative for depression, anxiety, suicide ideation, homicidal ideation, and hallucinations, Allergy/Immunology: Negative for hives, rash, and allergies, Endocrine: Negative for neck swelling, polydipsia, polyuria, polyphagia, and marked weight changes, Hematologic/Lymphatic: Negative for swollen nodes, abnormal bleeding, and unusual bruising. 08:40 Respiratory: Positive for cough. Exam: 08:40 Constitutional: This is a well developed, well nourished patient who is awake, alert, dom and in no acute distress. Head/Face: Normocephalic, atraumatic. Eyes: Pupils equal round and reactive to light, extra-ocular motions intact. Lids and lashes normal. Conjunctiva and sclera are non-icteric and not injected. Cornea within normal limits. Periorbital areas with no swelling, redness, or edema. ENT: Nares patent. No nasal discharge, no septal abnormalities noted. Tympanic membranes are normal and external auditory canals are clear. Oropharynx with no redness, swelling, or masses, exudates, or evidence of obstruction, uvula midline. Mucous membranes moist. Neck: Trachea midline, no thyromegaly or masses palpated, and no cervical lymphadenopathy. Supple, full range of motion without nuchal rigidity, or vertebral point tenderness. No Meningismus. Chest/axilla: Normal chest wall appearance and motion. Nontender with no deformity. No lesions are appreciated. Cardiovascular: Regular rate and rhythm with a normal S1 and S2. No gallops, murmurs, or rubs. Normal PMI, no JVD. No pulse deficits. Respiratory: Lungs have equal breath sounds bilaterally, clear to auscultation and percussion. No rales, rhonchi or wheezes noted. No increased work of breathing, no retractions or nasal flaring. Back: No spinal tenderness. No costovertebral tenderness. Full range of motion. Male : Normal genitalia with no discharge or lesions. Skin: Warm, dry with normal turgor. Normal color with no rashes, no lesions, and no evidence of cellulitis. MS/ Extremity: Pulses equal, no cyanosis. Neurovascular intact. Full, normal range of motion. Neuro: Awake and alert, GCS 15, oriented to person, place, time, and situation. Cranial nerves II-XII grossly intact. Motor strength 5/5 in all extremities. Sensory grossly intact. Cerebellar exam normal. Normal gait. Psych: Awake, alert, with orientation to person, place and time. Behavior, mood, and affect are within normal limits. 08:40 ECG was reviewed by the Attending Physician. 08:40 Abdomen/GI: Inspection: abdomen appears normal, Bowel sounds: active, all quadrants, Liver: no appreciated palpable abnormalities, Hernia: not appreciated. Vital Signs: 07:52 BP 146 / 79; Pulse 55; Resp 16; Temp 97.5; Pulse Ox 99% ; Weight 74.84 kg; Height 5 ft. ll1 5 in. (165.10 cm); Pain 0/10; 12:10 BP 141 / 81; Pulse 60; Resp 15; Pulse Ox 99% ; ll1 07:52 Body Mass Index 27.46 (74.84 kg, 165.10 cm) ll1 Procedures: 10:20 Peripheral line: by aseptic technique a peripheral line was placed in the left external dom jugular vein. MDM: 07:42 Patient medically screened. dom 08:44 Differential diagnosis: bowel obstruction, Cholelithiasis, diverticulitis, gastritis, dom non-specific abd pain, pancreatitis, Peptic Ulcer Disease, Ureterolithiasis, urinary tract infection. Data reviewed: vital signs, nurses notes, lab test result(s), EKG, radiologic studies, CT scan, plain films. Data interpreted: night monitor: rate is 55 beats/min, rhythm is regular, Pulse oximetry: is not applicable for this patient encounter. Test interpretation: by ED physician or midlevel provider: ECG, plain radiologic studies. Counseling: I had a detailed discussion with the patient and/or guardian regarding: the historical points, exam findings, and any diagnostic results supporting the discharge/admit diagnosis, lab results, radiology results. 09/28 07:46 Order name: Basic Metabolic Panel; Complete Time: 11:28 [facility] 09/28 07:46 Order name: CBC with Diff; Complete Time: 10:51 [facility] 09/28 07:46 Order name: LFT's; Complete Time: 11:28 [facility] 09/28 07:46 Order name: Magnesium; Complete Time: 11:28 [facility] 09/28 07:46 Order name: NT PRO-BNP; Complete Time: 11:28 [facility] 09/28 07:46 Order name: PT-INR; Complete Time: 10:51 [facility] 09/28 07:46 Order name: Troponin HS; Complete Time: 11:28 [facility] 09/28 07:46 Order name: XRAY Chest (1 view) dom 09/28 07:46 Order name: Lipase; Complete Time: 11:28 [facility] 09/28 07:55 Order name: CT Abd/Pelvis - PO and IV Contrast [facility] 09/28 11:10 Order name: Abdomen EDMS 09/28 07:46 Order name: EKG; Complete Time: 07:47 [facility] 09/28 07:46 Order name: Cardiac monitoring; Complete Time: 08:16 [facility] 09/28 07:46 Order name: EKG - Nurse/Tech; Complete Time: 08:16 [facility] 09/28 07:46 Order name: IV Saline Lock; Complete Time: 08:05 [facility] 09/28 07:46 Order name: Labs collected and sent; Complete Time: 10:49 [facility] 09/28 07:46 Order name: O2 Per Protocol; Complete Time: 07:55 [facility] 09/28 07:46 Order name: O2 Sat Monitoring; Complete Time: 07:55 [facility] EC:40 Rate is 60 beats/min. Rhythm is irregularly irregular. QRS [place] is Normal. [place] interval dom is normal. QRS interval is normal. QT interval is normal. No Q waves. T waves are Normal. No ST changes noted. Clinical impression: Atrial Fibrillation and No evidence of ischemia. Interpreted by me. Reviewed by me. Administered Medications: 08:10 Drug: NS 0.9% 500 ml Route: IV; Rate: bolus; Site: right forearm; ll1 08:47 Follow up: Response: No adverse reaction; IV Status: Completed infusion; IV Intake: ll1 500ml 08:11 Drug: Zofran (Ondansetron) 4 mg Route: IVP; Site: right forearm; ll1 08:48 Follow up: Response: No adverse reaction ll1 08:13 Drug: morphine 2 mg Route: IVP; Infused Over: 4 mins; Site: right forearm; ll1 08:47 Follow up: Response: No adverse reaction; Pain is decreased; RASS: Alert and Calm (0) ll1 08:48 Drug: NS 0.9% 1000 ml Route: IV; Rate: 125 ml/hr; Site: right forearm; ll1 12:16 Follow up: Response: No adverse reaction; IV Status: Order to discontinue infusion; IV ll1 Intake: 300ml Disposition Summary: 09/28/22 11:52 Discharge Ordered Location: Home dom Problem: new dom Symptoms: have improved dom Condition: Stable dom Diagnosis - Abdominal pain, Generalized dom - Unspecified kidney failure - chronic dom - Type 2 diabetes mellitus with hyperglycemia [facility] Followup: [facility] - With: Private Physician - When: 2 - 3 days - Reason: Recheck today's complaints, Continuance of care, Re-evaluation by your physician Discharge Instructions: - Discharge Summary Sheet dom - Abdominal Pain, Adult dom - Abdominal Pain, Adult, [id number] [facility] - Diabetes Mellitus and Nutrition, Adult [facility] Forms: - Medication Reconciliation Form [facility] - Thank You Letter dom - Antibiotic Education [facility] - Prescription Opioid Use [facility] Prescriptions: - Pepcid 20 mg Oral Tablet - take 1 tablet by ORAL route every 12 hours for 21 days; 42 tablet; Refills: 0, [facility] Product Selection Permitted - Zofran 4 mg Oral Tablet - take 1 tablet by ORAL route every 12 hours As needed; 20 tablet; Refills: 0, dom Product Selection Permitted - dicyclomine 20 mg Oral Tablet - take 1 tablet by ORAL route 4 times per day; 28 tablet; Refills: 0, Product [facility] Selection Permitted Signatures: Dispatcher [employer] EDJuan Lester MD MD cha Lewis, Lynsay, RN RN ll1 Corrections: (The following items were deleted from the chart) 11:10 07:50 Abdomen Pelvis W Con+CT.RAD.BRZ ordered. EDNY EDNY 12:16 07:46 Urine Dipstick-Ancillary ordered. dom 1
[2022-09-28 12:21] VITALS: TEMP 97.5; O2SAT 99
[2022-09-28 12:23] VITALS: BP 141/81
--- NOTE | 2022-09-29 07:54 | EKG ---
Test Date: 2022-09-28 Test Time: 08:10:30 Review Assistant: ELSA MEASUREMENT RESULTS: Intervals: Rate: 60 [place]: QRSD: 110 QT: 472 QTc: 472 [place]: P: [place]: QRS: -22 T: 29 INTERPRETIVE STATEMENTS: Atrial fibrillation Septal infarct, age undetermined Abnormal ECG Compared to ECG 05/11/2022 20:59:04 Sinus bradycardia no longer present Left-axis deviation no longer present Left ventricular hypertrophy no longer present Myocardial infarct finding still present Electronically Signed On 09-29-22 07:49:19 [employer] TECHNICIAN by Krystian Davis
== END 2022-09-28 12:16 | disposition home or self-care (01) ==
LOC: ER 07:39
DX: R10.84 Generalized abdominal pain (principal); E11.22 Type 2 diabetes mellitus with diabetic chronic kidney disease; I12.9 Hypertensive chronic kidney disease with stage 1 through stage 4 chronic kidney disease, or unspecified chronic kidney disease; N18.9 Chronic kidney disease, unspecified; G30.9 Alzheimer's disease, unspecified; F02.80 Dementia in other diseases classified elsewhere, unspecified severity, without behavioral disturbance, psychotic disturbance, mood disturbance, and anxiety; Z88.7 Allergy status to serum and vaccine
CPT/HCPCS: 96361; 93005; 85025; 80048; 36415; 83735; 85610; 80076; 84484; 83690; 83880; 74176; 71045; 96375; 96374; 99285; J2270; J7040; J2405

== ENCOUNTER 2022-10-16 09:08 | Emergency (ER) | payer OTHER ==
--- OUTSIDE RECORDS SUMMARY | 2022-10-16 09:11 | XMS REPORT | Continuity of Care Document ---
:1935 Author Organization [facility] t Address [address] [place] [address] Care Team Providers Name Role Phone Asked, No Pcp Primary Care Physician Unavailable Sophie Loredo Attending Clinician Unavailable [email or web address] Attending Clinician Unavailable [email or web address] Admitting Clinician Unavailable Payers Payer Name Policy Type Policy Number Effective Date Expiration Date Jorgito FLORES (MEDICARE [id number] REPLACEMENT/ADVANTAGE - PPO) Problems Condition Condition Condition Status Onset Resolution Last Treating Co mments Source Name Details Category Date Date Treatment Clinician Date [id number] Type 2 Problem Common diabetes Spirit mellitus - [facility] with [facility] long-term current use of insulin [id number] Pure Problem Common hyperchole Spirit sterolemia - [place] [id number] Primary Problem Common hypertensi Spirit on - [place] Allergies, Adverse Reactions, Alerts Allergy Allergy Status Severity Reaction(s) Onset Inactive Treating Comm ents Source Name Type Date Date Clinician Morphine Propensi Active Anxiety Metho di ty to 05-08 st adverse 00:00: Hospita reaction 00 l s to drug Tetanus Propensi Active Other (See Restlessn Methodi And ty to Comments) 05-08 st Diphther adverse 00:00: Hospita ia reaction 00 l Toxoids s to drug Family History Family Member Diagnosis Comments Start Date Stop Date Source Natural brother [facility] Natural mother Liver cancer [facility] Social History Social Habit Start Date Stop Date Quantity Comments Source History of Tobacco [facility] Sex Assigned At [birth year] [facility] 00:00:00 00:00:00 Smoking Status Start Date Stop Date Source Tobacco smoking consumption [facility] unknown Never Smoker [facility] - [facility] Medications Ordered Filled Start Stop Current Ordering Indication Dosage Frequency Signature Comments Components Source Medication Medication Date Date Medication? Clinician (SIG) Name Name lisinopril 2016-0 Yes 10mg QD Take 10 [...] ta 40 MG EC 39 l tablet Pravastatin Pravastatin No 1{table QD Pravastati Sodium [...] HIGH DOSE FLUZONE HIGH DOSE 2022-08-24 Completed [facility] OVER 65 OVER 65 12:21:00 [facility] Vital Signs Vital Name Observation Time Observation Value Comments Source height 2022-08-24 11:00:00 67 [in_i] [facility] weight 2022-08-24 11:00:00 160.8 [lb_av] [facility] temperature 2022-08-24 11:00:00 97.6 [degF] [facility] bmi 2022-08-24 11:00:00 25.18 kg/m2 [facility] oximetry 2022-08-24 11:00:00 96 % [facility] respiratory rate 2022-08-24 11:00:00 17 /min Comm on [facility] blood pressure 2022-08-24 11:00:00 118 mm[Hg] [facility] - systolic [place] blood pressure 2022-08-24 11:00:00 62 mm[Hg] [facility] diastolic [place] Procedures This patient has no known procedures. Encounters Start End Encounter Admission Attending Care Care Encounter Source Date/Time Date/Time Type Type Clinicians Facility Department ID 2022-08-24 Outpatient JOSH Loredo [facility] [id number] Common 10:51:05 Sophie [id number] [facility] 2022-08-24 2022-08-24 [facility] [id number] Co mmon 00:00:00 00:00:00 VISIT NEW Spir it PT LEVEL 3 - [facility] 2022-02-22 2022-02-22 Outpatient [facility]_i PRIV PRIV [id number] [facility] 05:49:00 05:49:00 ter_S [id number] Medica l 2022-02-21 2022-02-21 Outpatient _[facility] PRIV PRIV [id number] [facility] 11:40:00 11:40:00 ter_S [id number] Medica l Results This patient has no known results.
--- NOTE | 2022-10-16 09:57 | RAD REPORT ---
EXAM DESCRIPTION: RAD - Chest Pa And Lat (2 Views) - 10/16/2022 9:38 am CLINICAL HISTORY: ABDOMINAL DISTENTION COMPARISON: Portable chest 09/28/2022, lateral chest 02/20/2022 TECHNIQUE: Frontal and lateral views of the chest were obtained. FINDINGS: The lungs are fibrotic as a baseline. Patient has very extensive calcified pleural plaquin g changes including the diaphragm which is flattened. Density of the calcified plaquing limits lung p arenchymal detail. However, no identifiable mass or infiltrate seen. Failure and volume overload are not suspected. Heart size is normal and central vasculature is within normal limits. No pleural ef fusion or pneumothorax seen. No acute bony finding noted. No aortic abnormality. No free air under the diaphragm. IMPRESSION: No acute cardiopulmonary process. Above detailed chest findings not clearly different from recent comparison.
--- NOTE | 2022-10-16 11:24 | ER ---
Nurse's Notes [facility] Name: Abhijit Peralta Age: 87 yrs Sex: Male : 1935 Arrival Date: 10/16/2022 Time: 09:10 Bed 5 Private MD: Diagnosis: Abdominal pain, Generalized Presentation: 10/16 09:17 Chief complaint: Spouse and/or significant other states: "belly pain long time, been jh5 here two times already and he's no better". Coronavirus screen: Vaccine status: Patient reports receiving the 2nd dose of the covid vaccine. Ebola Screen: Patient negative for fever greater than or equal to 101.5 degrees Fahrenheit, and additional compatible Ebola Virus Disease symptoms Patient denies exposure to infectious person. Patient denies travel to an Ebola-affected area in the 21 days before illness onset. Initial Sepsis Screen: Does the patient meet any 2 criteria? No. Patient's initial sepsis screen is negative. Does the patient have a suspected source of infection? No. Patient's initial sepsis screen is negative. Risk Assessment: Do you want to hurt yourself or someone else? Patient reports no desire to harm self or others. 09:17 Method Of Arrival: Ambulatory [facility] 09:17 Acuity: RAVI 4 jh5 Triage Assessment: 09:18 General: Appears in no apparent distress. comfortable, Behavior is calm, cooperative, jh5 appropriate for age. Pain: Complains of pain in abdomen. GI: When the writer technical publications asks the patient about his symptoms he doesn't answer. His answers with "same thing as last time" and when the writer technical publications tries to ask more questions about vomiting or diarrhea they stay silent. Historical: - Allergies: 09:18 Tetanus Vaccines \\T\\ Toxoid; jh5 - PMHx: 09:18 Alzheimer's disease; Dementia; Diabetes - NIDDM; gastric ulcers; Hypertension; jh5 LYMPHOMA; Prostate Cancer; Stomach CA - in remission; - Immunization history:: Adult Immunizations up to date. - Social history:: Smoking status: Patient denies any tobacco usage or history of. Screenin:22 [facility] ED Fall Risk Assessment (Adult) History of falling in the last 3 months, ko1 including since admission No falls in past 3 months (0 pts) Confusion or Disorientation No (0 pts) Intoxicated or Sedated No (0 pts) Impaired Gait No (0 pts) Mobility Assist Device Used No (0 pt) Altered Elimination No (0 pt). Abuse screen: Denies threats or abuse. Denies injuries from another. Nutritional screening: No deficits noted. Tuberculosis screening: No symptoms or risk factors identified. Fall Risk No fall in past 12 months (0 pts). Assessment: 09:22 General: Appears in no apparent distress. comfortable, Behavior is calm, cooperative, ko1 appropriate for age. Pain: Complains of pain in abdomen. Neuro: No deficits noted. Cardiovascular: No deficits noted. Respiratory: No deficits noted. GI: No deficits noted. Bowel sounds present X 4 quads. Abd is soft and non tender. : No deficits noted. EENT: No deficits noted. Derm: No deficits noted. Musculoskeletal: No deficits noted. 09:59 Reassessment: No changes from previously documented assessment. [facility] Vital Signs: 09:17 Weight 77.11 kg; Height 5 ft. 5 in. (165.10 cm); [facility] 09:20 BP 178 / 65; Pulse 50; Resp 16; Temp 98.7; Pulse Ox 100% ; [facility] 10:42 BP 149 / 78; Pulse 62; Pulse Ox 100% ; ko1 11:28 BP 162 / 83; Pulse 65; Pulse Ox 99% on R/A; ko1 09:17 Body Mass Index 28.29 (77.11 kg, 165.10 cm) [facility] ED Course: 09:10 Patient arrived in ED. as 09:11 Génesis [facility]ilar [facility]-C [facility] 09:11 David Odom DO is Attending Physician. snw 09:18 Triage completed. [facility] 09:18 Arm band placed on right wrist. [facility] 09:21 Rhonda Lepe, KIMBERLEY is Primary Nurse. ko1 09:22 Patient has correct armband on for positive identification. Placed in gown. Bed in low ko1 position. Call light in reach. Side rails up X 1. Adult w/ patient. Pulse ox on. NIBP on. Door closed. Noise minimized. Warm blanket given. 09:22 No provider procedures requiring assistance completed. ko1 09:39 Chest Pa And Lat (2 Views) XRAY In Process Unspecified. EDMS 11:28 Patient did not have IV access during this emergency room visit. ko1 Administered Medications: No medications were administered Medication: 09:22 VIS not applicable for this client. ko1 Outcome: 11:24 Discharge ordered by . fam 11:36 Discharged to home ambulatory, with family. vg1 11:36 Condition: good 11:36 Discharge instructions given to family, Instructed on discharge instructions, follow up and referral plans. Demonstrated understanding of instructions, follow-up care. 11:36 Patient left the ED. vg1 Signatures: Dispatcher [employer] EDGénesis Huerta, MUSIC DEPARTMENT CHAIR-C MUSIC DEPARTMENT CHAIR-Lizett Regalado Victoria, RN RN vg1 Cristine Bautista RN RN jh5 Rhonda Lepe RN RN ko1
--- NOTE | 2022-10-16 11:24 | EDPHYS ---
Physician Documentation [facility] Name: Abhijit Peralta Age: 87 yrs Sex: Male : 1935 Arrival Date: 10/16/2022 Time: 09:10 Bed 5 Private MD: ED Physician David Odom HPI: 10/16 09:29 This 87 yrs old Male presents to ER via Ambulatory with complaints of snw Abdominal Pain. 09:29 The patient presents with abdominal pain in the epigastric area. Onset: The snw symptoms/episode began/occurred 1 month(s) ago, and became persistent. The symptoms do not radiate. Associated signs and symptoms: none. The symptoms are described as steady. Severity of pain: At its worst the pain was mild. The patient has experienced similar episodes in the past, chronically. The patient has been recently seen by a physician: 2 week(s) ago, with similar presenting complaints, lab tests were done, X-rays were performed, CT scan was done, was given a prescription for pain medications, has seen PCP since, is scheduled for CT on Sunday per PCP. Pt is without fall, N/V/D, fever or other s/s. Pt has dementia and does not complain of anything. Spouse does not understand why pt has no diagnosis and has pain.. Historical: - Allergies: 09:18 Tetanus Vaccines \T\ Toxoid; jh5 - PMHx: 09:18 Alzheimer's disease; Dementia; Diabetes - NIDDM; gastric ulcers; Hypertension; jh5 LYMPHOMA; Prostate Cancer; Stomach CA - in remission; - Immunization history:: Adult Immunizations up to date. - Social history:: Smoking status: Patient denies any tobacco usage or history of. ROS: 09:33 Constitutional: Negative for fever, chills, and weight loss, Eyes: Negative for injury, snw pain, redness, and discharge, ENT: Negative for injury, pain, and discharge, Neck: Negative for injury, pain, and swelling, Cardiovascular: Negative for chest pain, palpitations, and edema, Respiratory: Negative for shortness of breath, cough, wheezing, and pleuritic chest pain, Back: Negative for injury and pain, : Negative for injury, bleeding, discharge, and swelling, MS/Extremity: Negative for injury and deformity, Skin: Negative for injury, rash, and discoloration, Neuro: Negative for headache, weakness, numbness, tingling, and seizure, Psych: Negative for depression, anxiety, suicide ideation, homicidal ideation, and hallucinations. 09:33 Abdomen/GI: Positive for abdominal pain. Exam: 09:32 Constitutional: This is a well developed, well nourished patient who is awake, alert, snw and in no acute distress. Head/Face: Normocephalic, atraumatic. Eyes: Pupils equal round and reactive to light, extra-ocular motions intact. Lids and lashes normal. Conjunctiva and sclera are non-icteric and not injected. Cornea within normal limits. Periorbital areas with no swelling, redness, or edema. ENT: Nares patent. No nasal discharge, no septal abnormalities noted. Tympanic membranes are normal and external auditory canals are clear. Oropharynx with no redness, swelling, or masses, exudates, or evidence of obstruction, uvula midline. Mucous membranes moist. Neck: Trachea midline, no thyromegaly or masses palpated, and no cervical lymphadenopathy. Supple, full range of motion without nuchal rigidity, or vertebral point tenderness. No Meningismus. Chest/axilla: Normal chest wall appearance and motion. Nontender with no deformity. No lesions are appreciated. Cardiovascular: Regular rate and rhythm with a normal S1 and S2. No gallops, murmurs, or rubs. Normal PMI, no JVD. No pulse deficits. Respiratory: Lungs have equal breath sounds bilaterally, clear to auscultation and percussion. No rales, rhonchi or wheezes noted. No increased work of breathing, no retractions or nasal flaring. Back: No spinal tenderness. No costovertebral tenderness. Full range of motion. Skin: Warm, dry with normal turgor. Normal color with no rashes, no lesions, and no evidence of cellulitis. MS/ Extremity: Pulses equal, no cyanosis. Neurovascular intact. Full, normal range of motion. Psych: Awake, alert, with orientation to person, place and time. Behavior, mood, and affect are within normal limits. 09:32 Abdomen/GI: Inspection: abdomen appears normal, Bowel sounds: normal, Palpation: mild abdominal tenderness, in the right upper quadrant and left upper quadrant. 09:32 Neuro: Orientation: unable to test, the patient has a history of dementia. Vital Signs: 09:17 Weight 77.11 kg; Height 5 ft. 5 in. (165.10 cm); 5 09:20 BP 178 / 65; Pulse 50; Resp 16; Temp 98.7; Pulse Ox 100% ; jh5 10:42 BP 149 / 78; Pulse 62; Pulse Ox 100% ; ko1 11:28 BP 162 / 83; Pulse 65; Pulse Ox 99% on R/A; ko1 09:17 Body Mass Index 28.29 (77.11 kg, 165.10 cm) 5 MDM: 09:24 Patient medically screened. snw 09:33 Data reviewed: vital signs, nurses notes. Data interpreted: Pulse oximetry: on room air snw is 100 %. Interpretation: normal. Counseling: I had a detailed discussion with the patient and/or guardian regarding: the historical points, exam findings, and any diagnostic results supporting the discharge/admit diagnosis, radiology results. 10/16 09:15 Order name: Chest Pa And Lat (2 Views) XRAY; Complete Time: 10:06 snw Administered Medications: No medications were administered Disposition: 13:42 Co-signature as Attending Physician, David Odom DO I was immediately available on-site ms3 in the Emergency Department for consultation in the care of the patient. Disposition Summary: 10/16/22 11:24 Discharge Ordered Location: Home snw Condition: Stable snw Diagnosis - Abdominal pain, Generalized snw Followup: snw - With: Emergency Department - When: As needed - Reason: Worsening of condition Followup: snw - With: Private Physician - When: 1 week - Reason: Recheck today's complaints, Continuance of care, Re-evaluation by your physician Discharge Instructions: - Discharge Summary Sheet snw - Abdominal Pain, Adult snw Forms: - Medication Reconciliation Form snw - Thank You Letter snw - Antibiotic Education snw - Prescription Opioid Use snw Signatures: Dispatcher [employer] Génesis Schrader FNP-C FNP-Csnw David Odom DO DO ms3 Cristine Bautista, RN RN jh5
[2022-10-16 11:41] VITALS: TEMP 98.7
[2022-10-16 11:43] VITALS: BP 162/83; O2SAT 99
== END 2022-10-16 11:36 | disposition home or self-care (01) ==
LOC: ER 09:08
DX: R10.84 Generalized abdominal pain (principal); G30.9 Alzheimer's disease, unspecified; F02.80 Dementia in other diseases classified elsewhere, unspecified severity, without behavioral disturbance, psychotic disturbance, mood disturbance, and anxiety; I10 Essential (primary) hypertension; Z85.028 Personal history of other malignant neoplasm of stomach; Z88.7 Allergy status to serum and vaccine
CPT/HCPCS: 71046; 99283

== ENCOUNTER 2023-01-14 18:48 | Emergency (ER) | payer OTHER ==
--- OUTSIDE RECORDS SUMMARY | 2023-01-14 18:51 | XMS REPORT | Continuity of Care Document ---
:1935 Author Organization [facility] t Address [address] [facility] [address] [place] [address] Care Team Providers Name Role Phone Asked, No Pcp Primary Care Physician Unavailable Sophie Loredo Attending Clinician Unavailable [email or web address]_Seiter_S Attending Clinician Unavailable Radiology Attending Clinician Unavailable RADIOLOGY Attending Clinician Unavailable Doctor Unassigned, [place] Attending Clinician Unavailable [email or web address]_S Admitting Clinician Unavailable SHRAVAN LINTON Admitting Clinician Unavailable Payers Payer Name Policy Type Policy Number Effective Date Expiration Date S lisseth [employer] (MEDICARE [id number] REPLACEMENT/ADVANTAGE - PPO) Problems Condition Condition Condition Status Onset Resolution Last Treating Co mments Source Name Details Category Date Date Treatment Clinician Date Type 2 Type 2 Disease Active Univers diabetes diabetes 04-16 ity of mellitus mellitus 00:00: [place] without without 00 Medical complicati complicati Br anch on on Atypical Atypical Disease Active Unive rs chest pain chest pain 04-16 it y of 00:00: [place] [id number] Medical Branch Pleural Pleural Disease Active Univers calcificat calcificat 04-16 it y of ion ion 00:00: [address] Branch Diabetes Diabetes Disease Active Unive rs 6-18 ity of 00:00: [address] [id number] Type 2 Problem Common diabetes Spirit mellitus - [facility] with [facility] long-term current use of insulin [id number] Pure Problem Common hyperchole Spirit sterolemia - [facility] [id number] Primary Problem Common hypertensi Spirit on - [facility] Allergies, Adverse Reactions, Alerts Allergy [...] Stop Date Source Natural brother Kidney disease [facility] Natural mother Liver cancer [facility] Social History Social Habit Start Date Stop Date Quantity Comments Source History of Tobacco Common Spirit - [facility] Use [facility] Tobacco use and 2018-05-28 2018-05-28 Never used [facility] [place] exposure 00:00:00 00:00:00 Medical Branch Sex Ass[birth year] At [birth year] [facility] 00:00:00 00:00:00 Smoking Status Start Date Stop Date Source Tobacco smoking consumption [facility] unknown Never Smoker Common Spirit - [facility] Medications Ordered Filled Start Stop Current Ordering [...] as needed for Pain (scale 7-10). lisinopril 0 Yes 10mg QD Take 10 mg M ethodi (PRINIVIL,Z 7-[address] ESTRIL) 10 21:38: daily. Hospi ta MG tablet 39 l pantoprazol 0 Yes 40mg QD Take 40 mg Methodi e 7-[address] (PROTONIX) 21:38: daily. Hospi ta 40 MG EC 39 l tablet glimepiride 2015-0 Yes 2mg Q.5D Take 2 mg M ethodi (AMARYL) 2 7-[address] MG tablet 21:38: (two) Hospita 39 times a l day. lisinopril 0 Yes 10mg QD Take 10 mg M ethodi (PRINIVIL,Z 7-[address] ESTRIL) 10 21:38: daily. Hospi ta MG tablet 39 l pantoprazol 2015-0 Yes 40mg QD Take 40 mg Methodi e 7-[address] (PROTONIX) 21:38: daily. Hospi ta 40 MG EC 39 l tablet glimepiride 2015-0 Yes 2mg Q.5D Take 2 mg M [...] EC 39 l tablet glimepiride 2016-0 Yes 6mg Take 6 mg U nivers (AMARYL) 2 6-19 by mouth ity o f mg tablet 14:14: [place] 22 breakfast. Medical Branch Tramadol 2016-0 Yes Take by Univer s (RYBIX ODT) 6-19 mouth 3 ity o f 50 mg 14:14: (three) [place] tablet 22 times Medical daily as Branch needed. lisinopril 2016-0 Yes 5mg Take 5 mg Un heidi (PRINIVIL,Z 6-19 by mouth 2 it y of ESTRIL) 5 14:14: (two) [place] mg tablet 22 times Medical daily. Branch glimepiride 2016-0 Yes 6mg Take 6 mg U nivers (AMARYL) 2 6-19 by mouth ity o f mg tablet 14:14: [place] with [place] 22 breakfast. Medical Branch Tramadol 2016-0 Yes Take by Univer s (RYBIX ODT) 6-19 mouth 3 ity o f 50 mg 14:14: (three) [place] tablet 22 times Medical daily as Branch needed. lisinopril Yes 5mg Take 5 mg Un heidi (PRINIVIL,Z 6-19 by mouth 2 it y of ESTRIL) 5 14:14: (two) [place] mg tablet 22 times Medical daily. Branch aspirin 81 0 Yes 81mg Take 1 Unive rs mg EC 6-19 tablet by ity of tablet 00:00: mouth 00 daily. Medical Branch aspirin 81 0 [...] HIGH DOSE FLUZONE HIGH DOSE 2022-08-24 Completed [facility] OVER 65 OVER 65 12:21:00 [facility] Vital Signs Vital Name Observation Time Observation Value Comments Source height 2022-08-24 11:00:00 67 [in_i] [facility] weight 2022-08-24 11:00:00 160.8 [lb_av] [facility] temperature 2022-08-24 11:00:00 97.6 [degF] [facility] bmi 2022-08-24 11:00:00 25.18 kg/m2 [facility] oximetry 2022-08-24 11:00:00 96 % [facility] respiratory rate 2022-08-24 11:00:00 17 /min Comm on [facility] blood pressure 2022-08-24 11:00:00 118 mm[Hg] [facility] systolic [facility] blood pressure 2022-08-24 11:00:00 62 mm[Hg] Common [facility] - diastolic [facility] Procedures Procedure Date / Time Performed Performing Clinician Luis Alfredo arguello MR BRAIN WO CONTRAST 2021-11-25 15:15:00 Requisition, Paper [facility] ASSIGNMENT OF BENEFITS 2021-11-25 14:16:45 Doctor Unassigned, No [facility] Encounters Start End Encounter Admission Attending Care Care Encounter Source Date/Time Date/Time Type Type Clinicians Facility Department ID 2022-11-23 Out[facility] [id number] Common 08:38:02 Sophie [id number] [facility] 2022-08-24 Outpatient JOSH Loredo [facility] [id number] Common 10:51:05 Sophie [id number] [facility] 2022-08-24 2022-08-24 OFFICE [facility] [id number] Co mmon 00:00:00 00:00:00 VISIT EDER Bourgeois PT LEVEL 3 - [facility] 2022-02-22 2022-02-22 Outpatient GC_[facility]_Sei PRIV PRIV [id number] [facility] 05:49:00 05:49:00 ter_S [id number] Medica l 2022-02-21 2022-02-21 Outpatient [facility]_Sei PRIV PRIV [id number] [facility] 11:40:00 11:40:00 ter_S [id number] Medica l 2021-11-25 2021-11-25 Hospital Radiology [facility] [id number] Univers 08:16:53 23:59:00 Encounter ESTELLA [id number] ity [facility] [id number] [facility] [id number] [facility] 804 Branch 2021-11-25 2021-11-25 Outpatient R RADIOLOGY [facility] [id number] Univers 08:16:53 23:59:00 ity of [facility] 2021-11-25 2021-11-25 Orders Doctor JADE [id number] Univers 00:00:00 00:00:00 Only Unassigned, SEJAL [id number] [place] [facility] [id number] Noel as [id number] [facility] 009 Branch Results This patient has no known results.
--- NOTE | 2023-01-14 19:13 | RAD REPORT ---
EXAM DESCRIPTION: CT - Ct Stroke Brain Wo Cont - 01/14/2023 7:03 pm CLINICAL HISTORY: STROKE ALERT COMPARISON: Head Brain Wo Cont dated 05/11/2022; Head Brain Wo Cont dated 08/08/2019 TECHNIQUE: Noncontrast head CT images ad were obtained without IV contrast. Multiplanar reformats we re generated and reviewed. All CT scans are performed using dose optimization technique as appropriate and may include automated exposure control or mA/KV adjustment according to patient size. FINDINGS: No intracranial hemorrhage, mass, or edema. Midline structures are unremarkable. Moderate diffuse parenchymal volume loss again noted. Stable ventricular caliber. Hyperdense vessel segment along the left MCA bifurcation and proximal P2 segment, best appreciated on sagittal image 52/74. Murphy-white matter differentiation is preserved, without evidence of acute infa rct. No abnormal extra-axial fluid collections. Mastoid air cells and visualized portions of the paranasal sinuses are clear. No acute bony findings. IMPRESSION: Left MCA bifurcation and proximal P2 hyperdense vessel segment. No other findings to suggest an acute territorial infarct or acute intracranial hemorrhage. Moderate diffuse parenchymal volume loss. The findings were communicated to David since on 01/14/2023 at 19:04 hours.
[2023-01-14] MEDS ORDERED: LORazepam 2 MG/ML VIAL ONE ×2 (19:25→19:38)
[2023-01-14 19:33] LABS: SARS-CoV-2 Antigen Rapid Res Positive (Negative)
[2023-01-14 19:37] LABS: Absolute Lymphocytes (CBC) 1.3 K/uL (0.7-4.9); Hematocrit 39.7 % (39.6-49.0); Lymphocytes % 16.7 % (15.3-44.8); MPV 7.4 fL (7.6-11.3); RBC Red Blood Cell Count 4.57 M/uL (4.33-5.43)
[2023-01-14 19:41] LABS: Protime INR 1.27
[2023-01-14 20:03] LABS: Albumin 2.8 g/dL (3.4-5.0); Bilirubin Direct 0.2 mg/dL (0-0.2); Bilirubin Total 0.5 mg/dL (0.2-1.0); Protein, Total 7.6 g/dL (6.4-8.2)
[2023-01-14 20:04] LABS: Troponin High Sensitivity 126.3 pg/mL (<58.9)
--- NOTE | 2023-01-14 20:37 | RAD REPORT ---
EXAM DESCRIPTION: CT - Head angio - 01/14/2023 8:05 pm CLINICAL HISTORY: MENTAL STATUS CHANGE Right-sided weakness COMPARISON: Ct Stroke Brain Wo Cont dated 01/14/2023; Head Brain Wo Cont dated 05/11/2022; Neck Angio dated 01/14/2023 TECHNIQUE: Axial CT angiography images of the head was performed with multiplanar and maximum intens ity projection reconstructions. Images performed following intravenous administration of 95mL Isovue 370. All CT scans are performed using dose optimization technique as appropriate and may include automated exposure control or mA/KV adjustment according to patient size. 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 Bilateral moderate atherosclerotic calcifica tions along the carotid siphons, with multifocal up to moderate narrowing on the left, most notably a long the proximal left cavernous segment (axial image 54 of the same series). Posterior circulation s tructures are patent No evidence of aneurysm or dissection flap is detected. No flow-limiting stenosi s or vascular malformation identified. Antegrade flow is seen in the vertebral arteries. The vertebral arteries are codominant. The visualized dural venous sinuses are not well opacified. Sequelae of chronic sinusitis within the left maxillary sinus. Evidence of bilateral ocular lens repl acements. IMPRESSION: Left mid M2 segment branch occlusion as above. Up to moderate atherosclerotic changes of the carotid siphons, with multifocal up to moderate narrowi ng on the left. The findings were communicated to Juan Page on 01/14/2023 at 20:30 hours.
[2023-01-14] MEDS ORDERED: NA CHLORIDE 0.9% 500 ML ONE (20:48)
--- NOTE | 2023-01-14 20:49 | RAD REPORT ---
EXAM DESCRIPTION: CT - Neck Angio - 01/14/2023 8:05 pm CLINICAL HISTORY: altered mental status COMPARISON: Head C Spine Mpr Wo Con dated 12/17/2020; Head C Spine Mpr Wo Con dated 06/26/2020; SOFT T ISSUE NECK W CONTRAST dated 12/09/2014 TECHNIQUE: Axial CT angiography images of the head was performed with multiplanar and maximum intens ity projection reconstructions. Images performed following intravenous administration of 95mL Isovue 370. All CT scans are performed using dose optimization technique as appropriate and may include automated exposure control or mA/KV adjustment according to patient size. FINDINGS: A left aortic arch is identified with normal three vessel configuration of the great vesse ls. Dense atherosclerotic calcific plaque in the left carotid bifurcation. Mild narrowing at the level of the bifurcation, not exceeding 50%. The right carotid bifurcation also demonstrates dense plaque without significant stenosis. Predominantly noncalcified plaque along the proximal right ICA, with narrowest luminal diameter measu ring 2.0 millimeter, compared to 3.9 millimeter more distally, to approximately 50% stenosis by NASCE T criteria. The left proximal ICA shows less than 50% stenosis. Bilateral tortuosity of the ICAs, more prominent on the left. The vessels are otherwise patent to the skullbase. Normal flow is seen within both vertebral arteries. Biapical calcified pleural plaque. Moderate degenerative C1-C2 pannus. IMPRESSION: Predominantly noncalcified proximal right ICA atherosclerotic plaque, with degree of radha nosis measuring approximately 50% by NASCET criteria. Mild narrowing of the left carotid bifurcation. The left proximal ICAs patent. Bilateral vertebral arteries are patent.
--- NOTE | 2023-01-14 20:54 | ER ---
Nurse's Notes [facility] Name: Abhijit Peralta Age: 87 yrs Sex: Male : 1935 Arrival Date: 01/14/2023 Time: 18:51 Bed 2 Private MD: Diagnosis: Altered mental status, unspecified;Cerebral infarction, unspecified;Aphasia following cerebral infarction;Weakness-right arm and right leg Presentation: 01/14 18:51 Chief complaint: Spouse and/or significant other states: Pt unable to speak with right jl7 sided weakness, last known normal 1330. 18:51 Method Of Arrival: Wheelchair 7 18:51 Coronavirus screen: At this time, the client does not indicate any symptoms associated jl7 with coronavirus-19. Ebola Screen: No symptoms or risks identified at this time. An acute neurological deficit is present. The charge nurse has been notified. The patient has been moved to a treatment area. Pre-hospital glucose is not applicable to this patient. Initial Sepsis Screen: Does the patient meet any 2 criteria? No. Patient's initial sepsis screen is negative. Does the patient have a suspected source of infection? No. Patient's initial sepsis screen is negative. Risk Assessment: Do you want to hurt yourself or someone else? Patient reports no desire to harm self or others. Onset of symptoms was January 14, 2023 at 13:30. Care prior to arrival: None. 18:51 Acuity: RAVI 2 jl7 Triage Assessment: 19:07 The onset of the patients symptoms was January 14, 2023 at 13:30. jl7 Historical: - Allergies: 19:07 Tetanus Vaccines \T\ Toxoid; jl7 - PMHx: 19:07 Alzheimer's disease; Dementia; Diabetes - NIDDM; gastric ulcers; Hypertension; jl7 LYMPHOMA; Prostate Cancer; Stomach CA - in remission; - Immunization history:: Adult Immunizations unknown. - Social history:: Smoking status: unknown. Screenin:00 [facility] ED Fall Risk Assessment (Adult) History of falling in the last 3 months, pf1 including since admission Yes- physiologic fall (2 pts) Confusion or Disorientation Yes (5 pts) Intoxicated or Sedated No (0 pts) Impaired Gait Yes (1 pt) Mobility Assist Device Used Yes (1 pt) Altered Elimination Yes (1 pt) Score/Fall Risk Level 3 or more points = High Risk Oriented to surroundings, Maintained a safe environment, Educated pt \T\ family on fall prevention, incl call for assistance when getting out of bed, Assessed \T\ reinforced patient's understanding of fall precautions, Provided non-skid footwear, Hourly rounding (assess needs \T\ fall precautionary measures) done, Used ambulatory aids as needed (educated on \T\ assisted with), Used gait belt as appropriate Implemented a Fall Risk Plan of Care, Apply high fall risk patient identification: yellow non skid footwear/ fall signage, Remained w/in arm's length of patient and in sight while toileting, Offered frequent toileting (1:1 observation), Remained with patient while ambulating, Utilized family, sitter, or virtual mobile home mechanic as indicated. Abuse screen: Denies threats or abuse. Nutritional screening: No deficits noted. Tuberculosis screening: No symptoms or risk factors identified. Assessment: 18:51 VAN Scoring: Arm Drift: Flaccid/no antigravity Aphasia: Patient exhibits both jl7 expressive and receptive aphasia. Provider notified of +VAN scoring. 19:00 General: Appears in no apparent distress. Behavior is restless, uncooperative. pf1 19:00 Pain: Unable to use pain scale. Patient is disoriented. Neuro: Level of Consciousness pf1 is awake, Oriented to confused due to dementia. Neuro: Reports stated patient fell a couple of times today prior to 1300 before worsening confusion started. Cardiovascular: Capillary refill < 3 seconds Patient's skin is warm and dry. Respiratory: No deficits noted. Airway is patent Trachea midline Respiratory effort is even, unlabored, Respiratory pattern is regular, symmetrical, Breath sounds are clear bilaterally. GI: No deficits noted. No signs and/or symptoms were reported involving the gastrointestinal system. : No deficits noted. No signs and/or symptoms were reported regarding the genitourinary system. EENT: No deficits noted. No signs and/or symptoms were reported regarding the EENT system. EENT: No deficits noted. No signs and/or symptoms were reported regarding the EENT system. Derm: abrasion noted to right posterior forearm. Musculoskeletal: Parent/caregiver report the patient having patient fell a couple of times today. 19:00 VAN Scoring: Aphasia: Patient exhibits both expressive and receptive aphasia. Provider pf1 notified of +VAN scoring. 20:00 Reassessment: Patient appears in no apparent distress at this time. No changes from pf1 previously documented assessment. Patient states symptoms have not improved. 21:00 Reassessment: Patient appears in no apparent distress at this time. No changes from pf1 previously documented assessment. Patient and/or family updated on plan of care and expected duration. Pain level reassessed. Patient states symptoms have not improved. Vital Signs: 19:00 BP 136 / 70; Pulse 67; Resp 16; Pulse Ox 100% on R/A; pf1 20:00 BP 128 / 103; Pulse 69; Resp 18; Pulse Ox 98% on R/A; pf1 20:45 BP 169 / 73; Pulse 69; Resp 17; Pulse Ox 100% on R/A; jb4 21:00 BP 148 / 68; Pulse 63; Resp 16; Pulse Ox 100% on R/A; pf1 21:15 BP 169 / 73; Pulse 69; Resp 18; Temp 97.7(TE); Pulse Ox 100% on R/A; pf1 NIH Stroke Scale Scores: 19:00 NIHSS Score: 13 cp ED Course: 18:51 Patient arrived in ED. jl7 18:57 Juan Akins PA is PHCP. cp 18:57 Pablo Daly MD is Attending Physician. cp 19:00 Patient has correct armband on for positive identification. Placed in gown. Bed in low pf1 position. Call light in reach. Side rails up X2. Adult w/ patient. 19:05 CT Stroke Brain w/o Contrast In Process Unspecified. EDMS 19:05 Inserted saline lock: 22 gauge in right forearm, using aseptic technique. hb 19:07 Triage completed. jl7 19:07 Arm band placed on right wrist. Patient placed in an exam room, on a stretcher, on jl7 rn cardiac, on pulse oximetry. 19:30 Stroke CXR 1 View In Process Unspecified. EDMS 20:07 CT Head Angio In Process Unspecified. EDMS 20:07 CT Neck Angio In Process Unspecified. EDMS 21:29 No provider procedures requiring assistance completed. Patient transferred, IV remains pf1 in place. Administered Medications: 19:22 Drug: Ativan IVP 0.5 mg Route: IVP; Site: right forearm; jb4 20:30 Follow up: Response: No adverse reaction; Marked relief of symptoms; Anxiety decreased pf1 19:42 Drug: Ativan IVP 0.5 mg {Note: Administered by KIMBERLEY Briones.} Route: IVP; Site: right jb4 forearm; 20:30 Follow up: Response: No adverse reaction; Marked relief of symptoms; Anxiety decreased pf1 21:06 Drug: NS 0.9% IV 500 ml Route: IV; Rate: 75 ml/hr; Site: right forearm; pf1 21:13 Follow up: IV Status: Infusion continued upon transfer; IV Intake: 50ml pf1 21:16 Drug: foLIC Acid IVPB 1 mg Route: IVPB; Site: right forearm; jb4 21:19 Follow up: Response: No adverse reaction; IV Status: Completed infusion jb4 Medication: 18:51 VIS not applicable for this client. jl7 Intake: 21:13 IV: 50ml; Total: 50ml. pf1 Outcome: 20:54 ER care complete, transfer ordered by . cp 21:27 Transferred by helicopter to [facility], Transfer form completed. pf1 X-rays sent w/ patient. 21:27 Transferred Note: Patient report given to KIMBERLEY Harrison at [facility] and report given to KIMBERLEY Kaiser with [facility] 21:27 Condition: stable 21:27 Instructed on the need for transfer, Demonstrated understanding of instructions, to family 21:33 Patient left the ED. pf1 NIH Stroke Scale - NIH Stroke Score Date: 01/14/2023 Time: 19:00 Total Score = 13 10. Dysarthria (speech clarity - read or repeat words) - 0(Normal) 11. Extinction and Inattention (visual/tactile/auditory/spatial/personal) - 0(No abnormality) 1a. Level of Consciousness (LOC) - 0(Alert) 1b. Level of Consciousness (LOC) (Month \T\ Age) - 2(Neither) 1c. LOC Commands (Open \T\ Closes Eyes/Welt Maker) - 2(Neither) 2. Best Gaze (Lateral Gaze Paresis) - 0(Normal) 3. Visual Field Loss - 0(No visual loss) 4. Facial Palsy - 1(Minor Paralysis) 5a. Left Arm: Motor (10-second hold) - 0(No drift) 5b. Right Arm: Motor (10-second hold) - 1(Drift) 6a. Left Leg: Motor (5-second hold - always test supine) - 0(No drift) 6b. Right Leg: Motor (5-second hold - always test supine) - 2(Drift, some effort against gravity) 7. Limb Ataxia (finger/nose \T\ heel/deng - test with eyes open) - 2(Present in two limbs) 8. Sensory Loss (pinprick arms/legs/face) - 0(Normal) 9. Best Language: Aphasia (description/naming/reading) - 3(Mute, global aphasia) Initials: cp Signatures: Dispatcher [employer] EDMS Juan Akins PA PA cp Leda Courtney RN RN hb Tu Spain RN RN jb4 Felipa Ga RN RN jl7 Luann saldana RN RN pf1 Corrections: (The following items were deleted from the chart) 21:20 21:19 foLIC Acid IVPB 1 mg IVPB in right forearm jb4 jb4
--- NOTE | 2023-01-14 20:55 | RAD REPORT ---
[facility]28 [facility] CLINICAL HISTORY: S /S OF STROKE COMPARISON: Chest Pa And Lat (2 Views) dated 10/16/2022; Chest Single View dated 09/28/2022; Chest Si ngle View dated 05/12/2022; Chest Single View dated 05/11/2022 TECHNIQUE: Portable AP view of the chest. FINDINGS: Extensive calcific pleural plaque, and bilateral costophrenic angle blunting, which may re flect pleural thickening or trace effusions. Appearance is stable. The lungs are clear. No pneumothor ax or effusion. The heart is again mildly enlarged. Mediastinal contours are unchanged. IMPRESSION: No acute pulmonary process. Stable findings as above.
--- NOTE | 2023-01-14 20:55 | EDPHYS ---
Physician Documentation [facility] Name: Abhijit Peralta Age: 87 yrs Sex: Male : 1935 Arrival Date: 01/14/2023 Time: 18:51 Bed 2 Private MD: ED Physician Pablo Daly HPI: 01/14 18:55 This 87 yrs old Male presents to ER via Wheelchair with complaints of S/S of cp Possible Stroke. 18:55 The patient's problem is reported as weakness, in the right upper extremity, in the cp right lower extremity, fall from standing. Onset: The symptoms/episode began/occurred about 1330 to 1400 today fall occurred while near restroom, needed assistance to stand. reports family member observed patient to have right side facial droop, right arm and right leg were weak and patient has not been verbal. Duration: The episode is continuous. Associated signs and symptoms: Pertinent positives: weakness, Pertinent negatives: abdominal pain, chest pain, diarrhea, headache, vomiting. Patient's baseline: Neuro: alert but confused, Motor: no deficits, Ambulation: walks without assistance, Speech: normal, The patient has a previous history of Alzheimer's/Dementia. Historical: - Allergies: 19:07 Tetanus Vaccines \T\ Toxoid; jl7 - PMHx: 19:07 Alzheimer's disease; Dementia; Diabetes - NIDDM; gastric ulcers; Hypertension; jl7 LYMPHOMA; Prostate Cancer; Stomach CA - in remission; - Immunization history:: Adult Immunizations unknown. - Social history:: Smoking status: unknown. ROS: 18:58 Constitutional: Negative for fever, poor PO intake. cp 18:58 Cardiovascular: Negative for chest pain. cp 18:58 Respiratory: Negative for cough. 18:58 Abdomen/GI: Negative for vomiting, diarrhea. 18:58 Neuro: Positive for altered mental status, right arm and right leg weakness. 19:00 Unable to obtain ROS due to altered mental status, baseline dementia. cp Exam: 19:00 Constitutional: The patient appears in no acute distress, alert, awake, cp non-diaphoretic, non-toxic, well developed, well nourished. 19:00 Head/face: Noted is mild right side lower lip droop. cp 19:00 Eyes: Periorbital structures: appear normal, Pupils: equal, round, and reactive to light and accomodation, Conjunctiva: normal, Sclera: no appreciated abnormality, Lids and lashes: appear normal, bilaterally. 19:00 ENT: External ear(s): are unremarkable, Nose: is normal, Mouth: Lips: moist, Oral mucosa: pink and intact, moist, Posterior pharynx: Airway: no evidence of obstruction, patent. 19:00 Neck: C-spine: vertebral tenderness, is not appreciated, crepitus, is not appreciated, ROM/movement: is normal, is supple, without pain, no range of motions limitations, no meningismus. 19:00 Chest/axilla: Inspection: normal, Palpation: is normal, no crepitus, no tenderness. 19:00 Respiratory: the patient does not display signs of respiratory distress, Respirations: normal, no use of accessory muscles, no retractions, Breath sounds: are clear throughout, no decreased breath sounds, no stridor, no wheezing. 19:00 Abdomen/GI: Inspection: abdomen appears normal, Palpation: abdomen is soft and non-tender, in all quadrants. 19:00 Neuro: Orientation: Not oriented to person, place, situation, Mentation: confused, Motor: moves all fours, Sensation: unable to test, the patient has a history of dementia. Vital Signs: 19:00 BP 136 / 70; Pulse 67; Resp 16; Pulse Ox 100% on R/A; pf1 20:00 BP 128 / 103; Pulse 69; Resp 18; Pulse Ox 98% on R/A; pf1 20:45 BP 169 / 73; Pulse 69; Resp 17; Pulse Ox 100% on R/A; jb4 21:00 BP 148 / 68; Pulse 63; Resp 16; Pulse Ox 100% on R/A; pf1 21:15 BP 169 / 73; Pulse 69; Resp 18; Temp 97.7(TE); Pulse Ox 100% on R/A; pf1 NIH Stroke Scale Scores: 19:00 NIHSS Score: 13 cp MDM: 19:00 Differential diagnosis: CVA, TIA, Dementia, metabolic disorder, drug effects, sepsis, cp acute VA. 19:06 Patient medically screened. cp 20:35 ED course: transfer initiated at 2033. cp 20:39 ED course: transfer center called back and unable to consult with neurologist at this cp time. 21:05 Data reviewed: vital signs, nurses notes, lab test result(s), EKG, radiologic studies, cp CT scan, plain films. 21:05 Historians other than the Patient: Spouse/Significant Other: provides HPI. Care cp significantly affected by the following chronic conditions: Diabetes, Alzheimer's, Dementia. ED course: consult with DR Kellogg \T\2057, neurologist \T\[facility], will accept patient as transfer. 01/14 18:54 Order name: Basic Metabolic Panel; Complete Time: 20:35 kj1 01/14 20:35 Interpretation: Normal except: GLUC 215; BUN 29; CRE 1.95; GFR 33; CA 8.3. 01/14 18:54 Order name: CBC with Diff; Complete Time: 20:35 kj1 01/14 20:36 Interpretation: Normal except: HGB 13.1; RDW 16.1; MPV 7.4. 01/14 18:54 Order name: High Sensitivity Troponin; Complete Time: 20:35 kj1 01/14 20:36 Interpretation: Abnormal: Troponin HS 126.3. 01/14 18:54 Order name: Protime (+inr); Complete Time: 20:35 kj1 01/14 18:54 Order name: Ptt, Activated; Complete Time: 20:35 kj1 01/14 18:56 Order name: SARS RAPID; Complete Time: 19:37 la1 01/14 20:59 Interpretation: Reviewed. 01/14 18:56 Order name: LFT's; Complete Time: 20:35 la1 01/14 19:08 Order name: Urine Microscopic Only 01/14 19:15 Order name: Glucose, Ancillary Testing; Complete Time: 19:37 EDMS 01/14 20:19 Order name: Urine Drug Screen as6 01/14 21:12 Order name: Urine Dipstick-Ancillary EDMS 01/14 18:54 Order name: CT Stroke Brain w/o Contrast; Complete Time: 19:37 kj1 01/14 18:54 Order name: Stroke CXR 1 View; Complete Time: 20:57 kj1 01/14 21:04 Interpretation: Report review. 01/14 19:08 Order name: CT Head Angio; Complete Time: 20:43 cp 01/14 19:08 Order name: CT Neck Angio; Complete Time: 20:57 cp 01/14 18:54 Order name: EKG; Complete Time: 18:55 kj1 01/14 18:54 Order name: Accucheck; Complete Time: 19:27 kj1 01/14 18:54 Order name: Cardiac monitoring; Complete Time: 20:41 kj1 01/14 18:54 Order name: EKG - Nurse/Tech; Complete Time: 21:33 kj1 01/14 18:54 Order name: IV Saline Lock; Complete Time: 20:41 kj1 01/14 18:54 Order name: Labs collected and sent; Complete Time: 20:41 kj1 01/14 18:54 Order name: NPO; Complete Time: 19:27 kj1 01/14 18:54 Order name: O2 Per Protocol; Complete Time: 19:27 kj1 01/14 18:54 Order name: O2 Sat Monitoring; Complete Time: 19:27 kj1 Administered Medications: 19:22 Drug: Ativan IVP 0.5 mg Route: IVP; Site: right forearm; jb4 20:30 Follow up: Response: No adverse reaction; Marked relief of symptoms; Anxiety decreased pf1 19:42 Drug: Ativan IVP 0.5 mg {Note: Administered by Anali, RN.} Route: IVP; Site: right jb4 forearm; 20:30 Follow up: Response: No adverse reaction; Marked relief of symptoms; Anxiety decreased pf1 21:06 Drug: NS 0.9% IV 500 ml Route: IV; Rate: 75 ml/hr; Site: right forearm; pf1 21:13 Follow up: IV Status: Infusion continued upon transfer; IV Intake: 50ml pf1 21:16 Drug: foLIC Acid IVPB 1 mg Route: IVPB; Site: right forearm; jb4 21:19 Follow up: Response: No adverse reaction; IV Status: Completed infusion jb4 Disposition: 19:19 Co-signature as Attending Physician, David ROSALES/SHANK SCOURER's history reviewed, patient ms3 interviewed, and examined. HPI: 87 yo male with pmh of dementia, DM, gastric ulcers presents with neuro deficits that began at 1330 that were noted after falling in the bathroom. Family states patient has had 2 falls today. My personal exam of patient reveals: On exam patient is alert, in no apparent distress, nontoxic-appearing. Heart rate is regular, without murmurs rubs or gallops. Abdomen nontender palpation bowel sounds present. Neuro exam: Patient is aphasic, moves all extremities, moves all extremities, no appreciative neglect. 22:00 Chart complete. cp 01/15 03:48 Co-signature as Attending Physician, David Odom DO. ms3 Disposition Summary: 01/14/23 20:54 Transfer Ordered Transfer Location: [facility] cp Reason: Higher level of care cp Condition: Stable cp Problem: new cp Symptoms: are unchanged cp Accepting Physician: DR Kellogg(01/14/23 21:33) pf1 Diagnosis - Altered mental status, unspecified cp - Cerebral infarction, unspecified cp - Aphasia following cerebral infarction cp - Weakness - right arm and right leg cp Forms: - Medication Reconciliation Form cp - SBAR form cp Critical care time excluding procedures: 01/14 22:00 Critical care time: Bedside Care: 12 minutes, Consultation: 20 minutes, Family cp Intervention: 7 minutes. Total time: 39 minutes NIH Stroke Scale - NIH Stroke Score Date: 01/14/2023 Time: 19:00 Total Score = 13 10. Dysarthria (speech clarity - read or repeat words) - 0(Normal) 11. Extinction and Inattention (visual/tactile/auditory/spatial/personal) - 0(No abnormality) 1a. Level of Consciousness (LOC) - 0(Alert) 1b. Level of Consciousness (LOC) (Month \T\ Age) - 2(Neither) 1c. LOC Commands (Open \T\ Closes Eyes/[employer] Solution Architect) - 2(Neither) 2. Best Gaze (Lateral Gaze Paresis) - 0(Normal) 3. Visual Field Loss - 0(No visual loss) 4. Facial Palsy - 1(Minor Paralysis) 5a. Left Arm: Motor (10-second hold) - 0(No drift) 5b. Right Arm: Motor (10-second hold) - 1(Drift) 6a. Left Leg: Motor (5-second hold - always test supine) - 0(No drift) 6b. Right Leg: Motor (5-second hold - always test supine) - 2(Drift, some effort against gravity) 7. Limb Ataxia (finger/nose \T\ heel/deng - test with eyes open) - 2(Present in two limbs) 8. Sensory Loss (pinprick arms/legs/face) - 0(Normal) 9. Best Language: Aphasia (description/naming/reading) - 3(Mute, global aphasia) Initials: cp Signatures: Dispatcher [employer] EDShayan Field, OCEAN EXPORT ACCOUNT MANAGER-C OCEAN EXPORT ACCOUNT MANAGER-Cla1 Juan Akins PA PA cp Bryson, James, RN RN jb4 Felipa Ga RN RN jl7 Naz Gannon kj1 David Odom DO DO ms3 Luann saldana RN RN pf1 Corrections: (The following items were deleted from the chart) 21:06 20:54 Doctor cp cp 21:06 21:06 DR Kellogg cp cp 21:33 21:06 DR Kellogg cp pf1
[2023-01-14 21:11] LABS: Urine Blood Trace-intact (Negative); Urine Glucose Negative (Negative); Urine Protein 3+ (Negative)
[2023-01-14] MEDS ORDERED: FOLIC ACID 5 MG/ML VIAL ONE (21:21)
[2023-01-14 21:38] LABS: Barbiturates NEGATIVE (NEGATIVE); Benzodiazepines NEGATIVE (NEGATIVE); Cocaine NEGATIVE (NEGATIVE); METHAMPHETAM NEGATIVE (NEGATIVE); Methadone NEGATIVE (NEGATIVE); Opiates NEGATIVE (NEGATIVE); Phencyclidine NEGATIVE (NEGATIVE); THC Cannibis NEGATIVE (NEGATIVE)
[2023-01-14 21:39] LABS: Urine Bacteria None Seen /HPF (<20); Urine Mucus Slight /HPF (None Seen); Urine RBC <5 /HPF (None Seen)
[2023-01-15 05:19] VITALS: BP 136/70; O2SAT 100
--- NOTE | 2023-01-17 17:29 | EKG ---
Test Date: 2023-01-14 Test Time: 20:50:10 Library Monitor: REGAN MEASUREMENT RESULTS: Intervals: Rate: 68 SC: QRSD: 94 QT: 420 QTc: 446 [place]: P: SC: QRS: -31 T: 141 INTERPRETIVE STATEMENTS: Atrial fibrillation Left axis deviation Septal infarct, age undetermined Abnormal ECG Compared to ECG 09/28/2022 08:10:30 Left-axis deviation now present Myocardial infarct finding still present Electronically Signed On 01-17-23 17:23:34 CDT by Jayy Xie
--- NOTE | 2023-01-17 17:29 | EKG ---
Test Date: 2023-01-14 Test Time: 20:50:42 Cook Helper: REGAN MEASUREMENT RESULTS: Intervals: Rate: 64 RI: QRSD: 100 QT: 434 QTc: 447 [place]: P: RI: QRS: -33 T: 219 INTERPRETIVE STATEMENTS: Atrial fibrillation Left axis deviation Anteroseptal infarct, age undetermined ST & T wave abnormality, consider inferior ischemia or digitalis effect Abnormal ECG Compared to ECG 01/14/2023 20:50:10 ST (T wave) deviation now present Possible ischemia now present Myocardial infarct finding still present Electronically Signed On 01-17-23 17:23:31 CDT by Jayy Xie
== END 2023-01-14 21:33 | disposition short-term general hospital (02) ==
LOC: ER 18:48
DX: I63.9 Cerebral infarction, unspecified (principal); I10 Essential (primary) hypertension; R29.713 NIHSS score 13; U07.1 COVID-19; R47.01 Aphasia; R53.1 Weakness; G30.9 Alzheimer's disease, unspecified; F02.80 Dementia in other diseases classified elsewhere, unspecified severity, without behavioral disturbance, psychotic disturbance, mood disturbance, and anxiety; Z85.46 Personal history of malignant neoplasm of prostate; Z85.028 Personal history of other malignant neoplasm of stomach
CPT/HCPCS: 93005; 85025; 80048; 36415; 85610; 82947; 80076; 85730; 84484; 80307; 70496; 70498; 70450; 71045; 96375; 96374; 99285; 87811; Q9967; J7040; 81003; 81015